=== PATIENT | male | born 1945 | race Caucasian/White ===

== ENCOUNTER → 2018-12-22 13:51 | Outpatient (CLI) | payer MEDICARE, SELFPAY ==
--- NOTE | 2018-12-22 13:54 | CT_ITS ---
CT sinus wo con CLINICAL INDICATION: ITS.REASON: chronic congestion/nasal drainage ORDERING PHYSICIAN: Rocio Montes MD PATIENT AGE: 73 years COMPARISON: None TECHNIQUE:Axial images obtained with sagittal and coronal reformats. All CT scans at the facility use one or more dose reduction, viz: automated exposure control, ma/kV adjustment per patient size (including targeted exams where dose is matched to indication, i.e. head), or iterative reconstruction technique. FINDINGS: There is mild mucosal thickening of the ethmoid sinuses. The frontal sinuses have an unremarkable appearance. There are very small air-fluid levels within the maxillary and sphenoid sinus with no significant mucosal thickening of the sinuses. The ostiomeatal units are patent. There is mild leftward nasal septal deviation with a moderate size septal spur which projects toward the left and may be causing some nasal canal narrowing. The mastoid sinuses are unremarkable. The right middle ear has an unremarkable appearance. There is thickening of the left tympanic membrane. No fluid evident within the left middle ear. The globes have an unremarkable appearance. IMPRESSION: 1. There is minimal ethmoid sinus mucosal thickening and there are tiny air-fluid levels within the maxillary sinuses and sphenoid sinus without significant mucosal thickening. 2. Thickened left tympanic membrane 3. Leftward nasal septal deviation with prominent nasal spur projecting toward the left
== END ==
PROVIDERS: PCP Family Medicine; Visit Provider Specialist
DX: G47.33 Obstructive sleep apnea (adult) (pediatric) (principal); J30.0 Vasomotor rhinitis; J34.89 Other specified disorders of nose and nasal sinuses
CPT/HCPCS: 70486

== ENCOUNTER → 2020-04-28 14:20 | Outpatient (CLI) | payer MEDICARE, SELFPAY ==
[2020-04-28 16:19] LABS: Coronavirus 19 IgG Antibody Negative (Negative); Coronavirus 19 IgM Antibody Negative (Negative)
== END ==
PROVIDERS: Visit Provider Nurse Practitioner Family
DX: Z03.818 Encounter for observation for suspected exposure to other biological agents ruled out (principal)
CPT/HCPCS: 36415; 86328

== ENCOUNTER → 2020-04-29 20:00 | Outpatient (CLI) | payer MEDICARE, SELFPAY | PROVIDERS: PCP Family Medicine; Visit Provider Nurse Practitioner Family | DX: G47.33 Obstructive sleep apnea (adult) (pediatric) (principal) | CPT/HCPCS: 95811 ==

== ENCOUNTER 2023-06-21 06:43 | Day surgery (SDC) | payer MEDICARE, SELFPAY ==
[2023-06-17 11:48] VITALS: BMI 27.2
[2023-06-21] VITALS (8 sets, daily range): BP systolic 141–197; BP diastolic 68–81; PULSE 71–77; RESP 17–19; TEMP 36.3–36.7; O2SAT 98–100
== END 2023-06-21 08:58 | disposition home or self-care (01) ==
PROVIDERS: PCP Family Medicine; Visit Provider Ophthalmology
PROC: (CPT 66984; principal; 2023-06-21 08:00)
DX: H25.812 Combined forms of age-related cataract, left eye (principal)
CPT/HCPCS: 66984; V2632

== ENCOUNTER 2023-07-19 06:39 | Day surgery (SDC) | payer MEDICARE, SELFPAY ==
[2023-07-19] VITALS (7 sets, daily range): BP systolic 124–145; BP diastolic 55–72; PULSE 71–76; RESP 16–18; TEMP 36.4; O2SAT 97–100; BMI 30.1
[2023-07-19] MEDS: CYCLOPENTOLATE 2% OPHTH SOLN 2ML BOTTLE OP ×3 (06:53→06:54)
[2023-07-19] MEDS: TETRACAINE 0.5% OPTH SOL 15ML OP ×3 (06:53→06:54)
[2023-07-19] MEDS: PHENYLEPHRINE 2.5% OPHTH SOLN 2ML 0.0500000000000000028 ML OP ×3 (06:53→06:54)
[2023-07-19] MEDS: MIDAZOLAM 2MG/2ML VIAL 1 MG IV (08:17)
[2023-07-19] MEDS: SODIUM CHLORIDE 0.9% 10ML FLUSH SYRINGE 10 ML IV (08:17)
[2023-07-19] MEDS: LIDOCAINE 1% PF 2ML AMPULE 2 ML IJ (08:25)
[2023-07-19] MEDS: TIMOLOL 0.5% OPTH SOLN 5ML OP (08:25)
[2023-07-19] MEDS: TOBRAMYCIN/DEX OPTH SUSP 2.5ML OP (08:25)
== END 2023-07-19 08:54 | disposition home or self-care (01) ==
PROVIDERS: PCP Family Medicine; Visit Provider Ophthalmology
PROC: (CPT 66984; principal; 2023-07-19 08:00)
DX: H25.811 Combined forms of age-related cataract, right eye (principal)
CPT/HCPCS: 66984; V2632

== ENCOUNTER 2024-01-07 16:14 | Observation (INO) | payer MEDICARE, SELFPAY ==
[2024-01-07] VITALS (7 sets, daily range): BP systolic 92–151; BP diastolic 37–85; PULSE 67–85; RESP 16–20; TEMP 36.4–36.7; O2SAT 94–99; BMI 28.7; BMI 27.8
--- NOTE | 2024-01-07 16:13 | PC.NURSE ---
staff at [facility]
--- NOTE | 2024-01-07 16:20 | ECG_ITS ---
APPROVED REPORT Exam: Resting ECG HR:70 bpm ECG Measurements Heart Rate 70 AXES IA 195 P 62 QRSd 91 QRS 1 QT 405 T 51 QTc 427 Conclusion SINUS RHYTHM Electronically signed by : DALE ALDRICH, 01/09/2024 15:01:39
--- NOTE | 2024-01-07 16:33 | HMH.EDGENADL ---
Discharge Plan Disposition Patient Disposition: Admitted Clinical Impressions Clinical Impression: New onset of congestive heart failure, Syncope Discharge ED Provider: Lionel Graf General Adult HPI General Chief complaint: Syncope Stated complaint: SYNCOPE Time Seen by Provider: 01/07/24 16:29 Mode of Arrival: EMS Source of Information: Patient, Relative and EMS Limitations: No Limitations Description of Symptoms (Recalled from ER Triage Doc. by RN): pt went outside to warm up after jaylene cold in the house and was sitting on deck and family witnessed him passing out /syncope episode, pt came to per Ems ananswered all questions however was hypotensive with 80/40, pt has hx of hypertension,. pt was NSR adn fbs was 128 per ems. pt complains of fatigue and no pain anywhere, denies any soa or chest pain History of Present Illness HPI narrative: Please note that above description of symptoms, in this electronic medical record under categorization of recalled from ER triage doctor by RN are reflective of an initial nursing assessment, however, is not reflective of my full history and physical exam that was personally taken and clarified. Consequentially, this preceding description of symptoms, which may include the patient's categorized chief complaint in the EMR, do not reflect my personal clinical impression, and the ultimate description of history of present illness and patient stated complaints should be deferred to this section of the note. Unless stated otherwise or congruent with this section of the note, additional signs, symptoms, or incongruence should be interpreted as inaccurate with my clinical impression. Related Data Home Medications Medication Instructions Recorded Confirmed atorvastatin 40 mg tablet 40 mg PO QHS 01/14/20 06/21/23 loratadine 10 mg tablet 10 mg PO DAILY 01/14/20 06/21/23 losartan 25 mg tablet 25 mg PO DAILY 01/14/20 06/21/23 metoprolol succinate 50 mg 50 mg PO DAILY 09/24/20 06/21/23 tablet,extended release 24 hr levothyroxine 25 mcg tablet 25 mcg PO DAILY 07/19/23 07/19/23 Previous Rx's Medication Instructions Recorded ipratropium bromide 21 mcg (0.03 2 spray intranasal TID PRN 05/21/ %) nasal spray rhinorrhea #30 mL cyproheptadine 4 mg tablet 4 mg PO BID #60 tabs 09/24/20 Allergies Allergy/AdvReac Type Severity Reaction Status Date / Time No Known Allergies Allergy Verified 07/19/23 06:57 [facility] Disclaimer: The information contained in this section may have been updated after the patient was seen, as this information can be updated by other users. Medical History (Updated 01/07/24 @ 18:15 by Lionel Graf MD) History of hyperlipidemia History of hypertension Surgical History No significant past surgical history Family History Other No significant family history Social History Smoking Status: Never smoker alcohol intake: current alcohol intake frequency: 3 or more drinks per day substance use type: denies use current occupational status: retired Travel in the last 8 weeks: None household members: spouse housing: house ROS Obtained: Yes All systems reviewed & no additional complaints except as documented Physical Exam General General appearance: alert and in no apparent distress Head Head exam: atraumatic and normocephalic Eye Eye exam: Present normal appearance, PERRL and EOMI ENT ENT exam: Present mucous membranes moist Neck Neck exam: Present normal inspection, full ROM and trachea midline Respiratory Respiratory exam: Absent respiratory distress, wheezes, stridor, accessory muscle use or prolonged expiratory phase Cardiovascular Cardiovascular exam: Present normal rhythm Abdominal Exam Abdominal exam: Present soft; Absent distention, tenderness, guarding, rebound or rigidity Extremities Exam Extremities exam: Absent edema Neurological Exam Neurological exam: Present alert, oriented X3, CN II-XII intact and normal gait; Absent motor sensory deficit Skin Skin exam: Present warm and dry; Absent diaphoresis or erythema Medical Decision Making Medical Records Medical records reviewed: Yes I reviewed the patient's medical records. Chun Inquiry Pt receiving controlled substance: No Chun was queried for this patient: No Vital Signs: 01/07/24 16:14 01/07/24 16:15 01/07/24 16:30 Temperature 98.1 F Temperature Source Oral Pulse Rate 67 71 Pulse Rate [Right Radial] 71 Respiratory Rate 20 Blood Pressure 92/37 L 102/48 L Blood Pressure [Right Arm] 92/37 L Blood Pressure Mean [Right Arm] 55 02 Sat by Pulse Oximetry 94 L 98 95 Oxygen Delivery Method Room Air Room Air Room Air 01/07/24 17:00 Temperature Temperature Source Pulse Rate 71 Pulse Rate [Right Radial] Respiratory Rate 16 Blood Pressure 115/58 L Blood Pressure [Right Arm] Blood Pressure Mean [Right Arm] 02 Sat by Pulse Oximetry 99 Oxygen Delivery Method Room Air Lab Data Lab Results 01/07/24 16:30: WBC 4.2 L, RBC 3.28 L, Hgb 10.7 L, Hct 32.2 L, MCV 98.0 H, MCH 32.7 H, MCHC 33.3, RDW 15.1, Plt Count 157, MPV 8.7, Neut % (Auto) 45.1, Lymph % (Auto) 36.4, [place] % (Auto) 7.3, Eos % (Auto) 10.0, Baso % (Auto) 1.2, Neut # (Auto) 1.9, Lymph # (Auto) 1.5, [place] # (Auto) 0.3, Eos # (Auto) 0.4, Baso # (Auto) 0.1, Sodium 131 L, Potassium 4.1, Chloride 99, Carbon Dioxide 25, Anion Gap 11.1, BUN 11, Creatinine 1.60 H, Estimated Creat Clear 49, Estimated GFR 42 L, Est GFR ( Amer) 51 L, Glucose 93, Calcium 8.9, Total Bilirubin 0.9, AST 54, ALT 26, Alkaline Phosphatase 109, Troponin I < 0.01, NT-Pro-B Natriuret Pep 961 H, Total Protein 5.8 L, Albumin 3.1 L, Globulin 2.7, Albumin/Globulin Ratio 1.1 01/07/24 16:30 01/07/24 16:30 Orders (Tests/Meds): ED MEDICATIONS Generic Name Dose Route Start Last Admin Trade Name Freq PRN Reason Stop Dose Admin Multivitamins 10 ml/ Thiamine 1,015 mls @ 500 mls/hr 01/07/24 16:47 01/07/24 16:53 HCl 100 mg/ Magnesium Sulfate IV 01/07/24 18:48 500 mls/hr 2 gm/ Lactated Ringer's .Q2H2M ONE Administration Discontinued Medications Generic Name Dose Route Start Last Admin Trade Name Freq PRN Reason Stop Dose Admin Lactated Ringer's 500 mls @ 999 mls/hr 01/07/24 16:44 01/07/24 16:50 Lactated Ringer's 500ml IV 01/07/24 17:14 Not Given .Q31M ONE ORDERS Category Date Time Status CXR --portable [XR chest portable] Stat Exams 01/07/24 16:43 Completed CBC w/Auto Diff [Complete Blood Count Auto Diff] Stat Lab 01/07/24 16:30 Completed CMP [Comprehensive Metabolic Panel] Stat Lab 01/07/24 16:30 Results NT Pro Brain Natriuretic Pep. Stat Lab 01/07/24 16:30 Completed T4 (Thyroxine) Stat Lab 01/07/24 16:30 Results TSH [Thyroid Stimulating Hormone] Stat Lab 01/07/24 16:30 Results Trop I [Troponin I] Stat Lab 01/07/24 16:30 Results Troponin I Q3H Lab 01/07/24 19:45 Ordered Troponin I Q3H Lab 01/07/24 22:45 Ordered Medical Decision Narrative: 78-year-old male history of hypertension, hyperlipidemia, hypothyroidism, presenting with syncopal episode versus heat exhaustion. Patient was sitting outside in the shade in the heat with heat index 105 ?F earlier today. Family went out to try to get him inside given the heat index shortly thereafter. They realize that he was unresponsive, but were able to wake him after jostling him for a couple of minutes. Unable to help him stand, he was disoriented, EMS was contacted. EMS states that glucose was normal, patient mildly hypotensive on their arrival. Stroke symptoms were absent at that time. Patient brought to the emergency department. On arrival, family states that patient looks and sounds a lot better. Patient denying any pain at this time. History was obtained via conversation with patient and family. On arrival, patient hemodynamically stable, alert, oriented x4, appropriate, GCS 15, moving all extremities spontaneously, pupils equal and reactive to light. Full physical exam performed and significant for NIHSS 0. Cardiopulmonary exam within normal limits without extracardiac sounds. Patient does have 2+ lower extremity pitting edema. Pulses equal and symmetric. Abdomen soft, nontender, nondistended. Patient is producing tears and does not have dry mucous membranes. Differential includes ACS, MN, arrhythmia, CHF, critical valvular stenosis, metabolic abnormality, orthostatic, vasovagal, among others. Independent interpretation of EKG shows sinus rhythm 70 beats a minute without ST or T wave changes concerning for acute ischemia. SD, QRS, QT intervals 195, 91, 427, respectively. Leftward axis. Patient was given rally pack for symptomatic management and correction of underlying abnormalities, after further conversation reveals that patient has not been taking his thyroid medications and has been drinking alcohol daily. Last drink yesterday, 01/05. Workup independently interpreted and significant for nonactionable CBC. JEROMY with creatinine 1.6 up from unknown baseline. Patient's BNP elevated almost at thousand. Initial troponin negative. Chest x-ray without acute cardiopulmonary airspace disease. See radiology read for full review of final results. Heart score 5. On reevaluation, patient resting comfortably, family states that he is basically back to baseline, but still appears incredibly weak. Patient does not want to be admitted, but conversation was had with family regarding admission versus home-going and risks of home-going were discussed with patient and family. Ultimately, patient and family decided for admission, diuresis, further cardiac monitoring and management. Because patient high risk for clinical decompensation, deemed appropriate for inpatient admission. Results were relayed to patient who voiced understanding and patient was agreeable to inpatient admission and management. Patient was admitted to the hospital for further definitive management. Test Engineer disclaimer Much of this encounter note is an electronic slip cover maker spoken language to printed text. Electronic slip cover maker of the spoken language may permit errors. Although I have reviewed the note, some errors may still exist. Critical Care Critical Care Time Critical Care Time: No
--- NOTE | 2024-01-07 16:43 | XR_ITS ---
PROCEDURE INFORMATION: Exam: XR Chest Exam date and time: 01/07/2024 4:53 PM Age: 78 years old Clinical indication: Other: Syncope; Additional info: Syncope, disorientation TECHNIQUE: Imaging protocol: Radiologic exam of the chest. Views: 1 view. COMPARISON: No relevant prior studies available. FINDINGS: Lungs: Imaging through the visualized lung mosqueda demonstrates mild bibasilar subsegmental atelectasis. Pleural spaces: Unremarkable. No pleural effusion. No pneumothorax. Heart/Mediastinum: Unremarkable. No cardiomegaly. Bones/joints: Unremarkable. IMPRESSION: Imaging through the visualized lung mosqueda demonstrates mild bibasilar subsegmental atelectasis. No acute infiltrates.
[2024-01-07 16:52] LABS: Basophils # 0.1 K/mm3 (0-0.2); Basophils % 1.2 % (0.1-2.0); Eosinophils # 0.4 K/mm3 (0.0-0.4); Hematocrit 32.2 % (42.0-52.0); Hemoglobin 10.7 g/dL (14.1-18.0); Lymphocytes # 1.5 K/mm3 (0.7-4.5); Lymphocytes % 36.4 % (10-50); Mean Corpuscular HGB Conc 33.3 g/dL (31.8-35.4); Mean Corpuscular Hemoglobin 32.7 pg (27.0-31.2); Mean Platelet Volume 8.7 fl (7.4-10.4); Monocytes # 0.3 K/mm3 (0.1-1.0); Monocytes % 7.3 % (1.7-9.3); Neutrophils # 1.9 K/mm3 (1.8-7.8); Neutrophils % 45.1 % (37.0-80.0); Platelet Count 157 K/mm3 (142-424); Red Blood Count 3.28 M/mm3 (4.60-6.20); Red Cell Distribution Width 15.1 % (11.5-17.5); White Blood Count 4.2 K/mm3 (4.8-10.8)
[2024-01-07 16:53] LABS: Chloride 99 mmol/L (98-107)
[2024-01-07] MEDS: MVI, ADULT NO.1 WITH VIT K 10 ML, THIAMINE HCL 100 MG, MAGNESIUM SULFATE 2 GM in LACTAT... 500 ML IV (16:53)
[2024-01-07 16:54] LABS: Potassium 4.1 mmoL/L (3.5-5.1); Sodium 131 mmol/L (136-145)
[2024-01-07 16:56] LABS: Alanine Aminotransferase 26 U/L (12-78); Aspartate Amino Transferase 54 U/L (17-59); Blood Urea Nitrogen 11 mg/dl (9-20); Creatinine Clearance Estimated 49 mL/min (50-200); Estimated Glomerular Filt Rate 42 ml/min (>60); GFR (African American) 51 ML/MIN (>60)
[2024-01-07 16:57] LABS: Albumin Level 3.1 g/dl (3.5-5.0); Albumin/Globulin Ratio 1.1 (1.1-1.8); Alkaline Phosphatase 109 U/L (38-126); Anion Gap 11.1 mEq/L (5-15); Bilirubin,Total 0.9 mg/dl (0.2-1.3); Calcium 8.9 mg/dl (8.4-10.2); Carbon Dioxide 25 mmol/L (22.0-30.0); Globulin 2.7 g/dL (1.3-3.2); Glucose 93 mg/dl (74-100); Total Protein,Serum 5.8 g/dl (6.3-8.2)
[2024-01-07 17:06] LABS: NT Pro Brain Natriuretic Pep. 961 pg/mL (0-450)
[2024-01-07 17:10] LABS: Troponin I < 0.01 ng/ml (0.00-0.034)
[2024-01-07 18:00] LABS: Thyroid Stimulating Hormone 4.31 uIU/mL (0.465-4.68)
--- NOTE | 2024-01-07 18:14 | PC.NURSE ---
DR ALDRICH SPEAKING WITH DR ALANIS
--- NOTE | 2024-01-07 18:15 | PC.NURSE ---
[facility] NOTIFIED OF ADMISSION
--- NOTE | 2024-01-07 18:27 | PC.NURSE ---
called report to ej millan on 2nd floor and answered all questions
[2024-01-07] MEDS: HEPARIN SODIUM 5,000 UNIT/ML VIAL 5000 UNIT SQ (18:48)
[2024-01-07] MEDS: ONDANSETRON 4MG/2ML VIAL 4 MG IV (19:13)
--- NOTE | 2024-01-07 19:57 | P.HP_ITS ---
History of Present Illness *Admission Date: 01/07/24 *Reason for visit:: syncope *History of present illness: This is a 78-year-old male with PMHx of hypertension, hyperlipidemia, hypothyroidism, JOELLE brought in for evaluation of an episode of syncope versus heat exhaustion. History obtained form patient. Patient reported was sitting outside in the shade earlier today. patient referred he laid down head on the table. Family went out to try to get him inside given the heat index shortly thereafter. They realize that he was unresponsive, but were able to wake him after jostling him for a couple of minutes. Unable to help him stand, he was disoriented, EMS was contacted. EMS states that glucose was normal, patient mildly hypotensive on their arrival. Stroke symptoms were absent at that time. Admitted for further monitoring and management. [facility] Disclaimer: The information contained in this section may have been updated after the patient was seen, as this information can be updated by other users. Medical History (Updated 01/07/24 @ 21:45 by Justyn Larios APRN) Alcohol abuse Thyroid disease History of hyperlipidemia History of hypertension Surgical History No significant past surgical history Family History (Updated 01/07/24 @ 19:02 by Rocio Muhammad RN) Other Heart attack Hyperlipidemia Hypertension Lung cancer No significant family history Prostate CA Stroke Social History (Updated 01/07/24 @ 19:02 by Roico Muhammad, BRYAN) Smoking Status: Former smoker alcohol intake: current alcohol intake frequency: 3 or more drinks per day substance use type: denies use current occupational status: retired Travel in the last 8 weeks: None household members: spouse housing: house Review of Systems Review of Systems Review of systems:: pertinent systems reviewed and negative unless documented below Meds Home Medications and Allergies Home Medications Medication Instructions Recorded Confirmed Type atorvastatin 40 mg tablet 40 mg PO QHS 01/14/20 01/07/24 History loratadine 10 mg tablet 10 mg PO DAILY 01/14/20 01/07/24 History losartan 25 mg tablet 25 mg PO DAILY 01/14/20 01/07/24 History metoprolol succinate 50 mg 50 mg PO DAILY 09/24/20 01/07/24 History tablet,extended release 24 hr levothyroxine 25 mcg tablet 25 mcg PO DAILY 07/19/23 01/07/24 History New Prescriptions to Start Prescriptions: Allergies Allergy/AdvReac Type Severity Reaction Status Date / Time No Known Allergies Allergy Verified 07/19/23 06:57 Exam Data for Last 24 hours Vital signs and Labs for Last 24 Hours: Temp Pulse Resp BP Pulse Ox O2 Del Method 97.5 F L 83 18 147/85 H 97 Room Air 01/07/24 18:58 01/07/24 18:58 01/07/24 18:58 01/07/24 18:58 01/07/24 18:58 01/07/24 18:58 Laboratory Results - last 24 hr 01/07/24 16:30: WBC 4.2 L, RBC 3.28 L, Hgb 10.7 L, Hct 32.2 L, MCV 98.0 H, MCH 32.7 H, MCHC 33.3, RDW 15.1, Plt Count 157, MPV 8.7, Neut % (Auto) 45.1, Lymph % (Auto) 36.4, [place] % (Auto) 7.3, Eos % (Auto) 10.0, Baso % (Auto) 1.2, Neut # (Auto) 1.9, Lymph # (Auto) 1.5, [place] # (Auto) 0.3, Eos # (Auto) 0.4, Baso # (Auto) 0.1, Sodium 131 L, Potassium 4.1, Chloride 99, Carbon Dioxide 25, Anion Gap 11.1, BUN 11, Creatinine 1.60 H, Estimated Creat Clear 49, Estimated GFR 42 L, Est GFR ( Amer) 51 L, Glucose 93, Calcium 8.9, Total Bilirubin 0.9, AST 54, ALT 26, Alkaline Phosphatase 109, Troponin I < 0.01, NT-Pro-B Natriuret Pep 961 H, Total Protein 5.8 L, Albumin 3.1 L, Globulin 2.7, Albumin/Globulin Ratio 1.1, TSH 4.31, Thyroxine (T4) 7.0 I & O for Last 24 hours: Intake & Output 01/04/24 01/05/24 01/06/24 01/07/24 23:59 23:59 23:59 23:59 Output Total 0 / 0 Balance 0 / 0 Weight 88.054 kg Constitutional Constitutional: no acute distress and cooperative *Routine HEENT Exam Head: Present normocephalic and atraumatic Eye: Present EOMI and PERRL ENT: Present mucous membranes moist *Routine Neck Exam Neck: Present supple; Absent lymphadenopathy *Routine Respiratory Exam Respiratory: Present CTA bilaterally, diminished air movement, normal respiratory effort and symmetric chest movement *Routine Cardiovascular Exam Cardiovascular: Present RRR, Normal S1 and Normal S2 *Routine Abdominal Exam Abdominal: Present soft and normoactive bowel sounds; Absent tenderness *Routine Rectal Exam Rectal:: deferred *Routine Genitalia Exam Genitalia:: deferred *Routine Extremities Exam Extremities: Present edema and full ROM; Absent cyanosis or clubbing *Routine Skin Exam Skin: Present warm; Absent rash *Routine Neurological Exam Neurological: Present alert, oriented X3, normal reflexes, moving all extremities and normal speech Routine Psychiatric Exam Psychiatric: Present normal thought process Assessment and Plan *Assessment and plan (1) Syncope: Status: Acute Qualifiers: Encounter type: initial encounter Syncope type: heat syncope Qualified Code(s): T67.1XXA - Heat syncope, initial encounter Category: Medical Code(s): R55 - Syncope and collapse (2) New onset of congestive heart failure: Status: Acute Category: Medical Code(s): I50.9 - Heart failure, unspecified (3) Anemia: Status: Acute Qualifiers: Anemia type: unspecified type Qualified Code(s): D64.9 - Anemia, unspecified Category: Medical Code(s): D64.9 - Anemia, unspecified (4) JEROMY (acute kidney injury): Status: Acute Category: Medical Code(s): N17.9 - Acute kidney failure, unspecified (5) Thyroid disease: Status: Acute Category: Medical Code(s): E07.9 - Disorder of thyroid, unspecified (6) History of hypertension: Status: Acute Category: Medical Code(s): Z86.79 - Personal history of other diseases of the circulatory system (7) History of hyperlipidemia: Status: Acute Category: Medical Code(s): Z86.39 - Personal history of other endocrine, nutritional and metabolic disease (8) JOELLE (obstructive sleep apnea): Status: Acute Category: Medical Code(s): G47.33 - Obstructive sleep apnea (adult) (pediatric) (9) Alcohol abuse: Status: Acute Category: Social Hx Code(s): F10.10 - Alcohol abuse, uncomplicated Plan 78-year-old male with PMHx of hypertension, hyperlipidemia, hypothyroidism, JOELLE brought in for evaluation of an episode of syncope versus heat exhaution. On arrival, patient hemodynamically stable, alert, oriented x4, appropriate, GCS 15, moving all extremities spontaneously, pupils equal and reactive to light. Full physical exam performed and significant for NIHSS 0. Initial work up included CBC, positive for mild anemia. JEROMY with creatinine 1.6 up from unknown baseline. Patient's BNP elevated almost at thousand. Initial troponin negative. Chest x-ray without acute cardiopulmonary airspace disease. has been drinking alcohol daily. Last drink yesterday, 01/05. On further assessment patient resting comfortable, has no complains, does not want to stay in hospital. On physical exam he does have 2+ lower extremity pitting edema. Discussed with ED for admission versus outpatient management. Due to high risk of decompensation and newly elevated BNP. agreed for inpatient management. Plan as follow: -Syncope: To rule heat syncope versus vasovagal. Elevated BNP with peripheral edema, suspected new onset of CHF: Anemia. Acute kidney injury, likely secondary to dehydration: Admit patient for continuous monitoring. [facility] Started on continuous cardiac telemetry Echo and carotid ultrasound ordered Iron and total binding capacity ordered to workup anemia. To rule out iron deficiency versus anemia of chronic kidney disease history. Continue hydration. Rally pack once EKG with low QRS voltage sinus rhythm no ST changes. Chest x-ray showing bibasilar atelectasis no acute consolidation. Continue monitoring off antibiotic Repeat labs in the morning. Including CBC CMP. Monitor for creatinine and EGFR. Avoid nephrotoxic medication -Chronic conditions: Hypothyroidism, hypertension , hyperlipidemia , JOELLE: Condition reviewed. TSH T4 normal Resume home atorvastatin Synthroid losartan and metoprolol BiPAP as needed -Alcohol abuse: Last drink yesterday Monitor for CIWA. High risk for noncompliant Hypertension subcu for DVT prophylaxis On protonix Full code Regular diet. Accu-Cheks as needed watch for hypoglycemia
[2024-01-07 20:27] LABS: Troponin I < 0.01 ng/ml (0.00-0.034)
[2024-01-07] MEDS: PANTOPRAZOLE 40MG TABLET 40 MG PO (22:24)
[2024-01-07 23:30] LABS: Troponin I < 0.01 ng/ml (0.00-0.034)
[2024-01-08] VITALS: BP 138/70; PULSE 70; PULSE 77; RESP 18; TEMP 36.9; O2SAT 95
[2024-01-08] MEDS: HEPARIN SODIUM 5,000 UNIT/ML VIAL 5000 UNIT SQ ×3 (03:10→18:33)
--- NOTE | 2024-01-08 03:35 | PC.NURSE ---
Patient A&O x 4; VSS. Ambulates to bathroom with standby assist. Patient had 1st CIWA score 0 - 2nd CIWA 7 -dry heaves - pt felt the dry heaving was caused by some drainage and not having any food on his stomach. Bed at lowest level for safety; call light within reach.
[2024-01-08 04:00] VITALS: BP 124/63; PULSE 75; PULSE 80; RESP 18; TEMP 36.9; O2SAT 95; BMI 26.9
[2024-01-08] MEDS: LEVOTHYROXINE 25MCG (0.025MG) TAB 25 MCG PO (06:02)
[2024-01-08 07:28] LABS: Chloride 99 mmol/L (98-107); Potassium 4.2 mmoL/L (3.5-5.1); Sodium 129 mmol/L (136-145)
[2024-01-08 07:31] LABS: Anion Gap 8.2 mEq/L (5-15); Blood Urea Nitrogen 12 mg/dl (9-20); Calcium 9.2 mg/dl (8.4-10.2); Carbon Dioxide 26 mmol/L (22.0-30.0); Creatinine Clearance Estimated 57 mL/min (50-200); Estimated Glomerular Filt Rate 53 ml/min (>60); GFR (African American) 65 ML/MIN (>60); Glucose 113 mg/dl (74-100)
[2024-01-08 07:37] LABS: Basophils % 0.6 % (0.1-2.0); Eosinophils # 0.3 K/mm3 (0.0-0.4); Eosinophils % 5.7 % (0.1-12.0); Hematocrit 29.5 % (42.0-52.0); Hemoglobin 10.1 g/dL (14.1-18.0); Lymphocytes # 1.1 K/mm3 (0.7-4.5); Lymphocytes % 22.7 % (10-50); Mean Corpuscular HGB Conc 34.1 g/dL (31.8-35.4); Mean Corpuscular Hemoglobin 32.6 pg (27.0-31.2); Mean Corpuscular Volume 95.3 fl (80-94); Mean Platelet Volume 8.9 fl (7.4-10.4); Monocytes # 0.3 K/mm3 (0.1-1.0); Monocytes % 6.6 % (1.7-9.3); Neutrophils # 3.1 K/mm3 (1.8-7.8); Neutrophils % 64.3 % (37.0-80.0); Platelet Count 130 K/mm3 (142-424); White Blood Count 4.8 K/mm3 (4.8-10.8)
[2024-01-08 08:00] VITALS: BP 105/63; PULSE 70; PULSE 77; RESP 18; TEMP 37; O2SAT 97
[2024-01-08 08:14] LABS: Iron 102 ug/dL (49-181)
[2024-01-08 08:23] LABS: Total Iron Binding Capacity 172 ug/dL (261-462)
[2024-01-08] MEDS: METOPROLOL SUCCINATE XL 50MG TABLET 50 MG PO (08:28)
[2024-01-08] MEDS: IRBESARTAN 75MG TABLET 37.5 MG PO (08:28)
[2024-01-08] MEDS: LORATADINE 10MG TABLET 10 MG PO (08:28)
[2024-01-08] MEDS: ONDANSETRON 4MG/2ML VIAL 4 MG IV (08:35)
--- NOTE | 2024-01-08 09:14 | HMH.PHAINT1 ---
Pharmacy Intervention Comments: MEDICATION RECONCILIATION COMPLETE USING EXTERNAL PHARMACY FILL HISTORY.
[2024-01-08 12:00] VITALS: PULSE 70
[2024-01-08 16:00] VITALS: BP 129/64; PULSE 67; PULSE 70; RESP 18; TEMP 36.4; O2SAT 97
--- NOTE | 2024-01-08 17:03 | PC.NURSE ---
A&OX4. TOLERATING RA WELL. PT HAS BEEN IN BED RESTING MAJORITY OF SHIFT. HAS HAD NO NEEDS OR C/O THUS FAR. CIWA SCORES HAVE BEEN 0,1,0 THIS SHIFT. PT GOT UP TO THE SHOWER, TOLERATED WELL. IS A X1 ASSIST. HAS BEEN AT BEDSIDE ASSISTING PT MAJORITY OF THIS SHIFT. VSS.
[2024-01-08 20:00] VITALS: BP 138/68; PULSE 75; PULSE 80; RESP 18; TEMP 36.5; O2SAT 98
[2024-01-08] MEDS: ATORVASTATIN 40MG TABLET 40 MG PO (20:12)
[2024-01-08] MEDS: PANTOPRAZOLE 40MG TABLET 40 MG PO (20:12)
[2024-01-09] VITALS: BP 152/61; PULSE 70; PULSE 73; RESP 18; TEMP 36.7; O2SAT 96
--- NOTE | 2024-01-09 | CA_ITS ---
FINAL REPORT TECHNIQUE: Color Doppler, duplex Doppler and compression sonography of the right lower extremity venous system was performed. CLINICAL HISTORY: Right lower extremity edema, syncope, CHF COMPARISON: None FINDINGS: There is no evidence of deep venous thrombosis from the level of the groin to the calf. The veins are patent and compressible. IMPRESSION: No evidence of deep venous thrombosis right lower extremity. Reviewed, Interpreted and Dictated by Reno Masters III, MD Transcribed by Radha Morales Authenticated and . [facility]
[2024-01-09] MEDS: HEPARIN SODIUM 5,000 UNIT/ML VIAL 5000 UNIT SQ ×2 (01:32→12:47)
[2024-01-09 04:00] VITALS: BP 153/76; PULSE 70; PULSE 75; RESP 16; TEMP 36.6; O2SAT 93; BMI 28.0
--- NOTE | 2024-01-09 05:53 | PC.NURSE ---
patient is alert and oriented and on room air. He has slept the majority of the shift. He ambulated to the bathroom once with assist. He has not called out for anything and has no complaints at this time call light within reach.
[2024-01-09] MEDS: LEVOTHYROXINE 25MCG (0.025MG) TAB 25 MCG PO (06:56)
--- NOTE | 2024-01-09 07:45 | P.CONCA_ITS ---
History of Present Illness History of Present Illness Consult date: 01/09/24 Requesting physician: Ana Johnson Chief complaint: syncope History of present illness: This is a 78-year-old white male with past medical history of hypertension, hyperlipidemia, hypothyroidism, obstructive sleep apnea who was brought into ER for evaluation of syncope versus heat exhaustion. Patient reports he got cold in his house so he went outside to warm up and decided to lay his head down on a table to rest for a while. Family later went outside to get him out of concern for the heat and found patient unresponsive. Family reported that patient was d ifficult to arouse for a couple of minutes. Upon arrival of EMS patient was hypotensive. Of note, patient admitted had not been taking thyroid medication and had been drinking alcohol daily with last drink being 01/05. Upon arrival to ER patient report he felt a lot better and was alert and oriented x 4. EKG showed normal sinus rhythm at a rate of 70 without acute ischemic changes noted. Labs were as follow: WBC 4.2, hemoglobin 10.7, sodium 131, potassium 4.1, creatinine 1.6, troponin negative and a BNP of 961 chest x-ray was obtained which showed mild bibasilar subsegmental atelectasis with no infiltrates noted. Patient was admitted for further evaluation and management for JEROMY, generalized weakness, syncope. [facility] Disclaimer: The information contained in this section may have been updated after the patient was seen, as this information can be updated by other users. Medical History (Updated 01/07/24 @ 21:45 by Justyn Larios APRN) Alcohol abuse Thyroid disease History of hyperlipidemia History of hypertension Surgical History No significant past surgical history Family History (Updated 01/07/24 @ 19:02 by Rocio Muhammad RN) Other Heart attack Hyperlipidemia Hypertension Lung cancer No significant family history Prostate CA Stroke Social History (Updated 01/07/24 @ 19:02 by Rocio Muhammad, BRYAN) Smoking Status: Former smoker alcohol intake: current alcohol intake frequency: 3 or more drinks per day substance use type: denies use current occupational status: retired Travel in the last 8 weeks: None household members: spouse housing: house Review of Systems Review of Systems Review of systems:: pertinent systems reviewed and negative unless documented below Constitutional Constitutional: Reports weakness *Neurologic Neurologic: Reports weakness Exam Data for Last 24 hours Vital signs and Labs for Last 24 Hours: Temp Pulse Resp BP Pulse Ox O2 Del Method 97.8 F 75 16 153/76 H 93 L Room Air 01/09/24 04:00 01/09/24 04:00 01/09/24 04:00 01/09/24 04:00 01/09/24 04:00 01/09/24 07:33 Laboratory Results - last 24 hr 01/08/24 06:45: Iron 102, TIBC 172 L, Iron Saturation 59.97706 H I & O for Last 24 hours: Intake & Output 01/06/24 01/07/24 01/08/24 01/09/24 23:59 23:59 23:59 23:59 Intake Total 1550 / 1550 Output Total 375 / 575 900 / 900 400 / 400 Balance -375 / 425 650 / 650 -400 / -400 Weight 194 lb 2 oz 188 lb 4 oz 196 lb Constitutional Constitutional: no acute distress *Routine Respiratory Exam Respiratory: Present CTA bilaterally and symmetric chest movement *Routine Cardiovascular Exam Cardiovascular: Present RRR, Normal S1 and Normal S2 *Routine Abdominal Exam Abdominal: Present soft and normoactive bowel sounds; Absent tenderness *Routine Extremities Exam Extremities: Present edema, full ROM and normal capillary refill Comments: Mild lower extremity edema present *Routine Skin Exam Skin: Present intact, dry and warm Detailed Neck Exam: Thyroids Thyroid: Absent bruit Meds Home Medications and Allergies Home Medications Medication Instructions Recorded Confirmed Type atorvastatin 40 mg tablet 40 mg PO HS 01/14/20 01/08/24 History losartan 25 mg tablet 25 mg PO DAILY 01/14/20 01/08/24 History metoprolol succinate 50 mg 50 mg PO DAILY 09/24/20 01/08/24 History tablet,extended release 24 hr levothyroxine 25 mcg tablet 25 mcg PO DAILYDM 07/19/23 01/08/24 History New Prescriptions to Start Prescriptions: Allergies Allergy/AdvReac Type Severity Reaction Status Date / Time No Known Allergies Allergy Verified 07/19/23 06:57 Assessment and Plan *Assessment and plan (1) JEROMY (acute kidney injury): Status: Acute Category: Medical Code(s): N17.9 - Acute kidney failure, unspecified (2) History of hypertension: Status: Acute Category: Medical Code(s): Z86.79 - Personal history of other diseases of the circulatory system (3) History of hyperlipidemia: Status: Acute Category: Medical Code(s): Z86.39 - Personal history of other endocrine, nutritional and metabolic disease (4) Alcohol abuse: Status: Acute Category: Social Hx Code(s): F10.10 - Alcohol abuse, uncomplicated (5) Syncope: Status: Acute Qualifiers: Encounter type: initial encounter Syncope type: heat syncope Qualified Code(s): T67.1XXA - Heat syncope, initial encounter Category: Medical Code(s): R55 - Syncope and collapse Plan Questionable syncope Heat exhaustion Medication noncompliance Alcohol abuse Echocardiogram 01/08/2023: Normal biventricular systolic function, biatrial dilation, AV appears possible either anatomically or functionally bicuspid no evidence of aortic stenosis, mild TR, mild MS Carotid duplex: Less than 50% bilateral carotid stenosis Patient will need 2-week event monitor prior to discharge home Last drink 01/05 JEROMY Dehydration Creatinine 1.6 on admission improving 1.3 Hypertension Increase irbesartan to 75mg daily metoprolol Succinate 50 mg daily Hyperlipidemia Continue atorvastatin 40 mg daily CV summary 01/09/2024: Patient does not appear volume overloaded at this time. Denies chest pain or soa. Patient is CV stable for discharge home. Please DC home patient in a 2-week event monitor for further evaluation and have patient follow-up in cardiology clinic in 1 week for reevaluation. CV meds for discharge: Irbesartan 75 mg p.o. daily Toprol succinate 50 mg daily Atorvastatin 40 mg daily
[2024-01-09 07:57] LABS: Basophils % 0.5 % (0.1-2.0); Eosinophils # 0.3 K/mm3 (0.0-0.4); Eosinophils % 7.5 % (0.1-12.0); Hemoglobin 10.6 g/dL (14.1-18.0); Lymphocytes # 1.5 K/mm3 (0.7-4.5); Lymphocytes % 33.5 % (10-50); Mean Corpuscular HGB Conc 33.1 g/dL (31.8-35.4); Mean Corpuscular Hemoglobin 32.9 pg (27.0-31.2); Mean Corpuscular Volume 99.3 fl (80-94); Mean Platelet Volume 9.1 fl (7.4-10.4); Monocytes # 0.3 K/mm3 (0.1-1.0); Monocytes % 7.2 % (1.7-9.3); Neutrophils # 2.3 K/mm3 (1.8-7.8); Neutrophils % 51.3 % (37.0-80.0); Platelet Count 122 K/mm3 (142-424); Red Blood Count 3.22 M/mm3 (4.60-6.20); Red Cell Distribution Width 15.1 % (11.5-17.5); White Blood Count 4.4 K/mm3 (4.8-10.8)
[2024-01-09 08:00] VITALS: BP 152/72; PULSE 75; RESP 18; TEMP 36.6; O2SAT 97
[2024-01-09 08:07] LABS: Chloride 99 mmol/L (98-107); Potassium 3.9 mmoL/L (3.5-5.1); Sodium 129 mmol/L (136-145)
[2024-01-09 08:10] LABS: Alanine Aminotransferase 24 U/L (12-78); Albumin Level 2.9 g/dl (3.5-5.0); Alkaline Phosphatase 111 U/L (38-126); Anion Gap 9.9 mEq/L (5-15); Aspartate Amino Transferase 51 U/L (17-59); Bilirubin,Total 1.8 mg/dl (0.2-1.3); Blood Urea Nitrogen 10 mg/dl (9-20); Carbon Dioxide 24 mmol/L (22.0-30.0); Cholesterol 144 mg/dl (140-200); Creatinine Clearance Estimated 59 mL/min (50-200); Estimated Glomerular Filt Rate 53 ml/min (>60); GFR (African American) 65 ML/MIN (>60); Globulin 2.9 g/dL (1.3-3.2); Glucose 99 mg/dl (74-100); Total Protein,Serum 5.8 g/dl (6.3-8.2); Triglycerides 62 mg/dl (30-150); VLDL Cholesterol 12 mg/dL (0-40)
[2024-01-09 08:11] LABS: Chol/HDL Ratio 1.6 (1-3.5); HDL Cholesterol 89 mg/dl (40-60); Magnesium 1.5 mg/dl (1.6-2.3)
[2024-01-09 08:19] LABS: NT Pro Brain Natriuretic Pep. 3810 pg/mL (0-450)
[2024-01-09 08:22] LABS: Direct LDL Cholesterol 46.11 mg/dL (100-129)
[2024-01-09] MEDS: LORATADINE 10MG TABLET 10 MG PO (08:43)
[2024-01-09] MEDS: METOPROLOL SUCCINATE XL 50MG TABLET 50 MG PO (08:43)
[2024-01-09] MEDS: IRBESARTAN 75MG TABLET 37.5 MG PO (08:43)
[2024-01-09] MEDS: ACETAMINOPHEN 325MG TAB 650 MG PO (08:54)
--- NOTE | 2024-01-09 11:44 | P.DS_ITS ---
General Admission date:: 01/07/24 Discharge date: 01/09/24 HPI HPI HPI: This is a 78-year-old male with PMHx of hypertension, hyperlipidemia, hypothyroidism, JOELLE brought in for evaluation of an episode of syncope versus heat exhaustion. History obtained form patient. Patient reported was sitting outside in the shade earlier today. patient referred he laid down head on the table. Family went out to try to get him inside given the heat index shortly thereafter. They realize that he was unresponsive, but were able to wake him after jostling him for a couple of minutes. Unable to help him stand, he was disoriented, EMS was contacted. EMS states that glucose was normal, patient mildly hypotensive on their arrival. Stroke symptoms were absent at that time. Admitted for further monitoring and management. Hospital Course Hospital Course Hospital Course: 78-year-old male with PMHx of hypertension, hyperlipidemia, hypothyroidism, JOELLE brought in for evaluation of an episode of syncope versus heat exhaution. On arrival, patient hemodynamically stable, alert, oriented x4, appropriate, GCS 15, moving all extremities spontaneously, pupils equal and reactive to light. Full physical exam performed and significant for NIHSS 0. Initial work up included CBC, positive for mild anemia. JEROMY with creatinine 1.6 up from unknown baseline. Patient's BNP elevated almost at thousand. Initial troponin negative. Chest x-ray without acute cardiopulmonary airspace disease. has been drinking alcohol daily. Last drink yesterday, 01/05. On further assessment patient resting comfortable, has no complains, does not want to stay in hospital. On physical exam he does have 2+ lower extremity pitting edema. Discussed with ED for admission versus outpatient management. Due to high risk of decompensation and newly elevated BNP. agreed for inpatient management. Cardiology consulted and evaluated patient. Workup relatively unremarkable. Concern for component of dehydration and alcohol dependence underlying his syncopal event. Counseled on need to stop drinking. Patient goes through 1-2 1.75 L bottles a month. Given clinical stability, stable to discharge home with outpatient cardiology follow-up. Problems addressed as follows: Syncope Heat exhaustion Medication noncompliance Hypertension Presented with syncopal type event. Differential includes among others: Dehydration, arrhythmia, CHF. Cardiology consulted to assist with care. Echocardiogram 01/08/2023: Normal biventricular systolic function, biatrial dilation, AV appears possible either anatomically or functionally bicuspid no evidence of aortic stenosis, mild TR, mild MS. Carotid duplex: Less than 50% bi lateral carotid stenosis. Patient would benefit from event monitor prior to discharge home. Had an element of dehydration on presentation, see below. Found to have elevated BNP of 3000 on day of discharge. No shortness of breath or chest pain. Does not have clinical signs of volume overload or CHF exacerbation. Will continue metoprolol succinate 50 mg daily, Lipitor 40 mg daily, and resume losartan 25 mg daily. JEROMY Dehydration Creatinine 1.6 on admission improved to 1.3. Appears hydrated on day of discharge. Hyperlipidemia: Continue atorvastatin 40 mg daily Hypothyroid: TSH and T4 normal. Continue levothyroxine 25 mcg daily. Alcohol abuse: On further history, patient drinks 1 to 2 1.75 L bottles a month . No signs of withdrawal during admission. Counseled on need to cut down if not stop drinking. Strong concern this underlies his syncopal event. Patient does not appear to recognize his alcohol dependence. States he does not buy alcohol that often, but reports he buys a case every 2 to 3 months, that entails 6 bottles per case Total time spent on discharge 32 minutes in counseling, documentation, chart review, and direct care with patient. Exam Data for Last 24 hours Vital signs and Labs for Last 24 Hours: Temp Pulse Resp BP Pulse Ox O2 Del Method 97.9 F 75 18 152/72 H 97 Room Air 01/09/24 08:00 01/09/24 08:00 01/09/24 08:00 01/09/24 08:00 01/09/24 08:00 01/09/24 09:00 Laboratory Results - last 24 hr 01/09/24 07:38: WBC 4.4 L, RBC 3.22 L, Hgb 10.6 L, Hct 32.0 L, MCV 99.3 H, MCH 32.9 H, MCHC 33.1, RDW 15.1, Plt Count 122 L, MPV 9.1, Neut % (Auto) 51.3, Lymph % (Auto) 33.5, [place] % (Auto) 7.2, Eos % (Auto) 7.5, Baso % (Auto) 0.5, Neut # (Auto) 2.3, Lymph # (Auto) 1.5, [place] # (Auto) 0.3, Eos # (Auto) 0.3, Baso # (Auto) 0.0, Sodium 129 L, Potassium 3.9, Chloride 99, Carbon Dioxide 24, Anion Gap 9.9, BUN 10, Creatinine 1.30 H, Estimated Creat Clear 59, Estimated GFR 53 L , Est GFR ( Amer) 65, Glucose 99, Calcium 9.0, Magnesium 1.5 L, Total Bilirubin 1.8 H, AST 51, ALT 24, Alkaline Phosphatase 111, NT-Pro-B Natriuret Pep 3810 H, Total Protein 5.8 L, Albumin 2.9 L, Globulin 2.9, Albumin/Globulin Ratio 1.0 L, Triglycerides 62, Cholesterol 144, LDL Cholesterol Direct 46.11 L, VLDL Cholesterol 12, HDL Cholesterol 89 H, Cholesterol/HDL Ratio 1.6 I & O for Last 24 hours: Intake & Output 01/06/24 01/07/24 01/08/24 01/09/24 23:59 23:59 23:59 23:59 Intake Total 1550 / 1550 Output Total 375 / 575 900 / 900 400 / 400 Balance -375 / 425 650 / 650 -400 / -400 Weight 88.054 kg 85.389 kg 88.904 kg Constitutional Constitutional: no acute distress, average body habitus, chronically ill appearing and cooperative *Routine HEENT Exam Head: Present normocephalic Eye: Present EOMI and PERRL ENT: Present mucous membranes moist *Routine Neck Exam Neck: Present supple; Absent lymphadenopathy *Routine Respiratory Exam Respiratory: Present CTA bilaterally; Absent rhonchi, wheezes or crackles *Routine Cardiovascular Exam Cardiovascular: Present RRR *Routine Abdominal Exam Abdominal: Present soft and normoactive bowel sounds; Absent tenderness *Routine Rectal Exam Patient deferred: visual exam *Routine Exam Patient deferred: penile exam *Routine Extremities Exam Extremities: Present edema (1+ BLE); Absent cyanosis or clubbing *Routine Skin Exam Skin: Present intact and warm; Absent rash *Routine Neurological Exam Neurological: Present alert, oriented X3 and moving all extremities; Absent al tered mental status Results Data Completed and Pending Labs on day of discharge: Labs from last 24 hours 01/09/24 07:38 WBC 4.4 L RBC 3.22 L Hgb 10.6 L Hct 32.0 L MCV 99.3 H MCH 32.9 H MCHC 33.1 RDW 15.1 Plt Count 122 L MPV 9.1 Neut % (Auto) 51.3 Lymph % (Auto) 33.5 [place] % (Auto) 7.2 Eos % (Auto) 7.5 Baso % (Auto) 0.5 Neut # (Auto) 2.3 Lymph # (Auto) 1.5 [place] # (Auto) 0.3 Eos # (Auto) 0.3 Baso # (Auto) 0.0 Sodium 129 L Potassium 3.9 Chloride 99 Carbon Dioxide 24 Anion Gap 9.9 BUN 10 Creatinine 1.30 H Estimated Creat Clear 59 Estimated GFR 53 L Est GFR ( Amer) 65 Glucose 99 Calcium 9.0 Magnesium 1.5 L Total Bilirubin 1.8 H AST 51 ALT 24 Alkaline Phosphatase 111 NT-Pro-B Natriuret Pep 3810 H Total Protein 5.8 L Albumin 2.9 L Globulin 2.9 Albumin/Globulin Ratio 1.0 L Triglycerides 62 Cholesterol 144 LDL Cholesterol Direct 46.11 L VLDL Cholesterol 12 HDL Cholesterol 89 H Cholesterol/HDL Ratio 1.6 DS: Diagnosis Discharge Diagnosis (1) JEROMY (acute kidney injury): Status: Acute Code(s): N17.9 - Acute kidney failure, unspecified (2) History of hypertension: Status: Acute Code(s): Z86.79 - Personal history of other diseases of the circulatory system (3) History of hyperlipidemia: Status: Acute Code(s): Z86.39 - Personal history of other endocrine, nutritional and metabolic disease (4) Alcohol abuse: Status: Acute Code(s): F10.10 - Alcohol abuse, uncomplicated (5) Syncope: Status: Acute Code(s): R55 - Syncope and collapse Qualifiers: Encounter type: initial encounter Syncope type: heat syncope Qualified Code(s): T67.1XXA - Heat syncope, initial encounter (6) Hypothyroid: Status: Acute Code(s): E03.9 - Hypothyroidism, unspecified Meds Home Medications and Allergies Home Medications Medication Instructions Recorded Confirmed Type atorvastatin 40 mg tablet 40 mg PO HS 01/14/20 01/08/24 History losartan 25 mg tablet 25 mg PO DAILY 01/14/20 01/08/24 History metoprolol succinate 50 mg 50 mg PO DAILY 09/24/20 01/08/24 History tablet,extended release 24 hr levothyroxine 25 mcg tablet 25 mcg PO DAILYDM 30 days #30 tabs 01/09/24 Rx New Prescriptions to Start Prescriptions: levothyroxine Santiago Siddiqui Allergies Allergy/AdvReac Type Severity Reaction Status Date / Time No Known Allergies Allergy Verified 07/19/23 06:57 Discharge Plan Disposition Patient Disposition: Home, Self-Care Condition: Fair Follow up Plan Follow up with: Louis Shrestha [Primary Care Provider] - 01/16/24 10:45 am Nash Niño MD [Staff Physician] - 01/31/24 1:45 pm Prescriptions/Medication Reconciliation: Continued atorvastatin 40 mg tablet 40 mg PO HS losartan 25 mg tablet 25 mg PO DAILY metoprolol succinate 50 mg tablet extended release 24 hr 50 mg PO DAILY levothyroxine 25 mcg Tablet 25 mcg PO DAILYDM 30 Days Qty: 30 0RF Problem Reconciliation Problems Reviewed?: Yes Patient Discharge Instructions ACTIVITY: Continue current activity Patient Instructions: DI for Syncope in Adults (Fainting), DI for Heart Failure Providers Primary Care Provider: Louis Shrestha Admit Provider: Ana Johnson Attending Provider: Ana Johnson
[2024-01-09 12:00] VITALS: BP 150/73; PULSE 75; RESP 18; TEMP 36.8; O2SAT 97
[2024-01-09 15:11] LABS: Transferrin 125 mg/dL (177-329)
--- NOTE | 2024-01-09 17:49 | P.PN_ITS ---
Subjective *Date: 01/09/24 *Time: 17:52 Interval history: seen at bedside, denied CP, SOB, N/V Exam Data for Last 24 hours Vital signs and Labs for Last 24 Hours: Temp Pulse Resp BP Pulse Ox O2 Del Method 98.2 F 75 18 150/73 H 97 Room Air 01/09/24 12:00 01/09/24 12:00 01/09/24 12:00 01/09/24 12:00 01/09/24 12:00 01/09/24 15:00 Laboratory Results - last 24 hr 01/08/24 06:45: Transferrin 125 L 01/09/24 07:38: WBC 4.4 L, RBC 3.22 L, Hgb 10.6 L, Hct 32.0 L, MCV 99.3 H, MCH 32.9 H, MCHC 33.1, RDW 15.1, Plt Count 122 L, MPV 9.1, Neut % (Auto) 51.3, Lymph % (Auto) 33.5, [place] % (Auto) 7.2, Eos % (Auto) 7.5, Baso % (Auto) 0.5, Neut # (Auto) 2.3, Lymph # (Auto) 1.5, [place] # (Auto) 0.3, Eos # (Auto) 0.3, Baso # (Auto) 0.0, Sodium 129 L, Potassium 3.9, Chloride 99, Carbon Dioxide 24, Anion Gap 9.9, BUN 10, Creatinine 1.30 H, Estimated Creat Clear 59, Estimated GFR 53 L , Est GFR ( Amer) 65, Glucose 99, Calcium 9.0, Magnesium 1.5 L, Total Bilirubin 1.8 H, AST 51, ALT 24, Alkaline Phosphatase 111, NT-Pro-B Natriuret Pep 3810 H, Total Protein 5.8 L, Albumin 2.9 L, Globulin 2.9, Albumin/Globulin Ratio 1.0 L, Triglycerides 62, Cholesterol 144, LDL Cholesterol Direct 46.11 L, VLDL Cholesterol 12, HDL Cholesterol 89 H, Cholesterol/HDL Ratio 1.6 I & O for Last 24 hours: Intake & Output 01/06/24 01/07/24 01/08/24 01/09/24 23:59 23:59 23:59 23:59 Intake Total 1550 / 1550 485 / 485 Output Total 375 / 575 900 / 900 400 / 400 Balance -375 / 425 650 / 650 85 / 85 Weight 88.054 kg 85.389 kg 88.904 kg Constitutional Constitutional: no acute distress *Routine HEENT Exam Head: Present normocephalic Eye: Present EOMI and PERRL ENT: Present mucous membranes moist *Routine Neck Exam Neck: Present supple; Absent lymphadenopathy *Routine Respiratory Exam Respiratory: Present CTA bilaterally *Routine Cardiovascular Exam Cardiovascular: Present RRR *Routine Abdominal Exam Abdominal: Present soft and normoactive bowel sounds; Absent tenderness *Routine Extremities Exam Extremities: Absent cyanosis, clubbing or edema *Routine Skin Exam Skin: Present warm; Absent rash *Routine Neurological Exam Neurological: Present alert and oriented X3 Assessment and Plan *Assessment and plan (1) Syncope: Status: Acute Qualifiers: Encounter type: initial encounter Syncope type: heat syncope Qualified Code(s): T67.1XXA - Heat syncope, initial encounter Category: Medical Code(s): R55 - Syncope and collapse Plan 78-year-old male with PMHx of hypertension, hyperlipidemia, hypothyroidism, JOELLE brought in for evaluation of an episode of syncope versus heat exhaution. On arrival, patient hemodynamically stable, alert, oriented x4, appropriate, GCS 15, moving all extremities spontaneously, pupils equal and reactive to light. Full physical exam performed and significant for NIHSS 0. Initial work up included CBC, positive for mild anemia. JEROMY with creatinine 1.6 up from unknown baseline. Patient's BNP elevated almost at thousand. Initial troponin negative. Chest x-ray without acute cardiopulmonary airspace disease. has been drinking alcohol daily. Last drink yesterday, 01/05. On further assessment patient resting comfortable, has no complains, does not want to stay in hospital. On physical exam he does have 2+ lower extremity pitting edema. Discussed with ED for admission versus outpatient management. Due to high risk of decompensation and newly elevated BNP. agreed for inpatient management. Plan as follow: -Syncope: To rule heat syncope versus vasovagal. Elevated BNP with peripheral edema, suspected new onset of CHF: Anemia. stable Acute kidney injury, likely secondary to dehydration: - improved continue IV fluids, monitor BMP -Chronic conditions: Hypothyroidism, hypertension , hyperlipidemia , JOELLE: Condition reviewed. TSH T4 normal Resume home atorvastatin Synthroid losartan and metoprolol BiPAP as needed -Alcohol abuse: Last drink yesterday Monitor for CIWA. High risk for noncompliant Hypertension subcu for DVT prophylaxis On protonix Full code benjamin amanda 1-2 days date of service 01/08/2024
--- NOTE | 2024-01-09 21:07 | CA_ITS ---
APPROVED REPORT EXAM: Comprehensive 2D, Doppler, and color-flow Echocardiogram Clocksmith: Zuleyma Keita RDCS Ht: 5 ft 10 in Wt: 194lbs BSA: 2.06 BP: 115/58 mmHg Indications: CHF,HTN,HLP M-Mode Dimensions RVDd 1.78 cm (0.9-2.6) LA Diam 3.83 cm (1.9-4.0) LVDd 5.72 cm (3.5-5.7) LVDs 4.07 cm (3.5-5.7) IVSd 0.59 cm (0.6-1.1) PWd 0.76 cm (0.6-1.1) EF (Teich) 54.80% FS 28.80% EDV (Teich) 161.30 mL ESV (Teich) 72.90 mL LV Diastology E Decel Time 157 (160-240 msec) E/A Ratio 1.4 Aortic Valve DILLON Index 1.04 cm2/m2 AoV Peak Quang. 150.0 (50-130 cm/s) AO Peak GR. 9.00 mmHg AO Mean GR. 4.50 (<5 mmHg) AO VTI 31.3 (18-25 cm) DILLON (VTI) 2.20 (2.5-4.5 cm2) Mitral Valve MV E Max Quang. 139.0 (40-130 cm/s) MV A Velocity 99.0 (40-130 cm/s) E/A Ratio 1.40 MV PHT 46.0 ms Tricuspid Valve TR P. Velocity 262.00 cm/s RAP Estimate 10.00 mmHg RVSP 37.40 mmHg Left Ventricle The left ventricle is normal size. The left ventricular systolic function is normal. The left ventricular ejection fraction is within the normal range. There is increased LV wall thickness. There is normal LV segmental wall motion. Diastolic function is indeterminate. LVEF is 60%. Right Ventricle The right ventricle is normal size. The right ventricular systolic function is normal. Atria Left atrium is mildly dilated. Right atrium is mildly dilated. There is no Doppler evidence of interatrial shunt. Aortic Valve The aortic valve is mildly thickened. The aortic valve appears possibly either anatomically or functionally bicuspid. Aortic sclerosis, with no evidence of aortic stenosis. Trace aortic regurgitation. Mitral Valve The mitral valve leaflets are mildly thickened. Mild mitral stenosis (mean MV gradient 5 mmHg at HR 76 bpm). Trace mitral regurgitation. Tricuspid Valve Valve leaflets are thin and pliable. Mild tricuspid regurgitation. RVSP is 25-30 mmHg. Pulmonic Valve The pulmonary valve is normal in structure. Trace pulmonic regurgitation. Great Vessels The aortic root is normal in size. The ascending aorta is not well-visualized. IVC is normal in size and collapses >50% with inspiration. Pericardium There is no pericardial effusion. Other Information Study Quality: Fair Conclusion Normal biventricular systolic function. Biatrial dilation. AV appears possibly either anatomically or functionally bicuspid. No evidence of . Mild TR. Mild MS (mean MV gradient 5 mmHg at HR 76 bpm). Electronically signed by : Hilda Niño MD 01/09/2024 11:27:35
--- NOTE | 2024-01-09 21:07 | CA_ITS ---
FINAL REPORT TECHNIQUE: Color Doppler, duplex Doppler and ma scale sonography of the bilateral neck arterial vasculature was performed. Velocities were measured in the carotid arteries. Stenosis evaluation based on the validated velocity criteria. CLINICAL HISTORY: syncope, HTN, HLD FINDINGS: The peak systolic velocity of the right common carotid artery is 203 cm/s. The peak systolic velocity of the right internal carotid artery is 80 cm/s and end diastolic velocity 39 cm/s. A mild amount of plaque is present. The right external carotid artery is patent. The peak systolic velocity of the left common carotid artery is 131 cm/s. The peak systolic velocity of the left internal carotid artery is 137 cm/s and end diastolic velocity 92 cm/s. A mild amount of plaque is present. The left external carotid artery is patent. IMPRESSION: Less than 50% bilateral carotid stenoses. Vertebral arteries not visualized. Recommend CTA for further evaluation. Reviewed, Interpreted and Dictated by Reno Masters III, MD Transcribed by Janay Boudreaux Authenticated and [facility]
--- NOTE | 2024-01-10 13:14 | CARE MANAGER ---
Contacted patient's related to hospital discharge. She states he is doing very well today. They didn't have new medications, but they do have the holter monitor and are aware of follow up appointments. Denies any other questions or concerns. BRYAN Deng
== END 2024-01-09 15:53 | disposition home or self-care (01) ==
LOC: ER 18:15 → 2ND 18:24
PROVIDERS: Internal Medicine Adolescent Medicine; Nurse Practitioner Family; Admitting Provider Internal Medicine; Emergency Provider Emergency Medicine; PCP Family Medicine; Visit Provider Internal Medicine
DX: N17.9 Acute kidney failure, unspecified (principal); T67.1XXA Heat syncope, initial encounter; I50.9 Heart failure, unspecified; D64.9 Anemia, unspecified; E07.9 Disorder of thyroid, unspecified; Z86.79 Personal history of other diseases of the circulatory system; Z86.39 Personal history of other endocrine, nutritional and metabolic disease; G47.33 Obstructive sleep apnea (adult) (pediatric); F10.10 Alcohol abuse, uncomplicated; E03.9 Hypothyroidism, unspecified; E78.5 Hyperlipidemia, unspecified; Z91.199 Patient's noncompliance with other medical treatment and regimen due to unspecified reason; E86.0 Dehydration
CPT/HCPCS: 36415; 71045; 80048; 80053; 80061; 83540; 83550; 83735; 83880; 84436; 84443; 84466; 84484; 85025; 93005; 93270; 93306; 93880; 93971; 99285; G0378; J1644; J2405; J3411; J7120

== ENCOUNTER 2024-01-31 14:16 | Outpatient (CLI) | payer MEDICARE, SELFPAY ==
[2024-01-31 14:38] LABS: Basophils # 0.1 K/mm3 (0-0.2); Basophils % 1.2 % (0.1-2.0); Eosinophils # 0.5 K/mm3 (0.0-0.4); Eosinophils % 8.3 % (0.1-12.0); Hematocrit 32.3 % (42.0-52.0); Hemoglobin 11.2 g/dL (14.1-18.0); Lymphocytes # 2.2 K/mm3 (0.7-4.5); Lymphocytes % 35.4 % (10-50); Mean Corpuscular HGB Conc 34.6 g/dL (31.8-35.4); Mean Corpuscular Hemoglobin 33.2 pg (27.0-31.2); Mean Corpuscular Volume 96.1 fl (80-94); Mean Platelet Volume 8.8 fl (7.4-10.4); Monocytes # 0.6 K/mm3 (0.1-1.0); Monocytes % 9.1 % (1.7-9.3); Neutrophils # 2.9 K/mm3 (1.8-7.8); Platelet Count 208 K/mm3 (142-424); Red Blood Count 3.36 M/mm3 (4.60-6.20); Red Cell Distribution Width 14.8 % (11.5-17.5); White Blood Count 6.3 K/mm3 (4.8-10.8)
[2024-01-31 15:11] LABS: Alanine Aminotransferase 29 U/L (12-78); Albumin Level 3.1 g/dl (3.5-5.0); Alkaline Phosphatase 134 U/L (38-126); Anion Gap 9.4 mEq/L (5-15); Aspartate Amino Transferase 50 U/L (17-59); Bilirubin,Direct 0.1 mg/dl (0.0-0.4); Bilirubin,Indirect 1.2 mg/dL (0.0-0.9); Bilirubin,Total 1.3 mg/dl (0.2-1.3); Bilirubin,Unconjugated 1.2 mg/dL (0.0-1.1); Blood Urea Nitrogen 9 mg/dl (9-20); Calcium 9.3 mg/dl (8.4-10.2); Carbon Dioxide 27 mmol/L (22.0-30.0); Chloride 96 mmol/L (98-107); Estimated Glomerular Filt Rate 59 ml/min (>60); GFR (African American) 71 ML/MIN (>60); Glucose 119 mg/dl (74-100); Potassium 4.4 mmoL/L (3.5-5.1); Sodium 128 mmol/L (136-145)
[2024-01-31 15:28] LABS: Free T4 (Free Thyroxine) 1.58 ng/dl (0.78-2.19)
[2024-01-31 15:42] LABS: Thyroid Stimulating Hormone 3.04 uIU/mL (0.465-4.68)
== END 2024-01-31 23:59 | disposition home or self-care (01) ==
LOC: LAB 14:17
PROVIDERS: PCP Family Medicine; Visit Provider Internal Medicine
DX: R06.00 Dyspnea, unspecified (principal); G47.33 Obstructive sleep apnea (adult) (pediatric); Z86.79 Personal history of other diseases of the circulatory system; Z86.39 Personal history of other endocrine, nutritional and metabolic disease; K21.9 Gastro-esophageal reflux disease without esophagitis; I11.0 Hypertensive heart disease with heart failure; Z87.891 Personal history of nicotine dependence
CPT/HCPCS: 36415; 80048; 80076; 84439; 84443; 85025

== ENCOUNTER 2024-03-05 11:58 | Outpatient (CLI) | payer MEDICARE, SELFPAY ==
[2024-03-05 13:17] LABS: Alanine Aminotransferase 32 U/L (12-78); Albumin Level 2.7 g/dl (3.5-5.0); Alkaline Phosphatase 88 U/L (38-126); Anion Gap 4.7 mEq/L (5-15); Aspartate Amino Transferase 49 U/L (17-59); Bilirubin,Direct 0.2 mg/dl (0.0-0.4); Bilirubin,Indirect 1.7 mg/dL (0.0-0.9); Bilirubin,Total 1.9 mg/dl (0.2-1.3); Bilirubin,Unconjugated 1.8 mg/dL (0.0-1.1); Blood Urea Nitrogen 10 mg/dl (9-20); Calcium 8.9 mg/dl (8.4-10.2); Carbon Dioxide 28 mmol/L (22.0-30.0); Chloride 102 mmol/L (98-107); Estimated Glomerular Filt Rate 72 ml/min (>60); GFR (African American) 87 ML/MIN (>60); Glucose 119 mg/dl (74-100); Potassium 3.7 mmoL/L (3.5-5.1); Sodium 131 mmol/L (136-145); Total Protein,Serum 5.7 g/dl (6.3-8.2)
== END 2024-03-05 23:59 | disposition home or self-care (01) ==
LOC: LAB 12:00
PROVIDERS: PCP Family Medicine; Visit Provider Nurse Practitioner Family
DX: F10.10 Alcohol abuse, uncomplicated (principal); Z86.39 Personal history of other endocrine, nutritional and metabolic disease; Z86.79 Personal history of other diseases of the circulatory system
CPT/HCPCS: 36415; 80048; 80076

== ENCOUNTER 2024-05-03 14:18 | Outpatient (CLI) | payer MEDICARE, SELFPAY ==
[2024-05-03 14:41] LABS: Basophils # 0.1 K/mm3 (0-0.2); Basophils % 1.3 % (0.1-2.0); Eosinophils # 0.5 K/mm3 (0.0-0.4); Eosinophils % 6.7 % (0.1-12.0); Hematocrit 34.1 % (42.0-52.0); Hemoglobin 11.6 g/dL (14.1-18.0); Lymphocytes # 1.8 K/mm3 (0.7-4.5); Lymphocytes % 24.9 % (10-50); Mean Corpuscular HGB Conc 33.9 g/dL (31.8-35.4); Mean Corpuscular Hemoglobin 31.8 pg (27.0-31.2); Mean Corpuscular Volume 93.6 fl (80-94); Mean Platelet Volume 8.8 fl (7.4-10.4); Monocytes # 0.6 K/mm3 (0.1-1.0); Monocytes % 8.1 % (1.7-9.3); Neutrophils # 4.2 K/mm3 (1.8-7.8); Platelet Count 211 K/mm3 (142-424); Red Blood Count 3.64 M/mm3 (4.60-6.20); White Blood Count 7.1 K/mm3 (4.8-10.8)
[2024-05-03 14:56] LABS: Alanine Aminotransferase 25 U/L (12-78); Albumin Level 2.8 g/dl (3.5-5.0); Alkaline Phosphatase 90 U/L (38-126); Anion Gap 8.9 mEq/L (5-15); Aspartate Amino Transferase 40 U/L (17-59); Bilirubin,Direct 0.4 mg/dl (0.0-0.4); Bilirubin,Indirect 1.2 mg/dL (0.0-0.9); Bilirubin,Total 1.6 mg/dl (0.2-1.3); Bilirubin,Unconjugated 1.2 mg/dL (0.0-1.1); Blood Urea Nitrogen 12 mg/dl (9-20); Calcium 8.7 mg/dl (8.4-10.2); Carbon Dioxide 25 mmol/L (22.0-30.0); Chloride 102 mmol/L (98-107); Chol/HDL Ratio 2.8 (1-3.5); Cholesterol 121 mg/dl (140-200); Estimated Glomerular Filt Rate 72 ml/min (>60); GFR (African American) 87 ML/MIN (>60); Glucose 122 mg/dl (74-100); HDL Cholesterol 43 mg/dl (40-60); Potassium 3.9 mmoL/L (3.5-5.1); Sodium 132 mmol/L (136-145); Total Protein,Serum 5.9 g/dl (6.3-8.2); Triglycerides 116 mg/dl (30-150); VLDL Cholesterol 23 mg/dL (0-40)
[2024-05-03 15:07] LABS: Direct LDL Cholesterol 58.58 mg/dL (100-129)
[2024-05-03 15:12] LABS: Free T4 (Free Thyroxine) 2.11 ng/dl (0.78-2.19)
[2024-05-03 15:26] LABS: Thyroid Stimulating Hormone 3.62 uIU/mL (0.465-4.68)
== END 2024-05-03 23:59 | disposition home or self-care (01) ==
LOC: LAB 14:19
PROVIDERS: PCP Family Medicine; Visit Provider Internal Medicine
DX: E03.9 Hypothyroidism, unspecified (principal); R06.2 Wheezing; Z87.891 Personal history of nicotine dependence; T67.1XXA Heat syncope, initial encounter; E07.9 Disorder of thyroid, unspecified; Z86.79 Personal history of other diseases of the circulatory system; Z86.39 Personal history of other endocrine, nutritional and metabolic disease
CPT/HCPCS: 36415; 80048; 80061; 80076; 84439; 84443; 85025

== ENCOUNTER 2024-07-28 22:33 | Inpatient (IN) | payer MEDICARE, SELFPAY ==
[2024-07-28 22:33] VITALS: BP 101/43; PULSE 95; RESP 21; TEMP 36.8; O2SAT 96; BMI 28.9
--- NOTE | 2024-07-28 22:56 | XR_ITS ---
PROCEDURE INFORMATION: Exam: XR Chest Exam date and time: 07/29/2024 12:35 AM Age: 79 years old Clinical indication: Other: AMS; Additional info: AMS, uri TECHNIQUE: Imaging protocol: Radiologic exam of the chest. Views: 1 view. COMPARISON: CT CHEST W CON 07/29/2024 12:30 AM FINDINGS: Lungs: Unremarkable. No consolidation. Pleural spaces: Bilateral pleural effusions. Heart/Mediastinum: Unremarkable. No cardiomegaly. Bones/joints: Unremarkable. IMPRESSION: Bilateral pleural effusions. Compressive atelectasis in the bilateral lower lobes.
--- NOTE | 2024-07-28 22:56 | CT_ITS ---
PROCEDURE INFORMATION: Exam: CT Head Without Contrast Exam date and time: 07/29/2024 12:21 AM Age: 79 years old Clinical indication: Altered mental status/memory loss; Additional info: AMS TECHNIQUE: Imaging protocol: Computed tomography of the head without contrast. Radiation optimization: All CT scans at this facility use at least one of these dose optimization techniques: automated exposure control; mA and/or kV adjustment per patient size (includes targeted exams where dose is matched to clinical indication); or iterative reconstruction. COMPARISON: SINUSWO CT sinus wo con 12/22/2018 2:06 PM FINDINGS: Brain: No acute intracranial hemorrhage, midline shift or mass effect. Diffuse brain parenchymal volume loss. Confluent hypodensities within the cerebral white matter most consistent with chronic small-vessel ischemic changes. Bilateral basal ganglia calcifications. Cerebral ventricles: No ventriculomegaly. Paranasal sinuses: Visualized sinuses are unremarkable. No fluid levels. Mastoid air cells: Atho-ar-psirnqhs left mastoid effusion. Bones: Unremarkable. No acute fracture. Soft tissues: Unremarkable. IMPRESSION: No acute intracranial findings.
[2024-07-28 23:00] LABS: Microscopic, Urine URINE MICROSCOPIC (MICROSCOPIC)
--- NOTE | 2024-07-28 23:00 | ECG_ITS ---
APPROVED REPORT Exam: Resting ECG HR:99 bpm ECG Measurements Heart Rate 99 AXES WI 158 P 49 QRSd 82 QRS -1 QT 356 T 56 QTc 412 Conclusion SINUS RHYTHM WITH SINUS ARRHYTHMIA LOW QRS VOLTAGE [QRS DEFLECTION < 0.5/1.0 mV IN LIMB/CHEST LEADS] No STEMI Electronically signed by : RENAY MORAN, 07/31/2024 07:38:04
[2024-07-28 23:02] LABS: VBG Base Excess 2.8 mmol/L (-2.4-2.3); VBG HCO3 27.6 mmol/L (23-30); VBG Oxygen Saturation 64.4 % (50-70); VBG PH 7.41 mmol/L (7.31-7.41); VBG PO2 37.1 mmol/L (28-40); VBG Total CO2 28.9 mmol/L (23-27)
[2024-07-28 23:03] LABS: Lactate Venous 2.6 mmol/L (0.4-2.0)
[2024-07-28 23:04] LABS: Appearance,Urine SL CLOUDY (Clear); Bilirubin,Urine Negative (Negative); Blood, Urine Negative (Negative); Color,Urine DARK YELLOW (Yellow); Glucose,Urine (UA) Negative (Negative); Ketones,Urine TRACE (Negative); Leukocyte Esterase,Urine TRACE (Negative); Nitrate,Urine POSITIVE (Negative); Protein,Urine TRACE (Negative); Specific Gravity, Urine 1.015 (1.005-1.030)
[2024-07-28 23:05] LABS: Basophils # 0.1 K/mm3 (0-0.2); Basophils % 0.4 % (0.1-2.0); Eosinophils # 0.2 K/mm3 (0.0-0.4); Eosinophils % 1.1 % (0.1-12.0); Hematocrit 28.6 % (42.0-52.0); Hemoglobin 9.9 g/dL (14.1-18.0); Lymphocytes % 5.5 % (10-50); Mean Corpuscular HGB Conc 34.6 g/dL (31.8-35.4); Mean Corpuscular Volume 86.7 fl (80-94); Mean Platelet Volume 10.5 fl (7.4-10.4); Monocytes # 1.5 K/mm3 (0.1-1.0); Monocytes % 7.9 % (1.7-9.3); Neutrophils # 15.7 K/mm3 (1.8-7.8); Neutrophils % 84.5 % (37.0-80.0); Platelet Count 229 K/mm3 (142-424); Red Cell Distribution Width 17.2 % (11.5-17.5); White Blood Count 18.6 K/mm3 (4.8-10.8)
[2024-07-28 23:08] LABS: MANUAL DIFFERENTIAL MANUAL DIFFERENTIAL (MANUAL DIFF)
--- NOTE | 2024-07-28 23:12 | CT_ITS ---
PROCEDURE INFORMATION: Exam: CTA Neck With Contrast Exam date and time: 07/29/2024 12:25 AM Age: 79 years old Clinical indication: Other: AMS; Additional info: AMS, slurred speech TECHNIQUE: Imaging protocol: Computed tomographic angiography of the neck with contrast. Exam focused on the cervical segments of the vasculature. 3D rendering (Not supervised by radiologist): MIP and/or 3D reconstructed images were created by the technologist. Radiation optimization: All CT scans at this facility use at least one of these dose optimization techniques: automated exposure control; mA and/or kV adjustment per patient size (includes targeted exams where dose is matched to clinical indication); or iterative reconstruction. Contrast material: ISOVUE; Contrast volume: 80 ml; Contrast route: INTRAVENOUS (IV); COMPARISON: CT ANGIO HEAD 07/29/2024 12:25 AM FINDINGS: Right common carotid artery: Motion artifact limiting evaluation of the carotid bulb/bifurcation. Intermittent atherosclerosis contributing to at least mild stenosis of the mid segment and carotid bulb. No dissection or occlusion. Right internal carotid artery: Motion artifact limiting evaluation of the carotid bulb/bifurcation. Suspected obvitcwj-vb-cyngpc stenosis of the proximal cervical segment. No dissection or identifiable occlusion. Right external carotid artery: No occlusion or stenosis of the origin. Left common carotid artery: Intermittent atherosclerosis contributing to at least mild stenosis of the distal segment and carotid bulb. No dissection or occlusion. Left internal carotid artery: Motion artifact limiting evaluation of the carotid bulb/bifurcation. Suspected at least mild stenosis of the proximal cervical segment. No dissection or occlusion. Left external carotid artery: Mild atherosclerosis at the origin without significant stenosis. Right vertebral artery: Suboptimal visualization of the origin, although there is likely a degree of stenosis. No dissection or occlusion. Left vertebral artery: Dominant vessel. Suboptimal visualization of the origin, although there is likely a degree of stenosis. No dissection or occlusion. Soft tissues: Normal. No significant soft tissue swelling. Bones/joints: No acute fracture. Degenerative changes. Lungs: See report on concurrently performed CT chest. IMPRESSION: 1. Motion artifact limiting evaluation of the carotid bulbs/bifurcations. Suspected vfszqsna-bf-fevnzn right and mild left internal carotid proximal cervical segment stenosis. At least mild stenosis of the right common carotid artery mid segment and carotid bulb, and of the left common carotid artery distal segment and carotid bulb. 2. Suboptimal visualization of the vertebral artery origins, although there is likely a degree of stenosis. REFERENCES: NASCET CRITERIA. The degree of stenosis in the cervical segment of the internal carotid artery is based on NASCET criteria. Normal is no stenosis. Mild is less than 50% stenosis. Moderate is 50-69% stenosis. Severe is 70% to 99% stenosis. Total occlusion is no detectable patent lumen.
--- NOTE | 2024-07-28 23:12 | CT_ITS ---
PROCEDURE INFORMATION: Exam: CTA Head With Contrast, Arteriography Exam date and time: 07/29/2024 12:25 AM Age: 79 years old Clinical indication: Other: AMS; Additional info: AMS, slurred speech TECHNIQUE: Imaging protocol: Computed tomographic angiography of the head with contrast. Exam focused on the arteries. 3D rendering (Not supervised by radiologist): MIP and/or 3D reconstructed images were created by the technologist. Radiation optimization: All CT scans at this facility use at least one of these dose optimization techniques: automated exposure control; mA and/or kV adjustment per patient size (includes targeted exams where dose is matched to clinical indication); or iterative reconstruction. Contrast material: ISOVUE; Contrast volume: 80 ml; Contrast route: INTRAVENOUS (IV); COMPARISON: CT HEAD/BRAIN WO CON 07/29/2024 12:21 AM FINDINGS: ANTERIOR CIRCULATION: Right internal carotid artery: Mild atherosclerotic narrowing of the intracranial segment without flow-limiting stenosis. No aneurysm. Right middle cerebral artery: No occlusion or significant stenosis. No aneurysm. Right anterior cerebral artery: No occlusion or significant stenosis. No aneurysm. Left internal carotid artery: Mild atherosclerotic narrowing of the intracranial segment without flow-limiting stenosis. No aneurysm. Left middle cerebral artery: No occlusion or significant stenosis. No aneurysm. Left anterior cerebral artery: No occlusion or significant stenosis. No aneurysm. POSTERIOR CIRCULATION: Right vertebral artery: Mild atherosclerotic narrowing of the proximal V4 segment without flow-limiting stenosis. No aneurysm. Left vertebral artery: Zhxr-bm-pjbtagxa atherosclerotic narrowing of the proximal to mid V4 segment without flow-limiting stenosis. No aneurysm. Basilar artery: No occlusion or significant stenosis. No aneurysm. Right posterior cerebral artery: No occlusion or significant stenosis. No aneurysm. Left posterior cerebral artery: Focal llzevyia-zl-jxxrxb stenosis at the P2A segment. No aneurysm. Brain: No definite mass, mass effect, or midline shift. Cerebral ventricles: No ventriculomegaly. Bones/joints: Unremarkable. No acute fracture. Soft tissues: Unremarkable. IMPRESSION: 1. No large vessel occlusion. 2. 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
[2024-07-28 23:20] LABS: Amorphous Sediment,Urine 1+ /lpf; Bacteria,Urine 2+ /lpf; RBC,Urine Occasional #/hpf (0-3)
[2024-07-28 23:27] LABS: Albumin Level 2.6 g/dl (3.5-5.0); Chloride 98 mmol/L (98-107); Potassium 3.3 mmoL/L (3.5-5.1); Sodium 132 mmol/L (136-145)
[2024-07-28 23:30] LABS: Alanine Aminotransferase 43 U/L (12-78); Albumin/Globulin Ratio 0.8 (1.1-1.8); Alkaline Phosphatase 126 U/L (38-126); Anion Gap 8.3 mEq/L (5-15); Aspartate Amino Transferase 94 U/L (17-59); Bilirubin,Total 2.5 mg/dl (0.2-1.3); Blood Urea Nitrogen 18 mg/dl (9-20); Carbon Dioxide 29 mmol/L (22.0-30.0); Creatinine Clearance Estimated 65 mL/min (50-200); Estimated Glomerular Filt Rate 58 ml/min (>60); GFR (African American) 71 ML/MIN (>60); Globulin 3.4 g/dL (1.3-3.2)
[2024-07-28 23:31] VITALS: BP 85/46; PULSE 77; RESP 18; O2SAT 96
[2024-07-28 23:31] LABS: Calcium 9.1 mg/dl (8.4-10.2); Glucose 104 mg/dl (74-100)
[2024-07-28 23:48] LABS: Free T4 (Free Thyroxine) 2.04 ng/dl (0.78-2.19)
--- NOTE | 2024-07-28 23:58 | CT_ITS ---
PROCEDURE INFORMATION: Exam: CT Chest With Contrast; Diagnostic Exam date and time: 07/29/2024 12:30 AM Age: 79 years old Clinical indication: Other: AMS TECHNIQUE: Imaging protocol: Diagnostic computed tomography of the chest with contrast. Radiation optimization: All CT scans at this facility use at least one of these dose optimization techniques: automated exposure control; mA and/or kV adjustment per patient size (includes targeted exams where dose is matched to clinical indication); or iterative reconstruction. Contrast material: ISOVUE; Contrast volume: 75 ml; Contrast route: IV; COMPARISON: CR XR CHEST PORTABLE 01/07/2024 4:53 PM FINDINGS: Lungs: Moderate bilateral pleural effusions with compressive atelectasis of the adjacent lung. Pleural spaces: See Lungs finding. Heart: Unremarkable. No cardiomegaly. No pericardial effusion. Lymph nodes: Unremarkable. No enlarged lymph nodes. Vasculature: Extensive calcification of the coronary arteries and aorta. No pulmonary embolus. Bones/joints: Unremarkable. No acute fracture. Soft tissues: Unremarkable. IMPRESSION: Moderate bilateral pleural effusions with compressive atelectasis of the adjacent lung. Extensive atherosclerotic calcification of the coronary arteries and aorta.
--- NOTE | 2024-07-28 23:58 | CT_ITS ---
PROCEDURE INFORMATION: Exam: CT Abdomen And Pelvis With Contrast Exam date and time: 07/29/2024 12:30 AM Age: 79 years old Clinical indication: Other: Abd distention; Additional info: AMS abd distension TECHNIQUE: Imaging protocol: Computed tomography of the abdomen and pelvis with contrast. Radiation optimization: All CT scans at this facility use at least one of these dose optimization techniques: automated exposure control; mA and/or kV adjustment per patient size (includes targeted exams where dose is matched to clinical indication); or iterative reconstruction. Contrast material: ISOVUE; Contrast volume: 75 ml; Contrast route: IV; COMPARISON: CT CHEST W CON 07/29/2024 12:30 AM FINDINGS: Liver: Nodular hepatic contour. No masses. Gallbladder and biliary ducts: Common bile duct measures 1.3 cm in diameter. Pancreas: Normal. No ductal dilation. Spleen: Scattered granulomatous calcifications within the spleen. Adrenal glands: Normal. No mass. Kidneys and ureters: Normal. No hydronephrosis. Stomach and bowel: Unremarkable. No obstruction. No mucosal thickening. Appendix: No evidence of appendicitis. Intraperitoneal space: Moderate volume of ascites. Vasculature: Recanalization of the umbilical vein. Numerous gastroesophageal varices. Extensive calcification of the aorta and branch vessels. No aneurysm. Lymph nodes: Unremarkable. No enlarged lymph nodes. Urinary bladder: Unremarkable as visualized. Reproductive: Unremarkable as visualized. Bones/joints: Mild degenerative changes in the lumbar spine. Soft tissues: Unremarkable. IMPRESSION: No acute intra-abdominal abnormality. Dilated common bile duct, suspicious for distal obstruction. MRCP recommended further evaluation. Nodular hepatic contour, consistent with hepatic cirrhosis. Evidence of portal hypertension including recanalization of the umbilical vein and gastroesophageal varices. Moderate abdominal ascites.
--- NOTE | 2024-07-28 23:59 | ED_ITS ---
Discharge Plan Disposition Patient Disposition: Admitted Condition: Fair Chief Complaint: Altered Mental Status Clinical Impressions Clinical Impression: Hyperbilirubinemia, Altered mental status, Transaminitis, UTI (urinary tract infection), Pleural effusion, Elevated brain natriuretic peptide (BNP) level Discharge ED Provider: Shun Webster Adult HPI General Chief complaint: Altered Mental Status Stated complaint: ams since 1400 07/27/2024 Time Seen by Provider: 07/28/24 22:55 Mode of Arrival: EMS Source of Information: Patient Limitations: No Limitations Description of Symptoms (Recalled from ER Triage Doc. by RN): Patient to ED via [facility] for AMS. Patient family states concerns of patient not being able to get out of bed today. Mother who is patient PCG states that she asked if patient wanted to get up and watch the [employer] game in another room, to which patient did not get out of bed for. Patient without oral intake today. Family reports that patient usually is able to answere most questions appropriately but today unable to answer orientation questions. Patient A&O x1 during nursing assessment. History of Present Illness HPI narrative: 79-year-old male with history of hypothyroid, JOELLE, hypertension, alcohol abuse, hyperlipidemia, CHF presents to the ER via EMS for concerns of altered mental status. at bedside provides history. Reportedly back in December patient had an admission to the hospital and since that time has had rapid decline in functional status. She states in the last few months, a good day for him is being able to be out of bed for about 8 hours, he uses a walker to ambulate, able to feed him and shower himself with some assistance. She states an average day is the patient being able to be up out of bed for 2 to 3 hours, ambulate with a walker, feed himself. She states on rare days he is not able to get out of bed, but today was the worst. She states 2 days ago he had a very good day, yesterday was an average day with him up for a couple hours, but today she was not able to encourage him to get out of bed, she had difficulty understanding his speech, he would not take anything by mouth. She tried to get him up to watch the [employer] game multiple times but patient would not get up. Reportedly patient has issues with orientation at baseline but is typically able to maintain somewhat of a conversation intermittently. Patient has not had any recent falls or injuries, no recent fevers, vomiting, or diarrhea. does report that patient has a history of heavy alcohol use prior to his admission in December, since that time he has had minimal alcohol use and reportedly has no history of liver problems. She reports the patient also had a mild cough recently but that seems to have improved. He reportedly is not choking when he eats or drinks. She reports his belly has become distended over the last week despite him losing weight. He takes water pills and his legs are slightly more swollen now than they typically are according to the . Reportedly patient's last known normal was last night before bed, more than 24 hours ago. Reportedly no history of stroke. Related Data Home Medications ?Medication ?Instructions ?Recorded ?Confirmed atorvastatin 40 mg tablet 40 mg PO HS 01/14/20 05/03/24 Previous Rx's ?Medication ?Instructions ?Recorded levothyroxine 25 mcg tablet 25 mcg PO DAILYDM 30 days #30 tabs 01/09/24 metoprolol succinate 25 mg 25 mg PO DAILY #90 tabs 04/10/24 tablet,extended release 24 hr (Toprol XL) Allergies Allergy/AdvReac Type Severity Reaction Status Date / Time No Known Allergies Allergy Verified 05/03/24 13:29 [facility] Disclaimer: The information contained in this section may have been updated after the patient was seen, as this information can be updated by other users. Medical History (Updated 07/29/24 @ 03:07 by Shun Webster MD) Weight loss, unintentional Former smoker Wheezing Alcohol abuse Thyroid disease History of hyperlipidemia History of hypertension Surgical History No significant past surgical history Family History Other Heart attack Hyperlipidemia Hypertension Lung cancer No significant family history Prostate CA Stroke Social History Smoking Status: Former smoker alcohol intake: current alcohol intake frequency: 3 or more drinks per day substance use type: denies use current occupational status: retired Travel in the last 8 weeks: None household members: spouse housing: house Have you lived/traveled outside [place] in past 30 days?: No Contact w/someone who lives/traveled outside US past 30 days?: No Exposure to someone with infectious disease in past 14 days?: No Do you have a fever (greater than 100.4 F or 38 C)?: No Have you tested positive for COVID-19: No Exposed to someone with COVID-19 in past 14 days?: No Do you have a sore throat?: No Do you have a cough?: No Do you have any weakness?: Yes Do you have any diarrhea?: No Are you experiencing any unusual bleeding?: No Do you have any muscle aches/pain?: No Do you have any abdominal pain?: No Are you experiencing loss of taste or smell?: No Other Medical History Have you received the Flu Vaccine for this season: No Have you received the Pneumonia Vaccine: Yes ROS Obtained: Yes unobtainable due to mental status (Limited ROS provided by as evident in HPI) Physical Exam General General appearance: alert and in no apparent distress Head Head exam: atraumatic and normocephalic Eye Eye exam: Present PERRL, EOMI and scleral icterus ENT ENT exam: Present mucous membranes moist Neck Neck exam: Present normal inspection and full ROM Chest Chest inspection: Present symmetric chest wall rise Respiratory Respiratory exam: Present normal lung sounds bilaterally; Absent respiratory distress, wheezes or stridor Cardiovascular Cardiovascular exam: Present regular rate and normal rhythm Abdominal Exam Abdominal exam: Present soft and distention; Absent tenderness, guarding, rebound or rigidity Comment: fluid wave Extremities Exam Extremities exam: Present full ROM, normal capillary refill and edema (+2 right lower extremity pitting edema, +1 left lower extremity pitting edema); Absent tenderness or joint swelling Back Exam Comment: No sacral skin breakdown Neurological Exam Neurological exam: Present alert, oriented X3 (Oriented to self, also recognizes his , otherwise disoriented) and other (Speech mildly slurred, mild dysarthria); Absent motor sensory deficit (Strength and sensation full and equal in all extremities) Psychiatric Psychiatric exam: Present normal affect and normal mood Skin Skin exam: Present warm and dry Medical Decision Making Medical Records Medical records reviewed: Yes I reviewed the patient's medical records. Screening: Per USPSTF and CDC recommendations, given the prevalence of disease in our region, it is our hospital?s policy to screen for HIV and viral Hepatitis for all patients aged 18 and over and those with ongoing risk factors. MR Comment: Discharge summary from patient's last admission was reviewed. Patient was initially admitted after having an unresponsive episode and found to be hypotensive with EMS. He had elevated BNP, known alcohol abuse. Admitted and treated for fluid overload, hypertension, syncope type event. Chun Inquiry Pt receiving controlled substance: No Vital Signs: 07/28/24 22:33 07/28/24 23:31 07/29/24 00:01 Temperature 98.2 F Temperature Source Oral Pulse Rate 77 78 Pulse Rate [Left] 95 H Respiratory Rate 21 18 21 Blood Pressure 85/46 L 101/44 L Blood Pressure [Right Arm] 101/43 L Blood Pressure Mean 59 50 Blood Pressure Mean [Right Arm] 62 Blood Pressure Source Blood Pressure Source [Right Arm] Automatic Cuff Blood Pressure Position Blood Pressure Position [Right Arm] Supine 02 Sat by Pulse Oximetry 96 96 94 L Oxygen Delivery Method Room Air Nasal Cannula Oxygen Flow Rate (LPM) 2 2 07/29/24 02:08 Temperature 98.4 F Temperature Source Oral Pulse Rate 92 H Pulse Rate [Left] Respiratory Rate 21 Blood Pressure 108/48 L Blood Pressure [Right Arm] Blood Pressure Mean Blood Pressure Mean [Right Arm] Blood Pressure Source Automatic Cuff Blood Pressure Source [Right Arm] Blood Pressure Position Supine Blood Pressure Position [Right Arm] 02 Sat by Pulse Oximetry Oxygen Delivery Method Room Air Oxygen Flow Rate (LPM) Lab Data Lab Results 07/28/24 22:35: WBC 18.6 H, RBC 3.30 L, Hgb 9.9 L, Hct 28.6 L, MCV 86.7, MCH 30.0, MCHC 34.6, RDW 17.2, Plt Count 229, MPV 10.5 H, Neut % (Auto) 84.5 H, L ymph % (Auto) 5.5 L, [place] % (Auto) 7.9, Eos % (Auto) 1.1, Baso % (Auto) 0.4, N eut # (Auto) 15.7 H, Lymph # (Auto) 1.0, [place] # (Auto) 1.5 H, Eos # (Auto) 0.2, Baso # (Auto) 0.1, Sodium 132 L, Potassium 3.3 L, Chloride 98, Carbon Dioxide 29, Anion Gap 8.3, BUN 18, Creatinine 1.20, Estimated Creat Clear 65, Estimated GFR 58 L, Est GFR ( Amer) 71, Glucose 104 H, Lactate 2.0, Calcium 9.1, T otal Bilirubin 2.5 H, AST 94 H, ALT 43, Alkaline Phosphatase 126, Troponin I 0.02, NT-Pro-B Natriuret Pep 8380 H, Total Protein 6.0 L, Albumin 2.6 L, G lobulin 3.4 H, Albumin/Globulin Ratio 0.8 L, TSH 2.37, Free T4 2.04, HCV Ab KAIT w/Rflx PCR Qn Negative, HIV Ag/Ab Combo Qual Negative 07/28/24 22:56: VBG pH 7.41, VBG pCO2 45.0, VBG pO2 37.1, VBG HCO3 27.6, VBG Total CO2 28.9 H, VBG O2 Saturation 64.4, VBG Base Excess 2.8 H, VBG Lactic Acid 2.6 H 07/28/24 22:57: Urine Color Dark yellow, Urine Appearance Sl cloudy, Urine pH 6.0, Ur Specific [place] 1.015, Urine Protein Trace, Urine Glucose (UA) Negative, Urine Ketones Trace, Urine Blood Negative, Urine Nitrate Positive A, Urine Bilirubin Negative, Urine Urobilinogen 1.0, Ur Leukocyte Esterase Trace, Urine RBC Occasional, Urine WBC 3-5, Ur Squamous Epith Cells 10-20, Amorphous Sediment 1+, Urine Bacteria 2+ 07/28/24 22:35 07/28/24 22:35 Orders (Tests/Meds): ED MEDICATIONS Generic Name Dose Route Start Last Admin Trade Name Charley PRN Reason Stop Dose Admin Azithromycin 500 mg 07/29/24 09:00 Azithromycin 250mg Tablet PO 08/08/24 08:59 DAILY EMMA Ceftriaxone Sodium 1 gm/ 50 mls @ 100 mls/hr 07/29/24 01:00 07/29/24 01:23 Sodium Chloride IV 08/08/24 00:59 100 mls/hr Q24H EMMA Administration Albumin Human 25 gm in 100 mls @ 100 mls/hr 07/29/24 05:00 Albumin 25% (12.5gm) Soln 50ml Bag IV 07/30/24 04:59 Q6 EMMA Ceftriaxone Sodium 2 gm/ 100 mls @ 200 mls/hr 07/29/24 09:30 Sodium Chloride IV 08/08/24 09:29 Q24H EMMA Morphine Sulfate 2 mg 07/29/24 02:36 Morphine 2mg/Ml Syringe IV 08/28/24 02:35 Q2HP PRN Severe Pain (7-10) Ondansetron HCl 4 mg 07/29/24 02:36 Ondansetron 4mg/2ml Vial IV 08/28/24 02:35 Q8HP PRN Nausea Sodium Chloride 10 ml 07/29/24 00:42 07/29/24 00:43 Sodium Chloride 0.9% 10ml Syr (Rad Only) IV 08/28/24 00:41 10 ml NEEDED PRN Administration Maintain IV Site Sodium Chloride 10 ml 07/29/24 02:36 Sodium Chloride 0.9% 10ml Flush Syringe IV 08/28/24 02:35 NEEDED PRN Maintain IV Site Discontinued Medications Generic Name Dose Route Start Last Admin Trade Name Freq PRN Reason Stop Dose Admin Furosemide 40 mg 07/29/24 00:59 07/29/24 01:23 Furosemide 40mg/4ml Vial IV 07/29/24 01:00 40 mg ONCE ONE Administration Iopamidol 155 ml 07/29/24 00:42 07/29/24 00:42 Iopamidol-370 (76%);100ml Bottle IV 07/29/24 00:43 155 ml ONCE ONE Administration Sodium Chloride 50 ml 07/29/24 00:42 07/29/24 00:42 0.9 % Sodium Chloride 50 Ml Vial IV 07/29/24 00:43 50 ml ONCE ONE Administration ORDERS Category Date Time Status CT abdomen pelvis w con Stat Cat Scan 07/28/24 23:[address] angio head Stat Cat Scan 07/28/24 23:[address] angio neck Stat Cat Scan 07/28/24 23:[address] chest w con Stat Cat Scan 07/28/24 23:[address] head/brain wo con Stat Cat Scan 07/28/24 22:56 Completed CXR --portable [XR chest portable] Stat Exams 07/28/24 22:56 Completed Ammonia Stat Lab 07/28/24 22:55 Ordered BNP [NT Pro Brain Natriuretic Pep.] Stat Lab 07/29/24 00:00 Completed CBC w/Auto Diff [Complete Blood Count Auto Diff] Stat Lab 07/28/24 22:35 Results CMP [Comprehensive Metabolic Panel] Stat Lab 07/28/24 22:35 Completed Free T4 (Free Thyroxine) Stat Lab 07/28/24 22:35 Completed HIV Combo Stat Lab 07/28/24 22:35 Completed Hepatitis C Ab Qual. W/ RFX Stat Lab 07/28/24 22:35 Completed Lactic Acid Stat Lab 07/28/24 22:35 Completed TSH [Thyroid Stimulating Hormone] Stat Lab 07/28/24 22:35 Completed Trop I [Troponin I] Stat Lab 07/29/24 00:00 Completed Troponin I Q3H Lab 07/29/24 03:15 Ordered Troponin I Q3H Lab 07/29/24 06:15 Ordered Urinalysis and Microscopic Stat Lab 07/28/24 22:57 Completed Urine Culture Stat Micro 07/28/24 22:57 Received VBG [Venous Blood Gas] Stat RT 07/28/24 22:56 Completed Medical Decision Narrative: In summary, this 79-year-old male with comorbidities described in the HPI presents to the emergency department today with concerns of generalized weakness, slurred speech, last known normal more than 24 hours ago. On initial evaluation patient is hemodynamically stable, afebrile, saturating well on room air, lungs with rhonchi/rales at the base, abdomen soft without localizing tenderness but it is distended with fluid wave, nonrigid, peripheral edema present, patient has mild slurred speech but no other localizing neurologic deficits, patient has scleral icterus but not jaundiced otherwise. Differential diagnosis includes but is not limited to intracranial bleed, ischemic stroke, metabolic abnormality, cirrhosis, liver failure, ACS, CHF, pleural effusion, pneumonia, urinary tract infection, among others. Highest suspicion for liver, metabolic, or infectious etiology. Based on these concerns, I ordered serum labs, cardiac workup, CT imaging. ECG personally interpreted demonstrates sinus rhythm with rate 99, normal axis, normal ID and QTc, no STEMI. Labs personally reviewed demonstrate leukocytosis, anemia with hemoglobin 9.9, platelets normal at 229, VBG with normal pH but VBG lactic is 2.6, chemistry lactic 2.0, CMP with hyponatremia, hypokalemia both of which are mild. Creatinine 1.2, patient does have increased hyperbilirubinemia compared to prior now 2.5 previously 1.6 in April. Patient also has elevation of his AST at 94 but no other transaminitis. BNP significantly elevated 8380, worse than previous, lasix administered. Hypoalbuminemia. UA was a cath sample and is nitrate positive with few WBCs and 2+ bacteria, given patient's overall clinical picture, will treat with Rocephin. XR personally interpreted demonstrates pleural effusion, atelectasis versus pneumonia. See radiology read for full interpretation.. CT imaging personally interpreted demonstrate no acute intracranial bleed, mass, or midline shift, I do not appreciate findings of bowel obstruction, patient does have ascites, CT chest has pleural effusion and area of atelectasis versus pneumonia. Radiology reads of angiographies demonstrate areas of stenosis without acute infarct. See radiology reads for full interpretations. Radiology read also comments on common bile duct dilation, concern for possible obstruction though one was not identified. Patient has multiple ongoing problems that are concerning. With his liver changes that appear to represent a combination of cirrhosis, possible obstruction, white count which could be related to UTI, pneumonia, or early cholangitis, I had a discussion with family about goals of care. If they wanted to pursue aggressive care, I recommended transfer to tertiary care center for dedicated hepatology. They refused this stating patient has made multiple comments about being ready to . stated she needs to review their estate planning but believes he wanted to be DNR/DNI, at this time we are going to keep him full code until she reviews these and is sure. However, she states she knows he does not want aggressive interventions such as surgeries, they do not want him transferred to another facility. They want him kept here and asked to do what we can to make him comfortable, they are agreeable to antibiotics, fluids, potentially additional imaging or minor procedures, but they do not want him transferred to a different facility for more aggressive care. Bedside RN Luis witnessed this conversation. I believe this is reasonable and that patient will likely have improvement of his symptoms with management of his fluid overload, infection. Since patient does have ascites I considered SBP. Rocephin should cover most pathogens adequately, however I discussed paracentesis with the family. They are agreeable with paracentesis being performed. See procedure note for details. After further discussion they would still like the patient to be admitted here and treated conservatively. I discussed this with the hospitalist. He had an extensive conversation with them at bedside and they came to the same conclusion. Patient was accepted to the hospitalist service for continued management. Procedures Risk/Benefits of Procedure(s) Were Explained: Yes (Discussed with family prior to procedure, consent obtained. ) Paracentesis Time Out Performed: Yes Indication: possible spontaneous bacterial peritonitis Procedure: diagnostic paracentesis Location: RLQ Local Anesthetic: lidocaine 1% Amount of anesthesia used (mL): 5 Bedside Ultrasound Used: yes, Ascites confirmed and location marked Preparation: 11 blade used to make demetris in skin Amount of fluid obtained (mL): 1,400 Fluid: clear and sent to lab for analysis Size of Needle Used: 6 (omani) Post Procedure Exam: normal BP and normal HR Patient Tolerated Procedure: well and no complications Complications: none Additional Comments: Procedure site closed with Dermabond and covered with gauze, Tegaderm Miscellaneous Procedure Procedure Performed: Limited abdominal ultrasound Indication: Abdominal distention with fluid wave Views: Bilateral lower quadrants Interpretation: Large pockets of intraperitoneal free fluid identified in bilateral lower quadrants, right greater than left. Right side was selected for paracentesis procedure. Impression: Bilateral lower quadrant peritoneal fluid believed to be ascites, right lower quadrant pocket selected for paracentesis Images were saved in the permanent archive. The study was technically adequate. [id number] (limited abdominal) This study was performed by me, and I personally interpreted all images/videos. Based on my clinical judgment, these images were adequate and did not necessitate further imaging. Critical Care Critical Care Time Critical Care Time: No
[2024-07-29] VITALS (10 sets, daily range): BP systolic 101–134; BP diastolic 44–61; PULSE 67–92; RESP 17–22; TEMP 36.3–36.9; O2SAT 93–97; BMI 26.0
[2024-07-29 00:01] LABS: Thyroid Stimulating Hormone 2.37 uIU/mL (0.465-4.68)
--- NOTE | 2024-07-29 00:38 | PC.NURSE ---
PT returned from rad by stretcher at this time
[2024-07-29] MEDS: 0.9 % SODIUM CHLORIDE 50 ML VIAL IV (00:42)
[2024-07-29] MEDS: IOPAMIDOL-370 (76%);100ML BOTTLE 155 ML IV (00:42)
[2024-07-29] MEDS: SODIUM CHLORIDE 0.9% 10ML SYR (RAD ONLY) 10 ML IV (00:43)
[2024-07-29 00:52] LABS: NT Pro Brain Natriuretic Pep. 8380 pg/mL (0-450); Troponin I 0.02 ng/ml (0.00-0.034)
[2024-07-29] MEDS: FUROSEMIDE 40MG/4ML VIAL 40 MG IV (01:23)
[2024-07-29] MEDS: CEFTRIAXONE 1 GM 1 GM in 0.9 % SODIUM CHLORIDE 50 ML IV (01:23)
[2024-07-29 01:28] LABS: HIV Combo NEGATIVE (Negative)
--- NOTE | 2024-07-29 02:14 | PC.NURSE ---
Report called to BRYAN Castellon. Patient was going to be transferred to the floor at this time but Dr. Webster and MELISSA Dee spoke about performing paracentesis on patient. Dr. Webster at bedside to perform procedure. Floor informed of holding transfer until procedure completed.
[2024-07-29 02:25] LABS: Hepatitis C Ab Qual. W/ RFX NEGATIVE (Negative)
--- NOTE | 2024-07-29 02:55 | PC.NURSE ---
Peritoneal fluid obtained by Dr. Webster @ [id number] Removed [id number]
[2024-07-29 03:03] LABS: Reflex Lactic Add Lactic Reflex
--- NOTE | 2024-07-29 03:03 | PC.NURSE ---
Peritoneal specimen delivered to the lab.
--- NOTE | 2024-07-29 03:19 | PC.NURSE ---
Patient arrived to floor via stretcher from ED at 03:06.
--- NOTE | 2024-07-29 03:21 | P.HP_ITS ---
<Statement entered by Miguelito Nunn MD - 08/01/24 10:30> Personally examined patient and agree with the plan of care as outlined by the [employer]. History of Present Illness *Admission Date: 07/29/24 *Reason for visit:: confusion *History of present illness: This is a 79-year-old male who has a past medical history significant for obstructive sleep apnea, anemia, thyroid disease, hypertension, EtOH abuse, hyperlipidemia, syncope, and unspecified congestive heart failure who presents with a chief complaint of confusion. Due to patient's confusion, the majority of information obtained from ER provider, chart review, and at the bedside. According ER provider, patient was transition to the emergency room due to acute confusion. While in the emergency room, CTA of the chest revealed moderate bilateral pleural effusions with compressive atelectasis of the lung/extensive atherosclerosis of the coronary arteries, CTA of the abdomen pelvis revealed dilated common bile duct suspicious for distal obstruction, nodular hepatic contour consistent with hepatic cirrhosis, evidence of portal hypertension including recanalization of the umbilical vein and gastric varices, moderate abdominal ascites, CTA of the head and neck revealed suspicious mod erate to severe right and mid left internal carotid proximal cervical segment stenosis/at least mild stenosis of the right common carotid artery mid segment and carotid above and of the left common carotid artery distal segment and carotid bulb/suboptimal visualization of the vertebral artery origins, and CT scan of the head was negative for any acute intracranial process. As a result of these findings, patient was admitted for further management. During my evaluation of the patient, patient was alert to self. at the bedside states that patient has had a functional decline since January of this year. She states he was unable to get up out of bed yesterday. He has had decreased p.o. intake. Spouse states that patient does not have any known history of cirrhosis but did drink alcohol heavily. I highlighted the case to spouse with pertinent imaging, lab values, and patient condition. I informed patient's spouse that the common bile duct is dilated concerning for ascending cholangitis. Moreover, I informed her that we currently do not have a GI specialist available until Tuesday. Spouse did not want to have patient transferred, so I offered MRCP and informed her we may have GI available on Tuesday. Spouse was okay with this approach. ER provider did perform paracentesis and took greater than 1 L off. Additional pertinent vitals obtained include a white blood cell count of 18.6, red blood cell count of 3.30, hemoglobin 9.9, hematocrit 28.6, neutrophils 84.5%, sodium 132, potassium 3.3, GFR 58, blood glucose 104, total bilirubin of 2.5, AST of 94, BNP of 8380, total protein is 6, albumin 2.6, and urinalysis had positive nitrites/squamous cells of 10-20. [facility] Disclaimer: The information contained in this section may have been updated after the patient was seen, as this information can be updated by other users. Medical History (Updated 07/29/24 @ 03:48 by Luiz Min APRN) Weight loss, unintentional Former smoker Wheezing Alcohol abuse Thyroid disease History of hyperlipidemia History of hypertension Surgical History No significant past surgical history Family History Other Heart attack Hyperlipidemia Hypertension Lung cancer No significant family history Prostate CA Stroke Social History Smoking Status: Former smoker alcohol intake: current alcohol intake frequency: 3 or more drinks per day substance use type: denies use current occupational status: retired Travel in the last 8 weeks: None household members: spouse housing: house Have you lived/traveled outside US in past 30 days?: No Contact w/someone who lives/traveled outside US past 30 days?: No Exposure to someone with infectious disease in past 14 days?: No Do you have a fever (greater than 100.4 F or 38 C)?: No Have you tested positive for COVID-19: No Exposed to someone with COVID-19 in past 14 days?: No Do you have a sore throat?: No Do you have a cough?: No Do you have any weakness?: Yes Do you have any diarrhea?: No Are you experiencing any unusual bleeding?: No Do you have any muscle aches/pain?: No Do you have any abdominal pain?: No Are you experiencing loss of taste or smell?: No Other Medical History Have you received the Flu Vaccine for this season: No Have you received the Pneumonia Vaccine: Yes Review of Systems Review of Systems Review of systems:: unable to obtain Meds Home Medications and Allergies Home Medications ?Medication ?Instructions ?Recorded ?Confirmed ?Type atorvastatin 40 mg tablet 40 mg PO HS 01/14/20 05/03/24 History levothyroxine 25 mcg tablet 25 mcg PO DAILYDM 30 days #30 tabs 01/09/24 05/03/24 Rx metoprolol succinate 25 mg 25 mg PO DAILY #90 tabs 04/10/24 05/03/24 Rx tablet,extended release 24 hr (Toprol XL) New Prescriptions to Start Prescriptions: Allergies Allergy/AdvReac Type Severity Reaction Status Date / Time No Known Allergies Allergy Verified 05/03/24 13:29 Exam Data for Last 24 hours Vital signs and Labs for Last 24 Hours: Temp Pulse Resp BP Pulse Ox O2 Del Method O2 Flow Rate 98.4 F 92 H 21 108/48 L 94 L Room Air 2 07/29/24 02:08 07/29/24 02:08 07/29/24 02:08 07/29/24 02:08 07/29/24 00:01 07/29/24 02:08 07/29/24 00:01 Laboratory Results - last 24 hr 07/28/24 22:35: WBC 18.6 H, RBC 3.30 L, Hgb 9.9 L, Hct 28.6 L, MCV 86.7, MCH 30.0, MCHC 34.6, RDW 17.2, Plt Count 229, MPV 10.5 H, Neut % (Auto) 84.5 H, Lymph % (Auto) 5.5 L, Evans % (Auto) 7.9, Eos % (Auto) 1.1, Baso % (Auto) 0.4, Neut # (Auto) 15.7 H, Lymph # (Auto) 1.0, Evans # (Auto) 1.5 H, Eos # (Auto) 0.2, Baso # (Auto) 0.1, Sodium 132 L, Potassium 3.3 L, Chloride 98, Carbon Dioxide 29, Anion Gap 8.3, BUN 18, Creatinine 1.20, Estimated Creat Clear 65, Estimated GFR 58 L, Est GFR ( Amer) 71, Glucose 104 H, Lactate 2.0, Calcium 9.1, Total Bilirubin 2.5 H, AST 94 H, ALT 43, Alkaline Phosphatase 126, Troponin I 0.02, NT-Pro-B Natriuret Pep 8380 H, Total Protein 6.0 L, Albumin 2.6 L, Globulin 3.4 H, Albumin/Globulin Ratio 0.8 L, TSH 2.37, Free T4 2.04, HCV Ab KAIT w/Rflx PCR Qn Negative, HIV Ag/Ab Combo Qual Negative 07/28/24 22:56: VBG pH 7.41, VBG pCO2 45.0, VBG pO2 37.1, VBG HCO3 27.6, VBG Total CO2 28.9 H, VBG O2 Saturation 64.4, VBG Base Excess 2.8 H, VBG Lactic Acid 2.6 H 07/28/24 22:57: Urine Color Dark yellow, Urine Appearance Sl cloudy, Urine pH 6.0, Ur Specific Henderson 1.015, Urine Protein Trace, Urine Glucose (UA) Negative, Urine Ketones Trace, Urine Blood Negative, Urine Nitrate Positive A, Urine Bilirubin Negative, Urine Urobilinogen 1.0, Ur Leukocyte Esterase Trace, Urine RBC Occasional, Urine WBC 3-5, Ur Squamous Epith Cells 10-20, Amorphous Sediment 1+, Urine Bacteria 2+ I & O for Last 24 hours: Intake & Output 07/26/24 07/27/24 07/28/24 07/29/24 23:59 23:59 23:59 23:59 Weight 91.5 kg Constitutional Constitutional: no acute distress, obese and cooperative *Routine HEENT Exam Head: Present normocephalic and atraumatic Eye: Present EOMI ENT: Present mucous membranes moist *Routine Neck Exam Neck: Present supple and full ROM *Routine Respiratory Exam Respiratory: Present wheezes, crackles and distant breath sounds *Routine Cardiovascular Exam Cardiovascular: Present RRR and JVD *Routine Abdominal Exam Abdominal: Present distended and obese Comments: + fluid wave *Routine Rectal Exam Rectal:: deferred *Routine Genitalia Exam Genitalia:: deferred *Routine Extremities Exam Extremities: Present edema Comments: -3+ to the RLE -2+ to the LLE Routine Back/Spine/Pelvis Exam Back/Spine: Present full ROM *Routine Skin Exam Skin: Present dry and warm *Routine Neurological Exam Neurological: Present CN II-XII intact, altered mental status and moving all extremities Routine Psychiatric Exam Psychiatric: Present cooperative H&P: Result Impressions 79-year-old male who presents with what appears to be hepatic encephalopathy versus toxic metabolic encephalopathy with no known prior history of cirrhosis but new findings consistent with cirrhosis. Imaging is concerning for possible common bile duct obstruction. Family was offered transfer but opted to stay here. He has had no formal liver workup and is volume overloaded. Assessment and Plan *Assessment and plan (1) Cirrhosis: Status: Acute Qualifiers: Ascites presence: with ascites Hepatic cirrhosis type: alcoholic cirrhosis Qualified Code(s): K70.31 - Alcoholic cirrhosis of liver with ascites Category: Medical Code(s): K74.60 - Unspecified cirrhosis of liver (2) Pneumonia: Status: Acute Qualifiers: Laterality: bilateral Lung location: unspecified part of lung Pneumonia type: due to unspecified organism Qualified Code(s): J18.9 - Pneumonia, unspecified organism Category: Medical Code(s): J18.9 - Pneumonia, unspecified organism (3) Ascites: Status: Acute Qualifiers: Ascites type: due to alcoholic cirrhosis Qualified Code(s): K70.31 - Alcoholic cirrhosis of liver with ascites Category: Medical Code(s): R18.8 - Other ascites (4) Hyponatremia: Status: Acute Category: Medical Code(s): E87.1 - Hypo-osmolality and hyponatremia (5) Elevated bilirubin: Status: Acute Category: Medical Code(s): R17 - Unspecified jaundice (6) Gastric varices without bleeding: Status: Acute Category: Medical Code(s): I86.4 - Gastric varices (7) Hypervolemia: Status: Acute Qualifiers: Hypervolemia type: unspecified Qualified Code(s): E87.70 - Fluid overload, unspecified Category: Medical Code(s): E87.70 - Fluid overload, unspecified Plan Assessment: Altered mental status: Hepatic encephalopathy versus toxic metabolic encephalopathy -Will treat underlying infection. CT scan of the chest shows bilateral pleural effusions with possible superimposed pneumonia -Will obtain hepatic workup -Patient had paracentesis performed in emergency room we will rule out spontaneous bacterial peritonitis-will cover with 2 g of Rocephine Bilateral pleural effusion -Patient received 40 mg of Lasix while in the emergency room -Will obtain decubitus of the chest -Will consider consultation of pulmonology for possible thoracentesis -Patient's blood pressure is slightly on the softer side; making it difficult to diurese patient -Will give albumin 25 g IV every 6 hours with hopes to draw fluid back into the vascular bed -40 mg of Lasix IV daily hold for systolic blood pressure less than 120 Superimposed bilateral pneumonia -2 g Rocephin IV daily -500 mg of azithromycin p.o. daily -Will de-escalate antibiotics according to treatment plan response Leukocytosis with left shift -Antibiotics as above -Blood cultures x 2 -Will monitor cultures from peritoneal fluid -Will monitor urine culture Normocytic normochromic anemia: May be in the setting of chronic anemia versus hepatic impairment -Obtain anemia profile Ascites -Underwent paracentesis with greater than 1 L of clear peritoneal fluid removed -Will give 25 g of albumin postprocedure Hypokalemia -40 mill equivalents of potassium p.o. x 1 Decompensated cirrhosis/elevated bilirubin/transaminitis (AST >ALT ratio of 2.1) -Fractionate bilirubin -Obtain KATIE, hepatitis panel, AFP, alpha 1 antitrypsin phenotype, ceruloplasmin, GGT, ferritin, INR, and hepatic ultrasound -Unable to calculate sodium MELD score or child pub score INR is pending -Will obtain MRCP when available (concerns for ascending cholangitis due to dilation of the common bile duct with possible obstruction seen on imaging) -Monitor CMP daily -Will consult GI when available Gastric varices: Seen on imaging -No active bleeding is noted -Will start 20 mg of nadolol p.o. daily to reduce portal pressure we will hold for systolic blood pressure less than 120 Hypervolemia -Will give Lasix as indicated above -Right lower extremity is 3+ pitting edema while left lower extremity is 2+ -Will obtain right lower extremity venous ultrasound to rule out DVT Possible urinary tract infection -2 g Rocephin IV daily Plan: [facility] Up to chair twice daily DNR SCDs to bilateral lower EXTR Daily weight Occupational Therapy Physical therapy Saline lock Vital signs every 4 hours Cardiac diet Decubitus of the chest Obtain ammonia stat CBC/CMP daily 25 g of albumin every 6 hours x 1 day 2 mg of morphine IV push every 2 hours as needed severe pain 4 mg Zofran IV push to 8 hours. Nausea vomit Will monitor urine culture blood cultures x2 Following labs for ascites fluid: Albumin level, body cell count, cytology, blood glucose, LDL, protein, culture and Gram stain I will discuss this case with attending physician Dr. Nunn and a look forward to more input
[2024-07-29 04:08] LABS: Appearance,Body Fld. Slightly cloudy
[2024-07-29 04:13] LABS: Ammonia 34 umol/L (9-30)
[2024-07-29 04:17] LABS: Lactic Acid Follow Up (RFLX 1) 2.4 mmol/L (0.7-2.1)
[2024-07-29 04:18] LABS: Anisocytosis 2+; Burr Cells 2+; Eosinophils % 1 % (0-3); Lymphocytes % 7 % (10-50); Macrocytosis 1+; Microcytosis 1+; Monocytes % 5 % (2-9); Neutrophils % 87 % (42-76); Platelet Estimate Normal; Total Cells Counted 100
[2024-07-29 04:19] LABS: RBC,Body Fluid < 10 cells/uL (< 10 X 10^3); TNC,Body Fluid 97 cells/uL (< 1000)
[2024-07-29 04:26] LABS: Troponin I 0.02 ng/ml (0.00-0.034)
--- NOTE | 2024-07-29 05:40 | PC.NURSE ---
Patient is confused, alert to self only. Attempted to call for information on medications and code status, no answer.
[2024-07-29] MEDS: POTASSIUM CHLORIDE 20MEQ TAB 40 MEQ PO (05:53)
[2024-07-29] MEDS: ALBUMIN HUMAN 25 GM/100 ML BAG IV ×3 (05:56→11:18)
[2024-07-29 06:02] LABS: Reflex Lactic (2 hrs) Add Lactic Reflex
[2024-07-29] MEDS: IPRATROPIUM/ALBUTEROL 3 ML NEB IH (06:42)
[2024-07-29 06:59] LABS: Mononuclear WBCs,Body Fluid 13 %; Polynuclear WBC,Body Fluid 5 %
[2024-07-29 07:24] LABS: Source, Body Fld. Peritoneal Fluid; Volume,Body Fld. 1400 mL
--- NOTE | 2024-07-29 07:44 | PC.NURSE ---
Pt. was admitted overnight from the ED. Pt.was brought into the ED for weakness, AMS, frequent falls. Pt. has a HX of liver disease. Pt. has fluid overload. Pt. has ascites to abd. Pt. was given Lasix in the ED and Albumin on the floor. Pt. incontinent of bowel and bladder. Pt. alert and orientated to self. Pt. able to follow some commands. Speech slurred and garbled at times. When turning side to side to change brief Pt. became dyspnic and very wheezy. Pt. had audible wheezes. Deuneb given by RT. VSS. Personal items and call davies in reach.
--- NOTE | 2024-07-29 08:00 | XR_ITS ---
PROCEDURE INFORMATION: Exam: XR Chest Exam date and time: 07/29/2024 11:40 AM Age: 79 years old Clinical indication: Other: Bilateral pleural effusions TECHNIQUE: Imaging protocol: Radiologic exam of the chest. Views: 2 views. COMPARISON: CR XR CHEST PORTABLE 07/29/2024 12:35 AM FINDINGS: Lungs: Bibasilar atelectasis right worse than left. Pleural spaces: Small to moderate pleural effusions bilaterally. Left effusion noted along the lateral left hemithorax on decubitus view. Lateral margin of the right hemithorax obscured on current study to evaluate for right effusion. Heart/Mediastinum: Unremarkable. No cardiomegaly. Bones/joints: Unremarkable. IMPRESSION: Small to moderate pleural effusions bilaterally, appearing non loculated on the left. Right is indeterminate as detailed above.
--- NOTE | 2024-07-29 09:31 | HMH.PHAINT1 ---
Pharmacy Intervention Comments: MEDICATION RECONCILIATION COMPLETE USING LIST FROM CARDIOLOGY OFFICE, EXTERNAL PHARMACY FILL HISTORY AND KENYA REPORT.
[2024-07-29] MEDS: BUMETANIDE 1MG/4ML VIAL 2 MG IV ×2 (09:37→17:21)
[2024-07-29] MEDS: NADOLOL 20MG TABLET 20 MG PO (09:37)
[2024-07-29] MEDS: AZITHROMYCIN 250MG TABLET 500 MG PO (09:37)
[2024-07-29] MEDS: SPIRONOLACTONE 25MG TABLET 50 MG PO (09:38)
[2024-07-29 11:37] LABS: Lactic Acid Follow up (RFLX 2) 1.6 mmol/L (0.7-2.1)
[2024-07-29 11:53] LABS: Chloride 99 mmol/L (98-107); Sodium 132 mmol/L (136-145)
[2024-07-29 11:54] LABS: Potassium 3.1 mmoL/L (3.5-5.1)
[2024-07-29 11:56] LABS: Alanine Aminotransferase 38 U/L (12-78); Albumin/Globulin Ratio 1.1 (1.1-1.8); Alkaline Phosphatase 95 U/L (38-126); Anion Gap 8.1 mEq/L (5-15); Aspartate Amino Transferase 85 U/L (17-59); Bilirubin,Total 2.4 mg/dl (0.2-1.3); Blood Urea Nitrogen 19 mg/dl (9-20); Carbon Dioxide 28 mmol/L (22.0-30.0); Creatinine Clearance Estimated 64 mL/min (50-200); Estimated Glomerular Filt Rate 65 ml/min (>60); GFR (African American) 78 ML/MIN (>60); Globulin 2.8 g/dL (1.3-3.2); Glucose 108 mg/dl (74-100); Magnesium 1.8 mg/dl (1.6-2.3); Total Protein,Serum 5.8 g/dl (6.3-8.2)
[2024-07-29 11:57] LABS: INR 1.36 (0.9-1.1); Prothrombin Time 14.5 seconds (9.2-12.1)
[2024-07-29 12:01] LABS: Bilirubin,Unconjugated 1.5 mg/dL (0.0-1.1); Iron 29 ug/dL (49-181)
[2024-07-29 12:07] LABS: Reticulocyte % (Auto) 2.1 % (0.9-3.2)
[2024-07-29 12:10] LABS: Total Iron Binding Capacity 135 ug/dL (261-462)
[2024-07-29 12:14] LABS: Troponin I < 0.01 ng/ml (0.00-0.034)
[2024-07-29 12:22] LABS: Bilirubin,Indirect 1.3 mg/dL (0.0-0.9); Bilirubin,Total 2.3 mg/dl (0.2-1.3)
[2024-07-29 12:27] LABS: Basophils # 0.1 K/mm3 (0-0.2); Basophils % 0.5 % (0.1-2.0); Eosinophils # 0.3 K/mm3 (0.0-0.4); Eosinophils % 2.5 % (0.1-12.0); Hematocrit 24.2 % (42.0-52.0); Lymphocytes % 8.4 % (10-50); Mean Corpuscular HGB Conc 34.7 g/dL (31.8-35.4); Mean Corpuscular Hemoglobin 30.2 pg (27.0-31.2); Mean Corpuscular Volume 87.1 fl (80-94); Mean Platelet Volume 10.6 fl (7.4-10.4); Monocytes # 1.1 K/mm3 (0.1-1.0); Monocytes % 9.9 % (1.7-9.3); Neutrophils # 8.8 K/mm3 (1.8-7.8); Neutrophils % 78.3 % (37.0-80.0); Platelet Count 196 K/mm3 (142-424); Red Blood Count 2.78 M/mm3 (4.60-6.20); Red Cell Distribution Width 17.3 % (11.5-17.5); White Blood Count 11.3 K/mm3 (4.8-10.8)
[2024-07-29 12:37] LABS: Ferritin 449 ng/ml (17.9-464)
[2024-07-29 12:38] LABS: Hemoglobin 8.4 g/dL (14.1-18.0)
[2024-07-29 12:57] LABS: Gamma Glutamyl Transpeptidase 42 U/L (15-73)
[2024-07-29] MEDS: ACETAMINOPHEN 325MG TAB 325 MG PO (13:33)
[2024-07-29] MEDS: LACTULOSE 20GM/30ML UDC 10 GM PO ×2 (14:21→22:28)
--- NOTE | 2024-07-29 16:42 | PC.NURSE ---
PT IS SITTING UP IN THE CHAIR. ALERT TO SELF ONLY. TURNED AND REPOSITIONED IN BED. PT HAS NEEDED ASSISTANCE WITH EATING. LUNG SOUNDS DIMINISHED WITH SCATTERED RHONCHI. WHEN PT IS BEING TURNED AND REPOSITIONED WILL OCCASIONALLY HAVE AUDIBLE WHEEZES. 2+ PITTING EDEMA NOTED TO BLE. ABDOMEN FIRM WITH ASCITES NOTED. JAUNDICED. THIS AFTERNOON WHILE CLEANING PT UP FROM HAVING A BOWEL MOVEMENT AND MOVING PT FROM BED TO CHAIR BE BECAME COMBATIVE TOWARDS STAFF. STATED OVER THE PHONE PT HAS NEVER BEEN COMBATIVE BEFORE AT HOME AND STATED THAT WAS NOT PT'S NORMAL AT ALL. 2 ASSIST TO GET OOB. VSS. WILL CONTINUE TO MONITOR.
[2024-07-29 20:22] LABS: Vitamin B12 989 pg/mL (239-931)
[2024-07-29] MEDS: CEFTRIAXONE SODIUM 2 GM in 0.9 % SODIUM CHLORIDE 100 ML IV (22:27)
[2024-07-29] MEDS: ATORVASTATIN 40MG TABLET 40 MG PO (22:29)
[2024-07-30] VITALS: BP 126/61; PULSE 72; RESP 21; TEMP 36.9; O2SAT 93
--- NOTE | 2024-07-30 02:23 | CA_ITS ---
FINAL REPORT TECHNIQUE: Multiple transverse and longitudinal images were performed of the right femoral-popliteal deep venous system with augmentation and compression maneuvers. CLINICAL HISTORY: HTN, ETOH abuse, HLD, bilateral pleural effusions, cirrhosis, ascites, CHF, UTI, AMS. RLE edema, no known trauma. COMPARISON: None FINDINGS: Right lower extremity duplex ultrasound demonstrates normal flow in the deep venous system. There is no abnormal echogenicity to suggest thrombus. There is normal compression and augmentation. IMPRESSION: No evidence of right DVT. Reviewed, Interpreted and Dictated by Loyd Lacey MD Transcribed by Radha Morales Authenticated and [facility]
[2024-07-30 04:00] VITALS: BP 116/65; PULSE 69; RESP 18; TEMP 36.6; O2SAT 93; BMI 25.7
--- NOTE | 2024-07-30 04:05 | PC.NURSE ---
Patient is alert to himself, and he is aware of where he is at ( [facility], [facility] ); however, the patient has had occasional incoherent speech. His speech pattern is slurred and mumbled; he is also hard to understand at times (baseline). Patient was observed to have eyes closed, respirations even and unlabored on room air, and no apparent distress throughout the night. Upon assessment, patient stated that he has off-and-on trouble when it comes to his breathing ability. He reports sputum production, but no sputum samples were able to be collected thus far for this shift. Scattered audible wheezing could be heard during turning/repositioning of the patient. Wheezing would ease during rest. He has not had any complaints of pain this shift. Diminished air movement could be heard within his lungs, as well as inspiratory rhonchi. Auscultation of his heart and bowels were within normal findings. Abdomen appearance soft, non-tender, but ascitic. A male purewick has been utilized this shift; urine output emptied and documented accordingly. Patient has moderate edema in his bilateral lower extremities. Skin appearance slightly jaundiced. He has remained NPO since midnight this shift. Scheduled medications were administered per SEP. Vital signs stable. At this time, the patient is resting in bed without any further complaints. Bed alarm on. Call light within reach.
[2024-07-30] MEDS: LEVOTHYROXINE 50MCG (0.05MG) TAB 50 MCG PO (06:24)
[2024-07-30 06:56] LABS: Basophils # 0.1 K/mm3 (0-0.2); Basophils % 0.8 % (0.1-2.0); Eosinophils # 0.7 K/mm3 (0.0-0.4); Eosinophils % 6.4 % (0.1-12.0); Hematocrit 25.9 % (42.0-52.0); Hemoglobin 9.1 g/dL (14.1-18.0); Lymphocytes # 1.3 K/mm3 (0.7-4.5); Lymphocytes % 12.8 % (10-50); Mean Corpuscular HGB Conc 35.1 g/dL (31.8-35.4); Mean Corpuscular Hemoglobin 30.1 pg (27.0-31.2); Mean Corpuscular Volume 85.8 fl (80-94); Mean Platelet Volume 10.5 fl (7.4-10.4); Monocytes % 9.7 % (1.7-9.3); Neutrophils # 7.3 K/mm3 (1.8-7.8); Neutrophils % 69.9 % (37.0-80.0); Platelet Count 180 K/mm3 (142-424); Red Blood Count 3.02 M/mm3 (4.60-6.20); Red Cell Distribution Width 17.2 % (11.5-17.5); White Blood Count 10.4 K/mm3 (4.8-10.8)
--- NOTE | 2024-07-30 07:00 | US_ITS ---
FINAL REPORT CLINICAL HISTORY: Ascites COMPARISON: None FINDINGS: Sonographic images of the right upper quadrant were obtained. Exam is suboptimal. The pancreas is obscured. The liver has a nodular peripheral contour consistent with cirrhosis. There is a moderate amount of ascites. Gallbladder wall is slightly thickened with an echogenic nonshadowing focus along the wall of the gallbladder, probable polyp. The common duct measures 13 mm, which is significantly dilated. There is no evidence of choledocholithiasis. Limited images of the right kidney are unremarkable. IMPRESSION: Cirrhosis. Moderate ascites. Gallbladder wall polyp. Dilated common duct without evidence of choledocholithiasis. Reviewed, Interpreted and Dictated by Loyd Lacey MD Transcribed by Radha Morales Authenticated and [facility]
[2024-07-30 07:16] LABS: Ammonia 45 umol/L (9-30)
[2024-07-30 07:21] LABS: Alanine Aminotransferase 28 U/L (12-78); Albumin Level 2.7 g/dl (3.5-5.0); Alkaline Phosphatase 113 U/L (38-126); Aspartate Amino Transferase 58 U/L (17-59); Bilirubin,Total 1.4 mg/dl (0.2-1.3); Blood Urea Nitrogen 19 mg/dl (9-20); Calcium 8.7 mg/dl (8.4-10.2); Carbon Dioxide 32 mmol/L (22.0-30.0); Chloride 99 mmol/L (98-107); Creatinine Clearance Estimated 63 mL/min (50-200); Estimated Glomerular Filt Rate 65 ml/min (>60); GFR (African American) 78 ML/MIN (>60); Globulin 2.7 g/dL (1.3-3.2); Glucose 93 mg/dl (74-100); Total Protein,Serum 5.4 g/dl (6.3-8.2)
[2024-07-30 07:25] LABS: Sodium 137 mmol/L (136-145)
[2024-07-30 07:58] LABS: Anion Gap 8.8 mEq/L (5-15)
[2024-07-30 08:00] VITALS: BP 109/60; PULSE 66; RESP 20; TEMP 36.7; O2SAT 96
[2024-07-30 08:16] LABS: Potassium 2.8 mmoL/L (3.5-5.1)
[2024-07-30] MEDS: LACTULOSE 20GM/30ML UDC 10 GM PO ×3 (09:14→20:59)
--- NOTE | 2024-07-30 09:14 | HMH.PTEV ---
Physical Therapy Evaluation Rehab PT IP Evaluation Start: 07/29/24 03:15 Freq: ONCE Status: Active Protocol: Document 07/30/24 09:10 DARIUS (Rec: 07/30/24 09:14 DARIUS [id number]) Subjective/History History History Per H&P: This is a 79-year- old male who has a past medical history significant for obstructive sleep apnea, anemia, thyroid disease, hypertension, EtOH abuse, hyperlipidemia, syncope , and unspecified congestive heart failure who presents with a chief complaint of confusion. Due to patient's confusion, the majority of information obtained from ER provider, chart review, and at the bedside... Subjective Subjective Pt oriented to name and location. PT with difficulty understanding pt's answers d/t mumbled/garbled speech and pt confusion. Pt reports he lives with his who helps him as needed. Pt may use RW for ambulation. New diagnosis of cancer in past 12 No months? Rehab PT IP Eval Objective Appearance Patient Behavior Appropriate,Cooperative Patient Orientation Person,Place Difficulty following instructions none Speech Pattern Garbled,Mumbled Ambulation Patient Able to Ambulate No Balance Ability to Arise Able, uses arms to help Sitting Balance Steady, safe Standing Balance Unsteady Dynamic Sitting Balance Ability Good Transfers Bed Transfer Ability Minimal x 1 (25% assist) Chair Transfer Ability Minimal x 2 (25% assist) Sit to Stand Bed Transfer Ability Minimal x 1 (25% assist) Sit to Stand Chair Transfer Ability Minimal x 1 (25% assist) Rehab PT IP prob,goals,plan Problems Date of Evaluation: 07/30/24 PT IP Problems Bed Mobility,Transfers,Gait, Balance,Self care,Safety Rehab Potential Rehab Potential Good Equipment Needs Assistive Devices Rolling / Wheeled Walker Plan PT Intervention Plan Bed Mobility,Transfers,Gait, Balance,Self care,Safety, Therapeutic Exercise Other Intervention Plan 1-2 times PT Plan Frequency Daily Duration LOS Discharge Goals Bed Transfer Ability Contact Guard/Hand Hold Sit to Stand Chair Transfer Ability Contact Guard/Hand Hold Discharge Plan PT Discharge Plan Initial physical therapy evaluation performed. Patient presents below baseline at this time in functional mobility, transfers, and strength. PT recommending short-term rehabilitation stay upon d/c from [facility]. Pt would benefit from skilled PT while at [facility] to prevent further functional decline and maximize safety with mobility. Eval Complexity Eval Charge Codes 08737 - Moderate Complexity PHYSICIAN CERTIFICATION: I certify the specified therapy services for Joshua Rios Rogers are required, authorized, and reviewed every 30 days.
[2024-07-30] MEDS: BUMETANIDE 1MG/4ML VIAL 2 MG IV ×2 (09:15→17:23)
[2024-07-30] MEDS: SPIRONOLACTONE 25MG TABLET 50 MG PO (09:15)
[2024-07-30] MEDS: AZITHROMYCIN 250MG TABLET 500 MG PO (09:15)
--- NOTE | 2024-07-30 09:55 | HMH.OTEV ---
OT Inpatient Evaluation Rehab OT IP Evaluation Start: 07/29/24 03:15 Freq: ONCE Status: Active Protocol: Document 07/30/24 09:49 PEDRONATACHA (Rec: 07/30/24 09:55 ARTUR [id number]) Rehab OT IP Assessment Subjective History This is a 79-year-old male who has a past medical history significant for obstructive sleep apnea, anemia, thyroid disease, hypertension, EtOH abuse, hyperlipidemia, syncope, and unspecified congestive heart failure who presents with a chief complaint of confusion. Due to patient's confusion, the majority of information obtained from ER provider, chart review, and at the bedside. According ER provider, patient was transition to the emergency room due to acute confusion. While in the emergency room, CTA of the chest revealed moderate bilateral pleural effusions with compressive atelectasis of the lung/ extensive atherosclerosis of the coronary arteries, CTA of the abdomen pelvis revealed dilated common bile duct suspicious for distal obstruction, nodular hepatic contour consistent with hepatic cirrhosis, evidence of portal hypertension including recanalization of the umbilical vein and gastric varices, moderate abdominal ascites, CTA of the head and neck revealed suspicious moderate to severe right and mid left internal carotid proximal cervical segment stenosis/at least mild stenosis of the right common carotid artery mid segment and carotid above and of the left common carotid artery distal segment and carotid bulb/ suboptimal visualization of the vertebral artery origins, and CT scan of the head was negative for any acute intracranial process. As a result of these findings, patient was admitted for further management. Patient verbalize that he lived with his . Patient unable to provide further information re: PLOF. Instructed Patient on proper hand and foot placement to complete bed mobility from supine->sit @ EOB->SPT to recliner. Patient incontinent of bowel mgt tr. Instructed Patient on static standing duration to assist with toilet hygiene. Min A x2 for standing. Patient able to stand ~1-2 mins during brief and bowel incontinent change. TD for brief changing. Subjective I can sit in the chair. Objective Patient Orientation Person,Name Right Upper Extremity Gross ROM WFL Left Upper Extremity Gross ROM WFL Bed Mobility bed mobility - supine/sit Assist Level Moderate x 2 (50% assist) Transfer Training Sit/Stand Transfer Assist Level Minimal x 2 (25% assist) Chair Transfer Ability Minimal x 2 (25% assist) Chair Transfer Technique Sit to/from Ambulatory Performing Toilet Hygiene Ability Unable/dependent Rehab OT IP prob,goals,plan Problems Date of Evaluation: 07/30/24 OT IP Problems Bed Mobility,Transfers,Balance ,Self care,Safety Rehab Potential Rehab Potential Good Equipment Needs Assistive Devices Rolling / Wheeled Walker Plan OT intervention Plan Bed Mobility,Transfers,Balance ,Self care,Safety,Therapeutic Exercise OT Plan Frequency Daily Duration LOS Discharge Goals Bed Mobility Ability Assistance x1 Sit to Stand Chair Transfer Ability Moderate x 1 (50% assist) Chair Transfer Ability Minimal x 2 (25% assist) Chair Transfer Technique Sit to/from Ambulatory Performing Toilet Hygiene Ability Maximum Assistance Discharge Plan OT Discharge Plan Patient will require 24/7 care with ADLs and fx'l mobility. Recommend placement at this time for [facility] and rehab. Patient to continue skilled OT IP services [facility] Eval Complexity Eval Charge Codes 98854 - Low Complexity PHYSICIAN CERTIFICATION: I certify the specified therapy services for Joshua Rogers are required, authorized, and reviewed every 30 days.
--- NOTE | 2024-07-30 10:02 | CA_ITS ---
FINAL REPORT TECHNIQUE: Ultrasound images of the deep venous system were obtained from the left groin to the calf veins. CLINICAL HISTORY: PITTING EDEMA LLE COMPARISON: None FINDINGS: The deep venous system is normally compressible. Normal flow is identified. IMPRESSION: No evidence of left lower extremity DVT. Reviewed, Interpreted and Dictated by Loyd Lacey MD Transcribed by Radha Morales Authenticated and . [facility]
[2024-07-30 10:24] LABS: Magnesium 1.6 mg/dl (1.6-2.3)
--- NOTE | 2024-07-30 10:27 | SW/DCPLANNER ---
Addendum entered by Rebeca Dimas 08/01/24 10:47: Patient will discharge to [facility] today SNF level of care. Addendum entered by Rebeca Dimas 07/31/24 10:36: I have updated Alona w/ [facility] that patient could be ready for discharge tomorrow. Patient will have EGD today. Addendum entered by Rebeca Dimas 07/30/24 15:15: Per Humble w/ [facility] precert will be started today for SNF level of care. Original Note: I spoke w/ this patient and his regarding plans once medically stable for discharge. PT/OT evaluated patient and recommended SNF level of care. Patient and are agreeable to placement at this time. Patient/ prefer [facility] (not currently accepting new admissions), [facility] or [facility]. I will fax patient information to [facility] This AM. Discharge date is unknown at this time. I will continue to follow up.
[2024-07-30 11:11] LABS: HBsAg Screen Negative (Negative); HCV Ab Non Reactive (Non Reactive); Hep A Ab, IGM Negative (Negative); Hep B Core Ab, IgM Negative (Negative)
[2024-07-30 12:00] VITALS: BP 120/60; PULSE 65; RESP 16; TEMP 36.6; O2SAT 96
[2024-07-30] MEDS: POTASSIUM CHLORIDE 20MEQ TAB 40 MEQ PO ×3 (12:26→17:22)
[2024-07-30] MEDS: MAGNESIUM SULFATE IN WATER 2 GM/50 ML PIGGYBACK IV ×2 (12:27→13:44)
--- NOTE | 2024-07-30 13:36 | P.CONS_ITS ---
History of Present Illness *Admission Date: 07/29/24 *History of present illness: Mr. Rogers is a 79-year-old gentleman who presented to the emergency department with altered mental status and confusion. Workup in the emergency department included labs, ultrasound and eventual paracentesis. His abdominal CAT scan showed evidence of portal hypertension including recanalization of the umbilical vein and gastroesophageal varices. There was also moderate abdominal ascites. There was a dilated common bile duct. Subsequent ultrasound did show moderate ascites and a gallbladder wall polyp with dilated common bile duct without evidence of choledocholithiasis. The patient presented without any abdominal pain. Lab studies showed hemoglobin hematocrit of 9.1 and 25.9 which was diminished from prior labs in April 2024. His ferritin level was 449. Total bilirubin was 1.4 with AST 58 and ALT 28. His alkaline phosphatase was 113. His ammonia level today was 45. Peritoneal study showed 97 PMNs. Hepatitis B and C serologies are negative. The patient does drink alcohol moderately. Calculated MELD score today is 12. [facility] Disclaimer: The information contained in this section may have been updated after the patient was seen, as this information can be updated by other users. Medical History (Updated 07/30/24 @ 13:44 by Ky Parker II, MD) Weight loss, unintentional Former smoker Wheezing Alcohol abuse Thyroid disease History of hyperlipidemia History of hypertension Surgical History No significant past surgical history Family History Other Heart attack Hyperlipidemia Hypertension Lung cancer No significant family history Prostate CA Stroke Social History Smoking Status: Former smoker alcohol intake: current alcohol intake frequency: 3 or more drinks per day substance use type: denies use current occupational status: retired Travel in the last 8 weeks: None household members: spouse housing: house Have you lived/traveled outside [place] in past 30 days?: No Contact w/someone who lives/traveled outside US past 30 days?: No Exposure to someone with infectious disease in past 14 days?: No Do you have a fever (greater than 100.4 F or 38 C)?: No Have you tested positive for COVID-19: No Exposed to someone with COVID-19 in past 14 days?: No Do you have a sore throat?: No Do you have a cough?: No Do you have any weakness?: Yes Do you have any diarrhea?: No Are you experiencing any unusual bleeding?: No Do you have any muscle aches/pain?: No Do you have any abdominal pain?: No Are you experiencing loss of taste or smell?: No Meds Home Medications and Allergies Home Medications ?Medication ?Instructions ?Recorded ?Confirmed ?Type atorvastatin 40 mg tablet 40 mg PO HS 01/14/20 07/29/24 History metoprolol succinate 25 mg 25 mg PO DAILY #90 tabs 04/10/24 07/29/24 Rx tablet,extended release 24 hr (Toprol XL) ferrous sulfate 325 mg (65 mg 325 mg PO DAILY 07/29/24 07/29/24 History iron) tablet (iron) levothyroxine 50 mcg tablet 50 mcg PO DAILYDM 07/29/24 07/29/24 History New Prescriptions to Start Prescriptions: Allergies Allergy/AdvReac Type Severity Reaction Status Date / Time No Known Allergies Allergy Verified 05/03/24 13:29 Exam (Inpt) Vital signs and Labs for Last 24 Hours: Temp Pulse Resp BP Pulse Ox O2 Del Method O2 Flow Rate 97.8 F 65 16 120/60 96 Room Air 2 07/30/24 12:00 07/30/24 12:00 07/30/24 12:00 07/30/24 12:00 07/30/24 12:00 07/30/24 13:00 07/29/24 00:01 Laboratory Results - last 24 hr 07/29/24 11:15: Vitamin B12 989 H, Hepatitis A IgM Ab Negative, Hep Bs Antigen Negative, Hep B Core IgM Ab Negative, Hepatitis C Antibody Non reactive, HCV RNA PCR Test Info Comment 07/30/24 06:37: WBC 10.4, RBC 3.02 L, Hgb 9.1 L, Hct 25.9 L, MCV 85.8, MCH 30.1, MCHC 35.1, RDW 17.2, Plt Count 180, MPV 10.5 H, Neut % (Auto) 69.9, Lymph % (Auto) 12.8, [place] % (Auto) 9.7 H, Eos % (Auto) 6.4, Baso % (Auto) 0.8, Neut # (Auto) 7.3, Lymph # (Auto) 1.3, [place] # (Auto) 1.0, Eos # (Auto) 0.7 H, Baso # (Auto) 0.1, Sodium 137, Potassium 2.8 L*, Chloride 99, Carbon Dioxide 32 H, Anion Gap 8.8, BUN 19, Creatinine 1.10, Estimated Creat Clear 63, Estimated GFR 65, Est GFR ( Amer) 78, Glucose 93, Calcium 8.7, Total Bilirubin 1.4 H, A ST 58 D, ALT 28 D, Alkaline Phosphatase 113, Ammonia 45 H, Total Protein 5.4 L , Albumin 2.7 L, Globulin 2.7, Albumin/Globulin Ratio 1.0 L 07/30/24 06:57: Magnesium 1.6 D I & O for Labs for Last 24 Hours: Intake & Output 07/27/24 07/28/24 07/29/24 07/30/24 23:59 23:59 23:59 23:59 Intake Total 840 / 1090 250 / 250 Output Total 1800 / 2100 1225 / 1225 Balance -960 / -1010 -975 / -975 Weight 201 lb 11.567 oz 182 lb 1.6 oz 180 lb 1.6 oz Microbiology Reports for the Last 24 Hours: Microbiology 07/28/24 22:57 Blood Blood Culture - Preliminary NO GROWTH AFTER 24 HOURS 07/28/24 22:35 Blood Blood Culture - Preliminary NO GROWTH AFTER 24 HOURS 07/28/24 22:57 Urine,Clean Catch Urine Culture - Preliminary 07/29/24 02:52 Peritoneal Fluid Gram Stain - Final 07/29/24 02:52 Peritoneal Fluid Body Fluid Culture - Preliminary NO GROWTH AFTER 24 HOURS GI: Present soft Comments:: Normoactive bowel sounds, nontender, mild distention with ballotable liver and splenomegaly Results Labs 07/30/24 06:37 07/30/24 06:37 Labs: Laboratory Results - last 24 hr 07/29/24 11:15: Vitamin B12 989 H, Hepatitis A IgM Ab Negative, Hep Bs Antigen Negative, Hep B Core IgM Ab Negative, Hepatitis C Antibody Non reactive, HCV RNA PCR Test Info Comment 07/30/24 06:37: WBC 10.4, RBC 3.02 L, Hgb 9.1 L, Hct 25.9 L, MCV 85.8, MCH 30.1, MCHC 35.1, RDW 17.2, Plt Count 180, MPV 10.5 H, Neut % (Auto) 69.9, Lymph % (Auto) 12.8, [place] % (Auto) 9.7 H, Eos % (Auto) 6.4, Baso % (Auto) 0.8, Neut # (Auto) 7.3, Lymph # (Auto) 1.3, [place] # (Auto) 1.0, Eos # (Auto) 0.7 H, Baso # (Auto) 0.1, Sodium 137, Potassium 2.8 L*, Chloride 99, Carbon Dioxide 32 H, Anion Gap 8.8, BUN 19, Creatinine 1.10, Estimated Creat Clear 63, Estimated GFR 65, Est GFR ( Amer) 78, Glucose 93, Calcium 8.7, Total Bilirubin 1.4 H, A ST 58 D, ALT 28 D, Alkaline Phosphatase 113, Ammonia 45 H, Total Protein 5.4 L , Albumin 2.7 L, Globulin 2.7, Albumin/Globulin Ratio 1.0 L 07/30/24 06:57: Magnesium 1.6 D Assessment and Plan *Assessment and plan (1) Ascites: Status: Acute Qualifiers: Ascites type: due to alcoholic cirrhosis Qualified Code(s): K70.31 - Alcoholic cirrhosis of liver with ascites Category: Medical Code(s): R18.8 - Other ascites (2) Portal hypertension: Status: Acute Category: Medical Code(s): K76.6 - Portal hypertension (3) Alcoholic cirrhosis: Status: Acute Category: Medical Code(s): K70.30 - Alcoholic cirrhosis of liver without ascites (4) Elevated bilirubin: Status: Acute Category: Medical Code(s): R17 - Unspecified jaundice (5) Dilated bile duct: Status: Acute Category: Medical Code(s): K83.8 - Other specified diseases of biliary tract (6) Hepatic encephalopathy: Status: Acute Category: Medical Code(s): K76.82 - Hepatic encephalopathy Plan 1. Cirrhosis with some decompensation and signs of early liver failure. The patient does have ascites, encephalopathy and evidence of portal hypertension. His MELD score calculated today is 12. I would recommend continuing lactulose and he has had clinical improvement of his encephalopathy despite ammonia levels more elevated today. 2. Ascites. The patient does not have any evidence of SBP. I cannot see that they sent ascitic fluid for albumin which is important to check his serum to ascites albumin gradient. I would add diuretic and continue Lasix 20 mg p.o. daily plus spironolactone 100 mg p.o. daily. Creatinine is stable. 3. Portal hypertension. I will plan EGD in the morning and grade size of varices as well as consider adding nonselective beta-nolan (over metoprolol). 4. Hepatic encephalopathy. Hepatic encephalopathy implies altered brain function that is due to metabolic abnormalities which occur as a consequence of liver failure. Decades of experience have shown us that increased ammonia concentrations are implicated in hepatic encephalopathy. We do know that the encephalopathy causes a reversible impairment of neurologic and psychiatric function which may cause cognitive and memory impairment. Certainly there is a wide spectrum and the manifestations can be subtle or more pronounced. Hepatic encephalopathy is a poor prognostic factor and pro SPECT of studies have shown a medium survival of around 2 years. I do feel that the etiology of his cirrhosis is most likely alcohol. His ferritin level was slightly increased at upper limit of normal. This can occur with alcohol related liver injury but I will also obtain hemochromatosis genetic assay. I will send autoimmune serologies as well as alpha-1 antitrypsin level and ceruloplasmin.
[2024-07-30 13:43] LABS: AFP, Tumor Marker 2.2 ng/mL (0.0-8.4); Antinuclear Antibodies (ANA) Negative (Negative)
[2024-07-30 15:09] LABS: Ceruloplasmin 14.9 mg/dL (16.0-31.0)
--- NOTE | 2024-07-30 15:46 | PC.NURSE ---
Pt is A&O x3. Has ambulated to chair with 2 assist. Tolerated fair. He is currently sitting up in his chair. He has denied any discomfort. VSS. Family has been at bedside. Call light within reach. Safety measures in place. Consent for EGD is signed and on chart.
[2024-07-30 16:00] VITALS: BP 121/62; PULSE 72; RESP 17; TEMP 36.6; O2SAT 97
[2024-07-30 20:00] VITALS: BP 123/70; PULSE 74; RESP 16; TEMP 36.4; O2SAT 95
[2024-07-30] MEDS: CEFTRIAXONE SODIUM 2 GM in 0.9 % SODIUM CHLORIDE 100 ML IV (20:57)
[2024-07-30] MEDS: ATORVASTATIN 40MG TABLET 40 MG PO (20:57)
--- NOTE | 2024-07-30 22:25 | EXP.PN ---
Subjective *Date: 07/31/24 *Time: 00:28 Interval history: Patient is a lot more alert, able to have a conversation. is at bedside. No complaints today. Exam Data for Last 24 hours Vital signs and Labs for Last 24 Hours: Temp Pulse Resp BP Pulse Ox O2 Del Method O2 Flow Rate 97.5 F L 74 16 123/70 95 Room Air 2 07/30/24 20:00 07/30/24 20:00 07/30/24 20:00 07/30/24 20:00 07/30/24 20:00 07/30/24 20:00 07/29/24 00:01 Laboratory Results - last 24 hr 07/29/24 11:15: Ceruloplasmin 14.9 L, Tumor Marker AFP 2.2, Zinc TNP, KATIE Screen Negative, Hepatitis A IgM Ab Negative, Hep Bs Antigen Negative, Hep B Core IgM Ab Negative, Hepatitis C Antibody Non reactive, HCV RNA PCR Test Info Comment 07/30/24 06:37: WBC 10.4, RBC 3.02 L, Hgb 9.1 L, Hct 25.9 L, MCV 85.8, MCH 30.1, MCHC 35.1, RDW 17.2, Plt Count 180, MPV 10.5 H, Neut % (Auto) 69.9, Lymph % (Auto) 12.8, [place] % (Auto) 9.7 H, Eos % (Auto) 6.4, Baso % (Auto) 0.8, Neut # (Auto) 7.3, Lymph # (Auto) 1.3, [place] # (Auto) 1.0, Eos # (Auto) 0.7 H, Baso # (Auto) 0.1, Sodium 137, Potassium 2.8 L*, Chloride 99, Carbon Dioxide 32 H, Anion Gap 8.8, BUN 19, Creatinine 1.10, Estimated Creat Clear 63, Estimated GFR 65, Est GFR ( Amer) 78, Glucose 93, Calcium 8.7, Total Bilirubin 1.4 H, AST 58 D, ALT 28 D, Alkaline Phosphatase 113, Ammonia 45 H, Total Protein 5.4 L, Albumin 2.7 L, Globulin 2.7, Albumin/Globulin Ratio 1.0 L 07/30/24 06:57: Magnesium 1.6 D I & O for Last 24 hours: Intake & Output 07/27/24 07/28/24 07/29/24 07/30/24 23:59 23:59 23:59 23:59 Intake Total 840 / 1090 620 / 620 Output Total 1800 / 2100 1625 / 1625 Balance -960 / -1010 -1005 / -1005 Weight 91.5 kg 82.599 kg 81.692 kg Microbiology Reports for the Last 24 Hours: Microbiology 07/28/24 22:57 Blood Blood Culture - Preliminary NO GROWTH AFTER 24 HOURS 07/28/24 22:35 Blood Blood Culture - Preliminary NO GROWTH AFTER 24 HOURS 07/28/24 22:57 Urine,Clean Catch Urine Culture - Preliminary 07/29/24 02:52 Peritoneal Fluid Gram Stain - Final 07/29/24 02:52 Peritoneal Fluid Body Fluid Culture - Preliminary NO GROWTH AFTER 24 HOURS Constitutional Constitutional: no acute distress *Routine HEENT Exam Head: Present normocephalic Eye: Present EOMI and PERRL ENT: Present mucous membranes moist *Routine Neck Exam Neck: Present supple; Absent lymphadenopathy *Routine Respiratory Exam Respiratory: Present CTA bilaterally *Routine Cardiovascular Exam Cardiovascular: Present RRR *Routine Abdominal Exam Abdominal: Present soft and normoactive bowel sounds; Absent tenderness Comments: Distended, firm abdomen. No peritoneal signs. *Routine Extremities Exam Extremities: Absent cyanosis, clubbing or edema Comments: Bilateral lower extremity pitting edema 2+. *Routine Skin Exam Skin: Present warm; Absent rash *Routine Neurological Exam Neurological: Present alert and oriented X3 Assessment and Plan *Assessment and plan (1) Cirrhosis: Status: Acute Qualifiers: Hepatic cirrhosis type: alcoholic cirrhosis Ascites presence: with ascites Qualified Code(s): K70.31 - Alcoholic cirrhosis of liver with ascites Category: Medical Code(s): K74.60 - Unspecified cirrhosis of liver (2) Pneumonia: Status: Acute Qualifiers: Pneumonia type: due to unspecified organism Laterality: bilateral Lung location: unspecified part of lung Qualified Code(s): J18.9 - Pneumonia, unspecified organism Category: Medical Code(s): J18.9 - Pneumonia, unspecified organism (3) Ascites: Status: Acute Qualifiers: Ascites type: due to alcoholic cirrhosis Qualified Code(s): K70.31 - Alcoholic cirrhosis of liver with ascites Category: Medical Code(s): R18.8 - Other ascites (4) Hyponatremia: Status: Acute Category: Medical Code(s): E87.1 - Hypo-osmolality and hyponatremia (5) Elevated bilirubin: Status: Acute Category: Medical Code(s): R17 - Unspecified jaundice (6) Gastric varices without bleeding: Status: Acute Category: Medical Code(s): I86.4 - Gastric varices (7) Hypervolemia: Status: Acute Qualifiers: Hypervolemia type: unspecified Qualified Code(s): E87.70 - Fluid overload, unspecified Category: Medical Code(s): E87.70 - Fluid overload, unspecified Plan Carlos Rogers is a 79-year-old male with history significant for former alcohol use disorder who was admitted for decompensated cirrhosis. #Decompensated alcoholic cirrhosis #Hepatic encephalopathy #Gastroesophageal varices #Bilateral pleural effusions #History of alcohol use disorder ? Presents with gross volume overload, ascites, hepatic encephalopathy with CT evidence of cirrhosis, portal hypertension, gastroesophageal varices. ? S/p paracentesis in the ED with 1.4 L drained. No evidence of SBP. ? PT/INR 14.5/1.36, platelets 180, albumin 2.7, ammonia 34. ? MELD-Na score today 12, 6% chance of 3-month mortality. ? Hepatitis panel negative, normal AFP, low ceruloplasmin 14.9. Will need further evaluation for Herbie's disease outpatient. ? Encephalopathy has improved since starting lactulose yesterday. Currently alert and oriented, but hard of hearing. ? Diuresing well, so far net -1.9 L. ? Continue IV Bumex 2 mg twice daily, spironolactone 50 mg, lactulose 10 g 3 times daily, nadolol 20 mg. ? GI consulted, planning for EGD tomorrow to further evaluate esophageal varices. N.p.o. at midnight. ? Currently drinks alcohol once or twice a week per . CIWA protocol not initiated, no signs of withdrawal. #Sepsis #UTI ? UA grossly abnormal. Continue ceftriaxone day 2. WBC improved to 10.4, peaked at 18.4. ? Follow-up urine cultures. Blood cultures NGTD. #Elevated BNP ? Initial BNP 8350. In the setting of decompensated cirrhosis, however cannot rule out heart failure. ? Follow-up ECHO. #Hypothyroidism ? Resumed home levothyroxine 50 mcg. TFTs normal during admission. DNR/DNI Lovenox 40 mg
[2024-07-31] VITALS (18 sets, daily range): BP systolic 81–120; BP diastolic 44–65; PULSE 62–82; RESP 16–18; TEMP 36.2–36.6; O2SAT 93–98; BMI 25.7
--- NOTE | 2024-07-31 00:52 | CA_ITS ---
APPROVED REPORT EXAM: Comprehensive 2D, Doppler, and color-flow Echocardiogram Car Spotter: Vanessa Murry CRT Ht: 5 ft 10 in Wt: 180lbs BSA: 2.00 BP: 101/44 mmHg Indications: DNR/DNI, HTN, HLD, CHF, UTI, AMS, EX SMOKER, pleural effusion, alcohol use disorder TDE PT flat on back unable to roll, limited images M-Mode Dimensions RVDd 3.37 cm (0.9-2.6) LA Diam 3.39 cm (1.9-4.0) LVDd 2.84 cm (3.5-5.7) LVDs 1.97 cm (3.5-5.7) IVSd 1.93 cm (0.6-1.1) PWd 0.83 cm (0.6-1.1) EF (Teich) 60.10% FS 30.60% EDV (Teich) 30.60 mL TAPSE 1.65 (<1.7) ESV (Teich) 12.20 mL LV Diastology E Decel Time 107 (160-240 msec) E/A Ratio 0.89 MED A' 10.80 cm/s LAT A' 15.20 cm/s Aortic Valve AO Peak GR. 6.20 mmHg Mitral Valve MV A Velocity 105.0 (40-130 cm/s) E/A Ratio 0.89 Pulmonary Valve PV Peak Velocity 90.0 (50-150 cm/s) Tricuspid Valve TR P. Velocity 184.00 cm/s RAP Estimate 10.00 mmHg RVSP 23.60 mmHg Left Ventricle The left ventricle is normal size. The left ventricular systolic function is normal. The left ventricular ejection fraction is within the normal range. There is increased LV wall thickness. There is normal LV segmental wall motion. Diastolic function is indeterminate. LVEF is 55%. Right Ventricle Right ventricle is mildly dilated. The right ventricular systolic function is normal. Atria The left atrium is mildly dilated. Right atrium is mildly dilated. The interatrial septum is not well-visualized. Aortic Valve The aortic valve is mildly thickened. There is no aortic valvular stenosis. No aortic regurgitation is present. Mitral Valve Mild mitral annular calcification. The mitral valve is mildly thickened. Borderline mitral valve stenosis. Mean MV gradient 5 mmHg (HR 81 bpm). Trace mitral regurgitation. Tricuspid Valve The tricuspid valve leaflets are thin and pliable. Trace tricuspid regurgitation. There is insufficient TR jet to estimate RVSP. Pulmonic Valve The pulmonic valve is not well-visualized. Great Vessels The aortic root is not well-visualized. IVC is normal in size and collapses >50% with inspiration. Pericardium There is no pericardial effusion. Pleural effusion is present. Ascites is present. Conclusion Normal biventricular systolic function. Mild RV dilation. Mild biatrial dilation. Borderline mitral stenosis (mean MV gradient 5 mmHg at HR 81 bpm). Pleural effusion. Ascites. Electronically signed by : Hilda Niño MD 08/01/2024 09:57:21
--- NOTE | 2024-07-31 03:19 | PC.NURSE ---
Pt. is alert and orientated to name, place and time, speech slurred and or garbled at times. Pt. able to follow some commands. is willing to help with turning to chnge briefs. Pt. has purewick in place. He is also having liquids dark colored stools. Pt. scheduled for EDG this am. Pt. has had no c/o's this shift. He is sleeping well. VSS. Personal items and call davies in reach.
[2024-07-31 05:19] LABS: Basophils # 0.1 K/mm3 (0-0.2); Basophils % 0.9 % (0.1-2.0); Eosinophils # 0.7 K/mm3 (0.0-0.4); Eosinophils % 6.7 % (0.1-12.0); Hematocrit 27.4 % (42.0-52.0); Hemoglobin 9.6 g/dL (14.1-18.0); Lymphocytes # 1.6 K/mm3 (0.7-4.5); Lymphocytes % 15.3 % (10-50); Mean Corpuscular Hemoglobin 30.1 pg (27.0-31.2); Mean Corpuscular Volume 85.9 fl (80-94); Mean Platelet Volume 10.6 fl (7.4-10.4); Monocytes % 9.7 % (1.7-9.3); Neutrophils # 6.8 K/mm3 (1.8-7.8); Platelet Count 226 K/mm3 (142-424); Red Blood Count 3.19 M/mm3 (4.60-6.20); Red Cell Distribution Width 17.1 % (11.5-17.5); White Blood Count 10.2 K/mm3 (4.8-10.8)
[2024-07-31 05:29] LABS: Alanine Aminotransferase 26 U/L (12-78); Albumin Level 2.7 g/dl (3.5-5.0); Alkaline Phosphatase 111 U/L (38-126); Anion Gap 8.8 mEq/L (5-15); Aspartate Amino Transferase 46 U/L (17-59); Bilirubin,Total 1.2 mg/dl (0.2-1.3); Blood Urea Nitrogen 17 mg/dl (9-20); Calcium 8.3 mg/dl (8.4-10.2); Carbon Dioxide 33 mmol/L (22.0-30.0); Chloride 96 mmol/L (98-107); Creatinine Clearance Estimated 63 mL/min (50-200); Estimated Glomerular Filt Rate 65 ml/min (>60); GFR (African American) 78 ML/MIN (>60); Globulin 2.7 g/dL (1.3-3.2); Glucose 98 mg/dl (74-100); Potassium 3.8 mmoL/L (3.5-5.1); Sodium 134 mmol/L (136-145); Total Protein,Serum 5.4 g/dl (6.3-8.2)
[2024-07-31 05:51] LABS: Ammonia 18 umol/L (9-30)
[2024-07-31 08:25] LABS: Alpha-1-Antitrypsin 225 mg/dL (101-187); Immunoglobulin A, Qn 630 mg/dL (61-437); Immunoglobulin G, Qn 1275 mg/dL (603-1613); Immunoglobulin M, Qn 140 mg/dL (15-143)
[2024-07-31] MEDS: NADOLOL 20MG TABLET 20 MG PO (09:14)
[2024-07-31] MEDS: LEVOTHYROXINE 50MCG (0.05MG) TAB 50 MCG PO (09:14)
--- NOTE | 2024-07-31 10:20 | EXP.ANES.CKL ---
[facility] Disclaimer: The information contained in this section may have been updated after the patient was seen, as this information can be updated by other users. Medical History (Updated 07/30/24 @ 13:44 by Ky Parker II, MD) Weight loss, unintentional Former smoker Wheezing Alcohol abuse Thyroid disease History of hyperlipidemia History of hypertension Surgical History No significant past surgical history Family History Other Heart attack Hyperlipidemia Hypertension Lung cancer No significant family history Prostate CA Stroke Social History Smoking Status: Former smoker alcohol intake: current alcohol intake frequency: 3 or more drinks per day substance use type: denies use current occupational status: retired Travel in the last 8 weeks: None household members: spouse housing: house Have you lived/traveled outside [place] in past 30 days?: No Contact w/someone who lives/traveled outside US past 30 days?: No Exposure to someone with infectious disease in past 14 days?: No Do you have a fever (greater than 100.4 F or 38 C)?: No Have you tested positive for COVID-19: No Exposed to someone with COVID-19 in past 14 days?: No Do you have a sore throat?: No Do you have a cough?: No Do you have any weakness?: Yes Do you have any diarrhea?: No Are you experiencing any unusual bleeding?: No Do you have any muscle aches/pain?: No Do you have any abdominal pain?: No Are you experiencing loss of taste or smell?: No [facility] [place] Anesthesia Checklist Patient Identification Patient Identification: Arm Band and Family Structural Data Admitted From: Inpatient Planned Operative Procedure/s: EGD Consent for Planned Operative Procedure(s) Verified: Yes Verified Documents: Surgical Consent and History and Physical NPO Status Verified Time NPO: 00:00 Additional verifications Anesthesia Reactions: No Airway Assessment Mallampati Score:: Class III C-Spine Mobility Assessed: Yes TMJ Mobility Assessed: Yes Dentition: Edentulous Neurological Assessment Level of Consciousness: Awake, Alert and Appropriate Anesthesia Plan Anesthesia Risk discussed: Yes Anesthesia Plan: Verified ASA Class: III Anesthesia Type: MAC Preoperative Comments Pre-Operative Comments: History Obtained from patient's and chart
--- NOTE | 2024-07-31 10:37 | HMH.PROCNOTE ---
[facility] Procedure Note Date: 07/31/24 Time: 10:47 Procedure Note:: Upper Endoscopy Procedure Report: Esophagogastroduodenoscopy with cold biopsies Endoscopost: Ky Parker II, MD Referring Physician: Louis Shrestha MD Date of Procedure: July 31, 2024 Equipment: Olympus GIF 190 standard upper endoscope Sedation: MAC sedation Indications: Mr. Rogers is a 79-year-old gentleman who presented to the emergency department with altered mental status and confusion. Today he is here for diagnostic upper endoscopy secondary to cirrhosis, portal hypertension, esophagogastric varices and drop in hemoglobin. The patient has had no melena or hematochezia or hematemesis. Workup in the emergency department included labs, ultrasound and eventual paracentesis. His abdominal CAT scan showed evidence of portal hypertension including recanalization of the umbilical vein and gastroesophageal varices. There was also moderate abdominal ascites. There was a dilated common bile duct. Subsequent ultrasound did show moderate ascites and a gallbladder wall polyp with dilated common bile duct without evidence of choledocholithiasis. The patient presented without any abdominal pain. Lab studies showed hemoglobin hematocrit of 9.1 and 25.9 which was diminished from prior labs in April 2024. His serum iron level was 29 and his initial ferritin level was 449. Total bilirubin was 1.4 with AST 58 and ALT 28. His alkaline phosphatase was 113. His ammonia level today was 45. Peritoneal study showed 97 PMNs. Hepatitis B and C serologies are negative. The patient does drink alcohol moderately. Calculated MELD score yesterday was 12. KATIE is negative and he had slightly elevated IgA level. Procedure: Prior to the procedure, a history and physical exam was performed, and patient's medications and allergies were reviewed. The risks, benefits and alternatives of the sedation and procedure were discussed with the patient. All questions were answered and informed consent was obtained. The patient was brought to the procedure room. Patient identification and proposed procedure were verified by the physician and the nurse. The patient was placed in a left lateral decubitus position and the scope was passed under direct vision. Throughout the procedure, the patient's blood pressure, pulse, and oxygen saturations were monitored continuously. The upper GI endoscopy was accomplished without difficulty. The patient tolerated the procedure well. Findings: The scope was passed directly into the upper esophagus and advanced to the third portion of the duodenum. The post bulbar duodenum and duodenal bulb were normal with normal mucosa and conniventes. The scope was withdrawn through a normal duodenal bulb and pylorus into the stomach. There was linear gastropathy of the antrum. There was some mild chronic gastritis of the body and fundus with no significant portal gastropathy or GAVE. Upon retroflexion there was evidence of small fundic and cardia varices of the stomach (gastric varices small). Cold biopsies were taken from the antrum and proximal lesser curvature to rule out H. pylori. The scope was then withdrawn into the esophagus. There were 2 linear superficial erosion/ulceration in the distal esophagus (probable reflux esophagitis). There were no discernible esophageal varices. There is no evidence of Klein's or stricturing. The remainder of the mid and proximal esophagus were normal. Impression: 1. Superficial erosive/ulcerative esophagitis (probable reflux esophagitis)?no esophageal varices 2. Smaller fundic/cardia gastric varices 3. Chronic gastritis with mild linear gastropathy Plan: I will follow-up the biopsies. The risk of variceal bleeding correlates independently with the size or diameter of the varix and these are small gastric varices in the fundus and are not isolated. I would still recommend Carvedilol 3.125 mg twice daily. I will discuss the findings with the patient and family.
[2024-07-31 11:21] LABS: Magnesium 2.1 mg/dl (1.6-2.3)
[2024-07-31 12:10] LABS: Actin (Smooth Muscle) Antibody 5 Units (0-19); Mitochondrial (M2) Antibody <20.0 Units (0.0-20.0)
[2024-07-31] MEDS: LACTULOSE 20GM/30ML UDC 10 GM PO ×2 (13:02→20:57)
[2024-07-31 13:08] LABS: Antinuclear Antibodies (ANA) Negative (Negative)
[2024-07-31 13:08] LABS: Albumin, Body Fluid 0.8 g/dL (Not Estab.); Glucose, Body Fluid 105 mg/dL (.); LD, Body Fluid 98 IU/L (.); Protein, Body Fluid 1.5 g/dL (.)
[2024-07-31 14:09] LABS: Liver-Kidney Microsomal Ab <1.0 Units (0.0-20.0)
--- NOTE | 2024-07-31 14:33 | P.PN_ITS ---
Subjective *Date: 07/31/24 *Time: 14:33 Interval history: Still fatigued/somnolent after sedation from his EGD. Stable on room air. Discussed case with at bedside. She feels he is doing much better. Prior to sedation today for his EGD was significantly improved and his mentation. Tolerating p.o. intake. No chest pain or shortness of breath. Medical Exam Vital signs and Labs for Last 24 Hours: Vital Signs Temp Pulse Resp BP Pulse Ox O2 Del Method O2 Flow Rate 07/31/24 14:25 Room Air 07/31/24 14:00 97.7 F 71 17 105/65 L 96 Room Air 07/31/24 13:00 97.6 F 72 17 102/63 L 95 Room Air 07/31/24 12:30 97.6 F 62 17 118/61 95 Room Air 07/31/24 12:24 Room Air 07/31/24 12:15 97.6 F 72 16 115/62 96 Room Air 07/31/24 12:00 97.6 F 64 16 99/52 L 97 Room Air 07/31/24 11:45 97.6 F 71 16 91/62 L 96 Room Air 07/31/24 11:30 97.6 F 68 16 93/58 L 96 Room Air 07/31/24 11:15 97.6 F 76 16 97/54 L 98 Room Air 07/31/24 11:10 78 16 111/54 L 96 Room Air 07/31/24 11:08 68 16 94/52 L 96 07/31/24 10:58 97.2 F L 73 16 81/44 L 96 Room Air 07/31/24 10:46 Nasal Cannula 5 07/31/24 10:09 Room Air 07/31/24 09:20 Room Air 07/31/24 09:00 Room Air 07/31/24 08:00 97.7 F 70 18 107/50 L 96 Nasal Cannula 07/31/24 06:52 Room Air 07/31/24 05:00 Room Air 07/31/24 04:00 97.8 F 78 16 111/59 L 95 Room Air 07/31/24 03:00 Room Air 07/31/24 01:00 Room Air 07/31/24 00:00 97.9 F 76 16 120/64 98 Room Air 07/30/24 23:00 Room Air 07/30/24 21:00 Room Air 07/30/24 20:00 Room Air 07/30/24 20:00 97.5 F L 74 16 123/70 95 Room Air 07/30/24 19:00 Room Air 07/30/24 17:00 Room Air 07/30/24 16:00 97.8 F 72 17 121/62 97 Room Air 07/30/24 15:00 Room Air Intake and Output 07/30/24 07/31/24 07/31/24 23:59 07:59 15:59 Intake Total 270 / 620 270 / 270 Output Total 400 / 1625 400 / 400 0 / 400 Balance -130 / -1005 -400 / -130 270 / -130 Intake: Intake, Oral Amount 270 / 420 270 / 270 Output: Output, Urine Amount 400 / 1625 400 / 400 0 / 400 Other: Number of Unmeasured Voids 0 0 Number of Bowel Movements 1 1 1 Weight 81.647 kg Patient Weight 07/31/24 23:59 Weight 81.647 kg Laboratory Results - last 24 hr 07/29/24 02:52: Fluid Glucose 105, Fluid Total Protein 1.5, Fluid Albumin 0.8, Fluid LDH 98 07/29/24 11:15: Ceruloplasmin 14.9 L 07/30/24 14:55: Gaied-7-Kkyqxopnqud 225 H, IgG 1275, IgA 630 H, IgM 140, KATIE Screen Negative, Mitochondria M2 Ab <20.0, Anti-Smooth Muscle Ab 5, Liver/Kid Microsomes Ab <1.0 07/31/24 04:52: WBC 10.2, RBC 3.19 L, Hgb 9.6 L, Hct 27.4 L, MCV 85.9, MCH 30.1, MCHC 35.0, RDW 17.1, Plt Count 226 D, MPV 10.6 H, Neut % (Auto) 67.0, Lymph % (Auto) 15.3, [place] % (Auto) 9.7 H, Eos % (Auto) 6.7, Baso % (Auto) 0.9, Neut # (Auto) 6.8, Lymph # (Auto) 1.6, [place] # (Auto) 1.0, Eos # (Auto) 0.7 H, Baso # (Auto) 0.1, Sodium 134 L, Potassium 3.8 D, Chloride 96 L, Carbon Dioxide 33 H, Anion Gap 8.8, BUN 17, Creatinine 1.10, Estimated Creat Clear 63, Estimated GFR 65, Est GFR ( Amer) 78, Glucose 98, Calcium 8.3 L, Magnesium 2.1 D, Total Bilirubin 1.2, AST 46, ALT 26, Alkaline Phosphatase 111, Ammonia 18, Total Protein 5.4 L, Albumin 2.7 L, Globulin 2.7, Albumin/Globulin Ratio 1.0 L I & O for Labs for Last 24 Hours: Intake & Output 07/28/24 07/29/24 07/30/24 07/31/24 23:59 23:59 23:59 23:59 Intake Total 840 / 1090 620 / 620 270 / 270 Output Total 1800 / 2100 1625 / 1625 400 / 400 Balance -960 / -1010 -1005 / -1005 -130 / -130 Weight 91.5 kg 82.599 kg 81.692 kg 81.647 kg Microbiology Reports for the Last 24 Hours: Microbiology 07/28/24 22:57 Blood Blood Culture - Preliminary NO GROWTH AFTER 48 HOURS 07/28/24 22:35 Blood Blood Culture - Preliminary NO GROWTH AFTER 48 HOURS 07/29/24 02:52 Peritoneal Fluid Gram Stain - Final 07/29/24 02:52 Peritoneal Fluid Body Fluid Culture - Preliminary NO GROWTH AFTER 48 HOURS 07/28/24 22:57 Urine,Clean Catch Urine Culture - Final Multiple organisms, suggests contamination. Constitutional: Present no acute distress, average body habitus, chronically ill appearing and cooperative Head: Present atraumatic and normocephalic Respiratory: Present normal respiratory effort; Absent respiratory distress, rhonchi, stridor, wheezes or crackles Cardiac: Present Reg Rate and Rhythm GI: Present soft and normal bowel sounds; Absent distention or tenderness Extremities: Present normal inspection and full ROM Skin: Present intact; Absent erythema Neuro: Present Grossly Intact, alert, awake and moves all extremities Comment:: Somnolent secondary to sedatives for his EGD Assessment and Plan *Assessment and plan (1) Cirrhosis: Status: Acute Qualifiers: Hepatic cirrhosis type: alcoholic cirrhosis Ascites presence: with ascites Qualified Code(s): K70.31 - Alcoholic cirrhosis of liver with ascites Category: Medical Code(s): K74.60 - Unspecified cirrhosis of liver (2) Pneumonia: Status: Acute Qualifiers: Pneumonia type: due to unspecified organism Laterality: bilateral Lung location: unspecified part of lung Qualified Code(s): J18.9 - Pneumonia, unspecified organism Category: Medical Code(s): J18.9 - Pneumonia, unspecified organism (3) Ascites: Status: Acute Qualifiers: Ascites type: due to alcoholic cirrhosis Qualified Code(s): K70.31 - Alcoholic cirrhosis of liver with ascites Category: Medical Code(s): R18.8 - Other ascites (4) Hyponatremia: Status: Acute Category: Medical Code(s): E87.1 - Hypo-osmolality and hyponatremia (5) Elevated bilirubin: Status: Acute Category: Medical Code(s): R17 - Unspecified jaundice (6) Gastric varices without bleeding: Status: Acute Category: Medical Code(s): I86.4 - Gastric varices (7) Hypervolemia: Status: Acute Qualifiers: Hypervolemia type: unspecified Qualified Code(s): E87.70 - Fluid overload, unspecified Category: Medical Code(s): E87.70 - Fluid overload, unspecified Plan Carlos Rogers is a 79-year-old male with history significant for former alcohol use disorder who was admitted for decompensated cirrhosis. For EGD today. Awaiting placement. Anticipate discharge tomorrow after sedation wears off and can evaluate mentation for appropriateness to discharge. Problems addressed as follows: #Decompensated alcoholic cirrhosis #Hepatic encephalopathy #Gastroesophageal varices #Bilateral pleural effusions #History of alcohol use disorder ? Presents with gross volume overload, ascites, hepatic encephalopathy with CT evidence of cirrhosis, portal hypertension, gastroesophageal varices. ? S/p paracentesis in the ED with 1.4 L drained. No evidence of SBP. ? MELD-Na score today 12, 6% chance of 3-month mortality. ? Hepatitis panel negative, normal AFP, low ceruloplasmin 14.9. Will need further evaluation for Herbie's disease outpatient. ?Encephalopathy improved, more or less back to baseline per family at bedside. Continue lactulose ? Continue IV Bumex 1 mg daily, spironolactone 50 mg daily, lactulose 10 g 3 times daily, nadolol 20 mg. - Discussed case with GI, patient taken for EGD today, no significant ulcers or significant bleeding. No evidence of Klein's or stricturing. Does have superficial erosive ulcerative esophagitis likely secondary to reflux. No significant esophageal varices. Small fundic/cardia gastric varices. GI recommends carvedilol 3.125 mg twice daily. - continue pantoprazole 40 mg daily #Sepsis #UTI ? UA grossly abnormal. Continue ceftriaxone day 3. WBC 10.2, stable. Hemoglobin 9.6. Repeat CBC, CMP, magnesium ordered for the morning. ?Urine to multiple organisms, concern for contaminant. Blood cultures negative to date. #Elevated BNP ? Initial BNP 8350. In the setting of decompensated cirrhosis, however cannot rule out heart failure. ? Follow-up ECHO. #Hypothyroidism ? Resumed home levothyroxine 50 mcg. TFTs normal during admission. DNR/DNI Lovenox 40 mg
--- NOTE | 2024-07-31 14:50 | PC.NURSE ---
Aox 3 with confusion noted, upper 90's on ra, turn every two hours with patient assist, speech is slurred at times, 22g R FA SL, PT and OT following, EGD done today see notes.
[2024-07-31] MEDS: BUMETANIDE 1MG/4ML VIAL 1 MG IV (16:08)
[2024-07-31] MEDS: CEFTRIAXONE SODIUM 2 GM in 0.9 % SODIUM CHLORIDE 100 ML IV (20:57)
[2024-07-31] MEDS: ATORVASTATIN 40MG TABLET 40 MG PO (20:57)
[2024-07-31] MEDS: PANTOPRAZOLE 40MG TABLET 40 MG PO (20:58)
[2024-08-01] VITALS: BP 96/46; PULSE 84; RESP 16; TEMP 36.6; O2SAT 95
[2024-08-01 04:00] VITALS: BP 97/46; PULSE 80; RESP 16; TEMP 36.6; O2SAT 92; BMI 25.8
[2024-08-01 06:53] LABS: Basophils # 0.1 K/mm3 (0-0.2); Eosinophils # 0.6 K/mm3 (0.0-0.4); Eosinophils % 5.8 % (0.1-12.0); Hematocrit 28.2 % (42.0-52.0); Hemoglobin 9.7 g/dL (14.1-18.0); Lymphocytes # 1.9 K/mm3 (0.7-4.5); Lymphocytes % 19.3 % (10-50); Mean Corpuscular HGB Conc 34.4 g/dL (31.8-35.4); Mean Corpuscular Hemoglobin 29.8 pg (27.0-31.2); Mean Corpuscular Volume 86.8 fl (80-94); Mean Platelet Volume 10.7 fl (7.4-10.4); Monocytes # 1.2 K/mm3 (0.1-1.0); Monocytes % 12.3 % (1.7-9.3); Neutrophils % 61.3 % (37.0-80.0); Platelet Count 235 K/mm3 (142-424); Red Blood Count 3.25 M/mm3 (4.60-6.20); White Blood Count 9.8 K/mm3 (4.8-10.8)
[2024-08-01] MEDS: LEVOTHYROXINE 50MCG (0.05MG) TAB 50 MCG PO (07:03)
[2024-08-01 07:16] LABS: Alanine Aminotransferase 25 U/L (12-78); Albumin Level 2.7 g/dl (3.5-5.0); Albumin/Globulin Ratio 0.9 (1.1-1.8); Alkaline Phosphatase 102 U/L (38-126); Anion Gap 10.1 mEq/L (5-15); Aspartate Amino Transferase 64 U/L (17-59); Bilirubin,Total 1.3 mg/dl (0.2-1.3); Blood Urea Nitrogen 17 mg/dl (9-20); Calcium 8.4 mg/dl (8.4-10.2); Carbon Dioxide 29 mmol/L (22.0-30.0); Chloride 96 mmol/L (98-107); Creatinine Clearance Estimated 63 mL/min (50-200); Estimated Glomerular Filt Rate 65 ml/min (>60); GFR (African American) 78 ML/MIN (>60); Globulin 2.9 g/dL (1.3-3.2); Glucose 79 mg/dl (74-100); Magnesium 1.9 mg/dl (1.6-2.3); Potassium 4.1 mmoL/L (3.5-5.1); Sodium 131 mmol/L (136-145); Total Protein,Serum 5.6 g/dl (6.3-8.2)
--- NOTE | 2024-08-01 07:20 | P.PN_ITS ---
Subjective *Date: 08/01/24 *Time: 07:20 Interval history: Patient asleep this morning and still fairly somnolent. Exam Data for Last 24 hours Vital signs and Labs for Last 24 Hours: Temp Pulse Resp BP Pulse Ox O2 Del Method O2 Flow Rate 97.8 F 80 16 97/46 L 92 L Room Air 2 08/01/24 04:00 08/01/24 04:00 08/01/24 04:00 08/01/24 04:00 08/01/24 04:00 08/01/24 04:00 07/31/24 20:00 Laboratory Results - last 24 hr 07/29/24 02:52: Fluid Glucose 105, Fluid Total Protein 1.5, Fluid Albumin 0.8, Fluid LDH 98 07/30/24 14:55: [place]-5-Mwnipixoujg 225 H, IgG 1275, IgA 630 H, IgM 140, KATIE Screen Negative, Mitochondria M2 Ab <20.0, Anti-Smooth Muscle Ab 5, Liver/Kid Microsomes Ab <1.0 07/31/24 04:52: Magnesium 2.1 D 08/01/24 06:11: WBC 9.8, RBC 3.25 L, Hgb 9.7 L, Hct 28.2 L, MCV 86.8, MCH 29.8, MCHC 34.4, RDW 17.0, Plt Count 235, MPV 10.7 H, Neut % (Auto) 61.3, Lymph % (Auto) 19.3, [place] % (Auto) 12.3 H, Eos % (Auto) 5.8, Baso % (Auto) 1.0, Neut # (Auto) 6.0, Lymph # (Auto) 1.9, [place] # (Auto) 1.2 H, Eos # (Auto) 0.6 H, Baso # (Auto) 0.1 I & O for Last 24 hours: Intake & Output 07/29/24 07/30/24 07/31/24 08/01/24 23:59 23:59 23:59 23:59 Intake Total 840 / 1090 620 / 620 390 / 790 400 / 400 Output Total 1800 / 2100 1625 / 1625 1100 / 1100 300 / 300 Balance -960 / -1010 -1005 / -1005 -710 / -310 100 / 100 Weight 182 lb 1.6 oz 180 lb 1.6 oz 180 lb 180 lb 6.4 oz Microbiology Reports for the Last 24 Hours: Microbiology 07/29/24 02:52 Peritoneal Fluid Gram Stain - Final 07/29/24 02:52 Peritoneal Fluid Body Fluid Culture - Preliminary NO GROWTH AFTER 72 HOURS 07/28/24 22:57 Blood Blood Culture - Preliminary NO GROWTH AFTER 48 HOURS 07/28/24 22:35 Blood Blood Culture - Preliminary NO GROWTH AFTER 48 HOURS 07/28/24 22:57 Urine,Clean Catch Urine Culture - Final Multiple organisms, suggests contamination. Assessment and Plan *Assessment and plan (1) Alcoholic cirrhosis: Status: Acute Category: Medical Code(s): K70.30 - Alcoholic cirrhosis of liver without ascites (2) Hepatic encephalopathy: Status: Acute Category: Medical Code(s): K76.82 - Hepatic encephalopathy (3) Portal hypertension: Status: Acute Category: Medical Code(s): K76.6 - Portal hypertension (4) Gastric varices without bleeding: Status: Acute Category: Medical Code(s): I86.4 - Gastric varices (5) Ascites: Status: Acute Qualifiers: Ascites type: due to alcoholic cirrhosis Qualified Code(s): K70.31 - Alcoholic cirrhosis of liver with ascites Category: Medical Code(s): R18.8 - Other ascites Plan 1. Alcoholic cirrhosis with primary admission symptom altered mental status secondary to hepatic encephalopathy. He is still a little somnolent and I am going to add Xifaxan to his regimen. I would continue the lactulose. He also had some ascites and I would continue combined spironolactone and loop diuretic (favorably Lasix). I have started low-dose carvedilol for his portal hypertension. Nutrition is important presently and I would like for him to advance and broaden his diet. Autoimmune serologies and hepatitis serologies are negative. Most likely the ceruloplasmin low level is related to malnutrition. Ferritin elevation is seen with acute alcoholic hepatitis but we will check hemochromatosis genetic assay. The patient's alpha-fetoprotein was normal. When patient more alert with resolution of cognitive changes and tolerating good oral nutrition, he can be followed as an outpatient.
[2024-08-01] MEDS: LACTULOSE 20GM/30ML UDC 10 GM PO (07:50)
[2024-08-01] MEDS: CARVEDILOL 3.125MG TABLET 3.125 MG PO (07:50)
[2024-08-01] MEDS: ENOXAPARIN 40MG/0.4ML SYRINGE 40 MG SUBCUT (07:51)
[2024-08-01 08:00] VITALS: BP 110/62; PULSE 82; RESP 18; TEMP 36.4; O2SAT 93
--- NOTE | 2024-08-01 08:34 | EXP.DC.SUM ---
General Admission date:: 07/29/24 Discharge date: 08/01/24 HPI HPI HPI: Mr. Rogers is a 79-year-old gentleman who presented to the emergency department with altered mental status and confusion. Workup in the emergency department included labs, ultrasound and eventual paracentesis. His abdominal CAT scan showed evidence of portal hypertension including recanalization of the umbilical vein and gastroesophageal varices. There was also moderate abdominal ascites. There was a dilated common bile duct. Subsequent ultrasound did show moderate ascites and a gallbladder wall polyp with dilated common bile duct without evidence of choledocholithiasis. The patient presented without any abdominal pain. Lab studies showed hemoglobin hematocrit of 9.1 and 25.9 which was diminished from prior labs in April 2024. His ferritin level was 449. Total bilirubin was 1.4 with AST 58 and ALT 28. His alkaline phosphatase was 113. His ammonia level today was 45. Peritoneal study showed 97 PMNs. Hepatitis B and C serologies are negative. The patient does drink alcohol moderately. Calculated MELD score today is 12. Hospital Course Hospital Course Hospital Course: Carlos Rogers is a 79-year-old male with history significant for former alcohol use disorder who was admitted for decompensated cirrhosis. Showed gradual improvement in patient with treatment for his cirrhosis and encephalopathy. GI was consulted. Taken for EGD on 07/31. Found to have small gastric varices. No active signs of bleeding. No banding performed. Tolerating medical management of his cirrhosis. Stable to discharge to rehab. Problems addressed as follows: #Decompensated alcoholic cirrhosis #Hepatic encephalopathy #Gastroesophageal varices #Bilateral pleural effusions #History of alcohol use disorder ? Presents with gross volume overload, ascites, hepatic encephalopathy with CT evidence of cirrhosis, portal hypertension, gastroesophageal varices. S/p paracentesis in the ED with 1.4 L drained. No evidence of SBP. MELD-Na score today 12, 6% chance of 3-month mortality. Hepatitis panel negative, normal AFP, low ceruloplasmin 14.9. Will need further evaluation for Herbie's disease outpatient. Encephalopathy improved with lactulose and rifaximin. More or less back to baseline per family at bedside. Continue lactulose and rifaximin daily as ordered. Continue IV Bumex 1 mg daily, spironolactone 25mg daily, lactulose 10 g 3 times daily, carvedilol 3.125 mg twice daily and rifaximin daily. GI was consulted, patient taken for EGD on 07/31. No evidence of significant bleeding, Klein's, or stricturing. Does have superficial erosive ulcerative esophagitis likely secondary to reflux. No significant esophageal varices. Small fundic/cardia gastric varices. GI recommends carvedilol 3.125 mg twice daily. - continue pantoprazole 40 mg daily #Sepsis #UTI ? UA grossly abnormal. Initiated on ceftriaxone. Urine culture was negative. White count normalized. No further antibiotics after discharge. On day of discharge, patient's labs were normal with white count 9.8, hemoglobin 9.7, platelets 235. Would benefit from repeat CBC and CMP in 1 week. Magnesium 1.9, potassium 4.1, kidney function normal with BUN 17, creatinine 1.1. Blood cultures also remained negative #Elevated BNP ? Initial BNP 8350. In the setting of decompensated cirrhosis, however cannot rule out heart failure. Continue diuretic daily. Echo obtained with preliminary read showing preserved ejection fraction. Formal read still pending at discharge. #Hypothyroidism ? Resumed home levothyroxine 50 mcg. TFTs normal during admission. DNR/DNI during admission. Evaluate CODE STATUS on arrival to alf. Total time spent on discharge 32 minutes in counseling, documentation, chart review, and direct care with patient. Exam Data for Last 24 hours Vital signs and Labs for Last 24 Hours: Temp Pulse Resp BP Pulse Ox O2 Del Method O2 Flow Rate 97.6 F 82 18 110/62 93 L Room Air 2 08/01/24 08:00 08/01/24 08:00 08/01/24 08:00 08/01/24 08:00 08/01/24 08:00 08/01/24 08:10 07/31/24 20:00 Laboratory Results - last 24 hr 07/29/24 02:52: Fluid Glucose 105, Fluid Total Protein 1.5, Fluid Albumin 0.8, Fluid LDH 98 07/30/24 14:55: KATIE Screen Negative, Mitochondria M2 Ab <20.0, Anti-Smooth Muscle Ab 5, Liver/Kid Microsomes Ab <1.0 07/31/24 04:52: Magnesium 2.1 D 08/01/24 06:11: WBC 9.8, RBC 3.25 L, Hgb 9.7 L, Hct 28.2 L, MCV 86.8, MCH 29.8, MCHC 34.4, RDW 17.0, Plt Count 235, MPV 10.7 H, Neut % (Auto) 61.3, Lymph % (Auto) 19.3, Carson % (Auto) 12.3 H, Eos % (Auto) 5.8, Baso % (Auto) 1.0, Neut # (Auto) 6.0, Lymph # (Auto) 1.9, Carson # (Auto) 1.2 H, Eos # (Auto) 0.6 H, Baso # (Auto) 0.1, Sodium 131 L, Potassium 4.1, Chloride 96 L, Carbon Dioxide 29, Anion Gap 10.1, BUN 17, Creatinine 1.10, Estimated Creat Clear 63, Estimated GFR 65, Est GFR ( Amer) 78, Glucose 79, Calcium 8.4, Magnesium 1.9, Total Bilirubin 1.3, AST 64 H D, ALT 25, Alkaline Phosphatase 102, Total Protein 5.6 L, Albumin 2.7 L, Globulin 2.9, Albumin/Globulin Ratio 0.9 L I & O for Last 24 hours: Intake & Output 07/29/24 07/30/24 07/31/24 08/01/24 23:59 23:59 23:59 23:59 Intake Total 840 / 1090 620 / 620 390 / 790 670 / 670 Output Total 1800 / 2100 1625 / 1625 1100 / 1100 300 / 300 Balance -960 / -1010 -1005 / -1005 -710 / -310 370 / 370 Weight 82.599 kg 81.692 kg 81.647 kg 81.828 kg Microbiology Reports for the Last 24 Hours: Microbiology 07/29/24 02:52 Peritoneal Fluid Gram Stain - Final 07/29/24 02:52 Peritoneal Fluid Body Fluid Culture - Preliminary NO GROWTH AFTER 72 HOURS 07/28/24 22:57 Blood Blood Culture - Preliminary NO GROWTH AFTER 48 HOURS 07/28/24 22:35 Blood Blood Culture - Preliminary NO GROWTH AFTER 48 HOURS 07/28/24 22:57 Urine,Clean Catch Urine Culture - Final Multiple organisms, suggests contamination. Constitutional Constitutional: no acute distress, average body habitus, chronically ill appearing and cooperative *Routine HEENT Exam Head: Present normocephalic Eye: Present EOMI and PERRL ENT: Present mucous membranes moist *Routine Neck Exam Neck: Present supple; Absent lymphadenopathy *Routine Respiratory Exam Respiratory: Present CTA bilaterally; Absent respiratory distress, rhonchi, stridor, wheezes or crackles *Routine Cardiovascular Exam Cardiovascular: Present RRR *Routine Abdominal Exam Abdominal: Present soft and normoactive bowel sounds; Absent tenderness *Routine Rectal Exam Patient deferred: visual exam *Routine Exam Patient deferred: penile exam *Routine Extremities Exam Extremities: Absent cyanosis, clubbing or edema *Routine Skin Exam Skin: Present warm; Absent rash *Routine Neurological Exam Neurological: Present alert, oriented X3 and moving all extremities; Absent altered mental status Comments: slow to respond, but responds appropriately; baseline per . Results Data Completed and Pending Labs on day of discharge: Labs from last 24 hours 08/01/24 07/31/24 07/30/24 06:11 04:52 14:55 WBC 9.8 RBC 3.25 L Hgb 9.7 L Hct 28.2 L MCV 86.8 MCH 29.8 MCHC 34.4 RDW 17.0 Plt Count 235 MPV 10.7 H Neut % (Auto) 61.3 Lymph % (Auto) 19.3 Carson % (Auto) 12.3 H Eos % (Auto) 5.8 Baso % (Auto) 1.0 Neut # (Auto) 6.0 Lymph # (Auto) 1.9 Carson # (Auto) 1.2 H Eos # (Auto) 0.6 H Baso # (Auto) 0.1 Sodium 131 L Potassium 4.1 Chloride 96 L Carbon Dioxide 29 Anion Gap 10.1 BUN 17 Creatinine 1.10 Estimated Creat Clear 63 Estimated GFR 65 Est GFR ( Amer) 78 Glucose 79 Calcium 8.4 Magnesium 1.9 2.1 D Total Bilirubin 1.3 AST 64 H D ALT 25 Alkaline Phosphatase 102 Total Protein 5.6 L Albumin 2.7 L Globulin 2.9 Albumin/Globulin Ratio 0.9 L Fluid Glucose Fluid Total Protein Fluid Albumin Fluid LDH KATIE Screen Negative Mitochondria M2 Ab <20.0 Anti-Smooth Muscle Ab 5 Liver/Kid Microsomes Ab <1.0 07/29/24 02:52 WBC RBC Hgb Hct MCV MCH MCHC RDW Plt Count MPV Neut % (Auto) Lymph % (Auto) Carson % (Auto) Eos % (Auto) Baso % (Auto) Neut # (Auto) Lymph # (Auto) Carson # (Auto) Eos # (Auto) Baso # (Auto) Sodium Potassium Chloride Carbon Dioxide Anion Gap BUN Creatinine Estimated Creat Clear Estimated GFR Est GFR ( Amer) Glucose Calcium Magnesium Total Bilirubin AST ALT Alkaline Phosphatase Total Protein Albumin Globulin Albumin/Globulin Ratio Fluid Glucose 105 Fluid Total Protein 1.5 Fluid Albumin 0.8 Fluid LDH 98 KATIE Screen Mitochondria M2 Ab Anti-Smooth Muscle Ab Liver/Kid Microsomes Ab Preliminary micro results at discharge 07/29/24 02:52 Body Fluid Culture - Preliminary Peritoneal Fluid NO GROWTH AFTER 72 HOURS 07/28/24 22:57 Blood Culture - Preliminary Blood NO GROWTH AFTER 48 HOURS 07/28/24 22:35 Blood Culture - Preliminary Blood NO GROWTH AFTER 48 HOURS DS: Diagnosis Discharge Diagnosis (1) Alcoholic cirrhosis: Status: Acute Code(s): K70.30 - Alcoholic cirrhosis of liver without ascites (2) Hepatic encephalopathy: Status: Acute Code(s): K76.82 - Hepatic encephalopathy (3) Portal hypertension: Status: Acute Code(s): K76.6 - Portal hypertension (4) Gastric varices without bleeding: Status: Acute Code(s): I86.4 - Gastric varices (5) Ascites: Status: Acute Code(s): R18.8 - Other ascites Qualifiers: Ascites type: due to alcoholic cirrhosis Qualified Code(s): K70.31 - Alcoholic cirrhosis of liver with ascites Meds Home Medications and Allergies Home Medications ?Medication ?Instructions ?Recorded ?Confirmed ?Type atorvastatin 40 mg tablet 40 mg PO HS 30 days #30 tabs 08/01/24 Rx bumetanide 1 mg tablet 1 mg PO DAILY #30 tabs 08/01/24 Rx carvedilol 3.125 mg tablet 3.125 mg PO BID 30 days #60 tabs 08/01/24 Rx ferrous sulfate 325 mg (65 mg 325 mg PO DAILY 30 days #30 tabs 08/01/24 Rx iron) tablet (iron) lactulose 20 gram/30 mL oral 10 g (15 mL) PO TID 30 days #1,350 08/01/24 Rx solution mL levothyroxine 50 mcg tablet 50 mcg PO DAILYDM 30 days #30 tabs 08/01/24 Rx pantoprazole 40 mg tablet,delayed 40 mg PO HS #30 tabs 08/01/24 Rx release rifaximin 550 mg tablet (Xifaxan) 550 mg PO DAILY 30 days #30 tabs 08/01/24 Rx spironolactone 25 mg tablet 25 mg PO DAILY 30 days #30 tabs 08/01/24 Rx New Prescriptions to Start Prescriptions: atorvastatin Chen,Santiago bumetanide Chen,Santiago carvedilol Chen,Santiago ferrous sulfate [iron] Chen,Santiago lactulose Chen,Santiago levothyroxine Chen,Santiago pantoprazole Chen,Santiago rifaximin [Xifaxan] Chen,Santiago spironolactone Santiago Siddiqui Allergies Allergy/AdvReac Type Severity Reaction Status Date / Time No Known Allergies Allergy Verified 05/03/24 13:29 Discharge Plan Disposition Patient Disposition: er [facility] Condition: Fair Discharge Order Discharge Orders: Discharge Order (Routine); Ordered 08/01/24 Ordered By: Santiago Siddiqui Follow up Plan Follow up with: Ky Parker II, MD [Staff Physician] - 09/13/24 10:00 am Prescriptions/Medication Reconciliation: New spironolactone 25 mg Tablet 25 mg PO DAILY 30 Days Qty: 30 0RF carvedilol 3.125 mg Tablet 3.125 mg PO BID 30 Days Qty: 60 0RF pantoprazole 40 mg Tablet,Delayed Release (Dr/Ec) 40 mg PO HS Qty: 30 0RF Xifaxan 550 mg Tablet 550 mg PO DAILY 30 Days Qty: 30 0RF lactulose 20 gram/30 mL Solution 10 g PO TID 30 Days Qty: 1350 0RF Rx Instructions: goal 1-2 soft stools a day bumetanide 1 mg tablet 1 mg PO DAILY Qty: 30 0RF Continued atorvastatin 40 mg tablet 40 mg PO HS 30 Days Qty: 30 0RF levothyroxine 50 mcg tablet 50 mcg PO DAILYDM 30 Days Qty: 30 0RF ferrous sulfate [iron] 325 mg (65 mg iron) Tablet 325 mg PO DAILY 30 Days Qty: 30 0RF Discontinued metoprolol succinate [Toprol XL] 25 mg tablet extended release 24 hr 25 mg PO DAILY Qty: 90 3RF Problem Reconciliation Problems Reviewed?: Yes Patient Discharge Instructions ACTIVITY: Continue current activity DIET: continue same diet Patient Instructions: DI for Pneumonia -- Adult, DI for Abdominal Paracentesis, DI for Cirrhosis, DI for Urinary Tract Infection (UTI), DI for Surgical Site Infection, DI for Altered Mental Status, DI for Pleural Effusion, DI for Hepatic Encephalopathy Print Language: Tajik Providers Primary Care Provider: Louis Shrestha Admit Provider: Miguelito Nunn Attending Provider: Miguelito Nunn
[2024-08-01] MEDS: RIFAXIMIN 550MG TABLET 550 MG PO (08:39)
--- NOTE | 2024-08-01 09:16 | P.PN_ITS ---
Subjective *Date: 08/01/24 *Time: 09:16 Medical Exam Vital signs and Labs for Last 24 Hours: Vital Signs Temp Pulse Resp BP Pulse Ox O2 Del Method O2 Flow Rate 08/01/24 08:10 Room Air 08/01/24 08:00 97.6 F 82 18 110/62 93 L Room Air 08/01/24 08:00 Room Air 08/01/24 07:00 Room Air 08/01/24 05:00 Room Air 08/01/24 04:00 97.8 F 80 16 97/46 L 92 L Room Air 08/01/24 03:00 Room Air 08/01/24 01:00 Room Air 08/01/24 00:00 97.8 F 84 16 96/46 L 95 Room Air 07/31/24 23:00 Room Air 07/31/24 21:00 Room Air 07/31/24 20:00 Room Air 07/31/24 20:00 97.9 F 82 16 93/52 L 96 Nasal Cannula 2 07/31/24 17:42 Room Air 07/31/24 16:35 Room Air 07/31/24 15:56 97.6 F 73 18 118/64 93 L Room Air 07/31/24 15:00 97.9 F 75 18 110/65 95 Room Air 07/31/24 14:25 Room Air 07/31/24 14:00 97.7 F 71 17 105/65 L 96 Room Air 07/31/24 13:00 97.6 F 72 17 102/63 L 95 Room Air 07/31/24 12:30 97.6 F 62 17 118/61 95 Room Air 07/31/24 12:24 Room Air 07/31/24 12:15 97.6 F 72 16 115/62 96 Room Air 07/31/24 12:00 97.6 F 64 16 99/52 L 97 Room Air 07/31/24 11:45 97.6 F 71 16 91/62 L 96 Room Air 07/31/24 11:30 97.6 F 68 16 93/58 L 96 Room Air 07/31/24 11:15 97.6 F 76 16 97/54 L 98 Room Air 07/31/24 11:10 78 16 111/54 L 96 Room Air 07/31/24 11:08 68 16 94/52 L 96 07/31/24 10:58 97.2 F L 73 16 81/44 L 96 Room Air 07/31/24 10:46 Nasal Cannula 5 07/31/24 10:09 Room Air 07/31/24 09:20 Room Air Intake and Output 07/31/24 08/01/24 08/01/24 23:59 07:59 15:59 Intake Total 120 / 790 400 / 670 270 / 670 Output Total 700 / 1100 300 / 300 0 / 300 Balance -580 / -310 100 / 370 270 / 370 Intake: Intake, Oral Amount 120 / 690 300 / 570 270 / 570 Intake, Total IV Amount 100 / 100 Ceftriaxone Sodium 2 gm In 0.9 100 / 100 % Sodium Chloride 100 ml @ 200 mls/hr IV Q24H [facility] Rx#:[id number] Output: Output, Urine Amount 700 / 1100 300 / 300 0 / 300 Other: Number of Unmeasured Voids 0 0 Number of Bowel Movements 1 Weight 81.828 kg Patient Weight 08/01/24 23:59 Weight 81.828 kg Laboratory Results - last 24 hr 07/29/24 02:52: Fluid Glucose 105, Fluid Total Protein 1.5, Fluid Albumin 0.8, Fluid LDH 98 07/30/24 14:55: KATIE Screen Negative, Mitochondria M2 Ab <20.0, Anti-Smooth Muscle Ab 5, Liver/Kid Microsomes Ab <1.0 07/31/24 04:52: Magnesium 2.1 D 08/01/24 06:11: WBC 9.8, RBC 3.25 L, Hgb 9.7 L, Hct 28.2 L, MCV 86.8, MCH 29.8, MCHC 34.4, RDW 17.0, Plt Count 235, MPV 10.7 H, Neut % (Auto) 61.3, Lymph % (Auto) 19.3, [place]pton % (Auto) 12.3 H, Eos % (Auto) 5.8, Baso % (Auto) 1.0, Neut # (Auto) 6.0, Lymph # (Auto) 1.9, [place]pton # (Auto) 1.2 H, Eos # (Auto) 0.6 H, Baso # (Auto) 0.1, Sodium 131 L, Potassium 4.1, Chloride 96 L, Carbon Dioxide 29, Anion Gap 10.1, BUN 17, Creatinine 1.10, Estimated Creat Clear 63, Estimated GFR 65, Est GFR ( Amer) 78, Glucose 79, Calcium 8.4, Magnesium 1.9, Total Bilirubin 1.3, AST 64 H D, ALT 25, Alkaline Phosphatase 102, Total Protein 5.6 L , Albumin 2.7 L, Globulin 2.9, Albumin/Globulin Ratio 0.9 L I & O for Labs for Last 24 Hours: Intake & Output 07/29/24 07/30/24 07/31/24 08/01/24 23:59 23:59 23:59 23:59 Intake Total 840 / 1090 620 / 620 390 / 790 670 / 670 Output Total 1800 / 2100 1625 / 1625 1100 / 1100 300 / 300 Balance -960 / -1010 -1005 / -1005 -710 / -310 370 / 370 Weight 82.599 kg 81.692 kg 81.647 kg 81.828 kg Microbiology Reports for the Last 24 Hours: Microbiology 07/29/24 02:52 Peritoneal Fluid Gram Stain - Final 07/29/24 02:52 Peritoneal Fluid Body Fluid Culture - Preliminary NO GROWTH AFTER 72 HOURS 07/28/24 22:57 Blood Blood Culture - Preliminary NO GROWTH AFTER 48 HOURS 07/28/24 22:35 Blood Blood Culture - Preliminary NO GROWTH AFTER 48 HOURS 07/28/24 22:57 Urine,Clean Catch Urine Culture - Final Multiple organisms, suggests contamination. The patient's infection will respond to the chosen ABx?: Yes Is the patient receiving the right drug, dose, and route?: Yes Could a more targeted ABx be ordered?: No
[2024-08-01] MEDS: SPIRONOLACTONE 25MG TABLET 25 MG PO (09:20)
[2024-08-01] MEDS: BUMETANIDE 1MG/4ML VIAL 1 MG IV (09:20)
[2024-08-01] MEDS: MAGNESIUM SULFATE IN WATER 2 GM/50 ML PIGGYBACK IV (09:20)
[2024-08-01 11:47] VITALS: BP 119/56; PULSE 83; RESP 16; TEMP 36.4; O2SAT 95
--- NOTE | 2024-08-01 14:30 | PC.NURSE ---
Report called to [facility] nurse FLORINDA.
[2024-08-13 19:27] LABS: Alpha-1-Antitrypsin 196 mg/dL (101-187)
== END 2024-08-01 14:56 | DRG 441 ==
LOC: ER 23:57 → 2ND 07-29 02:47
PROVIDERS: Internal Medicine Adolescent Medicine; Internal Medicine Gastroenterology; Nurse Practitioner Family; Student in an Organized Health Care Education/Training Program; Admitting Provider Student in an Organized Health Care Education/Training Program; Emergency Provider Emergency Medicine; PCP Family Medicine; Visit Provider Student in an Organized Health Care Education/Training Program
PROC: 0DJ08ZZ Inspection of Upper Intestinal Tract, Via Natural or Artificial Opening Endoscopic (ICD-10-PCS; principal; 2024-07-31 12:00)
DX: K76.82 Hepatic encephalopathy (principal); A41.9 Sepsis, unspecified organism; I85.11 Secondary esophageal varices with bleeding; E87.1 Hypo-osmolality and hyponatremia; K22.10 Ulcer of esophagus without bleeding; N39.0 Urinary tract infection, site not specified; K76.6 Portal hypertension; D62 Acute posthemorrhagic anemia; J91.8 Pleural effusion in other conditions classified elsewhere; K70.31 Alcoholic cirrhosis of liver with ascites; I86.4 Gastric varices; K70.40 Alcoholic hepatic failure without coma; E03.9 Hypothyroidism, unspecified; F10.21 Alcohol dependence, in remission; E78.5 Hyperlipidemia, unspecified; I25.2 Old myocardial infarction; E87.6 Hypokalemia; R79.1 Abnormal coagulation profile; R63.4 Abnormal weight loss; I25.10 Atherosclerotic heart disease of native coronary artery without angina pectoris; R45.6 Violent behavior; I65.23 Occlusion and stenosis of bilateral carotid arteries; R55 Syncope and collapse; R19.7 Diarrhea, unspecified; Z79.02 Long term (current) use of antithrombotics/antiplatelets; Z87.891 Personal history of nicotine dependence; Z79.890 Hormone replacement therapy; Z79.899 Other long term (current) drug therapy; Z74.1 Need for assistance with personal care; Z82.3 Family history of stroke; Z80.1 Family history of malignant neoplasm of trachea, bronchus and lung; Z82.49 Family history of ischemic heart disease and other diseases of the circulatory system; Z91.81 History of falling; Z66 Do not resuscitate
CPT/HCPCS: 36415; 49083; 70450; 70496; 70498; 71045; 71260; 74177; 76705; 80053; 80074; 81001; 81256; 82042; 82103; 82104; 82105; 82140; 82247; 82248; 82390; 82607; 82728; 82746; 82784; 82803; 82945; 82977; 83540; 83550; 83605; 83615; 83735; 83880; 84155; 84439; 84443; 84484; 84630; 85007; 85025; 85044; 85610; 86038; 86255; 86256; 86376; 86803; 87040; 87070; 87086; 87205; 87389; 88305; 89051; 93005; 93306; 93971; 94640; 97162; 97165; 97530; 99285; J0696; J1650; J1939; J1940; J3475; J7620; P9047; Q9967

== ENCOUNTER 2024-09-06 15:00 | Outpatient (RCR) | payer MEDICARE, SELFPAY | END 2024-09-06 23:59 | disposition home or self-care (01) | LOC: PT 15:00 | PROVIDERS: PCP Family Medicine; Visit Provider Family Medicine | DX: R26.2 Difficulty in walking, not elsewhere classified (principal); Z91.81 History of falling | CPT/HCPCS: 97110; 97163; 97530 ==

== ENCOUNTER 2024-09-13 12:18 | Outpatient (CLI) | payer MEDICARE, SELFPAY ==
[2024-09-13 12:50] LABS: Ammonia 20 umol/L (9-30)
[2024-09-13 12:51] LABS: Basophils # 0.1 K/mm3 (0-0.2); Eosinophils # 0.5 K/mm3 (0.0-0.4); Eosinophils % 8.4 % (0.1-12.0); Hematocrit 28.8 % (42.0-52.0); INR 1.09 (0.9-1.1); Lymphocytes # 1.3 K/mm3 (0.7-4.5); Lymphocytes % 23.4 % (10-50); Mean Corpuscular HGB Conc 34.7 g/dL (31.8-35.4); Mean Corpuscular Hemoglobin 29.2 pg (27.0-31.2); Mean Platelet Volume 9.7 fl (7.4-10.4); Monocytes # 0.7 K/mm3 (0.1-1.0); Neutrophils # 3.2 K/mm3 (1.8-7.8); Platelet Count 287 K/mm3 (142-424); Prothrombin Time 12.1 seconds (10.1-12.5); Red Blood Count 3.43 M/mm3 (4.60-6.20); Red Cell Distribution Width 15.2 % (11.5-17.5); White Blood Count 5.7 K/mm3 (4.8-10.8)
[2024-09-13 13:16] LABS: Albumin Level 3.1 g/dl (3.5-5.0); Chloride 88 mmol/L (98-107)
[2024-09-13 13:17] LABS: Sodium 128 mmol/L (136-145)
[2024-09-13 13:19] LABS: Alanine Aminotransferase 23 U/L (12-78); Aspartate Amino Transferase 41 U/L (17-59); Blood Urea Nitrogen 22 mg/dl (9-20); Carbon Dioxide 35 mmol/L (22.0-30.0); Estimated Glomerular Filt Rate 53 ml/min (>60); GFR (African American) 64 ML/MIN (>60); Globulin 3.1 g/dL (1.3-3.2); Total Protein,Serum 6.2 g/dl (6.3-8.2)
[2024-09-13 13:20] LABS: Alkaline Phosphatase 114 U/L (38-126); Bilirubin,Total 1.1 mg/dl (0.2-1.3); Calcium 8.7 mg/dl (8.4-10.2); Glucose 106 mg/dl (74-100); Iron 43 ug/dL (49-181)
[2024-09-13 13:22] LABS: Bilirubin,Direct 0.5 mg/dl (0.0-0.4); Chol/HDL Ratio 3.7 (1-3.5); Cholesterol 152 mg/dl (140-200); HDL Cholesterol 41 mg/dl (40-60); Magnesium 1.4 mg/dl (1.6-2.3); Triglycerides 105 mg/dl (30-150); VLDL Cholesterol 21 mg/dL (0-40)
[2024-09-13 13:29] LABS: Total Iron Binding Capacity 212 ug/dL (261-462)
[2024-09-13 13:36] LABS: Free T4 (Free Thyroxine) 2.04 ng/dl (0.78-2.19)
[2024-09-13 13:51] LABS: Thyroid Stimulating Hormone 6.49 uIU/mL (0.465-4.68)
[2024-09-13 13:55] LABS: Ferritin 401 ng/ml (17.9-464)
[2024-09-13 14:40] LABS: Anion Gap 9.2 mEq/L (5-15); Potassium 4.2 mmoL/L (3.5-5.1)
[2024-09-14 09:14] LABS: AFP, Tumor Marker 2.9 ng/mL (0.0-8.4)
== END 2024-09-13 23:59 | disposition home or self-care (01) ==
LOC: LAB 12:19
PROVIDERS: Physician Assistant; PCP Family Medicine; Visit Provider Nurse Practitioner Family
DX: E87.1 Hypo-osmolality and hyponatremia (principal); K70.31 Alcoholic cirrhosis of liver with ascites; R06.2 Wheezing; Z87.891 Personal history of nicotine dependence; G47.33 Obstructive sleep apnea (adult) (pediatric); E07.9 Disorder of thyroid, unspecified; D64.9 Anemia, unspecified; Z86.79 Personal history of other diseases of the circulatory system; Z86.39 Personal history of other endocrine, nutritional and metabolic disease
CPT/HCPCS: 80053; 80061; 82105; 82140; 82248; 82728; 83540; 83550; 83735; 84439; 84443; 85025; 85610

== ENCOUNTER 2024-09-18 07:49 | Outpatient (CLI) | payer MEDICARE, SELFPAY ==
--- NOTE | 2024-09-18 | CA_ITS ---
APPROVED REPORT Exam: Pharmacologic Technologist: Ericka Shipley Ht: 5 ft 10 in Wt: 180 lbs BSA: 2.00 m2 HR: 82 bpm BP: 130/69 mmHg Stress Test Details Test: Lexiscan HR Resting HR: 82 bpm Max Heart Rate (APMHR): 141.926395 bpm Max HR Achieved: 84 bpm Target HR (85% APMHR): 119.743152 bpm % of APMHR: 59.57 Recovery HR: 83 bpm BP Resting BP: 130.0/69.0 mmHg Max BP: 130.0/69.0 mmHg Recovery BP: 122.0/63.0 mmHg ECG Resting ECG: Sinus rhythm Stress ECG Conclusion Symptoms: None Arrhytmias/Ectopy: - ST-T Changes: Less than [address] depression Conclusion: EKG unremarkable due to Lexiscan infusion. Electronically signed by : Hilda Niño MD 09/23/2024 20:45:47
--- NOTE | 2024-09-18 07:50 | NM_ITS ---
APPROVED REPORT Exam: Nuclear Stress Test Indication: SOB, Abnormal EKG, Edema, HTN, High cholesterol, Family history Patient Location: Outpatient Stress Tech: Ericka Shipley IN Tech:Hannah Underwood, ARRT, RT (R)(N) Ht: 5 ft 10 in Wt: 180 lbs HR: 82 bpm BP: 130/69 mmHg BSA: 2.00 m2 TID: 1.07 BMI: 25.8 History: SOB, Abnormal EKG, Edema, HTN, High cholesterol, Family history Procedure: Patient received 0.4 mg of intravenous Lexiscan, resting heart rate 82 bpm, resting blood pressure 130/69 mmHg, with Lexiscan maximum heart rate achieved was 85 bpm which is % of the maximum predicted heart rate and blood pressure was 122/63 mmHg. With Lexiscan, patient denied any complaint of chest pain. Cardiac Stress and Resting SPECT Images: Cardiac Stress and Resting SPECT images were obtained using technetium 99m Myoview 32.3 mCi stress and 10.88 mCi at rest. The patient could not lie on his abdomen. Therefore, prone stress imaging could not be performed. This may affect the diagnostic interpretation of the study findings. Resting and stress imaging in supine positions demonstrate no evidence of fixed or reversible perfusion defects. Gated imaging demonstrates normal global and regional LV systolic function. LVEF is calculated at 72%. Conclusion: No evidence of fixed or reversible perfusion defects. Gated imaging demonstrates normal global and regional LV systolic function. LVEF is calculated at 72%. Electronically signed by : Hilda Niño MD 09/18/2024 10:47:47
[2024-09-18] MEDS: REGADENOSON 0.4MG/5ML SYRINGE 0.4 MG IV (13:27)
[2024-09-18] MEDS: ISOTOPE MYOVIEW (PER STUDY) 1 DOSE IV (13:28)
[2024-09-18] MEDS: SODIUM CHLORIDE 0.9% 10ML SYR (RAD ONLY) 10 ML IV ×2 (13:28)
== END 2024-09-18 23:59 | disposition home or self-care (01) ==
PROVIDERS: PCP Family Medicine; Visit Provider Physician Assistant
DX: I25.10 Atherosclerotic heart disease of native coronary artery without angina pectoris (principal); Z86.79 Personal history of other diseases of the circulatory system; Z86.39 Personal history of other endocrine, nutritional and metabolic disease; T67.1XXA Heat syncope, initial encounter; I50.9 Heart failure, unspecified
CPT/HCPCS: 78452; 93017; 93018; A9502; J2785

== ENCOUNTER 2024-10-01 10:00 | Outpatient (RCR) | payer MEDICARE, SELFPAY | END 2024-10-08 15:59 | disposition home or self-care (01) | LOC: PT 10:00 | PROVIDERS: PCP Family Medicine; Visit Provider Family Medicine | DX: R26.2 Difficulty in walking, not elsewhere classified (principal) | CPT/HCPCS: 97110; 97112; 97530 ==

== ENCOUNTER 2024-11-20 09:57 | Inpatient (IN) | payer MEDICARE, SELFPAY ==
[2024-11-20] VITALS (9 sets, daily range): BP systolic 127–144; BP diastolic 59–85; PULSE 75–80; RESP 17–20; TEMP 36.3–37; O2SAT 95–97; BMI 24.3
--- NOTE | 2024-11-20 10:01 | CT_ITS ---
FINAL REPORT TECHNIQUE: Multiple axial CT images were performed from the foramen magnum to the vertex without enhancement. This study was performed with techniques to keep radiation doses as low as reasonably achievable, (ALARA). Individualized dose reduction techniques using automated exposure control or adjustment of mA and/or kV according to the patient's size were employed. CLINICAL HISTORY: Fall, head trauma COMPARISON: 07/29/2024 FINDINGS: There is moderate atrophy. There is proportional ventriculomegaly. There is physiologic calcification of the basal ganglia. There is no evidence of hemorrhage, mass effect, or edema. No masses are identified. No extra-axial fluid is seen. The paranasal sinuses are well aerated. IMPRESSION: Atrophy without acute intracranial abnormality. Reviewed, Interpreted and Dictated by Loyd Lacey MD Transcribed by Margaret Leung Authenticated and [facility]
--- NOTE | 2024-11-20 10:01 | XR_ITS ---
FINAL REPORT CLINICAL HISTORY: Fall, right hip pain, NWB RLE COMPARISON: None FINDINGS: RIGHT FEMUR Two views of the right femur were obtained. There is a nondisplaced subcapital fracture of the proximal right femur. The joint spaces are well-preserved. There is no acute soft tissue abnormality. IMPRESSION: Nondisplaced subcapital fracture of the proximal right femur. Reviewed, Interpreted and Dictated by Loyd Lacey MD Transcribed by Margaret Leung Authenticated and [facility]
--- NOTE | 2024-11-20 10:01 | CT_ITS ---
FINAL REPORT TECHNIQUE: Axial images were obtained of the cervical spine by computed tomography. Coronal and sagittal reconstruction process performed. This study was performed with techniques to keep radiation doses as low as reasonably achievable (ALARA). Individualized dose reduction techniques using automated exposure control or adjustment of mA and/or kV according to the patient''s size were employed. CLINICAL HISTORY: fall, head trauma, weakness FINDINGS: There is advanced disc space narrowing at C5-6, C6-7, and C7-T1 with posterior osteophyte formation at these levels. There is reversal of the cervical lordosis. There is moderate bilateral neuroforaminal narrowing at C5-6 and moderate right neuroforaminal narrowing at C6-7. There is dense vascular calcification of the carotid bifurcations. IMPRESSION: Hypertrophic changes changes of degenerative disc disease without acute bony abnormality. Reviewed, Interpreted and Dictated by Loyd Lacey MD Transcribed by Heidy Carrizales Authenticated and [facility]
--- NOTE | 2024-11-20 10:01 | XR_ITS ---
FINAL REPORT CLINICAL HISTORY: Fall, right hip pain, NWB RLE COMPARISON: None FINDINGS: RIGHT HIP Two views of the right hip and an AP pelvis view were obtained. There is a nondisplaced subcapital fracture of the proximal right femur. The femoral head is properly located. The hip joint space is preserved. The visualized bony structures are well aligned. There is no acute soft tissue abnormality. IMPRESSION: Nondisplaced subcapital fracture of the proximal right femur. Reviewed, Interpreted and Dictated by Loyd Lacey MD Transcribed by Margaret Leung Authenticated and [facility]
--- NOTE | 2024-11-20 10:01 | CT_ITS ---
FINAL REPORT TECHNIQUE: Axial images through the pelvis were performed by computed tomography. Sagittal coronal reformatted images were obtained and reviewed. This study was performed with techniques to keep radiation doses as low as reasonably achievable, (ALARA). Individualized dose reduction techniques using automated exposure control or adjustment of mA and/or kV according to the patient's size were employed. CLINICAL HISTORY: fall, R hip pain, NWB RLE FINDINGS: There is a minimally impacted subcapital fracture of the proximal right femur with minimal displacement. The femoral head demonstrates normal smooth contour. Hip joint spaces preserved. The left hip is unremarkable. There is dense vascular calcification of the abdominal aorta and iliac vessels. Massive ascites is identified. IMPRESSION: Displaced subcapital fracture of the proximal right femur. Reviewed, Interpreted and Dictated by Loyd Lacey MD Transcribed by Heidy Carrizales Authenticated and [facility]
--- NOTE | 2024-11-20 10:02 | XR_ITS ---
FINAL REPORT CLINICAL HISTORY: Fall, wheezing, rule out pneumonia COMPARISON: 07/29/2024 FINDINGS: A single view of the chest was obtained. There is mild cardiomegaly. The mediastinum is normal. There is a calcified granuloma in the right midlung. There is patchy airspace opacity at the left lung base, which appears stable and probably chronic. There is a small left pleural effusion. There is no pneumothorax. There is no osseous abnormality. IMPRESSION: Patchy airspace opacity left lung base and small left pleural effusion, which appear stable and probably chronic. Reviewed, Interpreted and Dictated by Loyd Lacey MD Transcribed by Margaret Leung Authenticated and [facility]
[2024-11-20 10:09] LABS: Basophils # 0.1 K/mm3 (0-0.2); Basophils % 0.9 % (0.1-2.0); Eosinophils # 0.6 Kmm3 (0.0-0.4); Hematocrit 24.6 % (42.0-52.0); Hemoglobin 8.3 g/dL (14.1-18.0); Immature Granulocytes # 0.01 10^3uL; Immature Granulocytes % 0.2 %; Lymphocytes % 15.6 % (10-50); Mean Corpuscular HGB Conc 33.7 g/dL (31.8-35.4); Mean Corpuscular Volume 80.1 fl (80-94); Mean Platelet Volume 9.8 fl (7.4-10.4); Monocytes # 0.9 K/mm3 (0.1-1.0); Monocytes % 13.9 % (1.7-9.3); Neutrophils # 3.8 K/mm3 (1.8-7.8); Neutrophils % 60.4 % (37.0-80.0); Nucleated Red Blood Cells # 0 10^3/uL; Nucleated Red Blood Cells % 0 %; Platelet Count 223 K/mm3 (142-424); Red Blood Count 3.07 M/mm3 (4.60-6.20); Red Cell Distribution Width 15.6 % (11.5-17.5); Red Cell Distribution Width-SD 45.3 fL; White Blood Count 6.4 K/mm3 (4.8-10.8)
[2024-11-20 10:12] LABS: Albumin Level 2.9 g/dl (3.5-5.0); Chloride 92 mmol/L (98-107); Potassium 3.7 mmoL/L (3.5-5.1); Sodium 122 mmol/L (136-145)
[2024-11-20 10:15] LABS: Alanine Aminotransferase 17 U/L (12-78); Albumin/Globulin Ratio 0.9 (1.1-1.8); Alkaline Phosphatase 85 U/L (38-126); Anion Gap 5.7 mEq/L (5-15); Aspartate Amino Transferase 37 U/L (17-59); Bilirubin,Total 1.1 mg/dl (0.2-1.3); Blood Urea Nitrogen 13 mg/dl (9-20); Calcium 8.6 mg/dl (8.4-10.2); Carbon Dioxide 28 mmol/L (22.0-30.0); Creatine Kinase 33 U/L (55-170); Creatinine Clearance Estimated 65 mL/min (50-200); Estimated Glomerular Filt Rate 81 ml/min (>60); GFR (African American) 98 ML/MIN (>60); Globulin 3.1 g/dL (1.3-3.2); Glucose 129 mg/dl (74-100); Magnesium 1.7 mg/dl (1.6-2.3)
--- NOTE | 2024-11-20 10:15 | PC.NURSE ---
pt to scan via stretcher
--- NOTE | 2024-11-20 10:15 | ED_ITS ---
Discharge Plan Disposition Patient Disposition: Admitted Chief Complaint: PAIN Prescriptions Prescriptions: No Action albuterol sulfate 90 mcg/actuation HFA aerosol inhaler inhalation zinc sulfate 220 mg capsule 220 mg PO DAILY magnesium oxide 400 mg magnesium capsule 400 mg PO DAILY bumetanide 1 mg tablet 1 mg PO BID 90 Days Qty: 180 3RF levothyroxine 50 mcg tablet 75 mcg PO DAILYDM sodium chloride 1,000 mg tablet,soluble 1,000 mg PO BID Qty: 6 0RF Rx Instructions: Take 1 tablet twice a day x 3 days carvedilol 3.125 mg Tablet 3.125 mg PO BID 30 Days Qty: 60 0RF Xifaxan 550 mg Tablet 550 mg PO DAILY 30 Days Qty: 30 0RF lactulose 20 gram/30 mL Solution 10 g PO TID 30 Days Qty: 1350 0RF Rx Instructions: goal 1-2 soft stools a day atorvastatin 40 mg tablet 40 mg PO HS 30 Days Qty: 30 0RF ferrous sulfate [iron] 325 mg (65 mg iron) Tablet 325 mg PO DAILY 30 Days Qty: 30 0RF Referrals Follow up/Referrals: Provider,Referral, MD [Primary Care Provider] - See instructions Clinical Impressions Clinical Impression: Closed right femoral fracture, Acute hyponatremia Print Language Print Language: Albanian Discharge ED Provider: Lionel Graf General Adult HPI General Chief complaint: PAIN Stated complaint: R foot pain Time Seen by Provider: 11/20/24 09:59 Mode of Arrival: EMS Source of Information: Patient and EMS Description of Symptoms (Recalled from ER Triage Doc. by RN): pt presents to ED with c/o fall in kitchen on tuesday. ems was called to scene but pt did not want to come to ER. ems state they helped pt into his bed and family states that pt has been in bed since tuesday. pt reports right hip pain. History of Present Illness HPI narrative: Please note that above description of symptoms, in this electronic medical record under categorization of recalled from ER triage doctor by RN are reflective of an initial nursing assessment, however, is not reflective of my full history and physical exam that was personally taken and clarified. Consequentially, this preceding description of symptoms, which may include the patient's categorized chief complaint in the EMR, do not reflect my personal clinical impression, and the ultimate description of history of present illness and patient stated complaints should be deferred to this section of the note. Unless stated otherwise or congruent with this section of the note, additional signs, symptoms, or incongruence should be interpreted as inaccurate with my clinical impression. Related Data Home Medications ?Medication ?Instructions ?Recorded ?Confirmed albuterol sulfate 90 mcg/actuation inhalation 08/27/24 10/16/24 aerosol inhaler magnesium oxide 400 mg PO DAILY 08/27/24 10/16/24 zinc sulfate 220 mg capsule 220 mg PO DAILY 08/27/24 10/16/24 levothyroxine 50 mcg tablet 75 mcg PO DAILYDM 09/13/24 10/16/24 Previous Rx's ?Medication ?Instructions ?Recorded atorvastatin 40 mg tablet 40 mg PO HS 30 days #30 tabs 08/01/24 carvedilol 3.125 mg tablet 3.125 mg PO BID 30 days #60 tabs 08/01/24 ferrous sulfate 325 mg (65 mg 325 mg PO DAILY 30 days #30 tabs 08/01/24 iron) tablet (iron) lactulose 20 gram/30 mL oral 10 g (15 mL) PO TID 30 days #1,350 08/01/24 solution mL rifaximin 550 mg tablet (Xifaxan) 550 mg PO DAILY 30 days #30 tabs 08/01/24 bumetanide 1 mg tablet 1 mg PO BID 90 days #180 tabs 08/27/24 sodium chloride 1,000 mg soluble 1,000 mg PO BID #6 tabs 09/17/24 tablet Allergies Allergy/AdvReac Type Severity Reaction Status Date / Time No Known Allergies Allergy Verified 10/16/24 09:50 [facility] Disclaimer: The information contained in this section may have been updated after the patient was seen, as this information can be updated by other users. Medical History Coronary artery disease Weight loss, unintentional Former smoker Wheezing Alcohol abuse Thyroid disease History of hyperlipidemia History of hypertension Surgical History No significant past surgical history Family History Other Heart attack Hyperlipidemia Hypertension Lung cancer No significant family history Prostate CA Stroke Social History Smoking Status: Current every day smoker alcohol intake: current alcohol intake frequency: 3 or more drinks per day substance use type: denies use current occupational status: retired Travel in the last 8 weeks?: None household members: spouse housing: house Have you lived/traveled outside US in past 30 days?: No Contact w/someone who lives/traveled outside US past 30 days?: No Exposure to someone with infectious disease in past 14 days?: No Do you have a fever (greater than 100.4 F or 38 C)?: No Have you tested positive for COVID-19?: No Exposed to someone with COVID-19 in past 14 days?: No Do you have a sore throat?: No Do you have a cough?: No Do you have any weakness?: No Do you have any diarrhea?: No Are you experiencing any unusual bleeding?: No Do you have any muscle aches/pain?: No Do you have any abdominal pain?: No Are you experiencing loss of taste or smell?: No Other Medical History Have you received the Flu Vaccine for this season: No Have you received the Pneumonia Vaccine: Yes ROS Obtained: Yes All systems reviewed & no additional complaints except as documented Physical Exam General General appearance: alert and in no apparent distress Comment: Chronically ill Head Head exam: atraumatic and normocephalic Eye Eye exam: Present normal appearance, PERRL and EOMI Neck Neck exam: Present normal inspection, full ROM and trachea midline Respiratory Respiratory exam: Present wheezes (Diffuse bilateral); Absent respiratory distress, stridor, accessory muscle use or prolonged expiratory phase Cardiovascular Cardiovascular exam: Present regular rate, normal rhythm and other (Pulses equal symmetric in upper and lower extremities) Abdominal Exam Abdominal exam: Present soft; Absent distention, tenderness or pulsatile mass Extremities Exam Extremities exam: Absent edema Neurological Exam Neurological exam: Present alert, oriented X3 and CN II-XII intact; Absent motor sensory deficit Skin Skin exam: Present warm and dry; Absent diaphoresis or erythema Medical Decision Making Medical Records Medical records reviewed: Yes I reviewed the patient's medical records. Screening: Per USPSTF and CDC recommendations, given the prevalence of disease in our region, it is our hospital?s policy to screen for HIV and viral Hepatitis for all patients aged 18 and over and those with ongoing risk factors. Chun Inquiry Pt receiving controlled substance: No Chun was queried for this patient: No Vital Signs: 11/20/24 09:58 11/20/24 10:00 Temperature 98.3 F Temperature Source Oral Pulse Rate 75 Pulse Rate [Left Radial] 78 Respiratory Rate 17 19 Blood Pressure 134/70 Blood Pressure [Right Arm] 127/62 Blood Pressure Mean [Right Arm] 83 Blood Pressure Source [Right Arm] Automatic Cuff Blood Pressure Position [Right Arm] Supine 02 Sat by Pulse Oximetry 95 96 Oxygen Delivery Method Room Air Room Air Lab Data Lab Results 11/20/24 09:54: WBC 6.4, RBC 3.07 L, Hgb 8.3 L, Hct 24.6 L, MCV 80.1, MCH 27.0, MCHC 33.7, RDW 15.6, Plt Count 223, MPV 9.8, Neut % (Auto) 60.4, Lymph % (Auto) 15.6, [place] % (Auto) 13.9 H, Eos % (Auto) 9.0, Baso % (Auto) 0.9, Neut # (Auto) 3.8, Lymph # (Auto) 1.0, [place] # (Auto) 0.9, Eos # (Auto) 0.6 H, Baso # (Auto) 0.1, APTT 30.2, Sodium 122 L, Potassium 3.7, Chloride 92 L, Carbon Dioxide 28, Anion Gap 5.7, BUN 13, Creatinine 0.90, Estimated Creat Clear 65, Estimated GFR 81, Est GFR ( Amer) 98, Glucose 129 H, Calcium 8.6, Magnesium 1.7, Total Bilirubin 1.1, AST 37, ALT 17, Alkaline Phosphatase 85, Total Creatine Kinase 33 L, Total Protein 6.0 L, Albumin 2.9 L, Globulin 3.1, Albumin/Globulin Ratio 0.9 L 11/20/24 09:54 11/20/24 09:54 Orders (Tests/Meds): ED MEDICATIONS Generic Name Dose Route Start Last Admin Trade Name Freq PRN Reason Stop Dose Admin Sodium Chloride 1,000 mls @ 999 mls/hr 11/20/24 10:01 11/20/24 10:38 Sod Chlor 0.9% 1000ml Bag IV 11/20/24 11:01 999 mls/hr .Q1H1M ONE Administration Discontinued Medications Generic Name Dose Route Start Last Admin Trade Name Freq PRN Reason Stop Dose Admin Ketorolac Tromethamine 15 mg 11/20/24 10:01 11/20/24 10:38 Ketorolac 30mg/Ml Vial IV 11/20/24 10:02 15 mg ONCE ONE Administration ORDERS Category Date Time Status CT bony pelvis Stat Cat Scan 11/20/24 10:[address] cervical spine wo con Stat Cat Scan 11/20/24 10:[address] head/brain wo con Stat Cat Scan 11/20/24 10:01 Taken Femur XR right 2 views [XR femur RT 2V] Stat Exams 11/20/24 10:01 Taken Hip XR right minimum 2 views [XR hip RT 2-3V w/pelvis] Exams 11/20/24 10:01 Taken Stat XR chest portable Stat Exams 11/20/24 10:02 Taken CK [Creatine Kinase] Stat Lab 11/20/24 09:54 Completed Complete Blood Count Auto Diff Stat Lab 11/20/24 09:54 Completed Comprehensive Metabolic Panel Stat Lab 11/20/24 09:54 Completed Hemoglobin A1C Stat Lab 11/20/24 09:54 Received Magnesium Stat Lab 11/20/24 09:54 Completed PTT [Activated Partial Thrombo Time] Stat Lab 11/20/24 09:54 Completed Medical Decision Narrative: This is a 79-year-old male presenting with fall a few days ago. Has a history of alcoholism, alcohol related cirrhosis, CAD, hypertension, hyperlipidemia, COPD not on home oxygen. He states that he fell on Tuesday, 11/16 while he was walking down the hallway, tripped over a puppy pads that were on the ground and landed on his right hip. Unable to get up or ambulate without help, has been laying around unable to do anything for himself since that time due to significant pain and my ball joint. Having no new back pain, chest pain, shortness of breath, bowel or bladder dysfunction, has been eating and drinking at home with family able to bring him. He does state Cardoza he fell he hit his head, but did not lose consciousness and remembers the whole thing. History was obtained via conversation with patient and EMS. On arrival, patient hemodynamically stable, alert, oriented x4, appropriate, GCS 15, moving all extremities spontaneously, pupils equal and reactive to light. Full physical exam performed and significant for chronically ill-appearing male who is in no acute distress. He speaking in full sentences. Lungs with diffuse bilateral wheezing, but no focal breath sounds. Cardiac exam with no murmurs gallops rubs, no lower extremity edema, pulses equal and symmetric in upper and lower extremities. He is obviously grossly neurologically intact. Regarding lower extremity, patient has significant pain with extension and flexion of the knee, also has significant pain with any rotation of the hip. Neurovascularly intact right lower extremity with bounding pulses otherwise. Does have significant tenderness in the true hip inguinal fold. Differential includes fracture, sprain, dislocation, strain, rhabdomyolysis, acute renal failure, intracranial hemorrhage, cervical spine injury, benign MSK injury, among others. Patient placed on continuous cardiac monitoring and continuous pulse ox with initial blood pressure 127/62, heart rate 78, saturation 95% on room air. Patient was given Toradol and IV fluids for symptomatic management and correction of underlying abnormalities. Workup independently interpreted and significant for no white count, hemoglobin of 8.3. Patient's sodium also 122, appears to be downtrending. On independent interpretation of imaging, patient has inflammatory changes consistent with likely COPD exacerbation, no obvious lobar consolidation. Mild bilateral pleural effusions. Pelvis and hip x-rays with subcapital femoral neck fracture. CT confirms this on independent interpretation. See radiology read for full review of final results. On reevaluation, patient still in mild to moderate pain, but better without movement. Orthopedics was consulted and case was discussed at length, recommended admission for operative fixation.. Hospital medicine was formally consulted and case was discussed, patient to be admitted given patient presentation, workup, history, this most likely represents hyponatremia, fall, subcapital right femoral neck fracture. Because patient high risk for clinical decompensation, deemed appropriate for inpatient admission. Results were relayed to patient who voiced understanding and patient was agreeable to inpatient admission and management. Patient was admitted to the hospital for further definitive management. 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 Electronic home comfort advisor of the spoken language may permit errors. Although I have reviewed the note, some errors may still exist. Critical Care Critical Care Time Critical Care Time: No
[2024-11-20 10:16] LABS: Activated Partial Thrombo Time 30.2 seconds (22.8-30.6)
[2024-11-20] MEDS: KETOROLAC 30MG/ML VIAL 15 MG IV (10:38)
[2024-11-20] MEDS: 0.9 % SODIUM CHLORIDE 1000ML 1,000 ML 999 ML IV (10:38)
--- NOTE | 2024-11-20 10:51 | PC.NURSE ---
Dr Graf s/w Dr Kruger for ortho consult regarding R hip fx.
[2024-11-20 10:58] LABS: Hemoglobin A1C 4.7 % (4.0-6.0)
--- NOTE | 2024-11-20 11:12 | PC.NURSE ---
speaking with Hospitalist for pt admission
--- NOTE | 2024-11-20 11:16 | P.HP_ITS ---
History of Present Illness *Admission Date: 11/20/24 *Reason for visit:: fall last week with persistent right hip pain, inability to walk *History of present illness: Mr. Rogers is a 79-year-old male who presented to the ER after a fall several days ago. EMS was called to his house at that time, they help to get him up and he elected not to come to the hospital for evaluation. He has not been ambulating since and more or less been bedbound at home. Continued to have worsening pain. Family encouraged him to come to the ER for evaluation today. History complicated by alcoholism, alcoholic cirrhosis, CAD, hypertension, hyperlipidemia, COPD, hypothyroid. Was admitted earlier this year in July for decompensated cirrhosis. Has not had any alcohol since June 2024. Alert and oriented on presentation but slow to respond. On evaluation in the ER, imaging of his hip showed a subcapital fracture of the femur. Orthopedics was consulted, recommended admission for hemiarthroplasty and further management. Medicine consulted for admission Patient complains of pain, history supplemented by spouse at bedside. Has a bruise on his right shoulder. Afebrile. Denies chest pain or shortness of breath. On room air. Had a bowel movement today. [facility] Disclaimer: The information contained in this section may have been updated after the patient was seen, as this information can be updated by other users. Medical History Coronary artery disease Weight loss, unintentional Former smoker Wheezing Alcohol abuse Thyroid disease History of hyperlipidemia History of hypertension Surgical History No significant past surgical history Family History No significant family history Prostate CA Hyperlipidemia Heart attack Lung cancer Hypertension Stroke Social History (Updated 11/20/24 @ 13:39 by Claire Mcintosh RN) Smoking Status: Former smoker alcohol intake: former substance use type: denies use current occupational status: retired Travel in the last 8 weeks?: None household members: spouse housing: house Have you lived/traveled outside US in past 30 days?: No Contact w/someone who lives/traveled outside US past 30 days?: No Exposure to someone with infectious disease in past 14 days?: No Do you have a fever (greater than 100.4 F or 38 C)?: No Have you tested positive for COVID-19?: No Exposed to someone with COVID-19 in past 14 days?: No Do you have a sore throat?: No Do you have a cough?: No Do you have any weakness?: No Do you have any diarrhea?: No Are you experiencing any unusual bleeding?: No Do you have any muscle aches/pain?: No Do you have any abdominal pain?: No Are you experiencing loss of taste or smell?: No Other Medical History Have you received the Flu Vaccine for this season: No Have you received the Pneumonia Vaccine: Yes Review of Systems Review of Systems Review of systems (narrative): 14 point review of systems performed, pertinent positives and negatives as per [facility] Meds Home Medications and Allergies Home Medications ?Medication ?Instructions ?Recorded ?Confirmed ?Type carvedilol 3.125 mg tablet 3.125 mg PO BID 30 days #60 tabs 08/01/24 11/20/24 Rx albuterol sulfate 90 mcg/actuation 2 puff inhalation Q4HP PRN 08/27/24 11/20/24 History aerosol inhaler Shortness Of Breath aspirin 81 mg chewable tablet 81 mg PO DAILY 11/20/24 11/20/24 History atorvastatin 40 mg tablet 40 mg PO HS 11/20/24 11/20/24 History bumetanide 1 mg tablet 1 mg PO BID 11/20/24 11/20/24 History ferrous sulfate 325 mg (65 mg 325 mg PO BID 11/20/24 11/20/24 History iron) tablet (iron) lactulose 10 gram/15 mL oral 15 ml PO TID 11/20/24 11/20/24 History solution levothyroxine 75 mcg tablet 75 mcg PO DAILY 11/20/24 11/20/24 History New Prescriptions to Start Prescriptions: Allergies Allergy/AdvReac Type Severity Reaction Status Date / Time No Known Allergies Allergy Verified 10/16/24 09:50 Exam Data for Last 24 hours Vital signs and Labs for Last 24 Hours: Temp Pulse Resp BP Pulse Ox O2 Del Method 98.3 F 75 19 134/70 96 Room Air 11/20/24 09:58 11/20/24 10:00 11/20/24 10:00 11/20/24 10:00 11/20/24 10:00 11/20/24 10:00 Laboratory Results - last 24 hr 11/20/24 09:54: WBC 6.4, RBC 3.07 L, Hgb 8.3 L, Hct 24.6 L, MCV 80.1, MCH 27.0, MCHC 33.7, RDW 15.6, Plt Count 223, MPV 9.8, Neut % (Auto) 60.4, Lymph % (Auto) 15.6, [place] % (Auto) 13.9 H, Eos % (Auto) 9.0, Baso % (Auto) 0.9, Neut # (Auto) 3.8, Lymph # (Auto) 1.0, [place] # (Auto) 0.9, Eos # (Auto) 0.6 H, Baso # (Auto) 0.1, APTT 30.2, Sodium 122 L, Potassium 3.7, Chloride 92 L, Carbon Dioxide 28, Anion Gap 5.7, BUN 13, Creatinine 0.90, Estimated Creat Clear 65, Estimated GFR 81, Est GFR ( Amer) 98, Glucose 129 H, Hemoglobin A1c 4.7, Calcium 8.6, Magnesium 1.7, Total Bilirubin 1.1, AST 37, ALT 17, Alkaline Phosphatase 85, Total Creatine Kinase 33 L, Total Protein 6.0 L, Albumin 2.9 L, Globulin 3.1, Albumin/Globulin Ratio 0.9 L I & O for Last 24 hours: Intake & Output 11/17/24 11/18/24 11/19/24 11/20/24 23:59 23:59 23:59 23:59 Weight 77.111 kg Constitutional Constitutional: no acute distress, obese, chronically ill appearing and cooperative *Routine HEENT Exam Head: Present normocephalic and atraumatic Eye: Present EOMI ENT: Present mucous membranes moist *Routine Neck Exam Neck: Present supple and full ROM *Routine Respiratory Exam Respiratory: Present wheezes, crackles and distant breath sounds *Routine Cardiovascular Exam Cardiovascular: Present RRR and JVD *Routine Abdominal Exam Abdominal: Present soft, distended and obese; Absent tenderness, rebound or guarding *Routine Rectal Exam Rectal:: deferred *Routine Genitalia Exam Genitalia:: deferred *Routine Extremities Exam Extremities: Present edema Comments: 3+ to the RLE; 2+ to the LLE; right leg with slight external rotation and marginally shorter than left leg. Pain in right hip with movement Routine Back/Spine/Pelvis Exam Back/Spine: Present full ROM *Routine Skin Exam Skin: Present dry and warm *Routine Neurological Exam Neurological: Present alert, oriented X3, CN II-XII intact, altered mental status and moving all extremities Routine Psychiatric Exam Psychiatric: Present cooperative Assessment and Plan *Assessment and plan (1) Right hip pain: Status: Acute Category: Medical Code(s): M25.551 - Pain in right hip (2) Subcapital fracture of right hip: Status: Acute Category: Medical Code(s): S72.011A - Unspecified intracapsular fracture of right femur, initial encounter for closed fracture (3) Cirrhosis: Status: Acute Qualifiers: Ascites presence: with ascites Hepatic cirrhosis type: alcoholic cirrhosis Qualified Code(s): K70.31 - Alcoholic cirrhosis of liver with ascites Category: Medical Code(s): K74.60 - Unspecified cirrhosis of liver (4) Acute hyponatremia: Status: Acute Category: Medical Code(s): E87.1 - Hypo-osmolality and hyponatremia (5) Ascites: Status: Acute Qualifiers: Ascites type: due to alcoholic cirrhosis Qualified Code(s): K70.31 - Alcoholic cirrhosis of liver with ascites Category: Medical Code(s): R18.8 - Other ascites (6) Hyponatremia: Status: Acute Category: Medical Code(s): E87.1 - Hypo-osmolality and hyponatremia (7) Elevated bilirubin: Status: Acute Category: Medical Code(s): R17 - Unspecified jaundice (8) Gastric varices without bleeding: Status: Acute Category: Medical Code(s): I86.4 - Gastric varices (9) Hypervolemia: Status: Acute Qualifiers: Hypervolemia type: unspecified Qualified Code(s): E87.70 - Fluid overload, unspecified Category: Medical Code(s): E87.70 - Fluid overload, unspecified (10) Coronary artery disease: Status: Acute Category: Medical Code(s): I25.10 - Atherosclerotic heart disease of [place] coronary artery without angina pectoris (11) Portal hypertension: Status: Acute Category: Medical Code(s): K76.6 - Portal hypertension Plan Carlos Rogers is a 79-year-old male with history significant for former alcohol use disorder, cirrhosis, hypertension, hyperlipidemia, anemia, hypothyroid. Fell at home last week. Has had right hip pain since and inability to walk/bear weight. On presentation, found to have right subcapital fracture. Discussed case with ER physician, request admission for further management. Plan for orthopedic eval and surgical fixation. I agreed to admit patient for further management. Problems addressed as follows: # Right subcapital hip fracture - Per my review of CT and x-ray, has subcapital fracture right hip. Orthopedics consulted, planning on surgery tomorrow. - Patient has an elevated risk due to his underlying health conditions (cirrhosis, JOELLE, HFpEF). He did however have a Lexiscan stress test performed last month that showed No evidence of fixed or reversible perfusion defects. EF 72% during that test. Had normal global and regional LV systolic function. No further optimization necessary for surgery. - Audible wheeze from upper respiratory however no appreciable wheeze in his lungs. Continue DuoNeb scheduled every 6 hours. - Recommend conservative fluid management in the perioperative setting due to patient's cirrhosis and general volume overload status #Decompensated alcoholic cirrhosis #Gastroesophageal varices #Bilateral pleural effusions #History of alcohol use disorder ?Mild confusion today, slow to respond to questions but does answer appropriately. Ammonia level ordered and pending ? MELD-Na: 8, ~2% chance of 3-month mortality. - Child Pena class B, 9 points, abdominal surgery perioperative mortality of 30%. ? Hepatitis panel negative, normal AFP, low ceruloplasmin 14.9 on workup in July per chart review - Tolerating lactulose, continue QID, goal 2-3 BM daily ? Continue IV Bumex 1 mg daily, coreg 3.125mg BID, - EGD performed in July by GI. No significant ulcers or significant bleeding. No evidence of Klein's or stricturing. Does have superficial erosive ulcerative esophagitis likely secondary to reflux. No significant esophageal varices. Small fundic/cardia gastric varices. - continue pantoprazole 40 mg daily - White count 6.4, hemoglobin 8.3. Hyponatremia, acute on chronic: Sodium low at 122, potassium 3.7, chloride 92. Kidney function normal with BUN 13, creatinine 0.9. Repeat CBC, CMP, magnesium ordered for the morning. Monitor Froben sodium with diuresis. Continue low- sodium diet due to cirrhosis. 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 Will consider resuming after surgery #Hypothyroidism ? Resume home levothyroxine 75 mcg. TFTs normal during admission in July Full code Regular diet, n.p.o. at midnight Holding anticoagulation in anticipation of surgery in the morning
--- NOTE | 2024-11-20 11:20 | PC.NURSE ---
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
--- NOTE | 2024-11-20 11:42 | HMH.PHAINT1 ---
Pharmacy Intervention Comments: MEDICATION RECONCILIATION COMPLETED ON PATIENT USING EXTERNAL FILL HISTORY FROM PHARMACY. -HANK NIEVES, SAVANNAHD
--- NOTE | 2024-11-20 11:45 | PC.NURSE ---
margarito took report on pt for admission to the floor
[2024-11-20] MEDS: OXYCODONE 5MG W/APAP 325MG TABLET 1 EACH PO (13:39)
[2024-11-20 15:05] LABS: INR 1.12 (0.9-1.1); Prothrombin Time 12.4 seconds (10.1-12.5)
[2024-11-20 15:19] LABS: Ammonia < 9 umol/L (9-30)
[2024-11-20] MEDS: LACTULOSE 20GM/30ML UDC 10 GM PO (16:03)
[2024-11-20] MEDS: BUMETANIDE 1 MG TABLET PO (16:03)
--- NOTE | 2024-11-20 16:23 | P.CONS_ITS ---
History of Present Illness *Admission Date: 11/20/24 *History of present illness: Mr. Rogers is a 79-year-old male who presented to the ER after a fall several days ago. EMS was called to his house at that time, they help to get him up and he elected not to come to the hospital for evaluation. He has not been ambulating since and more or less been bedbound at home. Continued to have worsening pain. Family encouraged him to come to the ER for evaluation today. History complicated by alcoholism, alcoholic cirrhosis, CAD, hypertension, hyperlipidemia, COPD, hypothyroid. Was admitted earlier this year in July for decompensated cirrhosis. Has not had any alcohol since June 2024. Alert and oriented on presentation but slow to respond. On evaluation in the ER, imaging of his hip showed a subcapital fracture of the femur. Orthopedics was consulted, recommended admission for hemiarthroplasty and further management. Medicine consulted for admission [facility] Disclaimer: The information contained in this section may have been updated after the patient was seen, as this information can be updated by other users. Medical History Coronary artery disease Weight loss, unintentional Former smoker Wheezing Alcohol abuse Thyroid disease History of hyperlipidemia History of hypertension Surgical History No significant past surgical history Family History No significant family history Prostate CA Hyperlipidemia Heart attack Lung cancer Hypertension Stroke Social History (Updated 11/20/24 @ 13:39 by Claire Mcintosh RN) Smoking Status: Former smoker alcohol intake: former substance use type: denies use current occupational status: retired Travel in the last 8 weeks?: None household members: spouse housing: house Have you lived/traveled outside US in past 30 days?: No Contact w/someone who lives/traveled outside US past 30 days?: No Exposure to someone with infectious disease in past 14 days?: No Do you have a fever (greater than 100.4 F or 38 C)?: No Have you tested positive for COVID-19?: No Exposed to someone with COVID-19 in past 14 days?: No Do you have a sore throat?: No Do you have a cough?: No Do you have any weakness?: No Do you have any diarrhea?: No Are you experiencing any unusual bleeding?: No Do you have any muscle aches/pain?: No Do you have any abdominal pain?: No Are you experiencing loss of taste or smell?: No Meds Home Medications and Allergies Home Medications ?Medication ?Instructions ?Recorded ?Confirmed ?Type carvedilol 3.125 mg tablet 3.125 mg PO BID 30 days #60 tabs 08/01/24 11/20/24 Rx albuterol sulfate 90 mcg/actuation 2 puff inhalation Q4HP PRN 08/27/24 11/20/24 History aerosol inhaler Shortness Of Breath aspirin 81 mg chewable tablet 81 mg PO DAILY 11/20/24 11/20/24 History atorvastatin 40 mg tablet 40 mg PO HS 11/20/24 11/20/24 History bumetanide 1 mg tablet 1 mg PO BID 11/20/24 11/20/24 History ferrous sulfate 325 mg (65 mg 325 mg PO BID 11/20/24 11/20/24 History iron) tablet (iron) lactulose 10 gram/15 mL oral 15 ml PO TID 11/20/24 11/20/24 History solution levothyroxine 75 mcg tablet 75 mcg PO DAILY 11/20/24 11/20/24 History New Prescriptions to Start Prescriptions: Allergies Allergy/AdvReac Type Severity Reaction Status Date / Time No Known Allergies Allergy Verified 10/16/24 09:50 Ortho Exam (Inpt) Vital signs and Labs for Last 24 Hours: Temp Pulse Resp BP Pulse Ox O2 Del Method 98.6 F 76 18 129/83 95 Room Air 11/20/24 12:33 11/20/24 12:33 11/20/24 12:33 11/20/24 12:33 11/20/24 12:33 11/20/24 14:52 Laboratory Results - last 24 hr 11/20/24 09:54: WBC 6.4, RBC 3.07 L, Hgb 8.3 L, Hct 24.6 L, MCV 80.1, MCH 27.0, MCHC 33.7, RDW 15.6, Plt Count 223, MPV 9.8, Neut % (Auto) 60.4, Lymph % (Auto) 15.6, [place] % (Auto) 13.9 H, Eos % (Auto) 9.0, Baso % (Auto) 0.9, Neut # (Auto) 3.8, Lymph # (Auto) 1.0, [place] # (Auto) 0.9, Eos # (Auto) 0.6 H, Baso # (Auto) 0.1, APTT 30.2, Sodium 122 L, Potassium 3.7, Chloride 92 L, Carbon Dioxide 28, Anion Gap 5.7, BUN 13, Creatinine 0.90, Estimated Creat Clear 65, Estimated GFR 81, Est GFR ( Amer) 98, Glucose 129 H, Hemoglobin A1c 4.7, Calcium 8.6, Magnesium 1.7, Total Bilirubin 1.1, AST 37, ALT 17, Alkaline Phosphatase 85, T otal Creatine Kinase 33 L, Total Protein 6.0 L, Albumin 2.9 L, Globulin 3.1, A lbumin/Globulin Ratio 0.9 L 11/20/24 14:46: PT 12.4, INR 1.12 H, Ammonia < 9 L I & O for Labs for Last 24 Hours: Intake & Output 11/17/24 11/18/24 11/19/24 11/20/24 23:59 23:59 23:59 23:59 Weight 170 lb Head: Present normocephalic and atraumatic Additional findings:: Right hip: Skins intact sensations intact externally rotated none shortened. Pain with any attempted range of motion of the hip and knee. Compartments are soft grossly neurovasc intact. X-rays and CT scan of the right hip were reviewed. There is an impacted subcapital femoral neck fracture with displacement. Results Labs 11/20/24 09:54 11/20/24 09:54 Labs: Abnormal lab results 11/20/24 11/20/24 Range/Units 09:54 14:46 RBC 3.07 L (4.60-6.20) M/mm3 Hgb 8.3 L (14.1-18.0) g/dL Hct 24.6 L (42.0-52.0) % [place] % (Auto) 13.9 H (1.7-9.3) % Eos # (Auto) 0.6 H (0.0-0.4) Kmm3 INR 1.12 H (0.9-1.1) Sodium 122 L (136-145) mmol/L Chloride 92 L (98-107) mmol/L Glucose 129 H (74-100) mg/dl Ammonia < 9 L (9-30) umol/L Total Creatine Kinase 33 L (55-170) U/L Total Protein 6.0 L (6.3-8.2) g/dl Albumin 2.9 L (3.5-5.0) g/dl Albumin/Globulin Ratio 0.9 L (1.1-1.8) H & H 11/20/24 Range/Units 09:54 Hgb 8.3 L (14.1-18.0) g/dL Hct 24.6 L (42.0-52.0) % Coagulation 11/20/24 Range/Units 14:46 INR 1.12 H (0.9-1.1) All other labs normal. Assessment and Plan *Assessment and plan (1) Subcapital fracture of right hip: Status: Acute Qualifiers: Encounter type: initial encounter Fracture type: closed Qualified Code(s): S72.011A - Unspecified intracapsular fracture of right femur, initial encounter for closed fracture Category: Medical Code(s): S72.011A - Unspecified intracapsular fracture of right femur, initial encounter for closed fracture Plan I discussion with him and his spouse. In regards to treatment options. Given the femoral neck fracture operative intervention is indicated. His indication will be for hemiarthroplasty of the hip. The benefits of weightbearing immediately on the hemiarthroplasty were explained. There is a high probability he will require long-term rehab following hospitalization because he has 14 steps to get into his house. N.p.o. after midnight tonight. Surgery optimization discussed with Dr. Siddiqui the hospitalist team. Plan on proceeding tomorrow with hemiarthroplasty of right hip. PROPOSED SURGERY: Hemiarthroplasty right hip the risks and benefits of the proposed surgery were discussed in depth with the patient. Potential complications including inherent risk of anesthesia, infection, neurovascular damage, DVT, and rare but real potential loss of limb or life were all reviewed. Patient voices understanding and seems to understand to my satisfaction and wishes to proceed with surgery. I gave them adequate time to ask any questions they have pertaining to this surgery and answered all of them to the best of my ability. I gave them no guarantees in regards to outcomes of this surgery.
[2024-11-20] MEDS: IPRATROPIUM/ALBUTEROL 3 ML NEB IH ×2 (18:22→23:07)
--- NOTE | 2024-11-20 18:59 | PC.NURSE ---
Ok to skip pm dose of lactulose per md
[2024-11-20] MEDS: CARVEDILOL 3.125MG TABLET 3.125 MG PO (20:19)
[2024-11-21] VITALS (22 sets, daily range): BP systolic 97–133; BP diastolic 47–74; PULSE 62–92; RESP 17–20; TEMP 36–43; O2SAT 91–98; BMI 31.5
--- NOTE | 2024-11-21 03:24 | PC.NURSE ---
Pt AOx4, [place]. Resting in bed with eyes open. Denies pain or any additional needs at this time. CNAs are bathing and changing him at this time. Pt has been NPO since midnight for surgery in the morning. Respirations are even and unlabored. Bed is low, locked, and call light is in reach.
[2024-11-21] MEDS: LEVOTHYROXINE 75MCG (0.075MG) TAB 75 MCG PO (06:01)
[2024-11-21] MEDS: IPRATROPIUM/ALBUTEROL 3 ML NEB IH ×4 (06:07→23:32)
[2024-11-21 06:50] LABS: Basophils % 0.8 % (0.1-2.0); Eosinophils # 0.5 Kmm3 (0.0-0.4); Eosinophils % 9.1 % (0.1-12.0); Hematocrit 24.5 % (42.0-52.0); Hemoglobin 8.3 g/dL (14.1-18.0); Immature Granulocytes # 0 10^3uL; Immature Granulocytes % 0 %; Lymphocytes # 0.8 K/mm3 (0.7-4.5); Lymphocytes % 16.3 % (10-50); Mean Corpuscular HGB Conc 33.9 g/dL (31.8-35.4); Mean Corpuscular Hemoglobin 27.2 pg (27.0-31.2); Mean Corpuscular Volume 80.3 fl (80-94); Mean Platelet Volume 9.4 fl (7.4-10.4); Monocytes # 0.6 K/mm3 (0.1-1.0); Monocytes % 12.1 % (1.7-9.3); Neutrophils # 3.1 K/mm3 (1.8-7.8); Neutrophils % 61.7 % (37.0-80.0); Nucleated Red Blood Cells # 0 10^3/uL; Nucleated Red Blood Cells % 0 %; Platelet Count 191 K/mm3 (142-424); Red Blood Count 3.05 M/mm3 (4.60-6.20); Red Cell Distribution Width 15.7 % (11.5-17.5); Red Cell Distribution Width-SD 45.3 fL
[2024-11-21 07:26] LABS: Alanine Aminotransferase 13 U/L (12-78); Albumin Level 2.7 g/dl (3.5-5.0); Alkaline Phosphatase 80 U/L (38-126); Anion Gap 5.7 mEq/L (5-15); Aspartate Amino Transferase 26 U/L (17-59); Bilirubin,Total 1.1 mg/dl (0.2-1.3); Blood Urea Nitrogen 15 mg/dl (9-20); Calcium 8.4 mg/dl (8.4-10.2); Carbon Dioxide 29 mmol/L (22.0-30.0); Chloride 93 mmol/L (98-107); Creatinine Clearance Estimated 66 mL/min (50-200); Estimated Glomerular Filt Rate 81 ml/min (>60); GFR (African American) 98 ML/MIN (>60); Globulin 2.8 g/dL (1.3-3.2); Glucose 86 mg/dl (74-100); Magnesium 1.9 mg/dl (1.6-2.3); Potassium 3.7 mmoL/L (3.5-5.1); Sodium 124 mmol/L (136-145); Total Protein,Serum 5.5 g/dl (6.3-8.2)
[2024-11-21] MEDS: BUMETANIDE 1 MG TABLET PO ×2 (08:40→17:45)
--- NOTE | 2024-11-21 10:17 | PC.NURSE ---
Held coreg this AM due to low BP, pt asymptomatic.
--- NOTE | 2024-11-21 10:31 | EXP.ACUTE.PN ---
Subjective *Date: 11/21/24 *Time: 14:31 Interval history: Pain stable. On room air. No nausea or vomiting. Denies abdominal pain or shortness of breath. Medical Exam Vital signs and Labs for Last 24 Hours: Vital Signs Temp Pulse Pulse Resp BP BP Pulse Ox 11/21/24 10:11 11/21/24 09:12 97.9 F 85 20 97/51 L 95 11/21/24 09:03 95 11/21/24 07:57 86 20 11/21/24 07:56 11/21/24 06:35 11/21/24 06:09 86 11/21/24 06:09 88 11/21/24 05:00 11/21/24 03:20 97.9 F 83 18 105/55 L 96 11/21/24 03:00 11/21/24 01:00 11/21/24 00:16 72 11/21/24 00:16 77 11/20/24 23:00 11/20/24 21:00 11/20/24 20:00 11/20/24 19:28 97.4 F L 80 18 130/59 L 97 11/20/24 18:48 11/20/24 18:40 77 11/20/24 18:30 78 11/20/24 17:00 11/20/24 16:00 97.6 F 77 20 140/73 96 11/20/24 14:52 11/20/24 13:20 11/20/24 12:33 98.6 F 76 18 129/83 95 11/20/24 12:20 11/20/24 12:09 98.0 F 78 20 129/83 11/20/24 11:01 75 19 144/85 H 95 O2 Del Method 11/21/24 10:11 Room Air 11/21/24 09:12 Room Air 11/21/24 09:03 Room Air 11/21/24 07:57 Room Air 11/21/24 07:56 Room Air 11/21/24 06:35 Room Air 11/21/24 06:09 11/21/24 06:09 11/21/24 05:00 Room Air 11/21/24 03:20 Room Air 11/21/24 03:00 Room Air 11/21/24 01:00 Room Air 11/21/24 00:16 11/21/24 00:16 11/20/24 23:00 Room Air 11/20/24 21:00 Room Air 11/20/24 20:00 Room Air 11/20/24 19:28 Room Air 11/20/24 18:48 Room Air 11/20/24 18:40 11/20/24 18:30 11/20/24 17:00 Room Air 11/20/24 16:00 Room Air 11/20/24 14:52 Room Air 11/20/24 13:20 Room Air 11/20/24 12:33 Room Air 11/20/24 12:20 Room Air 11/20/24 12:09 11/20/24 11:01 Intake and Output 11/20/24 11/21/24 11/21/24 23:59 07:59 15:59 Output Total 350 / 350 Balance -350 / -350 Output: Output, Urine Amount 350 / 350 Other: Number of Unmeasured Voids 1 Number of Urine Attends/Diapers 1 Weight 78.273 kg Patient Weight 11/21/24 23:59 Weight 78.273 kg Laboratory Results - last 24 hr 11/20/24 09:54: Hemoglobin A1c 4.7 11/20/24 14:46: PT 12.4, INR 1.12 H, Ammonia < 9 L 11/21/24 06:23: WBC 5.0, RBC 3.05 L, Hgb 8.3 L, Hct 24.5 L, MCV 80.3, MCH 27.2, MCHC 33.9, RDW 15.7, Plt Count 191, MPV 9.4, Neut % (Auto) 61.7, Lymph % (Auto) 16.3, White % (Auto) 12.1 H, Eos % (Auto) 9.1, Baso % (Auto) 0.8, Neut # (Auto) 3.1, Lymph # (Auto) 0.8, White # (Auto) 0.6, Eos # (Auto) 0.5 H, Baso # (Auto) 0.0, Sodium 124 L, Potassium 3.7, Chloride 93 L, Carbon Dioxide 29, Anion Gap 5.7, BUN 15, Creatinine 0.90, Estimated Creat Clear 66, Estimated GFR 81, Est GFR ( Amer) 98, Glucose 86 D, Calcium 8.4, Magnesium 1.9 D, Total Bilirubin 1.1, AST 26 D, ALT 13, Alkaline Phosphatase 80, Total Protein 5.5 L, Albumin 2.7 L, Globulin 2.8, Albumin/Globulin Ratio 1.0 L I & O for Labs for Last 24 Hours: Intake & Output 11/18/24 11/19/24 11/20/24 11/21/24 23:59 23:59 23:59 23:59 Output Total 350 / 350 Balance -350 / -350 Weight 77.111 kg 78.273 kg Constitutional: Present no acute distress, average body habitus, chronically ill appearing and cooperative Head: Present atraumatic and normocephalic Respiratory: Present normal respiratory effort; Absent respiratory distress, rhonchi, stridor, wheezes or crackles Cardiac: Present Reg Rate and Rhythm GI: Present soft, distention and normal bowel sounds; Absent tenderness Comment:: Right leg shorter and externally rotated compared to left. Tender over right hip Skin: Present intact; Absent erythema Neuro: Present Grossly Intact, alert, awake, oriented x 3 and moves all extremities Assessment and Plan *Assessment and plan (1) Right hip pain: Status: Acute Category: Medical Code(s): M25.551 - Pain in right hip (2) Subcapital fracture of right hip: Status: Acute Qualifiers: Encounter type: initial encounter Fracture type: closed Qualified Code(s): S72.011A - Unspecified intracapsular fracture of right femur, initial encounter for closed fracture Category: Medical Code(s): S72.011A - Unspecified intracapsular fracture of right femur, initial encounter for closed fracture (3) Cirrhosis: Status: Acute Qualifiers: Hepatic cirrhosis type: alcoholic cirrhosis Ascites presence: with ascites Qualified Code(s): K70.31 - Alcoholic cirrhosis of liver with ascites Category: Medical Code(s): K74.60 - Unspecified cirrhosis of liver (4) Acute hyponatremia: Status: Acute Category: Medical Code(s): E87.1 - Hypo-osmolality and hyponatremia (5) Ascites: Status: Acute Qualifiers: Ascites type: due to alcoholic cirrhosis Qualified Code(s): K70.31 - Alcoholic cirrhosis of liver with ascites Category: Medical Code(s): R18.8 - Other ascites (6) Hyponatremia: Status: Acute Category: Medical Code(s): E87.1 - Hypo-osmolality and hyponatremia (7) Elevated bilirubin: Status: Acute Category: Medical Code(s): R17 - Unspecified jaundice (8) Gastric varices without bleeding: Status: Acute Category: Medical Code(s): I86.4 - Gastric varices (9) Hypervolemia: Status: Acute Qualifiers: Hypervolemia type: unspecified Qualified Code(s): E87.70 - Fluid overload, unspecified Category: Medical Code(s): E87.70 - Fluid overload, unspecified (10) Coronary artery disease: Status: Acute Category: Medical Code(s): I25.10 - Atherosclerotic heart disease of [place] coronary artery without angina pectoris (11) Portal hypertension: Status: Acute Category: Medical Code(s): K76.6 - Portal hypertension Plan Carlos Rogers is a 79-year-old male with history significant for former alcohol use disorder, cirrhosis, hypertension, hyperlipidemia, anemia, hypothyroid. Fell at home last week. Has had right hip pain since and inability to walk/bear weight. On presentation, found to have right subcapital fracture. Discussed case with ER physician, request admission for further management. Orthopedics taking for hemiarthroplasty today. Continues to require inpatient management. Will have therapy evaluate after 4 dispo planning. Problems addressed as follows: # Right subcapital hip fracture - Pain stable today. Going for surgery with orthopedics. Discussed case, planning on hemiarthroplasty. - Patient has an elevated risk due to his underlying health conditions (cirrhosis, JOELLE, HFpEF). He did however have a Lexiscan stress test performed last month that showed No evidence of fixed or reversible perfusion defects. EF 72% during that test. Had normal global and regional LV systolic function. No further optimization necessary for surgery. - Continue DuoNeb scheduled every 6 hours. - Recommend conservative fluid management in the perioperative setting due to patient's cirrhosis and general volume overload status #Decompensated alcoholic cirrhosis #Gastroesophageal varices #Bilateral pleural effusions #History of alcohol use disorder ? Confusion improved, multifactorial secondary to pain and pain medication. Ammonia less than 9. - MELD-Na: 8, ~2% chance of 3-month mortality. - Child Pena class B, 9 points, abdominal surgery perioperative mortality of 30%. ? Hepatitis panel negative, normal AFP, low ceruloplasmin 14.9 on workup in July per chart review - Tolerating lactulose, continue QID, goal 2-3 BM daily ? Continue IV Bumex 1 mg daily, coreg 3.125mg BID, - EGD performed in July by GI. No significant ulcers or significant bleeding. No evidence of Klein's or stricturing. Does have superficial erosive ulcerative esophagitis likely secondary to reflux. No significant esophageal varices. Small fundic/cardia gastric varices. - continue pantoprazole 40 mg daily - White count 5, hemoglobin 8.3. May necessitate transfusion after surgery, type and screen with morning labs. CBC, CMP, magnesium ordered for the morning. Hyponatremia, acute on chronic: Sodium marginally improved at 124, chloride 93. Potassium 3.7 with magnesium 1.9. Kidney function normal with BUN 15, creatinine 0.9. - continue low-sodium diet due to cirrhosis. 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 Will consider resuming after surgery #Hypothyroidism: levothyroxine 75 mcg. TFTs normal during admission in July Full code N.p.o. pending surgery, resume regular diet thereafter Holding anticoagulation in anticipation of surgery in the morning
[2024-11-21] MEDS: CEFAZOLIN SODIUM 2 GM in 0.9 % SODIUM CHLORIDE 100 ML IV (13:14)
--- NOTE | 2024-11-21 16:36 | P.PNANES_ITS ---
[facility] Anesthesia Record Part I Anesthesia Record I Intake, IV Amount: 2,000 Hydration: Adequate Estimated blood loss (mL): 200 Urine output (mL): 300 Blood Pressure: 120/47 SaO2: 92 Pulse Rate: 80 Airway Patency: Patent Respiratory Rate: 18 Temperature: 96.8 F Patient is:: Awake and Drowsy Stable to PACU at:: 16:40
--- NOTE | 2024-11-21 16:38 | XR_ITS ---
PROCEDURE INFORMATION: Exam: XR Right Hip Exam date and time: 11/21/2024 4:34 PM Age: 79 years old Clinical indication: Hip pain; Right hip; Additional info: Post-op RT hip TECHNIQUE: Imaging protocol: Radiologic exam of the right hip. Views: 2 or 3 views hip with pelvis when performed. COMPARISON: CR XR HIP RT 2-3V W/PELVIS 11/20/2024 10:20 AM FINDINGS: Bones/joints: Complete right hip replacement in adequate alignment and without complications. No fracture or dislocation. Soft tissues: Expected post surgical soft tissue changes. Skin clips in the right thigh. IMPRESSION: Complete right hip replacement in adequate alignment and without complications.
[2024-11-21 16:51] LABS: Microscopic,Cath URINE MICROSCOPIC (MICROSCOPIC)
--- NOTE | 2024-11-21 17:20 | EXP.OP.NOTE ---
Date of procedure: 11/21/24 Pre-op Diagnosis:: Displaced right femoral neck fracture Post-op Diagnosis:: Same Procedure performed:: Right hip hemiarthroplasty Surgeon:: Isma Kruger DO Alcohol And Drug Counselor(s):: Carlos Alberto LAWLER FUEL OPERATOR:: Santiago Lombardo Anesthesia: spinal Estimated blood loss (mL): 200 Clinical Note:: Implants: DePuy Corail size 13 collared stem press-fit 51 mm bipolar head standard neck Operative findings:: Displaced femoral neck fracture Operative note:: Patient identified preoperatively. Right hip marked with yes and my initials. Transported operative suite. Given spinal anesthesia. Davidson catheter placed. Then placed on the bed placed in a lateral position with all bony prominences well-padded. Axillary roll placed. Right hip placed up. Right hip prepped and draped normal sterile fashion. Once prepped and draped final operative timeout performed to identify proper patient procedure and extremity. Everyone involved the case agreed. Is no counter indications to beginning. Did receive preoperative antibiotics. Marking pen was used to jeison plan incision over the lateral aspect of the hip. Skin knife was used to incise through skin dissection is taken down to the IT band and IT band was cut in line with the femur Charnley retractor was placed for retraction. This exposed the abductors of the hip. Using a modified Hardinge approach abductor peel was performed and protected through the procedure with a Charnley retractor. This exposed the capsule of the hip. Capsule was cut in line with the neck large fracture hematoma present intra-articular. Capsule was cut in L-type fashion off the neck. Hip was brought into external rotation and brought level in the field of surgery where the osteotomy was performed fingerbreadth above the lesser trochanter. I removed the femoral head placed and onto the back table sized to a size 51. The acetabulum was then cleaned of all debris irrigation with the Pulsavac was performed. Once the sizing of the femoral head was selected attention was brought to preparation of the femur. The leg was brought anteriorly within the bag and externally rotated starting with a lateralizing cutting guide initial broach and hooked broach lateralization was performed subsequently placed implants from size 8 to size 13 with the broach. Size 13 gave good fit and fill in the canal. Final implant size 13 with a collar was selected and impacted into place. The 51 mm bipolar head was assembled on the back table impacted into place in the neutral neck. Hip was then reduced placed through range of motion flexion extension internal and external rotation found to be very stable. Irrigation wound performed. Capsule closed with 0 Vicryl stitch. Abductor peel repaired with #5 Ethibond sutures. Irrigation repeated deep layers closed with 0 Vicryl IT band closed with a running strata fix suture #1 deep layers with 0 Vicryl subcutaneous with 2-0 Vicryl surgical clips in skin for closure. Sterile dressing placed along with pillow. Patient waken anesthesia taken recovery stable condition. Condition: stable Disposition: PACU Complications:: None apparent
[2024-11-21] MEDS: LACTULOSE 20GM/30ML UDC 10 GM PO ×2 (17:46→20:35)
[2024-11-21] MEDS: LACTATED RINGERS 1000ML 1,000 ML 75 ML IV (17:50)
--- NOTE | 2024-11-21 18:01 | PC.NURSE ---
PATIENT ARRIVED BACK TO FLOOR FROM PACU AT 1700, ALERT TO SELF. DENIES PAIN. DRESSING TO RIGHT HIP IS CLEAN/DRY/INTACT. VITAL SIGNS ARE STABLE. SUPPLEMENTAL OXYGEN APPLIED AT 2L VIA NASAL CANNULA. LR @ 75ML/HR PER MD ORDER. FOAM WEDGE IN BETWEEN PATIENTS LEGS. POST OP VITALS IN PROGRESS. WILL CONTINUE TO MONITOR.
[2024-11-21 18:17] LABS: Hematocrit 25.2 % (42.0-52.0); Hemoglobin 8.5 g/dL (14.1-18.0)
[2024-11-21] MEDS: CEFAZOLIN SODIUM 1 GM in 0.9 % SODIUM CHLORIDE 50 ML IV (20:31)
[2024-11-21] MEDS: ASPIRIN 81MG CHEWABLE TABLET 81 MG PO (20:35)
[2024-11-21] MEDS: CARVEDILOL 3.125MG TABLET 3.125 MG PO (20:35)
[2024-11-21 20:40] LABS: Appearance,Urine/Cath CLEAR (Clear); Bilirubin,Cath Negative (Negative); Blood, Urine/Cath 1+ (Negative); Color,Urine/Cath YELLOW (Yellow); Glucose,Urine/Cath (UA) Negative (Negative); Ketones,Urine/Cath Negative (Negative); Leukocyte Esterase,Cath Negative (Negative); Nitrate,Cath Negative (Negative); Protein,Urine/Cath Negative (Negative); Urobilinogen,Cath 0.2 EU/dl (0.2)
[2024-11-21 21:02] LABS: Bacteria,Urine/Cath TRACE /lpf; Squamous Epithelial Ur./Cath Occasional #/hpf (0-5)
[2024-11-21] MEDS: HYDROCODONE/APAP 5/325 MG TABLET 2 TAB PO (21:04)
[2024-11-22] VITALS (29 sets, daily range): BP systolic 90–132; BP diastolic 52–70; PULSE 78–96; RESP 16–24; TEMP 36.3–36.8; O2SAT 91–98; BMI 33.5
[2024-11-22] MEDS: CEFAZOLIN SODIUM 1 GM in 0.9 % SODIUM CHLORIDE 50 ML IV (01:23)
--- NOTE | 2024-11-22 05:37 | PC.NURSE ---
Pt is alert to self, with moments of confusion. Pt is able to be redirected at times. Pt surgical incision site dressing in clean and intact. Pt did c/o right hip pain and was treated per SEP. This nurse did dress pt skin tear to left elbow with non-adhesive and kurlex. Pt tolerated fluids and antibiotics well this shift and [address] remains in [address].
[2024-11-22 06:17] LABS: Albumin Level 2.4 g/dl (3.5-5.0); Chloride 93 mmol/L (98-107); Sodium 123 mmol/L (136-145)
[2024-11-22 06:18] LABS: Potassium 4.2 mmoL/L (3.5-5.1)
[2024-11-22 06:20] LABS: Alanine Aminotransferase 13 U/L (12-78); Albumin/Globulin Ratio 0.9 (1.1-1.8); Alkaline Phosphatase 58 U/L (38-126); Anion Gap 8.2 mEq/L (5-15); Aspartate Amino Transferase 26 U/L (17-59); Bilirubin,Total 0.8 mg/dl (0.2-1.3); Blood Urea Nitrogen 21 mg/dl (9-20); Carbon Dioxide 26 mmol/L (22.0-30.0); Creatinine Clearance Estimated 70 mL/min (50-200); Estimated Glomerular Filt Rate 72 ml/min (>60); GFR (African American) 87 ML/MIN (>60); Globulin 2.7 g/dL (1.3-3.2); Immature Granulocytes # 0.02 10^3uL; Immature Granulocytes % 0.4 %; Lymphocytes # 0.5 K/mm3 (0.7-4.5); Monocytes # 0.4 K/mm3 (0.1-1.0); Neutrophils # 4.6 K/mm3 (1.8-7.8); Nucleated Red Blood Cells # 0 10^3/uL; Nucleated Red Blood Cells % 0 %; Total Protein,Serum 5.1 g/dl (6.3-8.2); White Blood Count 5.5 K/mm3 (4.8-10.8)
[2024-11-22 06:21] LABS: Calcium 7.9 mg/dl (8.4-10.2); Glucose 128 mg/dl (74-100); Magnesium 1.7 mg/dl (1.6-2.3)
[2024-11-22] MEDS: IPRATROPIUM/ALBUTEROL 3 ML NEB IH ×4 (06:31→23:25)
[2024-11-22 06:53] LABS: Basophils % 0.2 % (0.1-2.0); Lymphocytes % 9.1 % (10-50); Mean Corpuscular HGB Conc 34.6 g/dL (31.8-35.4); Mean Corpuscular Hemoglobin 27.6 pg (27.0-31.2); Mean Corpuscular Volume 79.8 fl (80-94); Mean Platelet Volume 9.7 fl (7.4-10.4); Monocytes % 6.4 % (1.7-9.3); Neutrophils % 83.9 % (37.0-80.0); Platelet Count 165 K/mm3 (142-424); Red Blood Count 2.28 M/mm3 (4.60-6.20); Red Cell Distribution Width 15.6 % (11.5-17.5); Red Cell Distribution Width-SD 45.4 fL
[2024-11-22 06:57] LABS: Hemoglobin 6.3 g/dL (14.1-18.0)
[2024-11-22 06:58] LABS: Hematocrit 18.2 % (42.0-52.0); MANUAL DIFFERENTIAL MANUAL DIFFERENTIAL (MANUAL DIFF)
--- NOTE | 2024-11-22 07:00 | PC.NURSE ---
lab called critical labs Hgb:6.2 and Hct:18.2, Dr. Jayne Meyer notified at this time, orders to infuse 1 unit NOW.
[2024-11-22 07:51] LABS: Lymphocytes % 11 % (10-50); Monocytes % 3 % (2-9); Neutrophils % 86 % (42-76); Total Cells Counted 100
[2024-11-22 07:52] LABS: Platelet Estimate Normal; RBC Morphology Normal
[2024-11-22] MEDS: BUMETANIDE 1 MG TABLET PO ×2 (08:12→15:21)
[2024-11-22] MEDS: LACTULOSE 20GM/30ML UDC 10 GM PO ×2 (08:12→21:06)
[2024-11-22] MEDS: LEVOTHYROXINE 75MCG (0.075MG) TAB 75 MCG PO (08:12)
[2024-11-22] MEDS: ASPIRIN 81MG CHEWABLE TABLET 81 MG PO ×2 (08:13→21:06)
--- NOTE | 2024-11-22 09:27 | SW/DCPLANNER ---
Addendum entered by Rebeca Dimas 11/23/24 07:36: [facility] confirmed that precert was started yesterday afternoon for this patient. Addendum entered by Rebeca Dimas 11/22/24 15:34: [facility] w/ [facility] is reviewing referral. Original Note: I spoke w/ patient and regarding plans once medically stable for discharge. PT/OT has been ordered to evaluate patient today. Patient/ are agreeable to placement if recommended and prefer [facility]. I will fax patient information to Alona mcdowell/ [facility] and continue to follow up. Discharge date is unknown at this time.
--- NOTE | 2024-11-22 10:14 | HMH.PTEV ---
Physical Therapy Evaluation Rehab PT IP Evaluation Start: 11/21/24 16:40 Freq: ONCE Status: Active Protocol: Document 11/22/24 10:10 [facility] (Rec: 11/22/24 10:14 [facility] [id number]) Subjective/History History History Pt is a 79 y/o male s/p Right hip hemiarthroplasty 11/22/24. Pt is WBAT RLE. Subjective Subjective Pt oriented to name and birthdate. Pt reports he lives in a home with his . Pt's home has [address] with one- sided railing. Pt is normally IND with all mobility using a RW. Pt's is available to assist as needed. New diagnosis of cancer in past 12 No months? [facility] How much help from another person do you currently need... Turning from your back to your side A little while in a flat bed without using bedrails? Moving from lying on back to sitting on A lot the side of a flat bed without using bedrails? Moving to and from a bed to a chair ( A lot including a wheelchair)? Standing up from a chair using your arms A lot ? (e.g., wheelchair, bedside chair) Walking in hospital room? A lot Climbing 3-5 steps with a railing? Total Mobility Score 12 Mobility Level [facility] Mobility Calculator Mobility 4 Move to chair/ commode Rehab PT IP Eval Objective Appearance Patient Behavior Appropriate,Cooperative Patient Orientation Person,Birthday Difficulty following instructions mild Speech Pattern Rambling Ambulation Patient Able to Ambulate No Balance Ability to Arise Able, uses arms to help Sitting Balance Steady, safe Standing Balance Unsteady Dynamic Sitting Balance Ability Good Transfers Bed Transfer Ability Moderate x 2 (50% assist) Sit to Stand Bed Transfer Ability Maximum x 2 (75% assist) Rehab PT IP prob,goals,plan Problems Date of Evaluation: 11/22/24 PT IP Problems Bed Mobility,Transfers,Gait, Balance,Self care,Safety Rehab Potential Rehab Potential Good Equipment Needs Assistive Devices Rolling / Wheeled Walker Plan PT Intervention Plan Bed Mobility,Transfers,Gait, Balance,Self care,Safety, Therapeutic Exercise Other Intervention Plan 1-2 times PT Plan Frequency Daily Duration LOS Discharge Goals Bed Transfer Ability Moderate x 1 (50% assist) Sit to Stand Chair Transfer Ability Moderate x 1 (50% assist) Discharge Plan PT Discharge Plan Initial physical therapy evaluation performed. Patient presents below baseline at this time in functional mobility, transfers, and strength. Pt not safe to return home at this time d/t current level of functional mobility. PT recommending short-term rehabilitation stay upon d/c from [facility]. Pt would benefit from skilled PT while at [facility] to prevent further functional decline and maximize safety with mobility. Eval Complexity Eval Charge Codes 97129 - Moderate Complexity PHYSICIAN CERTIFICATION: I certify the specified therapy services for Joshua Rogers are required, authorized, and reviewed every 30 days.
[2024-11-22] MEDS: SODIUM CHLORIDE 3% 15ML NEB 3 ML IH (11:51)
--- NOTE | 2024-11-22 12:20 | P.PN_ITS ---
Subjective *Date: 11/22/24 *Time: 12:20 Interval history: Talkative this morning on exam. Family at bedside. Stable on room air. Eating breakfast on interview. Denies chest pain, nausea, vomiting. Pain from hip stable. Working with therapy. Needing significant support. Recommend pl acement. Medical Exam Vital signs and Labs for Last 24 Hours: Vital Signs Temp Pulse Pulse Resp BP BP Pulse Ox 11/22/24 12:10 97.4 F L 89 20 105/66 L 95 11/22/24 11:55 97.5 F L 86 18 94/59 L 95 11/22/24 11:52 83 24 11/22/24 11:40 97.8 F 87 16 97/61 L 93 L 11/22/24 11:25 97.8 F 78 16 91/58 L 95 11/22/24 11:20 97.9 F 85 20 100/55 L 95 11/22/24 11:15 98.1 F 86 16 90/55 L 94 L 11/22/24 11:10 98.0 F 86 18 96/56 L 94 L 11/22/24 11:00 98.0 F 87 16 104/60 L 94 L 11/22/24 10:36 11/22/24 10:07 97.7 F 89 18 104/57 L 95 11/22/24 09:10 98.2 F 84 16 98/62 L 95 11/22/24 08:55 97.8 F 86 16 93/66 L 97 11/22/24 08:40 98.1 F 88 18 100/55 L 95 11/22/24 08:25 98.0 F 87 16 105/57 L 98 11/22/24 08:20 98.0 F 89 18 105/62 L 94 L 11/22/24 08:19 11/22/24 08:15 97.7 F 87 16 96/55 L 94 L 11/22/24 08:10 97.7 F 85 16 100/52 L 92 L 11/22/24 08:00 11/22/24 08:00 97.7 F 79 16 102/53 L 96 11/22/24 08:00 97.9 F 86 18 95/56 L 91 L 11/22/24 07:00 11/22/24 06:31 85 11/22/24 06:31 85 11/22/24 05:00 05/15/25 04:00 97.6 F 89 18 104/57 L 96 11/22/24 03:00 11/22/24 01:00 11/21/24 23:43 97.4 F L 92 H 18 128/73 96 11/21/24 23:33 90 11/21/24 23:33 88 11/21/24 22:39 11/21/24 21:00 11/21/24 20:00 11/21/24 19:45 88 20 115/74 98 11/21/24 19:15 97.6 F 90 20 109/69 L 96 11/21/24 18:45 62 18 123/60 92 L 11/21/24 18:36 11/21/24 18:15 83 18 109/63 L 95 11/21/24 18:07 84 11/21/24 18:07 83 11/21/24 18:07 96 11/21/24 17:45 84 20 121/71 95 11/21/24 17:30 97.5 F L 79 20 126/66 93 L 11/21/24 17:15 97.7 F 83 20 117/74 93 L 11/21/24 17:00 97.3 F L 85 20 133/72 91 L 11/21/24 17:00 11/21/24 17:00 97.4 F L 83 18 132/64 93 L 11/21/24 16:50 80 18 113/65 93 L 11/21/24 16:40 81 17 123/55 L 94 L 11/21/24 16:39 96.8 F L 80 18 120/47 L 11/21/24 16:30 97.4 F L 88 20 115/51 L 91 L O2 Del Method O2 Flow Rate 11/22/24 12:10 11/22/24 11:55 11/22/24 11:52 11/22/24 11:40 11/22/24 11:25 11/22/24 11:20 11/22/24 11:15 11/22/24 11:10 11/22/24 11:00 11/22/24 10:36 Room Air 11/22/24 10:07 11/22/24 09:10 11/22/24 08:55 11/22/24 08:40 11/22/24 08:25 11/22/24 08:20 11/22/24 08:19 Room Air 11/22/24 08:15 11/22/24 08:10 11/22/24 08:00 Room Air 11/22/24 08:00 Room Air 11/22/24 08:00 11/22/24 07:00 Room Air 11/22/24 06:31 11/22/24 06:31 11/22/24 05:00 Room Air 11/22/24 04:00 Room Air 11/22/24 03:00 Nasal Cannula 1 11/22/24 01:00 Nasal Cannula 1 11/21/24 23:43 Nasal Cannula 1 11/21/24 23:33 11/21/24 23:33 11/21/24 22:39 Nasal Cannula 1 11/21/24 21:00 Nasal Cannula 2 11/21/24 20:00 Nasal Cannula 1 11/21/24 19:45 Nasal Cannula 1 11/21/24 19:15 Nasal Cannula 1 11/21/24 18:45 Nasal Cannula 2 11/21/24 18:36 Nasal Cannula 2 11/21/24 18:15 Nasal Cannula 2 11/21/24 18:07 11/21/24 18:07 11/21/24 18:07 Nasal Cannula 2 11/21/24 17:45 Nasal Cannula 2 11/21/24 17:30 Nasal Cannula 2 11/21/24 17:15 Nasal Cannula 2 11/21/24 17:00 Nasal Cannula 3 11/21/24 17:00 Nasal Cannula 11/21/24 17:00 Nasal Cannula 3 11/21/24 16:50 Nasal Cannula 3 11/21/24 16:40 Nasal Cannula 3 11/21/24 16:39 11/21/24 16:30 Room Air 3 Intake and Output 11/21/24 11/22/24 11/22/24 23:59 07:59 15:59 Intake Total 1999 250 / 250 Output Total 400 / 875 325 / 325 Balance 15995 -325 / -75 250 / -75 Intake: Intake, Oral Amount 0 / 0 Intake, Total IV Amount 1999 Intake (Blood Product) Amt 250 / 250 Red Blood Cells Unit 0 / 0 [id number] Red Blood Cells Unit 250 / 250 [id number] Output: Output, Urine Amount 400 / 875 325 / 325 Other: Number of Unmeasured Voids 0 Weight 82.667 kg Patient Weight 11/22/24 23:59 Weight 82.667 kg Laboratory Results - last 24 hr 11/21/24 06:23: Blood Type Confirm O Negative 11/21/24 14:00: Urine Color Yellow, Urine Appearance Clear, Urine pH 6.0, Ur Specific [place] 1.010, Urine Protein Negative, Urine Glucose (UA) Negative, Urine Ketones Negative, Urine Blood 1+, Urine Nitrate Negative, Urine Bilirubin Negative, Urine Urobilinogen 0.2, Ur Leukocyte Esterase Negative, Urine RBC 10- 20, Urine WBC 3-5, Ur Squamous Epith Cells Occasional, Urine Bacteria Trace 11/21/24 18:05: Hgb 8.5 L, Hct 25.2 L, Blood Type O Negative, Antibody Screen Negative, Crossmatch (AHG) See Detail 11/22/24 05:57: WBC 5.5, RBC 2.28 L D, Hgb 6.3 L* D, Hct 18.2 L*, MCV 79.8 L, MCH 27.6, MCHC 34.6, RDW 15.6, Plt Count 165, MPV 9.7, Neut % (Auto) 83.9 H, Lymph % (Auto) 9.1 L, [place] % (Auto) 6.4, Eos % (Auto) 0.0 L, Baso % (Auto) 0.2, Neut # (Auto) 4.6, Lymph # (Auto) 0.5 L, [place] # (Auto) 0.4, Eos # (Auto) 0.0, Baso # (Auto) 0.0, Total Counted 100, Neutrophils % (Manual) 86 H, Lymphocytes % (Manual) 11, Monocytes % (Manual) 3, Platelet Estimate Normal, RBC Morphology Normal, Sodium 123 L, Potassium 4.2, Chloride 93 L, Carbon Dioxide 26, Anion Gap 8.2, BUN 21 H D, Creatinine 1.00, Estimated Creat Clear 70, Estimated GFR 72, Est GFR ( Amer) 87, Glucose 128 H D, Calcium 7.9 L, Magnesium 1.7 D, Total Bilirubin 0.8, AST 26, ALT 13, Alkaline Phosphatase 58, Total Protein 5.1 L, Albumin 2.4 L D, Globulin 2.7, Albumin/Globulin Ratio 0.9 L I & O for Labs for Last 24 Hours: Intake & Output 11/19/24 11/20/24 11/21/24 11/22/24 23:59 23:59 23:59 23:59 Intake Total 1999 250 / 250 Output Total 750 / 875 325 / 325 Balance 1250 / 1125 -75 / -75 Weight 77.111 kg 78.273 kg 82.667 kg Constitutional: Present no acute distress, average body habitus, chronically ill appearing and cooperative Head: Present atraumatic and normocephalic Respiratory: Present normal respiratory effort; Absent respiratory distress, rhonchi, stridor, wheezes or crackles Cardiac: Present Reg Rate and Rhythm GI: Present soft, distention and normal bowel sounds; Absent tenderness Comment:: Legs equal length, tender over surgical site. Neurovascularly intact in feet; bandage clean dry and intact Skin: Present intact; Absent erythema Neuro: Present Grossly Intact, alert, awake, oriented x 3 and moves all extremities Assessment and Plan *Assessment and plan (1) Right hip pain: Status: Acute Category: Medical Code(s): M25.551 - Pain in right hip (2) Subcapital fracture of right hip: Status: Acute Qualifiers: Encounter type: initial encounter Fracture type: closed Qualified Code(s): S72.011A - Unspecified intracapsular fracture of right femur, initial encounter for closed fracture Category: Medical Code(s): S72.011A - Unspecified intracapsular fracture of right femur, initial encounter for closed fracture (3) Cirrhosis: Status: Acute Qualifiers: Hepatic cirrhosis type: alcoholic cirrhosis Ascites presence: with ascites Qualified Code(s): K70.31 - Alcoholic cirrhosis of liver with ascites Category: Medical Code(s): K74.60 - Unspecified cirrhosis of liver (4) Acute hyponatremia: Status: Acute Category: Medical Code(s): E87.1 - Hypo-osmolality and hyponatremia (5) Ascites: Status: Acute Qualifiers: Ascites type: due to alcoholic cirrhosis Qualified Code(s): K70.31 - Alcoholic cirrhosis of liver with ascites Category: Medical Code(s): R18.8 - Other ascites (6) Hyponatremia: Status: Acute Category: Medical Code(s): E87.1 - Hypo-osmolality and hyponatremia (7) Elevated bilirubin: Status: Acute Category: Medical Code(s): R17 - Unspecified jaundice (8) Gastric varices without bleeding: Status: Acute Category: Medical Code(s): I86.4 - Gastric varices (9) Hypervolemia: Status: Acute Qualifiers: Hypervolemia type: unspecified Qualified Code(s): E87.70 - Fluid overload, unspecified Category: Medical Code(s): E87.70 - Fluid overload, unspecified (10) Coronary artery disease: Status: Acute Category: Medical Code(s): I25.10 - Atherosclerotic heart disease of [place] coronary artery without angina pectoris (11) Portal hypertension: Status: Acute Category: Medical Code(s): K76.6 - Portal hypertension (12) Acute on chronic anemia: Status: Acute Category: Medical Code(s): D64.9 - Anemia, unspecified Plan Carlos Rogers is a 79-year-old male with history significant for former alcohol use disorder, cirrhosis, hypertension, hyperlipidemia, anemia, hypothyroid. Fell at home last week. Has had right hip pain since and inability to walk/bear weight. On presentation, found to have right subcapital fracture. Discussed case with ER physician, request admission for further management. Orthopedics took patient for hemiarthroplasty on 11/21. Tolerated well. Worsening anemia today. Continues to require inpatient management. Therapy evaluated, recommend SNF. Case management assisting with placement. Problems addressed as follows: # Right subcapital hip fracture - Pain stable. Taken by orthopedics yesterday for hemiarthroplasty. Tolerated well. Therapy evaluated, recommend SNF. Acute on chronic anemia secondary to blood loss - Hemoglobin 6.3, will transfuse 2 units packed red blood cells. Transfusion threshold hemoglobin less than 7. No active signs of bleeding. Platelets 167. 2-hour posttransfusion H&H. Repeat CBC, CMP, magnesium ordered for the morning. #Decompensated alcoholic cirrhosis #Gastroesophageal varices #Bilateral pleural effusions #History of alcohol use disorder ? Confusion improved, multifactorial secondary to pain and pain medication. Ammonia less than 9. - MELD-Na: 8, ~2% chance of 3-month mortality. - Child Pena class B, 9 points, abdominal surgery perioperative mortality of 30%. ? Hepatitis panel negative, normal AFP, low ceruloplasmin 14.9 on workup in July per chart review - Tolerating lactulose, continue QID, goal 2-3 BM daily ? Continue IV Bumex 1 mg daily, coreg 3.125mg BID, - EGD performed in July by GI. No significant ulcers or significant bleeding. No evidence of Klein's or stricturing. Does have superficial erosive ulcerative esophagitis likely secondary to reflux. No significant esophageal varices. Small fundic/cardia gastric varices. - continue pantoprazole 40 mg daily - White count normal at 5.5. CBC, CMP, magnesium ordered for the morning. Hyponatremia, acute on chronic: Sodium remains low at 123, chloride 93. Potassium 4.2 with magnesium 1.7. Electrolyte protocol in place, will replace per protocol - continue low-sodium diet due to cirrhosis. 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 Will consider resuming after surgery #Hypothyroidism: levothyroxine 75 mcg. TFTs normal during admission in July Full code regular diet Aspirin 81 mg twice daily. Holding Lovenox or heparin due to worsening anemia
--- NOTE | 2024-11-22 13:36 | EXP.ANES.II ---
[facility] Anesthesia Record Part II Anesthesia Record Part II Discharge Time: 17:00 Destination: Medical Surgical Department PACU nurse assessment reviewed?: Yes Patient Condition:: Good Anesthesia Complications:: None Swallowing reflex intact?: Yes Airway Patency: Patent Cyanosis?: No Blood Pressure: 132/64 SaO2: 93 Respiratory Rate: 18 Pulse Rate: 83 Temperature: 97.4 F Mental Status: Alert & Oriented Pain level:: 0 Nausea and/or vomitting:: None Intake, IV Amount: 0 Hydration: Adequate
--- NOTE | 2024-11-22 15:04 | HMH.OTEV ---
OT Inpatient Evaluation Rehab OT IP Evaluation Start: 11/20/24 13:36 Freq: ONCE Status: Active Protocol: Document 11/22/24 14:22 [facility] (Rec: 11/22/24 15:01 [facility] [id number]) Rehab OT IP Assessment Subjective History Pt oriented x3 on arrival. Pt agreeable to engage in therapy evaluation. Pt admitted on 11/20/24 due to fall with right hip pain; requiring a Right hip hemiarthroplasty on 11/21/24. History and physical Mr. Rogers is a 79-year-old male who presented to the ER after a fall several days ago. EMS was called to his house at that time, they help to get him up and he elected not to come to the hospital for evaluation. He has not been ambulating since and more or less been bedbound at home. Continued to have worsening pain. Family encouraged him to come to the ER for evaluation today. History complicated by alcoholism, alcoholic cirrhosis, CAD, hypertension, hyperlipidemia, COPD, hypothyroid. Was admitted earlier this year in July for decompensated cirrhosis. Has not had any alcohol since June 2024. Alert and oriented on presentation but slow to respond. On evaluation in the ER, imaging of his hip showed a subcapital fracture of the femur. Orthopedics was consulted, recommended admission for hemiarthroplasty and further management. Medicine consulted for admission Patient complains of pain, history supplemented by spouse at bedside. Has a bruise on his right shoulder. Afebrile. Denies chest pain or shortness of breath. On room air. Had a bowel movement today. Subjective Pt reports prior to being in the hospital, pt lived at home with his with [address] home. Pt is normally independent with ADLs. However, pt normally completes IADLs. Pt does have a cane and rolling walker. Objective Patient Orientation Person,Place,Birthday Right Upper Extremity Gross ROM WFL Left Upper Extremity Gross ROM WFL Bed Mobility bed mobility-scooting,bed mobility - supine/sit Assist Level Maximum x 2 (75% assist) Transfer Training Sit/Stand/Step Transfer Assist Level Moderate x 2 (50% assist) Chair Transfer Ability Moderate x 2 (50% assist) Chair Transfer Technique Stand Step Pivot Chair Transfer Assistive Devices Rolling Walker Rehab OT IP prob,goals,plan Problems Date of Evaluation: 05/15/25 OT IP Problems Bed Mobility,Transfers,Balance ,Self care,Safety Rehab Potential Rehab Potential Good Equipment Needs Assistive Devices Rolling / Wheeled Walker Plan OT intervention Plan Bed Mobility,Transfers,Balance ,Self care,Safety,Therapeutic Exercise OT Plan Frequency Daily Duration LOS Discharge Goals Bed Mobility Ability Assistance x1 Sit to Stand Chair Transfer Ability Moderate x 1 (50% assist) Chair Transfer Ability Moderate x 1 (50% assist) Chair Transfer Technique Sit to/from Ambulatory Chair Transfer Assistive Devices Rolling Walker Feeding Ability Assist with Tray Set Up Lower Body Dressing Ability Moderate Assistance Upper Body Dressing Ability Minimal Assistance Bathing Ability Moderate Assistance Performing Toilet Hygiene Ability Moderate Assistance Overall Commode/Toilet Transfer Ability Moderate Assistance Commode/Toilet Transfer Technique Sit to/from Ambulatory Discharge Plan OT Discharge Plan Pt will continue to be seen for OT services while at [facility]. Pt would benefit most from short term rehab at SNF following hospital stay for continued skilled therapy. Continued skilled therapy is important in order for patient to improve strength, safety, endurance, ADL independence, and functional transfers. Eval Complexity Eval Charge Codes 58237 - Moderate Complexity PHYSICIAN CERTIFICATION: I certify the specified therapy services for Joshua Rogers are required, authorized, and reviewed every 30 days.
[2024-11-22 15:44] LABS: Hematocrit 25.6 % (42.0-52.0)
[2024-11-22 15:45] LABS: Hemoglobin 8.8 g/dL (14.1-18.0)
--- NOTE | 2024-11-22 15:47 | XR_ITS ---
FINAL REPORT CLINICAL HISTORY: s/p R kerrie COMPARISON: 11/21/2024 FINDINGS: PELVIS One view was obtained. There is no fracture or dislocation. Patient is status post right hip prosthesis. Overlying skin ruthy are identified. There is no evidence of acute abnormality. Gas is seen in the soft tissues, probably related to recent surgery. IMPRESSION: Postsurgical changes as above. Reviewed, Interpreted and Dictated by Loyd Lacey MD Transcribed by Heidy Carrizales Authenticated and [facility]
--- NOTE | 2024-11-22 15:49 | P.PN_ITS ---
Subjective *Date: 11/22/24 *Time: 15:49 Interval history: Patient seen while sitting in chair, states that pain is significantly better than before surgery, but still rates it as a 5 out of 10. He had a period of altered mental status this morning due to anesthesia, and is still slightly confused. Spinal wore off this morning as well, patient states that he can is excited to now feel his toes. He states that he has some burning pain into his feet, and worked with physical therapy this morning, standing and walking couple steps to the chair. Ortho Exam (Inpt) Vital signs and Labs for Last 24 Hours: Temp Pulse Resp BP Pulse Ox O2 Del Method O2 Flow Rate 97.5 F L 92 H 16 96/54 L 95 Room Air 1 11/22/24 14:15 11/22/24 14:15 11/22/24 14:15 11/22/24 14:15 11/22/24 14:15 11/22/24 15:00 11/22/24 03:00 Laboratory Results - last 24 hr 11/21/24 06:23: Blood Type Confirm O Negative 11/21/24 14:00: Urine Color Yellow, Urine Appearance Clear, Urine pH 6.0, Ur Specific [place] 1.010, Urine Protein Negative, Urine Glucose (UA) Negative, Urine Ketones Negative, Urine Blood 1+, Urine Nitrate Negative, Urine Bilirubin Negative, Urine Urobilinogen 0.2, Ur Leukocyte Esterase Negative, Urine RBC 10- 20, Urine WBC 3-5, Ur Squamous Epith Cells Occasional, Urine Bacteria Trace 11/21/24 18:05: Hgb 8.5 L, Hct 25.2 L, Blood Type O Negative, Antibody Screen Negative, Crossmatch (AHG) See Detail 11/22/24 05:57: WBC 5.5, RBC 2.28 L D, Hgb 6.3 L* D, Hct 18.2 L*, MCV 79.8 L, MCH 27.6, MCHC 34.6, RDW 15.6, Plt Count 165, MPV 9.7, Neut % (Auto) 83.9 H, Lymph % (Auto) 9.1 L, [place] % (Auto) 6.4, Eos % (Auto) 0.0 L, Baso % (Auto) 0.2, Neut # (Auto) 4.6, Lymph # (Auto) 0.5 L, [place] # (Auto) 0.4, Eos # (Auto) 0.0, Baso # (Auto) 0.0, Total Counted 100, Neutrophils % (Manual) 86 H, Lymphocytes % (Manual) 11, Monocytes % (Manual) 3, Platelet Estimate Normal, RBC Morphology Normal, Sodium 123 L, Potassium 4.2, Chloride 93 L, Carbon Dioxide 26, Anion Gap 8.2, BUN 21 H D, Creatinine 1.00, Estimated Creat Clear 70, Estimated GFR 72, Est GFR ( Amer) 87, Glucose 128 H D, Calcium 7.9 L, Magnesium 1.7 D, Total Bilirubin 0.8, AST 26, ALT 13, Alkaline Phosphatase 58, Total Protein 5.1 L, Albumin 2.4 L D, Globulin 2.7, Albumin/Globulin Ratio 0.9 L 11/22/24 15:30: Hgb 8.8 L D, Hct 25.6 L I & O for Labs for Last 24 Hours: Intake & Output 11/19/24 11/20/24 11/21/24 11/22/24 23:59 23:59 23:59 23:59 Intake Total 1999 1220 / 1220 Output Total 750 / 875 525 / 525 Balance 1250 / 1125 695 / 695 Weight 77.111 kg 78.273 kg 82.667 kg Additional findings:: Right hip:Dressing clean dry and intact, thigh soft. On examination, patient's foot appears externally rotated with a 1 to 2 cm leg length discrepancy. Sensation is intact at first dorsal webspace/plantar aspect, with motor function intact to EHL/FHL. Calves are soft and nontender. Assessment and Plan *Assessment and plan (1) Subcapital fracture of right hip: Problem Comment: s/p R hip hemiarthroplasty on 11/21/24 Status: Acute Qualifiers: Encounter type: initial encounter Fracture type: closed Qualified Code(s): S72.011A - Unspecified intracapsular fracture of right femur, initial encounter for closed fracture Category: Medical Code(s): S72.011A - Unspecified intracapsular fracture of right femur, initial encounter for closed fracture Plan S/p right hip hemiarthroplasty POD# 1: Stat AP pelvis appears normal, kerrie in place. Weightbearing as tolerated to right lower extremity with precautions at all times. Ambulate with a rolling walker or other devices as needed. Abduction pillow when in bed. DVT ppx: On hold. Ice as needed swelling and pain at incision site. Pain medication as needed. Hgb/Hct: 8.8/25.6 after 2 units of RBC, continue to monitor Appreciate medical input on non-orthopedic issues. Discharge planning per PT recommendations. F/u 10-14 days for post-op wound check in clinic.
--- NOTE | 2024-11-22 17:24 | PC.NURSE ---
PT IS RESTING IN BED. ALERT AND ORIENTED X3. EATING AND DRINKING FAIR. PT NEEDS SOME ASSISTANCE WITH MEALS. PT TOLERATED SITTING UP IN THE CHAIR FOR A FEW HOURS THIS SHIFT. MODERATE ASSIST X2 TO TRANSFER. PT WAS ABLE TO TAKE A FEW SHORT STEPS TO THE CHAIR WITH WALKER. TURNED AND REPOSITIONED WHEN IN BED. ABDUCTOR PILLOW IN PLACE. DRESSING TO RIGHT HIP C/D/I. SKIN TEAR NOTED TO LFA. REDNESS NOTED TO BUTTOCKS. PT TOLERATED 2 UNITS OF PRBC'S THIS SHIFT. KEVIN DC'D AT [address]. LUNG SOUNDS CLEAR. ABDOMEN FIRM/DISTENDED WITH ACTIVE BOWEL SOUNDS. WILL CONTINUE TO MONITOR.
[2024-11-22] MEDS: CARVEDILOL 3.125MG TABLET 3.125 MG PO (21:06)
[2024-11-23] MEDS: HYDROCODONE/APAP 5/325 MG TABLET 2 TAB PO (00:45)
[2024-11-23 04:00] VITALS: BP 100/64; PULSE 88; RESP 18; TEMP 36.6; O2SAT 94; BMI 35.8
--- NOTE | 2024-11-23 05:43 | PC.NURSE ---
v/s, ox4. No acute events to report. Plan of care ongoing.
[2024-11-23 06:09] VITALS: PULSE 91; PULSE 94
[2024-11-23] MEDS: IPRATROPIUM/ALBUTEROL 3 ML NEB IH (06:09)
[2024-11-23] MEDS: LEVOTHYROXINE 75MCG (0.075MG) TAB 75 MCG PO (06:45)
[2024-11-23 06:54] LABS: Eosinophils % 0.1 % (0.1-12.0); Hematocrit 22.6 % (42.0-52.0); Immature Granulocytes # 0.04 10^3uL; Immature Granulocytes % 0.4 %; Lymphocytes # 0.6 K/mm3 (0.7-4.5); Mean Corpuscular Hemoglobin 27.6 pg (27.0-31.2); Mean Platelet Volume 9.8 fl (7.4-10.4); Monocytes # 1.1 K/mm3 (0.1-1.0); Monocytes % 11.1 % (1.7-9.3); Neutrophils % 82.4 % (37.0-80.0); Nucleated Red Blood Cells # 0 10^3/uL; Nucleated Red Blood Cells % 0 %; Platelet Count 174 K/mm3 (142-424); Red Blood Count 2.86 M/mm3 (4.60-6.20); Red Cell Distribution Width 14.7 % (11.5-17.5); Red Cell Distribution Width-SD 42.7 fL; White Blood Count 9.7 K/mm3 (4.8-10.8)
[2024-11-23 07:19] LABS: Alanine Aminotransferase 13 U/L (12-78); Albumin Level 2.7 g/dl (3.5-5.0); Anion Gap 9.2 mEq/L (5-15); Aspartate Amino Transferase 27 U/L (17-59); Bilirubin,Total 0.8 mg/dl (0.2-1.3); Blood Urea Nitrogen 28 mg/dl (9-20); Carbon Dioxide 26 mmol/L (22.0-30.0); Chloride 90 mmol/L (98-107); Creatinine Clearance Estimated 68 mL/min (50-200); Estimated Glomerular Filt Rate 65 ml/min (>60); GFR (African American) 78 ML/MIN (>60); Globulin 2.7 g/dL (1.3-3.2); Glucose 127 mg/dl (74-100); Potassium 4.2 mmoL/L (3.5-5.1); Sodium 121 mmol/L (136-145); Total Protein,Serum 5.4 g/dl (6.3-8.2)
[2024-11-23 07:20] LABS: Alkaline Phosphatase 100 U/L (38-126)
[2024-11-23 07:26] LABS: Hemoglobin 7.9 g/dL (14.1-18.0)
[2024-11-23 08:00] VITALS: BP 121/57; PULSE 52; RESP 16; TEMP 37; O2SAT 92
[2024-11-23 08:13] LABS: Magnesium 1.9 mg/dl (1.6-2.3)
--- NOTE | 2024-11-23 08:22 | P.DS_ITS ---
General Admission date:: 11/20/24 Discharge date: 11/23/24 HPI HPI HPI: Mr. Rogers is a 79-year-old male who presented to the ER after a fall several days ago. EMS was called to his house at that time, they help to get him up and he elected not to come to the hospital for evaluation. He has not been ambulating since and more or less been bedbound at home. Continued to have worsening pain. Family encouraged him to come to the ER for evaluation today. History complicated by alcoholism, alcoholic cirrhosis, CAD, hypertension, hyperlipidemia, COPD, hypothyroid. Was admitted earlier this year in July for decompensated cirrhosis. Has not had any alcohol since June 2024. Alert and oriented on presentation but slow to respond. On evaluation in the ER, imaging of his hip showed a subcapital fracture of the femur. Orthopedics was consulted, recommended admission for hemiarthroplasty and further management. Medicine consulted for admission Hospital Course Hospital Course Hospital Course: Carlos Rogers is a 79-year-old male with history significant for former alcohol use disorder, cirrhosis, hypertension, hyperlipidemia, anemia, hypothyroid. Fell at home last week. Has had right hip pain since and inability to walk/bear weight. On presentation, found to have right subcapital fracture. Discussed case with ER physician, request admission for further management. Orthopedics took patient for hemiarthroplasty on 11/21. Tolerated well. Had a drop in hemoglobin after surgery. Responded well to transfusion. Remained stable thereafter. Stable discharge to rehab for further management. Graciously septa by [facility]. Problems addressed as follows: # Right subcapital hip fracture - Pain stable. Taken by orthopedics on 11/21/2024 for hemiarthroplasty. Tolerated well. Working with therapy. Recommended SNF placement for rehab. Gr aciously excepted by [facility]. Stable to discharge Acute on chronic anemia secondary to blood loss - Hemoglobin dropped from 8-6.3 after surgery. Likely blood loss from procedure. Transfused 2 units with good response. Remained stable around 8 on serial monitoring. Platelets stable at 174. Needs repeat labs with CBC, CMP, magnesium in 1 week to monitor stability of electrolytes, kidney function, sodium and hemoglobin. No active signs of significant bleeding. #Decompensated alcoholic cirrhosis #Gastroesophageal varices #Bilateral pleural effusions #History of alcohol use disorder ? Confusion improved, multifactorial secondary to pain and pain medication. Ammonia less than 9. MELD-Na: 8, ~2% chance of 3-month mortality. Child Pena class B, 9 points, abdominal surgery perioperative mortality of 30%. Hepatitis panel negative, normal AFP, low ceruloplasmin 14.9 on workup in July per chart review. Tolerating lactulose, continue QID, goal 2-3 BM daily. Continue Bumex 1 mg twice daily and Coreg 3.125 mg twice daily for management of ascites and portal hypertension. Of note, EGD performed in July by GI. No significant ulcers or significant bleeding. No evidence of Klein's or stricturing. Does have superficial erosive ulcerative esophagitis likely secondary to reflux. No significant esophageal varices. Small fundic/cardia gastric varices. continue pantoprazole 40 mg daily. Hyponatremia, acute on chronic: Sodium has remained low between 121 and 125 during admission. 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 Should improve in time now that his hip fracture is fixed. Recommend regular diet, would not adhere to low-sodium diet at this time. Repeat labs in 1 week to monitor improvement. Patient is asymptomatic from his hyponatremia at this time. #CAD/hyperlipidemia: Resume home Lipitor. Continue aspirin twice daily for DVT prophylaxis after hip replacement. Complete 28 days of twice daily aspirin, decrease to once daily thereafter. #Hypothyroidism: levothyroxine 75 mcg. TFTs normal during admission in July Aspirin 81 mg twice daily. Total time spent on discharge 36 minutes in counseling, documentation, chart review, and direct care with patient. Exam Data for Last 24 hours Vital signs and Labs for Last 24 Hours: Temp Pulse Resp BP Pulse Ox O2 Del Method O2 Flow Rate 98.6 F 52 L 16 121/57 L 92 L Room Air 2 11/23/24 08:00 11/23/24 08:00 11/23/24 08:00 11/23/24 08:00 11/23/24 08:00 11/23/24 08:00 11/22/24 18:32 Laboratory Results - last 24 hr 11/21/24 18:05: Blood Type O Negative, Antibody Screen Negative, Crossmatch (AHG) See Detail 11/22/24 15:30: Hgb 8.8 L D, Hct 25.6 L 11/23/24 06:36: WBC 9.7 D, RBC 2.86 L D, Hgb 7.9 L D, Hct 22.6 L, MCV 79.0 L, MCH 27.6, MCHC 35.0, RDW 14.7, Plt Count 174, MPV 9.8, Neut % (Auto) 82.4 H, Lymph % (Auto) 6.0 L, [place] % (Auto) 11.1 H, Eos % (Auto) 0.1, Baso % (Auto) 0.0 L, Neut # (Auto) 8.0 H, Lymph # (Auto) 0.6 L, [place] # (Auto) 1.1 H, Eos # (Auto) 0.0, Baso # (Auto) 0.0, Sodium 121 L, Potassium 4.2, Chloride 90 L, Carbon Dioxide 26, Anion Gap 9.2, BUN 28 H D, Creatinine 1.10, Estimated Creat Clear 68, Estimated GFR 65, Est GFR ( Amer) 78, Glucose 127 H, Calcium 8.0 L, Total Bilirubin 0.8, AST 27, ALT 13, Alkaline Phosphatase 100, Total Protein 5.4 L, Albumin 2.7 L D, Globulin 2.7, Albumin/Globulin Ratio 1.0 L I & O for Last 24 hours: Intake & Output 11/20/24 11/21/24 11/22/24 11/23/24 23:59 23:59 23:59 23:59 Intake Total 1999 / 1999 1490 / 1590 100 / 100 Output Total 750 / 875 525 / 525 150 / 150 Balance 1250 / 1125 965 / 1065 -50 / -50 Weight 77.111 kg 78.273 kg 82.667 kg 88.36 kg Microbiology Reports for the Last 24 Hours: Microbiology 11/22/24 23:43 Sputum - Expectorated Sputum Gram Stain - Preliminary Constitutional Constitutional: no acute distress, average body habitus, chronically ill appearing and cooperative *Routine HEENT Exam Head: Present normocephalic Eye: Present EOMI and PERRL ENT: Present mucous membranes moist *Routine Neck Exam Neck: Present supple; Absent lymphadenopathy *Routine Respiratory Exam Respiratory: Present CTA bilaterally; Absent respiratory distress, rhonchi, stridor, wheezes or crackles *Routine Cardiovascular Exam Cardiovascular: Present RRR *Routine Abdominal Exam Abdominal: Present soft, normoactive bowel sounds and distended; Absent tenderness *Routine Rectal Exam Patient deferred: visual exam *Routine Exam Patient deferred: penile exam *Routine Extremities Exam Extremities: Absent cyanosis, clubbing or edema Comments: Legs equal length, right surgical site clean dry and intact. Tender to palpation *Routine Skin Exam Skin: Present warm; Absent rash *Routine Neurological Exam Neurological: Present alert, oriented X3 and moving all extremities; Absent altered mental status Comments: slow to respond, but responds appropriately; baseline per . Results Data Completed and Pending Labs on day of discharge: Labs from last 24 hours 11/23/24 11/22/24 11/21/24 06:36 15:30 18:05 WBC 9.7 D RBC 2.86 L D Hgb 7.9 L D 8.8 L D Hct 22.6 L 25.6 L MCV 79.0 L MCH 27.6 MCHC 35.0 RDW 14.7 Plt Count 174 MPV 9.8 Neut % (Auto) 82.4 H Lymph % (Auto) 6.0 L [place] % (Auto) 11.1 H Eos % (Auto) 0.1 Baso % (Auto) 0.0 L Neut # (Auto) 8.0 H Lymph # (Auto) 0.6 L [place] # (Auto) 1.1 H Eos # (Auto) 0.0 Baso # (Auto) 0.0 Sodium 121 L Potassium 4.2 Chloride 90 L Carbon Dioxide 26 Anion Gap 9.2 BUN 28 H D Creatinine 1.10 Estimated Creat Clear 68 Estimated GFR 65 Est GFR ( Amer) 78 Glucose 127 H Calcium 8.0 L Total Bilirubin 0.8 AST 27 ALT 13 Alkaline Phosphatase 100 Total Protein 5.4 L Albumin 2.7 L D Globulin 2.7 Albumin/Globulin Ratio 1.0 L Blood Type O Negative Antibody Screen Negative Crossmatch (AHG) See Detail Preliminary micro results at discharge 11/22/24 23:43 Gram Stain - Preliminary Sputum - Expectorated Sputum DS: Diagnosis Discharge Diagnosis (1) Subcapital fracture of right hip: Status: Acute Code(s): S72.011A - Unspecified intracapsular fracture of right femur, initial encounter for closed fracture Qualifiers: Encounter type: initial encounter Fracture type: closed Qualified Code(s): S72.011A - Unspecified intracapsular fracture of right femur, initial encounter for closed fracture Problem details: s/p R hip hemiarthroplasty on 11/21/24 Meds Home Medications and Allergies Home Medications ?Medication ?Instructions ?Recorded ?Confirmed ?Type albuterol sulfate 90 mcg/actuation 2 puff inhalation Q4HP PRN 11/23/24 Rx aerosol inhaler Shortness Of Breath 30 days #8.5 grams aspirin 81 mg chewable tablet See Rx Instructions .Route 11/23/24 Rx .COMPLEX #60 tabs atorvastatin 40 mg tablet 40 mg PO HS 30 days #30 tabs 11/23/24 Rx bumetanide 1 mg tablet 1 mg PO BID 30 days #60 tabs 11/23/24 Rx carvedilol 3.125 mg tablet 3.125 mg PO BID 30 days #60 tabs 11/23/24 Rx ferrous sulfate 325 mg (65 mg 325 mg PO BID 30 days #60 tabs 11/23/24 Rx iron) tablet (iron) hydrocodone 5 mg-acetaminophen 325 1 tab PO Q6HP PRN Moderate To 11/23/24 Rx mg tablet Severe Pain (4-10) 5 days #20 tabs lactulose 10 gram/15 mL oral 15 ml PO TID 30 days #1,350 mL 11/23/24 Rx solution levothyroxine 75 mcg tablet 75 mcg PO DAILY 30 days #30 tabs 11/23/24 Rx New Prescriptions to Start Prescriptions: albuterol sulfate Santiago Siddiqui aspirin Chen,Santiago atorvastatin Chen,Santiago bumetanide Santiago Siddiqui carvedilol Santiago Siddiqui ferrous sulfate [iron] Santiago Siddiqui hydrocodone-acetaminophen Chen,Santiago lactulose Chen,Santiago levothyroxine Santiago Siddiqui Allergies Allergy/AdvReac Type Severity Reaction Status Date / Time No Known Allergies Allergy Verified 10/16/24 09:50 Discharge Plan Disposition Patient Disposition: Xfer SNF Condition: Fair Discharge Order Discharge Orders: Discharge Order (Routine); Ordered 11/23/24 Ordered By: Santiago Siddiqui Follow up Plan Follow up with: Isma Kruger DO [Staff Physician] - Enter time for follow up Prescriptions/Medication Reconciliation: New aspirin 81 mg Tablet,Chewable See Rx Instructions .ROUTE .COMPLEX Qty: 60 0RF Rx Instructions: 1 tablet twice daily for 4 weeks. Decrease to once daily thereafter (after 12/23/2024) hydrocodone-acetaminophen 5-325 mg Tablet 1 tab PO Q6HP PRN (Reason: Moderate To Severe Pain (4-10)) 5 Days Qty: 20 0RF Continued atorvastatin 40 mg tablet 40 mg PO HS 30 Days Qty: 30 0RF carvedilol 3.125 mg Tablet 3.125 mg PO BID 30 Days Qty: 60 0RF levothyroxine 75 mcg tablet 75 mcg PO DAILY 30 Days Qty: 30 0RF bumetanide 1 mg tablet 1 mg PO BID 30 Days Qty: 60 0RF albuterol sulfate 90 mcg/actuation HFA aerosol inhaler 2 puff inhalation Q4HP PRN (Reason: Shortness Of Breath) 30 Days Qty: 8.5 0RF lactulose 10 gram/15 mL solution 15 ml PO TID 30 Days Qty: 1350 0RF Rx Instructions: Goal 2-3 bowel movements a day Changed ferrous sulfate [iron] 325 mg (65 mg iron) tablet 325 mg PO BID 30 Days Qty: 60 0RF Discontinued aspirin 81 mg Tablet,Chewable 81 mg PO DAILY Problem Reconciliation Problems Reviewed?: Yes Patient Discharge Instructions ACTIVITY: Continue current activity DIET: continue same diet Patient Instructions: DI for Hip Fracture, DI for Hip Replacement, DI for Hyponatremia, DI for Surgical Site Infection, Stop Light Heart Failure, Stop Light Infection Print Language: Cymro Providers Primary Care Provider: Louis Shrestha Admit Provider: Santiago Siddiqui Attending Provider: Santiago Siddiqui
[2024-11-23] MEDS: ASPIRIN 81MG CHEWABLE TABLET 81 MG PO (09:59)
[2024-11-23] MEDS: LACTULOSE 20GM/30ML UDC 10 GM PO (09:59)
[2024-11-23] MEDS: CARVEDILOL 3.125MG TABLET 3.125 MG PO (09:59)
[2024-11-23] MEDS: BUMETANIDE 1 MG TABLET PO (09:59)
--- NOTE | 2024-11-23 11:29 | P.PN_ITS ---
Subjective *Date: 11/23/24 *Time: 11:29 Interval history: Pt seen while on stretcher for discharge. Excited to get out of hospital. Ortho Exam (Inpt) Vital signs and Labs for Last 24 Hours: Temp Pulse Resp BP Pulse Ox O2 Del Method O2 Flow Rate 98.6 F 52 L 16 121/57 L 92 L Room Air 2 11/23/24 08:00 11/23/24 08:00 11/23/24 08:00 11/23/24 08:00 11/23/24 08:00 11/23/24 11:00 11/22/24 18:32 Laboratory Results - last 24 hr 11/21/24 18:05: Crossmatch (AHG) See Detail 11/22/24 15:30: Hgb 8.8 L D, Hct 25.6 L 11/23/24 06:36: WBC 9.7 D, RBC 2.86 L D, Hgb 7.9 L D, Hct 22.6 L, MCV 79.0 L, MCH 27.6, MCHC 35.0, RDW 14.7, Plt Count 174, MPV 9.8, Neut % (Auto) 82.4 H, Lymph % (Auto) 6.0 L, [place] % (Auto) 11.1 H, Eos % (Auto) 0.1, Baso % (Auto) 0.0 L, Neut # (Auto) 8.0 H, Lymph # (Auto) 0.6 L, [place] # (Auto) 1.1 H, Eos # (Auto) 0.0, Baso # (Auto) 0.0, Sodium 121 L, Potassium 4.2, Chloride 90 L, Carbon Dioxide 26, Anion Gap 9.2, BUN 28 H D, Creatinine 1.10, Estimated Creat Clear 68, Estimated GFR 65, Est GFR ( Amer) 78, Glucose 127 H, Calcium 8.0 L, Magnesium 1.9 D, Total Bilirubin 0.8, AST 27, ALT 13, Alkaline Phosphatase 100, Total Protein 5.4 L, Albumin 2.7 L D, Globulin 2.7, Albumin/Globulin Ratio 1.0 L I & O for Labs for Last 24 Hours: Intake & Output 11/20/24 11/21/24 11/22/24 11/23/24 23:59 23:59 23:59 23:59 Intake Total 1999 1490 / 1590 100 / 100 Output Total 750 / 875 525 / 525 350 / 350 Balance 1250 / 1125 965 / 1065 -250 / -250 Weight 77.111 kg 78.273 kg 82.667 kg 88.36 kg Microbiology Reports for the Last 24 Hours: Microbiology 11/22/24 23:43 Sputum - Expectorated Sputum Gram Stain - Preliminary Additional findings:: Exam limited. Moving BLE spontaneously, sensation grossly intact. XR AP pelvis taken 11/22/24 showed kerrie arthropalsty in good position, no signs of dislocation or loosening of implants. Assessment and Plan *Assessment and plan (1) Subcapital fracture of right hip: Problem Comment: s/p R hip hemiarthroplasty on 11/21/24 Status: Acute Qualifiers: Encounter type: initial encounter Fracture type: closed Qualified Code(s): S72.011A - Unspecified intracapsular fracture of right femur, initial encounter for closed fracture Category: Medical Code(s): S72.011A - Unspecified intracapsular fracture of right femur, initial encounter for closed fracture Plan S/p right hip hemiarthroplasty POD# 2: Weightbearing as tolerated to right lower extremity with precautions at all times. Ambulate with a rolling walker or other devices as needed. Abduction pillow when in bed. DVT ppx: On hold. Ice as needed swelling and pain at incision site. Pain medication as needed. Appreciate medical input on non-orthopedic issues. F/u 10-14 days for post-op wound check in clinic.
== END 2024-11-23 11:26 | DRG 522 ==
LOC: ER 11:09 → 2ND 11:24
PROVIDERS: Orthopaedic Surgery; Admitting Provider Internal Medicine Adolescent Medicine; Emergency Provider Emergency Medicine; PCP Family Medicine; Visit Provider Internal Medicine Adolescent Medicine
PROC: 0SR904A Replacement of Right Hip Joint with Ceramic on Polyethylene Synthetic Substitute, Uncemented, Open Approach (ICD-10-PCS; principal; 2024-11-21 10:15)
DX: S72.011A Unspecified intracapsular fracture of right femur, initial encounter for closed fracture (principal); E87.1 Hypo-osmolality and hyponatremia; K76.6 Portal hypertension; D62 Acute posthemorrhagic anemia; K70.31 Alcoholic cirrhosis of liver with ascites; I25.10 Atherosclerotic heart disease of native coronary artery without angina pectoris; Z87.891 Personal history of nicotine dependence; W01.0XXA Fall on same level from slipping, tripping and stumbling without subsequent striking against object, initial encounter; Y92.010 Kitchen of single-family (private) house as the place of occurrence of the external cause; I10 Essential (primary) hypertension; E78.5 Hyperlipidemia, unspecified; E03.9 Hypothyroidism, unspecified; J44.9 Chronic obstructive pulmonary disease, unspecified; Z79.82 Long term (current) use of aspirin; Z79.51 Long term (current) use of inhaled steroids; I86.4 Gastric varices; F10.21 Alcohol dependence, in remission; R29.6 Repeated falls
CPT/HCPCS: 36415; 36430; 70450; 71045; 72125; 72170; 72192; 73502; 73552; 80053; 81001; 82140; 82550; 83036; 83735; 85007; 85014; 85018; 85025; 85610; 85730; 86850; 87070; 87077; 87186; 87205; 94640; 94761; 97162; 97166; 97530; 99285; C1776; J0690; J1885; J3010; J7030; J7120; J7620; P9016

== ENCOUNTER 2024-12-11 09:13 | Inpatient (IN) | payer MEDICARE, SELFPAY ==
[2024-12-11] VITALS (33 sets, daily range): BP systolic 93–132; BP diastolic 38–65; PULSE 64–89; RESP 15–23; TEMP 36.6–37.2; O2SAT 90–100; BMI 33.4; BMI 25.3; BMI 25.2
--- NOTE | 2024-12-11 09:18 | ECG_ITS ---
APPROVED REPORT Exam: Resting ECG HR:78 bpm ECG Measurements Heart Rate 78 AXES TN 174 P 57 QRSd 90 QRS 3 QT 320 T 66 QTc 353 Conclusion SINUS RHYTHM LOW QRS VOLTAGE IN EXTREMITY LEADS [QRS DEFLECTION < 0.5 mV IN LIMB LEADS] POSSIBLE ANTERIOR MYOCARDIAL INFARCTION , PROBABLY OLD [30 ms Q WAVE IN V3/V4, OR R < 0.2 mV IN V4] No STEMI Electronically signed by : RENAY MORAN, 12/12/2024 02:22:10
[2024-12-11 09:41] LABS: Microscopic, Urine URINE MICROSCOPIC (MICROSCOPIC)
--- NOTE | 2024-12-11 09:42 | CT_ITS ---
FINAL REPORT TECHNIQUE: Axial imaging of the chest is obtained after the administration of contrast. 3-D MIP reformatted images were also obtained and reviewed per PE protocol. This study was performed with techniques to keep radiation doses as low as reasonably achievable (ALARA). Individualized dose reduction techniques using automated exposure control or adjustment of mA and/or kV according to the patient's size were employed. CLINICAL HISTORY: AMS/abd distention/recent R hip surgery/RLE edema FINDINGS: The pulmonary arteries are well filled. There is no evidence of pulmonary embolus. There is no aortic dissection. Heart size is normal. There is no mediastinal, hilar, or axillary lymphadenopathy. There are stable, moderate, left greater than right pleural effusions. There is no pericardial effusion. There is bilateral lower lobe airspace disease, favor atelectasis. There is no pneumothorax. No acute osseous abnormality. IMPRESSION: No evidence of pulmonary embolism or aortic dissection. Stable, moderate bilateral pleural effusions with associated atelectasis. Reviewed, Interpreted and Dictated by Bernarda Calvillo MD Transcribed by Janay Boudreaux Authenticated and [facility]
--- NOTE | 2024-12-11 09:42 | CT_ITS ---
FINAL REPORT TECHNIQUE: Axial imaging of the right femur was obtained after the intravenous administration of contrast. Reformatted images were also obtained and reviewed. CLINICAL HISTORY: AMS/abd distention/recent R hip surgery/RLE edema COMPARISON: 11/20/2024 FINDINGS: There has been interval right hip arthroplasty. Hardware is intact. There is no acute osseous abnormality. There is no evidence of hardware complication. There is nonspecific soft tissue edema of the right thigh. A subcutaneous fluid collection is seen in the lateral proximal thigh, at the level of the proximal femoral shaft measuring 3.9 cm which may be postoperative. A second fluid collection, deep to the fascia of the lateral quadratus muscle appears to extend approximately 10 cm in long axis. IMPRESSION: Interval right hip arthroplasty without hardware complication or acute fracture. Subcutaneous and subfascial fluid collections lateral to the hardware extremity postoperative, evolving hematoma or seroma. Abscess considered less likely. Reviewed, Interpreted and Dictated by Bernarda Calvillo MD Transcribed by Janay Boudreaux Authenticated and [facility]
--- NOTE | 2024-12-11 09:42 | CT_ITS ---
FINAL REPORT TECHNIQUE: Thin section axial images were obtained from skull base to vertex without contrast. Coronal reconstruction images were obtained from the axial data. Exam was performed using dose reduction techniques such as automated exposure control, adjustment of the mA and kV according to patient size, and use of iterative reconstruction technique. CLINICAL HISTORY: AMS/abd distention/recent R hip surgery/RLE edema COMPARISON: 11/20/2024 FINDINGS: There is atrophy. No mass effect or midline shift. No intracranial hemorrhage. No hydrocephalus. Periventricular low density is likely related to changes of chronic small vessel ischemia. The basilar cisterns are preserved. The posterior fossa is without acute abnormality. A small amount of fluid is seen in the inferior left mastoid air cells. No acute osseous abnormality is identified. IMPRESSION: No acute intracranial abnormality. Atrophy and changes suggesting chronic small vessel ischemia. Left mastoiditis. Reviewed, Interpreted and Dictated by Bernarda Calvillo MD Transcribed by Janay Boudreaux Authenticated and [facility]
--- NOTE | 2024-12-11 09:42 | CT_ITS ---
FINAL REPORT TECHNIQUE: Thin section axial images are obtained through the abdomen and pelvis after intravenous contrast. Reconstruction images were obtained from the axial data. Exam was performed using dose reduction techniques. CLINICAL HISTORY: AMS/abd distention/recent R hip surgery/RLE edema FINDINGS: LIVER: Liver is nodular consistent with cirrhosis. No focal lesion. GALLBLADDER/BILIARY SYSTEM: Gallbladder is present. No gallstones. No biliary dilatation. SPLEEN: Borderline enlarged at 13 cm. PANCREAS: Unremarkable. ADRENALS: Unremarkable. KIDNEYS/URETERS/BLADDER: No hydronephrosis, renal mass, or renal stone. Unremarkable urinary bladder. GI TRACT: No small bowel obstruction or dilatation. Normal appendix. No acute colon abnormality. PELVIC ORGANS: Unremarkable for age. LYMPH NODES/RETROPERITONEUM/MESENTERY: Small retroperitoneal lymph nodes which are nonspecific. No abdominal aortic aneurysm. ABDOMINAL WALL: The abdominal wall is intact. FREE FLUID: Moderate to large amount of pelvic and abdominal ascites BONES: No acute osseous abnormality. IMPRESSION: Cirrhosis with ascites and portal hypertension. Reviewed, Interpreted and Dictated by Bernarda Calvillo MD Transcribed by Janay Boudreaux Authenticated and [facility]
--- NOTE | 2024-12-11 09:42 | CA_ITS ---
FINAL REPORT TECHNIQUE: Multiple transverse and longitudinal images were performed of right the femoral-popliteal deep venous system with augmentation and compression maneuvers. CLINICAL HISTORY: RLE EDEMA,PT HAD RT HIP SURGERY 11/21/24 FINDINGS: Right lower extremity duplex ultrasound demonstrates normal flow in the deep venous system. There is no abnormal echogenicity to suggest thrombus. There is normal compression and augmentation. IMPRESSION: No evidence of right DVT. Reviewed, Interpreted and Dictated by Bernarda Calvillo MD Transcribed by Janay Boudreaux Authenticated and [facility]
[2024-12-11 09:43] LABS: Appearance,Urine CLOUDY (Clear); Bilirubin,Urine Negative (Negative); Blood, Urine TRACE-I (Negative); Color,Urine YELLOW (Yellow); Glucose,Urine (UA) Negative (Negative); Ketones,Urine Negative (Negative); Leukocyte Esterase,Urine 2+ (Negative); Nitrate,Urine Negative (Negative); Protein,Urine 1+ (Negative); Specific Gravity, Urine 1.015 (1.005-1.030); Urobilinogen,Urine 0.2 EU/dl (0.2)
[2024-12-11 09:44] LABS: Basophils % 0.5 % (0.1-2.0); Eosinophils % 0.7 % (0.1-12.0); Immature Granulocytes # 0.01 10^3uL; Immature Granulocytes % 0.2 %; Lymphocytes # 0.8 K/mm3 (0.7-4.5); Lymphocytes % 19.3 % (10-50); Mean Corpuscular HGB Conc 33.7 g/dL (31.8-35.4); Mean Corpuscular Hemoglobin 27.3 pg (27.0-31.2); Mean Corpuscular Volume 81.1 fl (80-94); Mean Platelet Volume 9.6 fl (7.4-10.4); Monocytes # 1.1 K/mm3 (0.1-1.0); Monocytes % 26.5 % (1.7-9.3); Neutrophils # 2.1 K/mm3 (1.8-7.8); Neutrophils % 52.8 % (37.0-80.0); Nucleated Red Blood Cells # 0 10^3/uL; Nucleated Red Blood Cells % 0 %; Platelet Count 171 K/mm3 (142-424); Red Blood Count 2.49 M/mm3 (4.60-6.20); Red Cell Distribution Width 16.7 % (11.5-17.5); Red Cell Distribution Width-SD 48.9 fL
--- NOTE | 2024-12-11 09:45 | ED_ITS ---
Discharge Plan Disposition Patient Disposition: Admitted Condition: Fair Clinical Impressions Clinical Impression: General weakness, Non-ST elevation DC (NSTEMI), CHF (congestive heart failure), Acute on chronic anemia, Acute UTI, Cirrhosis Discharge ED Provider: Jennifer Bell General Adult HPI General Chief complaint: Weakness Stated complaint: weakness Time Seen by Provider: 12/11/24 09:17 Mode of Arrival: EMS Source of Information: Patient Description of Symptoms (Recalled from ER Triage Doc. by RN): ems states they were called for weakness, wanted him to get checked out. they reported he sounded wheezy and gave him a duoneb in route. patient denies any pain. has swelling in his right lower leg and right foot with pitting edema. History of Present Illness HPI narrative: This patient is a 79-year-old male with a history of subcapital fracture of the right hip status post operative fixation 11/21/2024 with discharged to rehab facility from hospital 11/23/2024 and subsequent return home, alcoholic cirrhosis, CAD, gastric varices without bleeding, prior pleural effusion, JOELLE, hypothyroidism, hypertension, CHF, history of hyponatremia presenting to the emergency department for evaluation with concern for altered mental status and general weakness. According to EMS, they were called to the patient's home yesterday for general weakness, and his wanted him to get checked out. Yesterday, he refused transport, but today is much worse so had him brought in by EMS for evaluation. According to EMS, was concern for altered mental status and general weakness. EMS noted concern for wheezing en route, so they give a DuoNeb. They note vital signs were stable. The patient was confused and did not contribute further to history. He denies any concerns or complaints of pain but cannot answer orientation questions appropriately. Related Data Home Medications ?Medication ?Instructions ?Recorded ?Confirmed aspirin 81 mg chewable tablet 81 mg PO BID 12/11/24 lactulose 10 gram/15 mL oral 15 ml PO BID 12/11/2410/02 solution Previous Rx's ?Medication ?Instructions ?Recorded albuterol sulfate 90 mcg/actuation 2 puff inhalation Q 4HP PRN 11/23/24 aerosol inhaler Shortness Of Breath 30 days #8.5 grams atorvastatin 40 mg tablet 40 mg PO HS 30 days #30 tabs 11/23/24 bumetanide 1 mg tablet 1 mg PO BID 30 days #60 tabs 11/23/24 carvedilol 3.125 mg tablet 3.125 mg PO BID 30 days #60 tabs 11/23/24 ferrous sulfate 325 mg (65 mg 325 mg PO BID 30 days #6 0 tabs 11/23/24 iron) tablet (iron) levothyroxine 75 mcg tablet 75 mcg PO DAILY 30 days #3 0 tabs 11/23/24 Allergies Allergy/AdvReac Type Severity Reaction Status Date / Time No Known Allergies Allergy Verified 12/05/24 10:21 [facility] Disclaimer: The information contained in this section may have been updated after the patient was seen, as this information can be updated by other users. Medical History Coronary artery disease Weight loss, unintentional Former smoker Wheezing Alcohol abuse Thyroid disease History of hyperlipidemia History of hypertension Surgical History No significant past surgical history Family History Other Heart attack Hyperlipidemia Hypertension Lung cancer No significant family history Prostate CA Stroke Social History (Updated 12/11/24 @ 16:15 by Karlene Benitez RN) Smoking Status: Former smoker alcohol intake: former substance use type: denies use current occupational status: retired Travel in the last 8 weeks?: None household members: spouse housing: house Have you lived/traveled outside [place] in past 30 days?: No Contact w/someone who lives/traveled outside US past 30 days?: No Exposure to someone with infectious disease in past 14 days?: No Do you have a fever (greater than 100.4 F or 38 C)?: No Have you tested positive for COVID-19?: No Exposed to someone with COVID-19 in past 14 days?: No Do you have a sore throat?: No Do you have a cough?: No Do you have any weakness?: Yes Do you have any diarrhea?: No Are you experiencing any unusual bleeding?: No Do you have any muscle aches/pain?: No Do you have any abdominal pain?: No Are you experiencing loss of taste or smell?: No Other Medical History Have you received the Flu Vaccine for this season: No Have you received the Pneumonia Vaccine: Yes ROS Obtained: Yes unobtainable due to mental status Physical Exam General General appearance: in no apparent distress Comment: Somnolent but arouses to voice. Strong smell of urine Head Head exam: atraumatic and normocephalic Eye Eye exam: Present normal appearance, PERRL and EOMI ENT ENT exam: Present normal exam, normal oropharynx, mucous membranes dry and normal external ear exam Neck Neck exam: Present normal inspection, full ROM and trachea midline; Absent tenderness Chest Chest inspection: Present normal inspection and symmetric chest wall rise; Absent tenderness Respiratory Respiratory exam: Present wheezes; Absent respiratory distress, stridor or accessory muscle use Cardiovascular Cardiovascular exam: Present regular rate and normal rhythm Abdominal Exam Abdominal exam: Present distention; Absent tenderness, guarding, rebound or rigidity Extremities Exam Extremities exam: Present normal capillary refill and edema (Right lower extremity); Absent tenderness Back Exam Back exam: Present normal inspection and full ROM; Absent tenderness Neurological Exam Neurological exam: Present other (Generally weak and confused without any obvious focal neurologic deficit); Absent alert or oriented X3 Skin Skin exam: Present warm and dry Medical Decision Making Medical Records Medical records reviewed: Yes I reviewed the patient's medical records. Screening: Per USPSTF and CDC recommendations, given the prevalence of disease in our region, it is our hospital?s policy to screen for HIV and viral Hepatitis for all patients aged 18 and over and those with ongoing risk factors. Chun Inquiry Pt receiving controlled substance: No Vital Signs: 12/11/24 09:19 12/11/24 09:25 12/11/24 09:30 Temperature 98.7 F Temperature Source Oral Pulse Rate 78 Pulse Rate [Right Radial] 73 Respiratory Rate 20 17 20 TAR Vitals Timing Blood Pressure 116/56 L 96/58 L Blood Pressure [Right Arm] 116/56 L Blood Pressure Mean 72 69 Blood Pressure Mean [Right Arm] 76 Blood Pressure Source Blood Pressure Source [Right Arm] Automatic Cuff Blood Pressure Position Blood Pressure Position [Right Arm] Supine 02 Sat by Pulse Oximetry 90 L 95 94 L Oxygen Delivery Method Room Air Oxygen Flow Rate (LPM) 12/11/24 10:00 12/11/24 10:47 12/11/24 11:00 Temperature Temperature Source Pulse Rate 82 89 85 Pulse Rate [Right Radial] Respiratory Rate 20 22 20 TAR Vitals Timing Blood Pressure 114/64 113/58 L 125/55 L Blood Pressure [Right Arm] Blood Pressure Mean 76 69 66 Blood Pressure Mean [Right Arm] Blood Pressure Source Blood Pressure Source [Right Arm] Blood Pressure Position Blood Pressure Position [Right Arm] 02 Sat by Pulse Oximetry 94 L 94 L 94 L Oxygen Delivery Method Oxygen Flow Rate (LPM) 12/11/24 11:30 12/11/24 12:00 12/11/24 12:00 Temperature 98.8 F Temperature Source Oral Pulse Rate 89 77 89 Pulse Rate [Right Radial] Respiratory Rate 18 16 18 TAR Vitals Timing Pre-Blood Vitals Blood Pressure 132/62 116/56 L 116/56 L Blood Pressure [Right Arm] Blood Pressure Mean 71 76 76 Blood Pressure Mean [Right Arm] Blood Pressure Source Automatic Cuff Blood Pressure Source [Right Arm] Blood Pressure Position Blood Pressure Position [Right Arm] 02 Sat by Pulse Oximetry 94 L 93 L 94 L Oxygen Delivery Method Nasal Cannula Nasal Cannula Oxygen Flow Rate (LPM) 2 2 12/11/24 12:04 12/11/24 12:10 12/11/24 12:10 Temperature 98.8 F 98.7 F Temperature Source Oral Oral Pulse Rate 77 71 79 Pulse Rate [Right Radial] Respiratory Rate 16 18 20 TAR Vitals Timing Start Vitals 5 Minute Blood Pressure 116/56 L 106/53 L 106/53 L Blood Pressure [Right Arm] Blood Pressure Mean 76 70 69 Blood Pressure Mean [Right Arm] Blood Pressure Source Automatic Cuff Automatic Cuff Blood Pressure Source [Right Arm] Blood Pressure Position Blood Pressure Position [Right Arm] 02 Sat by Pulse Oximetry 93 L 100 97 Oxygen Delivery Method Oxygen Flow Rate (LPM) 12/11/24 12:14 12/11/24 12:19 12/11/24 12:20 Temperature 99 F 98.8 F Temperature Source Oral Oral Pulse Rate 76 79 80 Pulse Rate [Right Radial] Respiratory Rate 18 18 15 TAR Vitals Timing 10 Minute 15 Minute Blood Pressure 108/64 L 114/54 L 114/54 L Blood Pressure [Right Arm] Blood Pressure Mean 78 74 64 Blood Pressure Mean [Right Arm] Blood Pressure Source Automatic Cuff Automatic Cuff Blood Pressure Source [Right Arm] Blood Pressure Position Blood Pressure Position [Right Arm] 02 Sat by Pulse Oximetry 100 97 97 Oxygen Delivery Method Oxygen Flow Rate (LPM) 12/11/24 12:30 12/11/24 12:52 12/11/24 13:00 Temperature Temperature Source Pulse Rate 68 75 66 Pulse Rate [Right Radial] Respiratory Rate 23 21 20 TAR Vitals Timing Blood Pressure 111/49 L 117/52 L 125/54 L Blood Pressure [Right Arm] Blood Pressure Mean 68 73 77 Blood Pressure Mean [Right Arm] Blood Pressure Source Blood Pressure Source [Right Arm] Blood Pressure Position Blood Pressure Position [Right Arm] 02 Sat by Pulse Oximetry 93 L 91 L 98 Oxygen Delivery Method Oxygen Flow Rate (LPM) 12/11/24 13:30 12/11/24 14:01 12/11/24 14:32 Temperature Temperature Source Pulse Rate 80 69 81 Pulse Rate [Right Radial] Respiratory Rate 20 15 21 TAR Vitals Timing Blood Pressure 117/65 117/59 L 120/64 Blood Pressure [Right Arm] Blood Pressure Mean 82 Blood Pressure Mean [Right Arm] Blood Pressure Source Blood Pressure Source [Right Arm] Blood Pressure Position Blood Pressure Position [Right Arm] 02 Sat by Pulse Oximetry 94 L 97 97 Oxygen Delivery Method Room Air Room Air Oxygen Flow Rate (LPM) 12/11/24 15:00 12/11/24 15:09 12/11/24 15:19 Temperature 98.0 F Temperature Source Oral Pulse Rate 80 77 67 Pulse Rate [Right Radial] Respiratory Rate 19 18 20 TAR Vitals Timing Blood Pressure 131/63 131/63 122/54 L Blood Pressure [Right Arm] Blood Pressure Mean 85 76 Blood Pressure Mean [Right Arm] Blood Pressure Source Automatic Cuff Blood Pressure Source [Right Arm] Blood Pressure Position Supine Blood Pressure Position [Right Arm] 02 Sat by Pulse Oximetry 93 L 95 Oxygen Delivery Method Room Air Oxygen Flow Rate (LPM) 12/11/24 15:30 Temperature Temperature Source Pulse Rate 66 Pulse Rate [Right Radial] Respiratory Rate 20 TAR Vitals Timing Blood Pressure 125/52 L Blood Pressure [Right Arm] Blood Pressure Mean 76 Blood Pressure Mean [Right Arm] Blood Pressure Source Blood Pressure Source [Right Arm] Blood Pressure Position Blood Pressure Position [Right Arm] 02 Sat by Pulse Oximetry 95 Oxygen Delivery Method Oxygen Flow Rate (LPM) Lab Data Lab results reviewed: Yes I reviewed the patient's lab results. Lab Results 12/11/24 09:18: PT 13.5 H, INR 1.24 H, APTT 31.0 H, Magnesium 1.4 L, Troponin I 0.10 H, C-Reactive Protein 120.6 H, NT-Pro-B Natriuret Pep 06297 H, Procalcitonin 0.238, TSH 3.71, Thyroxine (T4) 10.6, Plasma/Serum Alcohol < 10 12/11/24 09:27: WBC 4.0 L, RBC 2.49 L, Hgb 6.8 L*, Hct 20.2 L*, MCV 81.1, MCH 27.3, MCHC 33.7, RDW 16.7, Plt Count 171, MPV 9.6, Neut % (Auto) 52.8, Lymph % (Auto) 19.3, Alexander % (Auto) 26.5 H, Eos % (Auto) 0.7, Baso % (Auto) 0.5, Neut # (Auto) 2.1, Lymph # (Auto) 0.8, Alexander # (Auto) 1.1 H, Eos # (Auto) 0.0, Baso # (Auto) 0.0, Sodium 127 L, Potassium 3.2 L, Chloride 88 L, Carbon Dioxide 36 H, Anion Gap 6.2, BUN 28 H, Creatinine 1.30 H, Estimated Creat Clear 65, Estimated GFR 53 L, Est GFR ( Amer) 64, Glucose 128 H, Calcium 8.5, Total Bilirubin 1.4 H, AST 37, ALT 17, Alkaline Phosphatase 112, Total Protein 6.0 L, Albumin 3.1 L, Globulin 2.9, Albumin/Globulin Ratio 1.1, Urine Color Yellow, Urine Appearance Cloudy, Urine pH 6.0, Ur Specific [place] 1.015, Urine Protein 1+ A, Urine Glucose (UA) Negative, Urine Ketones Negative, Urine Blood Trace-i, Urine Nitrate Negative, Urine Bilirubin Negative, Urine Urobilinogen 0.2, Ur Leukocyte Esterase 2+ A, Urine RBC None, Urine WBC 3-5, Ur Squamous Epith Cells Occasional, Urine Bacteria 3+, Urine Opiates Screen Negative, Urine Methadone Screen Negative, Ur Barbituates Screen Negative, Ur Phencyclidine Scrn Negative, Ur Amphetamines Screen Negative, U Benzodiazepines Scrn Negative, Urine Cocaine Screen Negative, U Marijuana (THC) Screen Negative 12/11/24 09:41: VBG pH 7.42 H, VBG pCO2 51.1 H, VBG pO2 102.4 H, VBG HCO3 32.7 H , VBG Total CO2 34.3 H, VBG O2 Saturation 97.2 H, VBG Base Excess 8.3 H, VBG Lactic Acid 2.2 H 12/11/24 10:06: Ammonia 13, Blood Type O Negative, Antibody Screen Negative, Crossmatch ([facility]) See Detail 12/11/24 12:55: Troponin I 0.11 H 12/11/24 16:08 12/11/24 09:27 Orders (Tests/Meds): ED MEDICATIONS Generic Name Dose Route Start Last Admin Trade Name Freq PRN Reason Stop Dose Admin Acetaminophen 650 mg 12/11/24 15:25 Acetaminophen 325mg Tab PO 01/10/25 15:24 Q4HP PRN Fever or Mild Pain (1-3) Albuterol/Ipratropium 3 ml 12/11/24 18:00 12/11/24 18:03 Ipratropium/Albuterol 3 Ml Neb IH 01/10/25 17:59 3 ml Q6RT EMMA Administration Atorvastatin Calcium 40 mg 12/11/24 21:00 Atorvastatin 40mg Tablet PO 01/10/25 20:59 HS EMMA Bumetanide 2 mg 12/11/24 16:00 12/11/24 17:26 Bumetanide 1mg/4ml Vial IV 01/10/25 15:59 2 mg BIDL EMMA Administration Sodium Chloride 250 mls @ 25 mls/hr 12/11/24 10:00 12/11/24 10:48 Sod Chlor 0.9% 250ml Bag IV 12/12/24 09:59 25 mls/hr .Q10H EMMA Administration Potassium Chloride/Water 100 mls @ 100 mls/hr 12/11/24 17:00 12/11/24 17:18 Potassium Chloride 10meq/100ml Ivpb IV 12/11/24 22:59 100 mls/hr Q1H EMMA Administration Magnesium Sulfate 2 gm in 50 mls @ 50 mls/hr 12/11/24 17:00 12/11/24 17:18 Magnesium Sulfate 2gm/50ml Premix IV 12/11/24 19:59 50 mls/hr Q1H EMMA Administration Ceftriaxone Sodium 2 gm/ 100 mls @ 200 mls/hr 12/12/24 09:00 Sodium Chloride IV 12/22/24 08:59 DAILY EMMA Lactulose 10 gm 12/11/24 21:00 Lactulose 20gm/30ml Udc PO 01/10/25 20:59 BID EMMA Levothyroxine Sodium 75 mcg 12/12/24 09:00 Levothyroxine 75mcg (0.075mg) Tab PO 01/11/25 08:59 DAILY EMMA Ondansetron HCl 4 mg 12/11/24 15:25 Ondansetron 4mg/2ml Vial IV 01/10/25 15:24 Q8HP PRN Nausea Pantoprazole Sodium 40 mg 12/11/24 15:30 12/11/24 16:28 Pantoprazole 40mg Vial IV 01/10/25 15:29 40 mg BID EMMA Administration Sodium Chloride 10 ml 12/11/24 15:29 12/11/24 16:28 Sodium Chloride 0.9% 10ml Vial IV 01/10/25 15:28 10 ml NEEDED PRN Administration dilute protonix Spironolactone 25 mg 12/12/24 09:00 Spironolactone 25mg Tablet PO 01/11/25 08:59 DAILY EMMA Discontinued Medications Generic Name Dose Route Start Last Admin Trade Name Freq PRN Reason Stop Dose Admin Ceftriaxone Sodium 2 gm/ 100 mls @ 200 mls/hr 12/11/24 11:07 12/11/24 11:26 Sodium Chloride IV 12/11/24 11:36 200 mls/hr ONCE ONE Administration Iopamidol 70 ml 12/11/24 10:25 12/11/24 10:26 Iopamidol-370 (76%);100ml Bottle IV 12/11/24 10:26 70 ml ONCE ONE Administration Iopamidol 75 ml 12/11/24 10:31 12/11/24 10:35 Iopamidol-370 (76%);100ml Bottle IV 12/11/24 10:32 75 ml ONCE ONE Administration Sodium Chloride 10 ml 12/11/24 10:25 12/11/24 10:26 Sodium Chloride 0.9% 10ml Syr (Rad Only) IV 12/11/24 10:26 10 ml ONCE ONE Administration Sodium Chloride 50 ml 12/11/24 10:25 12/11/24 10:26 0.9 % Sodium Chloride 50 Ml Vial IV 12/11/24 10:26 50 ml ONCE ONE Administration Sodium Chloride 10 ml 12/11/24 10:26 12/11/24 10:35 Sodium Chloride 0.9% 10ml Syr (Rad Only) IV 12/11/24 10:27 10 ml ONCE ONE Administration ORDERS Category Date Time Status Blood transfusion [Red Blood Cells] Stat BBK 12/11/24 10:06 Completed Type and Screen Stat BBK 12/11/24 10:[address] abdomen pelvis w con Stat Cat Scan 12/11/24 09:[address] angio chest PE protocol Stat Cat Scan 12/11/24 09:[address] femur RT w con Stat Cat Scan 12/11/24 09:[address] head/brain wo con Stat Cat Scan 12/11/24 09:42 Completed Ammonia Stat Lab 12/11/24 10:06 Completed BNP [NT Pro Brain Natriuretic Pep.] Stat Lab 12/11/24 09:18 Completed CRP [C-Reactive Protein] Stat Lab 12/11/24 09:18 Completed Complete Blood Count Auto Diff Stat Lab 12/11/24 09:27 Completed Comprehensive Metabolic Panel Stat Lab 12/11/24 09:27 Completed Ethyl Alcohol Stat Lab 12/11/24 09:18 Completed MAG [Magnesium] Stat Lab 12/11/24 09:18 Completed PT INR [Prothrombin Time INR] Stat Lab 12/11/24 09:18 Completed PTT [Activated Partial Thrombo Time] Stat Lab 12/11/24 09:18 Completed Procalcitonin Stat Lab 12/11/24 09:18 Completed T4 (Thyroxine) Stat Lab 12/11/24 09:18 Completed TSH [Thyroid Stimulating Hormone] Stat Lab 12/11/24 09:18 Completed Trop I [Troponin I] Stat Lab 12/11/24 09:18 Completed Troponin I Q3H Lab 12/11/24 12:55 Completed Troponin I Q3H Lab 12/11/24 15:34 Completed UDS [Drug Screen,Urine] Stat Lab 12/11/24 09:27 Completed Urinalysis and Microscopic Stat Lab 12/11/24 09:27 Completed Blood Culture Stat Micro 12/11/24 09:27 Received Urine Culture Stat Micro 12/11/24 09:27 Received VBG [Venous Blood Gas] Stat RT 12/11/24 09:41 Completed CA venous doppler LE RT Stat Y 12/11/24 09:42 Completed ECG Data Tracing #1: I reviewed this ECG and interpreted as documented below: Normal sinus rhythm with a ventricular rate of 78 bpm. Some motion effect a great study. No acute ST changes concerning for ischemia ECG initial impression date: 12/11/24 ECG initial impression time: 09:21 Medical Decision Narrative: In summary, this patient is a 79-year-old male presenting to the Emergency Department for evaluation of general weakness and altered mental status. Differential diagnoses considered include but are not limited to pneumonia, UTI, sepsis, CVA, intracranial hemorrhage, hepatic encephalopathy, JEROMY, electrolyte derangements, DVT/PE, postoperative infection. Ruling out the most morbid conditions drove assessment. It should be noted patient's history includes alcoholic cirrhosis, hypothyroidism, hypertension morbid lipidemia, CHF which likely are not at goal therapy. This complicates all aspects of care by increasing patient's risk for morbidity. I reviewed patient's past medical records and noted recent admission for subcapital hip fracture with operative fixation in the OR 11/21/2024 as detailed in HPI. He was discharged to rehab 11/23/2024 but now apparently is at home. On exam, the patient is somnolent but arouses to voice. He is very confused and does not contribute to history. His abdomen is distended, he smells strongly of urine. He has significant right lower extremity swelling when compared to the left, which is his recent operative side. Workup included broad lab evaluation to evaluate for infectious, metabolic, cardiac derangements as well as CT head, CTA PE protocol, CT abdomen pelvis with IV contrast, CT right femur with contrast, and DVT ultrasound of the right lower extremity. EKG obtained is reassuring without acute STEMI. I independently interpreted CT scans and ultrasound prior to the radiologist read and noted no blood clot, no PE, no obvious pneumonia, no bowel obstruction. He does have fluid collection adjacent to his femur postoperatively as well as ascites. Per radiology read, this is more likely to be hematoma versus seroma as opposed to being abscess. Please see their read for final interpretation. Labs do not suggest acute infection at this time with no significant leukocytosis. He does have a urinary tract infection, however, based on urinalysis. He also smells very strongly of urine. Given this, blood cultures and urine culture were sent and he was started on IV Rocephin. Labs were obtained that demonstrated acute on chronic anemia with hemoglobin of 6.8, for which 1 unit of blood transfusion was ordered. He also has chronic hyponatremia. He has mild JEROMY. His troponin is elevated with no STEMI noted on EKG. He also has significant elevation in BNP from prior. Possible he could have acute heart failure, unclear if that could be related to heart failure versus his liver disease versus NSTEMI related to his current ill state with UTI and acute on chronic anemia.. He was not given a bolus of IV fluids here in the emergency department as we were planning to give him a unit of blood and he already has significant elevation in BNP with some evidence of volume overload, so I felt it would be detrimental to him. Given acute on chronic anemia, altered mental status, general weakness, UTI, and abnormal cardiac enzymes, I feel the patient would benefit from admission for further evaluation and management. I had an interactive discussion with the hospitalist who admitted the patient in stable condition. Critical Care Critical Care Time Critical Care Time: Yes Attestation: On 12/11/24, the high probability of a clinically significant, sudden or life threatening deterioration of the following system(s) required my full and direct attention, intervention and personal management. The time I documented below is in addition to time spent performing reported procedures but includes the following listed in this critical care notation. Total Time Total Critical Care Time: 45
[2024-12-11 09:47] LABS: Chloride 88 mmol/L (98-107)
[2024-12-11 09:47] LABS: VBG Base Excess 8.3 mmol/L (-2.4-2.3); VBG HCO3 32.7 mmol/L (23-30); VBG Oxygen Saturation 97.2 % (50-70); VBG PCO2 51.1 mmol/L (35-51); VBG PH 7.42 mmol/L (7.31-7.41); VBG PO2 102.4 mmol/L (28-40); VBG Total CO2 34.3 mmol/L (23-27)
[2024-12-11 09:48] LABS: Albumin Level 3.1 g/dl (3.5-5.0); Potassium 3.2 mmoL/L (3.5-5.1); Sodium 127 mmol/L (136-145)
[2024-12-11 09:50] LABS: Lactate Venous 2.2 mmol/L (0.4-2.0)
[2024-12-11 09:51] LABS: Alanine Aminotransferase 17 U/L (12-78); Albumin/Globulin Ratio 1.1 (1.1-1.8); Alkaline Phosphatase 112 U/L (38-126); Anion Gap 6.2 mEq/L (5-15); Aspartate Amino Transferase 37 U/L (17-59); Bilirubin,Total 1.4 mg/dl (0.2-1.3); Blood Urea Nitrogen 28 mg/dl (9-20); Calcium 8.5 mg/dl (8.4-10.2); Carbon Dioxide 36 mmol/L (22.0-30.0); Creatinine Clearance Estimated 65 mL/min (50-200); Estimated Glomerular Filt Rate 53 ml/min (>60); GFR (African American) 64 ML/MIN (>60); Globulin 2.9 g/dL (1.3-3.2); Glucose 128 mg/dl (74-100)
[2024-12-11 09:52] LABS: Hematocrit 20.2 % (42.0-52.0); Hemoglobin 6.8 g/dL (14.1-18.0)
[2024-12-11 09:55] LABS: Bacteria,Urine 3+ /lpf; Squamous Epithelial Cell,Urine Occasional #/hpf (0-5)
--- NOTE | 2024-12-11 09:57 | PC.NURSE ---
lab called for type and screen.
[2024-12-11 09:58] LABS: INR 1.24 (0.9-1.1); Prothrombin Time 13.5 seconds (10.1-12.5)
[2024-12-11 10:04] LABS: C-Reactive Protein 120.6 mg/L (0-4)
[2024-12-11 10:14] LABS: NT Pro Brain Natriuretic Pep. 19100 pg/mL (0-450)
[2024-12-11 10:15] LABS: Amphetamine/Metha Screen,Urine Negative ng/ml (<1000)
[2024-12-11 10:16] LABS: Barbiturates Screen,Urine Negative ng/ml (<200); Benzodiazepines Screen,Urine Negative ng/ml (<200)
[2024-12-11 10:17] LABS: Cannabinoid Screen,Urine Negative ng/ml (<50)
[2024-12-11 10:18] LABS: Cocaine Screen,Urine Negative ng/ml (<300); Methadone Screen,Urine Negative ng/ml (<300)
[2024-12-11 10:18] LABS: Procalcitonin 0.238 ng/mL (0.0-2.0); T4 (Thyroxine) 10.6 ug/dl (5.53-11.0)
[2024-12-11 10:19] LABS: Opiate Screen,Urine Negative ng/ml (<300); Phencyclidine Screen,Urine Negative ng/ml (<25)
[2024-12-11 10:22] LABS: Ethyl Alcohol < 10 mg/dl (0-10)
[2024-12-11] MEDS: 0.9 % SODIUM CHLORIDE 50 ML VIAL IV (10:26)
[2024-12-11] MEDS: IOPAMIDOL-370 (76%);100ML BOTTLE 70 ML IV (10:26)
[2024-12-11] MEDS: SODIUM CHLORIDE 0.9% 10ML SYR (RAD ONLY) 10 ML IV ×2 (10:26→10:35)
[2024-12-11 10:27] LABS: Magnesium 1.4 mg/dl (1.6-2.3)
[2024-12-11 10:30] LABS: Ammonia 13 umol/L (9-30)
[2024-12-11 10:32] LABS: Thyroid Stimulating Hormone 3.71 uIU/mL (0.465-4.68)
[2024-12-11] MEDS: IOPAMIDOL-370 (76%);100ML BOTTLE 75 ML IV (10:35)
--- NOTE | 2024-12-11 10:39 | PC.NURSE ---
pt returned from radiology.
[2024-12-11] MEDS: 0.9 % SODIUM CHLORIDE 250 ML 25 ML IV (10:48)
--- NOTE | 2024-12-11 10:58 | PC.NURSE ---
Lab called about unit of blood and told it is 40 min until ready
[2024-12-11] MEDS: CEFTRIAXONE SODIUM 2 GM in 0.9 % SODIUM CHLORIDE 100 ML IV (11:26)
--- NOTE | 2024-12-11 12:12 | PC.NURSE ---
Blood began at 1205, RN at bedside for 15 min watch.
--- NOTE | 2024-12-11 13:19 | PC.NURSE ---
House notified of admission.
[2024-12-11 13:23] LABS: Troponin I 0.11 ng/ml (0.00-0.034)
[2024-12-11 13:51] LABS: Reflex Lactic Add Lactic Reflex
--- NOTE | 2024-12-11 14:21 | [facility].PHAINT1 ---
Pharmacy Intervention Comments: MEDICATION RECONCILIATION COMPLETED ON PATIENT USING EXTERNAL FILL HISTORY FROM PHARMACY AND DISCHARGE SUMMARY FROM PREVIOUS ADMISSION. -HANK NIEVES, SAVANNAHD
[2024-12-11 14:26] LABS: Lactic Acid Follow Up (RFLX 1) 1.1 mmol/L (0.7-2.1)
--- NOTE | 2024-12-11 15:24 | EXP.HP ---
History of Present Illness *Admission Date: 12/11/24 *Reason for visit:: Confusion, weakness *History of present illness: Joshua Rogers is a 79-year-old male with a medical history significant for alcoholic cirrhosis with gastroesophageal varices, CAD, hypothyroidism, COPD who presents with several day onset of progressive confusion, weakness. states he was unable to get out of bed yesterday and called EMS who were able to get him back into bed. This morning it occurred again patient called EMS again who brought him to the ED. states patient becomes like this at any time he has a UTI. She also states he has been more confused, speaking out of his head . Patient has not endorsed chest pain, shortness of breath, abdominal pain, dark/bloody stools to . Has been adherent to his medications other than lactulose this morning. Workup in the ED significant for hemoglobin 6.3, MCV 81, creatinine 1.3, magnesium 1.4, troponin 0.11, BNP 19,100, UA grossly abnormal. Patient was encephalopathic, somnolent on my exam. VBG pH normal. Upper airway wheezing. CTA chest revealed moderate bilateral pleural effusions, does have right lower extremity pitting edema but did have a right hip fracture earlier this month. Case discussed with ED provider and decision was made to admit patient for acute metabolic encephalopathy from UTI, NSTEMI, acute on chronic anemia, HFpEF exacerbation. [facility] Disclaimer: The information contained in this section may have been updated after the patient was seen, as this information can be updated by other users. Medical History Coronary artery disease Weight loss, unintentional Former smoker Wheezing Alcohol abuse Thyroid disease History of hyperlipidemia History of hypertension Surgical History No significant past surgical history Family History Other Heart attack Hyperlipidemia Hypertension Lung cancer No significant family history Prostate CA Stroke Social History (Updated 12/11/24 @ 16:15 by Karlene Benitez RN) Smoking Status: Former smoker alcohol intake: former substance use type: denies use current occupational status: retired Travel in the last 8 weeks?: None household members: spouse housing: house Have you lived/traveled outside [place] in past 30 days?: No Contact w/someone who lives/traveled outside [place] past 30 days?: No Exposure to someone with infectious disease in past 14 days?: No Do you have a fever (greater than 100.4 F or 38 C)?: No Have you tested positive for COVID-19?: No Exposed to someone with COVID-19 in past 14 days?: No Do you have a sore throat?: No Do you have a cough?: No Do you have any weakness?: Yes Do you have any diarrhea?: No Are you experiencing any unusual bleeding?: No Do you have any muscle aches/pain?: No Do you have any abdominal pain?: No Are you experiencing loss of taste or smell?: No Other Medical History Have you received the Flu Vaccine for this season: No Have you received the Pneumonia Vaccine: Yes Meds Home Medications and Allergies Home Medications ?Medication ?Instructions ?Recorded ?Confirmed ?Type albuterol sulfate 90 mcg/actuation 2 puff inhalation Q4HP PRN 11/23/24 12/11/24 Rx aerosol inhaler Shortness Of Breath 30 days #8.5 grams atorvastatin 40 mg tablet 40 mg PO HS 30 days #30 tabs 11/23/24 12/11/24 Rx bumetanide 1 mg tablet 1 mg PO BID 30 days #60 tabs 11/23/24 12/11/24 Rx carvedilol 3.125 mg tablet 3.125 mg PO BID 30 days #60 tabs 11/23/24 12/11/24 Rx ferrous sulfate 325 mg (65 mg 325 mg PO BID 30 days #60 tabs 11/23/24 12/11/24 Rx iron) tablet (iron) levothyroxine 75 mcg tablet 75 mcg PO DAILY 30 days #30 tabs 11/23/24 12/11/24 Rx aspirin 81 mg chewable tablet 81 mg PO BID 12/11/24 12/11/24 History lactulose 10 gram/15 mL oral 15 ml PO BID 12/11/24 12/11/24 History solution New Prescriptions to Start Prescriptions: Allergies Allergy/AdvReac Type Severity Reaction Status Date / Time No Known Allergies Allergy Verified 12/05/24 10:21 Exam Data for Last 24 hours Vital signs and Labs for Last 24 Hours: Temp Pulse Resp BP Pulse Ox O2 Del Method O2 Flow Rate 98.0 F 77 18 131/63 93 L Room Air 2 12/11/24 15:09 12/11/24 15:09 12/11/24 15:12/11/24 15:12/11/24 15:00 12/11/24 15:12/11/24 12:00 Laboratory Results - last 24 hr 12/11/24 09:18: PT 13.5 H, INR 1.24 H, APTT 31.0 H, Magnesium 1.4 L, Troponin I 0.10 H, C-Reactive Protein 120.6 H, NT-Pro-B Natriuret Pep 99772 H, Procalcitonin 0.238, TSH 3.71, Thyroxine (T4) 10.6, Plasma/Serum Alcohol < 10 12/11/24 09:27: WBC 4.0 L, RBC 2.49 L, Hgb 6.8 L*, Hct 20.2 L*, MCV 81.1, MCH 27.3, MCHC 33.7, RDW 16.7, Plt Count 171, MPV 9.6, Neut % (Auto) 52.8, Lymph % (Auto) 19.3, Vance % (Auto) 26.5 H, Eos % (Auto) 0.7, Baso % (Auto) 0.5, Neut # (Auto) 2.1, Lymph # (Auto) 0.8, Vance # (Auto) 1.1 H, Eos # (Auto) 0.0, Baso # (Auto) 0.0, Sodium 127 L, Potassium 3.2 L, Chloride 88 L, Carbon Dioxide 36 H, Anion Gap 6.2, BUN 28 H, Creatinine 1.30 H, Estimated Creat Clear 65, Estimated GFR 53 L, Est GFR ( Amer) 64, Glucose 128 H, Calcium 8.5, Total Bilirubin 1.4 H, AST 37, ALT 17, Alkaline Phosphatase 112, Total Protein 6.0 L, Albumin 3.1 L, Globulin 2.9, Albumin/Globulin Ratio 1.1, Urine Color Yellow, Urine Appearance Cloudy, Urine pH 6.0, Ur Specific [place] 1.015, Urine Protein 1+ A, Urine Glucose (UA) Negative, Urine Ketones Negative, Urine Blood Trace-i, Urine Nitrate Negative, Urine Bilirubin Negative, Urine Urobilinogen 0.2, Ur Leukocyte Esterase 2+ A, Urine RBC None, Urine WBC 3-5, Ur Squamous Epith Cells Occasional, Urine Bacteria 3+, Urine Opiates Screen Negative, Urine Methadone Screen Negative, Ur Barbituates Screen Negative, Ur Phencyclidine Scrn Negative, Ur Amphetamines Screen Negative, U Benzodiazepines Scrn Negative, Urine Cocaine Screen Negative, U Marijuana (THC) Screen Negative 12/11/24 09:41: VBG pH 7.42 H, VBG pCO2 51.1 H, VBG pO2 102.4 H, VBG HCO3 32.7 H, VBG Total CO2 34.3 H, VBG O2 Saturation 97.2 H, VBG Base Excess 8.3 H, VBG Lactic Acid 2.2 H 12/11/24 10:06: Ammonia 13, Blood Type O Negative, Antibody Screen Negative, Crossmatch (AHG) See Detail 12/11/24 12:55: Troponin I 0.11 H 12/11/24 14:07: Lactate 1.1 I & O for Last 24 hours: Intake & Output 12/08/24 12/09/24 12/10/24 12/11/24 23:59 23:59 23:59 23:59 Intake Total .69 / .69 Balance .69 / .69 Weight 99.79 kg Constitutional Constitutional: no acute distress Comments: Somnolent, lethargic. *Routine HEENT Exam Head: Present normocephalic Eye: Present EOMI and PERRL ENT: Present mucous membranes moist *Routine Neck Exam Neck: Present supple; Absent lymphadenopathy *Routine Respiratory Exam Respiratory: Present CTA bilaterally *Routine Cardiovascular Exam Cardiovascular: Present RRR *Routine Abdominal Exam Abdominal: Present soft and normoactive bowel sounds; Absent tenderness *Routine Rectal Exam Rectal:: deferred *Routine Genitalia Exam Genitalia:: deferred *Routine Extremities Exam Extremities: Absent cyanosis, clubbing or edema Comments: Right lower extremity pitting edema. *Routine Skin Exam Skin: Present warm; Absent rash *Routine Neurological Exam Neurological: Present alert Assessment and Plan *Assessment and plan (1) Acute UTI: Status: Acute Category: Medical Code(s): N39.0 - Urinary tract infection, site not specified Plan Joshua Rogers is a 79-year-old male with a medical history significant for alcoholic cirrhosis with gastroesophageal varices, CAD, hypothyroidism, COPD who presents with several day onset of progressive confusion, weakness. states he was unable to get out of bed yesterday and called EMS who were able to get him back into bed. This morning it occurred again patient called EMS again who brought him to the ED. states patient becomes like this at any time he has a UTI. She also states he has been more confused, speaking out of his head . Patient has not endorsed chest pain, shortness of breath, abdominal pain, dark/bloody stools to . Has been adherent to his medications other than lactulose this morning. Workup in the ED significant for hemoglobin 6.3, MCV 81, creatinine 1.3, magnesium 1.4, troponin 0.11, BNP 19,100, UA grossly abnormal. Patient was encephalopathic, somnolent on my exam. VBG pH normal. Upper airway wheezing. CTA chest revealed moderate bilateral pleural effusions, does have right lower extremity pitting edema but did have a right hip fracture earlier this month. Case discussed with ED provider and decision was made to admit patient for acute metabolic encephalopathy from UTI, NSTEMI, acute on chronic anemia, HFpEF exacerbation. #Acute metabolic encephalopathy #Sepsis #UTI #Left mastoiditis ? Progressive weakness, confusion over the past several days. states this becomes an when he has a UTI. ? Presented with leukopenia, tachypnea on admission. ? CT head without acute findings other than left mastoiditis. ? UA grossly abnormal, urine culture pending. ? IV ceftriaxone day 07/15. ? Follow-up urine, blood cultures. #Acute on chronic anemia #History of gastroesophageal varices ? Hemoglobin 6.3 on admission. MCV 81. History of gastroesophageal varices. Denies dark, bloody stools. ? Transfuse 1 unit with improvement to 8.3. ? GI consulted, pending further recommendations. N.p.o. at midnight until evaluation. ? IV Protonix 40 mg twice daily. Hold home Coreg due to soft pressures. #HFpEF exacerbation versus decompensated cirrhosis #Ascites #Possible SBP ? Moderate bilateral pleural effusions on CTA chest, BNP 19,100. ? ECHO July 2024 shows normal biventricular systolic function. ? Right lower extremity pitting edema in the setting of right hip fracture s/p hemiarthroplasty in November 2024. ? Given moderate pleural effusions, started Bumex diuresis. ? IV Bumex 2 mg twice daily. Spironolactone 25 mg due to soft pressures. ? Continue home lactulose. ? Started IV ceftriaxone 2 g daily in the setting of ascites, encephalopathy. Diagnostic value of diagnostic paracentesis lower at this time as he has already been treated with ceftriaxone in the ED. Will treat empirically. Will consider paracentesis if not clinically improving. ? Follow-up repeat ECHO. #COPD ? Currently stable. Does have upper airway wheezing. ? DuoNebs every 6 hours. #History of right subcapital hip fracture s/p hemiarthroplasty 11/21/2024 ? Continue pain management as needed. #CAD ? Hold home aspirin due to possible GI bleed. #Hypothyroidism ? Continue home levothyroxine 75 mcg. TFTs stable. Full code DVT prophylaxis: Hold AC due to possible GI bleed.
[2024-12-11 16:05] LABS: Troponin I 0.11 ng/ml (0.00-0.034)
[2024-12-11 16:15] LABS: Hematocrit 24.4 % (42.0-52.0)
[2024-12-11 16:18] LABS: Hemoglobin 8.3 g/dL (14.1-18.0)
[2024-12-11] MEDS: SODIUM CHLORIDE 0.9% 10ML VIAL 10 ML IV ×2 (16:28→21:22)
[2024-12-11] MEDS: PANTOPRAZOLE 40MG VIAL 40 MG IV ×2 (16:28→21:22)
[2024-12-11] MEDS: KCl 10mEq/100ml 100 ML 100 MEQ IV ×5 (17:18→23:25)
[2024-12-11] MEDS: MAGNESIUM SULFATE IN WATER 2 GM/50 ML PIGGYBACK IV ×3 (17:18→21:22)
[2024-12-11] MEDS: BUMETANIDE 1MG/4ML VIAL 2 MG IV (17:26)
[2024-12-11] MEDS: IPRATROPIUM/ALBUTEROL 3 ML NEB IH ×2 (18:03→23:39)
--- NOTE | 2024-12-11 20:07 | P.EN_ITS ---
Called by nursing staff stating that patient's blood pressure was 93/46 and he had wheezing on auscultation. Presented to patient's bedside and noted expiratory wheezing patient was confused. Assessment completed S1-S2 no murmur no rub, patient is alert to self, as previously mentioned patient has a lung wheezing and is currently on nasal cannula. Reviewed patient history and physic al noted that patient presented with hepatic encephalopathy with bilateral pleural effusions. More than likely, patient's wheezing is due to pulmonary edema. Since patient's blood pressure is soft, we may need not be able to achieve the diuresis as planned by attending. Moreover, he may have to experience some permissive hypotension. Will place patient on the BiPAP with an inspiratory pressure of 12 and expiratory pressure of 6-RT to titrate for comfort. Will use BiPAP for pulmonary shunting. Will transition patient to stepdown unit. I will update attending physician.
--- NOTE | 2024-12-11 20:22 | PC.NURSE ---
/This RN was in the patients room to assess. Pt. has audible wet lung sounds and audible wheezes. Lung sounds with coarse crackles bilat lungs. PPt. also has expiratory wheezes. Blood pressure low 96/38. Luiz TORRES notified and came to bedside to assess. orders recieved. Pt. will go on BIPAP, and be moved to step down unit. Report callled and patient transferred to step down unit.
--- NOTE | 2024-12-11 21:00 | PC.NURSE ---
Yusra arrived to ICU via bed from Med Surg floor @20:34
[2024-12-11] MEDS: ALBUMIN HUMAN 12.5 GM/50 ML BAG IV (21:22)
[2024-12-12] VITALS (54 sets, daily range): BP systolic 75–133; BP diastolic 34–78; PULSE 55–80; RESP 13–23; TEMP 36.1–37.4; O2SAT 89–99; BMI 25.2
[2024-12-12] MEDS: KCl 10mEq/100ml 100 ML 100 MEQ IV (00:27)
[2024-12-12 05:17] LABS: Albumin Level 3.2 g/dl (3.5-5.0); Chloride 89 mmol/L (98-107); Potassium 3.5 mmoL/L (3.5-5.1); Sodium 130 mmol/L (136-145)
[2024-12-12 05:20] LABS: Alanine Aminotransferase 18 U/L (12-78); Albumin/Globulin Ratio 1.1 (1.1-1.8); Alkaline Phosphatase 103 U/L (38-126); Anion Gap 11.5 mEq/L (5-15); Aspartate Amino Transferase 41 U/L (17-59); Bilirubin,Total 1.1 mg/dl (0.2-1.3); Blood Urea Nitrogen 32 mg/dl (9-20); Calcium 8.6 mg/dl (8.4-10.2); Carbon Dioxide 33 mmol/L (22.0-30.0); Creatinine Clearance Estimated 49 mL/min (50-200); Estimated Glomerular Filt Rate 53 ml/min (>60); GFR (African American) 64 ML/MIN (>60); Glucose 87 mg/dl (74-100); Total Protein,Serum 6.2 g/dl (6.3-8.2)
[2024-12-12 05:21] LABS: Magnesium 2.5 mg/dl (1.6-2.3)
[2024-12-12 05:44] LABS: Basophils % 0.5 % (0.1-2.0); Eosinophils % 0.5 % (0.1-12.0); Hematocrit 23.8 % (42.0-52.0); Hemoglobin 7.7 g/dL (14.1-18.0); Immature Granulocytes # 0.02 10^3uL; Immature Granulocytes % 0.5 %; Lymphocytes # 0.7 K/mm3 (0.7-4.5); Lymphocytes % 17.6 % (10-50); Mean Corpuscular HGB Conc 32.4 g/dL (31.8-35.4); Mean Corpuscular Hemoglobin 26.3 pg (27.0-31.2); Mean Corpuscular Volume 81.2 fl (80-94); Mean Platelet Volume 10.3 fl (7.4-10.4); Monocytes # 0.6 K/mm3 (0.1-1.0); Monocytes % 14.8 % (1.7-9.3); Neutrophils # 2.6 K/mm3 (1.8-7.8); Neutrophils % 66.1 % (37.0-80.0); Nucleated Red Blood Cells # 0 10^3/uL; Nucleated Red Blood Cells % 0 %; Platelet Count 175 K/mm3 (142-424); Red Blood Count 2.93 M/mm3 (4.60-6.20); Red Cell Distribution Width 17.5 % (11.5-17.5); Red Cell Distribution Width-SD 51.1 fL; White Blood Count 3.9 K/mm3 (4.8-10.8)
--- NOTE | 2024-12-12 06:00 | CA_ITS ---
APPROVED REPORT EXAM: Comprehensive 2D, Doppler, and color-flow Echocardiogram Senior C Software Developer: Maryuri Nagel RCS, RVS Ht: 5 ft 8 in Wt: 67lbs BSA: 1.28 BP: 131/63 mmHg Indications: Elevated tropnonin, CAD, Herat failure, Pulmonary edema Echo Enhancing Agent Comments: TDS: Patient supine and in constant motion 2D Dimensions IVSd 0.59 cm LVEF (Visual) 73.80 % PWd 0.76 cm EF AP4 53.10 % LVDd 4.09 cm GL Strain -21.1 % LVDs 2.36 cm Left Atrium 4.12 cm M-Mode Dimensions LA Diam 3.23 cm (1.9-4.0) LVDd 4.30 cm (3.5-5.7) LVDs 2.01 cm (3.5-5.7) EF (Teich) 84.50% EPSs 0.52 cm FS 53.30% EDV (Teich) 83.10 mL TAPSE 2.46 (<1.7) ESV (Teich) 12.90 mL LV Diastology E Decel Time 237 (160-240 msec) E/A Ratio 1.55 MED A' 11.60 cm/s LAT A' 8.00 cm/s Aortic Valve DILLON Index 0.92 cm2/m2 AoV Peak Quang. 196.0 (50-130 cm/s) AO Peak GR. 15.40 mmHg AO Mean GR. 7.40 (<5 mmHg) AO VTI 45.9 (18-25 cm) DILLON (VTI) 1.21 (2.5-4.5 cm2) Mitral Valve MV A Velocity 75.0 (40-130 cm/s) E/A Ratio 1.55 MV Mean Gr. 2.30 (<2mmHg) MV PHT 107.0 ms Pulmonary Valve PV Peak Velocity 106.0 (50-150 cm/s) Tricuspid Valve TR P. Velocity 269.00 cm/s RAP Estimate 10.00 mmHg RVSP 38.90 mmHg Left Ventricle The left ventricle is normal size. The left ventricular systolic function is normal. The left ventricular ejection fraction is within the normal range. There is increased overall thickness. Diastolic function is indeterminate. There is normal LV segmental wall motion. LVEF is 60%. Right Ventricle Right ventricle is moderately dilated. Right ventricle is mildly hypokinetic. Atria The left atrium size is normal. The right atrium is mildly dilated. There is no Doppler evidence of interatrial shunt. Aortic Valve Aortic valve is moderately thickened. Aortic sclerosis is present, but no evidence of hemodynamically significant aortic stenosis. Mild aortic regurgitation. Mitral Valve Mild mitral annular calcification. The mitral valve leaflets are mildly thickened. No evidence of mitral valve stenosis. Trace mitral regurgitation. Tricuspid Valve Tricuspid valve is grossly normal in structure and function. Trace mild tricuspid regurgitation. RVSP 30-35 mmHg. Trace pulmonic regurgitation. Pulmonic Valve The pulmonary valve is normal in structure. Great Vessels The aortic root is normal in size. IVC is normal in size and collapses >50% with inspiration. Pericardium There is no pericardial effusion. Other Information Study Quality: Fair Conclusion Normal LV systolic function. Moderate RV dilation with mild reduction in RV function. Mild RA dilation. Mild TR, Mild AI. Electronically signed by : Hilda Niño MD 12/12/2024 12:11:55
[2024-12-12] MEDS: IPRATROPIUM/ALBUTEROL 3 ML NEB IH ×4 (06:19→23:20)
--- NOTE | 2024-12-12 06:21 | PC.NURSE ---
Took Pt off BiPAP to have breakfast. Pt resting comfortably on room air SPO2 93%. Will continue to monitor.
--- NOTE | 2024-12-12 09:13 | P.CONS_ITS ---
History of Present Illness History of present illness: Ms. Rogers is a 79-year-old male greater than [id number] smoking last month more than 15 years ago albuterol twice daily, history of alcoholic cirrhosis, gastroesophageal varices, CAD hypothyroidism COPD presented to ER with progressively worsening confusion weakness and pulmonary was called for further evaluation and management. [facility] Disclaimer: The information contained in this section may have been updated after the patient was seen, as this information can be updated by other users. Medical History (Updated 12/12/24 @ 11:17 by Reid Alston MD) Pleural effusion, bilateral Acute respiratory failure with hypoxia Coronary artery disease Weight loss, unintentional Former smoker Wheezing Alcohol abuse Thyroid disease History of hyperlipidemia History of hypertension Surgical History No significant past surgical history Family History Other Heart attack Hyperlipidemia Hypertension Lung cancer No significant family history Prostate CA Stroke Social History (Updated 12/11/24 @ 16:15 by Karlene Benitez RN) Smoking Status: Former smoker alcohol intake: former substance use type: denies use current occupational status: retired Travel in the last 8 weeks?: None household members: spouse housing: house Have you lived/traveled outside [place] in past 30 days?: No Contact w/someone who lives/traveled outside US past 30 days?: No Exposure to someone with infectious disease in past 14 days?: No Do you have a fever (greater than 100.4 F or 38 C)?: No Have you tested positive for COVID-19?: No Exposed to someone with COVID-19 in past 14 days?: No Do you have a sore throat?: No Do you have a cough?: No Do you have any weakness?: Yes Do you have any diarrhea?: No Are you experiencing any unusual bleeding?: No Do you have any muscle aches/pain?: No Do you have any abdominal pain?: No Are you experiencing loss of taste or smell?: No Review of Systems Constitutional Constitutional: Reports anorexia, Reports body ache(s) and Reports fatigue Eyes Eyes: Denies eye discharge, Denies dry eyes, Denies irritation and Denies itchy eyes ENT Ears, Nose, Mouth, and Throat: Denies epistaxis, Denies facial pain, Denies lip swelling and Denies throat swelling *Cardiovascular Cardiovascular: Reports dyspnea, Reports dyspnea on exertion, Reports leg edema and Reports orthopnea *Respiratory Respiratory: Reports chest congestion, Reports cough, Reports dyspnea, Reports dyspnea on exertion, Reports excessive phlegm production and Reports wheezing *Gastrointestinal Gastrointestinal: Denies abdominal pain, Denies belching and Denies cramping Comments: Abd distension *Musculoskeletal Musculoskeletal: Reports back pain, Reports myalgias and Reports other (No small joint swelling or Pain) Psychiatric Psychiatric: Denies homicidal ideation and Denies suicidal ideation Endocrine Endocrine: Reports fatigue and Denies heat intolerance Hematologic/Lymphatic Hematologic/Lymphatic: Denies easy bleeding and Denies lymphadenopathy Allergic/Immunologic Allergic/Immunologic: Denies itchy eyes, Denies lip swelling, Denies throat swelling and Reports wheezing Pulmonology Exam Inpatient Vital signs and Labs for Last 24 Hours: Temp Pulse Resp BP Pulse Ox O2 Del Method O2 Flow Rate 99.4 F 68 20 91/47 L 92 L Room Air 2 12/12/24 04:00 12/12/24 08:31 12/12/24 08:31 12/12/24 08:31 12/12/24 08:31 12/12/24 09:00 12/11/24 18:35 FiO2 25 12/12/24 03:01 Laboratory Results - last 24 hr 12/11/24 09:18: PT 13.5 H, INR 1.24 H, APTT 31.0 H, Magnesium 1.4 L, Troponin I 0.10 H, C-Reactive Protein 120.6 H, NT-Pro-B Natriuret Pep 70858 H, Procalcitonin 0.238, TSH 3.71, Thyroxine (T4) 10.6, Plasma/Serum Alcohol < 10 12/11/24 09:27: WBC 4.0 L, RBC 2.49 L, Hgb 6.8 L*, Hct 20.2 L*, MCV 81.1, MCH 27.3, MCHC 33.7, RDW 16.7, Plt Count 171, MPV 9.6, Neut % (Auto) 52.8, Lymph % (Auto) 19.3, [place] % (Auto) 26.5 H, Eos % (Auto) 0.7, Baso % (Auto) 0.5, Neut # (Auto) 2.1, Lymph # (Auto) 0.8, [place] # (Auto) 1.1 H, Eos # (Auto) 0.0, Baso # (Auto) 0.0, Sodium 127 L, Potassium 3.2 L, Chloride 88 L, Carbon Dioxide 36 H, Anion Gap 6.2, BUN 28 H, Creatinine 1.30 H, Estimated Creat Clear 65, Estimated GFR 53 L, Est GFR ( Amer) 64, Glucose 128 H, Calcium 8.5, Total Bilirubin 1.4 H, AST 37, ALT 17, Alkaline Phosphatase 112, Total Protein 6.0 L, Albumin 3.1 L, Globulin 2.9, Albumin/Globulin Ratio 1.1, Urine Color Yellow, Urine Appearance Cloudy, Urine pH 6.0, Ur Specific [place] 1.015, Urine Protein 1+ A, Urine Glucose (UA) Negative, Urine Ketones Negative, Urine Blood Trace-i, Urine Nitrate Negative, Urine Bilirubin Negative, Urine Urobilinogen 0.2, Ur Leukocyte Esterase 2+ A, Urine RBC None, Urine WBC 3-5, Ur Squamous Epith Cells Occasional, Urine Bacteria 3+, Urine Opiates Screen Negative, Urine Methadone Screen Negative, Ur Barbituates Screen Negative, Ur Phencyclidine Scrn Negative, Ur Amphetamines Screen Negative, U Benzodiazepines Scrn Negative, Urine Cocaine Screen Negative, U Marijuana (THC) Screen Negative 12/11/24 09:41: VBG pH 7.42 H, VBG pCO2 51.1 H, VBG pO2 102.4 H, VBG HCO3 32.7 H , VBG Total CO2 34.3 H, VBG O2 Saturation 97.2 H, VBG Base Excess 8.3 H, VBG Lactic Acid 2.2 H 12/11/24 10:06: Ammonia 13, Blood Type O Negative, Antibody Screen Negative, Crossmatch (AHG) See Detail 12/11/24 12:55: Troponin I 0.11 H 12/11/24 14:07: Lactate 1.1 12/11/24 15:34: Troponin I 0.11 H 12/11/24 16:08: Hgb 8.3 L D, Hct 24.4 L 12/12/24 04:51: WBC 3.9 L, RBC 2.93 L, Hgb 7.7 L, Hct 23.8 L, MCV 81.2, MCH 26.3 L, MCHC 32.4, RDW 17.5, Plt Count 175, MPV 10.3, Neut % (Auto) 66.1, Lymph % (Auto) 17.6, [place] % (Auto) 14.8 H, Eos % (Auto) 0.5, Baso % (Auto) 0.5, Neut # (Auto) 2.6, Lymph # (Auto) 0.7, [place] # (Auto) 0.6, Eos # (Auto) 0.0, Baso # (Auto) 0.0, Sodium 130 L, Potassium 3.5, Chloride 89 L, Carbon Dioxide 33 H, Anion Gap 11.5, BUN 32 H, Creatinine 1.30 H, Estimated Creat Clear 49, Estimated GFR 53 L, Est GFR ( Amer) 64, Glucose 87 D, Calcium 8.6, Magnesium 2.5 H D, Total Bilirubin 1.1, AST 41, ALT 18, Alkaline Phosphatase 103, Total Protein 6.2 L, Albumin 3.2 L, Globulin 3.0, Albumin/Globulin Ratio 1.1 I & O for Labs for Last 24 Hours: Intake & Output 12/09/24 12/10/24 12/11/24 12/12/24 23:59 23:59 23:59 23:59 Intake Total 171.69 / 421.69 250 / 250 Output Total 0 / 200 500 / 500 Balance 171.69 / 221.69 -250 / -250 Weight 167 lb 167 lb 0.002 oz Microbiology Reports for the Last 24 Hours: Microbiology 12/11/24 09:27 Urine,Catheterized Urine Culture - Preliminary Gram Negative Rods Constitutional: Present moderate distress Head: Present normocephalic and atraumatic ENT: Present normal exam, normal oropharynx and mucous membranes moist Neck: Present normal inspection and full ROM Respiratory: Present respiratory distress, diminished air movement and able to speak in complete sentences; Absent wheezes or crackles Cardiac: Present S1/S2, Tachycardia and radial pulses present GI: Present soft and distention; Absent tenderness or guarding Skin: Present intact; Absent cyanosis or jaundice Neuro: Present alert, awake and oriented x 3 Extremities: Present normal inspection; Absent clubbing or cyanosis Psychiatric: Present normal affect and cooperative Meds Home Medications and Allergies Home Medications ?Medication ?Instructions ?Recorded ?Confirmed ?Type albuterol sulfate 90 mcg/actuation 2 puff inhalation Q 4HP PRN 11/23/24 12/11/24 Rx aerosol inhaler Shortness Of Breath 30 days #8.5 grams atorvastatin 40 mg tablet 40 mg PO HS 30 days #30 tabs 11/23/24 12/11/24 Rx bumetanide 1 mg tablet 1 mg PO BID 30 days #60 tabs 11/23/24 12/11/24 Rx carvedilol 3.125 mg tablet 3.125 mg PO BID 30 days #60 tabs 11/23/24 12/11/24 Rx ferrous sulfate 325 mg (65 mg 325 mg PO BID 30 days #6 0 tabs 11/23/24 12/11/24 Rx iron) tablet (iron) levothyroxine 75 mcg tablet 75 mcg PO DAILY 30 days #3 0 tabs 11/23/24 12/11/24 Rx aspirin 81 mg chewable tablet 81 mg PO BID 12/11/24 History lactulose 10 gram/15 mL oral 15 ml PO BID 12/11/2410/02 History solution New Prescriptions to Start Prescriptions: Allergies Allergy/AdvReac Type Severity Reaction Status Date / Time No Known Allergies Allergy Verified 12/05/24 10:21 Results Laboratory Findings 12/12/24 04:51 12/12/24 04:51 PT/INR, D-dimer PT 13.5 seconds (10.1-12.5) H 12/11/24 09:18 INR 1.24 (0.9-1.1) H 12/11/24 09:18 Abnormal lab findings: Abnormal Labs 12/11/24 12/11/24 12/11/24 09:18 09:27 09:41 WBC 4.0 L RBC 2.49 L Hgb 6.8 L* Hct 20.2 L* MCH [place] % (Auto) 26.5 H [place] # (Auto) 1.1 H PT 13.5 H INR 1.24 H APTT 31.0 H VBG pH 7.42 H VBG pCO2 51.1 H VBG pO2 102.4 H VBG HCO3 32.7 H VBG Total CO2 34.3 H VBG O2 Saturation 97.2 H VBG Base Excess 8.3 H VBG Lactic Acid 2.2 H Sodium 127 L Potassium 3.2 L Chloride 88 L Carbon Dioxide 36 H BUN 28 H Creatinine 1.30 H Estimated GFR 53 L Glucose 128 H Magnesium 1.4 L Total Bilirubin 1.4 H Troponin I 0.10 H C-Reactive Protein 120.6 H NT-Pro-B Natriuret Pep 44877 H Total Protein 6.0 L Albumin 3.1 L Urine Protein 1+ A Ur Leukocyte Esterase 2+ A Crossmatch (AHG) 12/11/24 12/11/24 12/11/24 10:06 12:55 15:34 WBC RBC Hgb Hct MCH [place] % (Auto) [place] # (Auto) PT INR APTT VBG pH VBG pCO2 VBG pO2 VBG HCO3 VBG Total CO2 VBG O2 Saturation VBG Base Excess VBG Lactic Acid Sodium Potassium Chloride Carbon Dioxide BUN Creatinine Estimated GFR Glucose Magnesium Total Bilirubin Troponin I 0.11 H 0.11 H C-Reactive Protein NT-Pro-B Natriuret Pep Total Protein Albumin Urine Protein Ur Leukocyte Esterase Crossmatch (AHG) See Detail 12/11/24 12/12/24 16:08 04:51 WBC 3.9 L RBC 2.93 L Hgb 8.3 L D 7.7 L Hct 24.4 L 23.8 L MCH 26.3 L [place] % (Auto) 14.8 H [place] # (Auto) PT INR APTT VBG pH VBG pCO2 VBG pO2 VBG HCO3 VBG Total CO2 VBG O2 Saturation VBG Base Excess VBG Lactic Acid Sodium 130 L Potassium Chloride 89 L Carbon Dioxide 33 H BUN 32 H Creatinine 1.30 H Estimated GFR 53 L Glucose Magnesium 2.5 H D Total Bilirubin Troponin I C-Reactive Protein NT-Pro-B Natriuret Pep Total Protein 6.2 L Albumin 3.2 L Urine Protein Ur Leukocyte Esterase Crossmatch ([facility]) Assessment and Plan *Assessment and plan (1) Acute respiratory failure with hypoxia: Status: Acute Category: Medical Code(s): J96.01 - Acute respiratory failure with hypoxia (2) Pleural effusion, bilateral: Status: Acute Category: Medical Code(s): J90 - Pleural effusion, not elsewhere classified Plan Ms. Rogers is a 79-year-old male greater than [id number] smoking last month more than 15 years ago albuterol twice daily, history of alcoholic cirrhosis, gastroesophageal varices, CAD hypothyroidism COPD presented to ER with progressively worsening confusion weakness and pulmonary was called for further evaluation and management. Tmax of 99.4 since admission. Hemodynamically stable. No evidence of leukocytosis. Anemia noted hemoglobin at 6.8 upon admission. Platelet count greater than 170. JEROMY upon admission. Serum ammonia on this admission within normal limits at 13. Elevated troponins CTA upon admission no evidence of pulmonary embolism. No dense consolidative/airspace changes. Bilateral pleural effusions left greater than right with adjacent atelectasis. CT abdomen ascites. Currently receiving ceftriaxone 2 g/day. Urine culture on this admission gram- negative rods. On examination bilateral decreased breath sounds. No significant wheezing noted on auscultation with no noted supplementation saturating 89% and improved Plan: Recommend therapeutic paracentesis we will hold off on performing thoracentesis at this point of time. Continue to receive antibiotics for presumed UTI/SBP DuoNebs every 6 hours on a scheduled basis Continue oxygen supplementation to maintain O2 saturation goal of 90% and above Incentive spirometer Recommend to Evalute for possible HRS
[2024-12-12] MEDS: PANTOPRAZOLE 40MG VIAL 40 MG IV ×2 (09:21→20:42)
[2024-12-12] MEDS: CEFTRIAXONE SODIUM 2 GM in 0.9 % SODIUM CHLORIDE 100 ML IV (09:22)
[2024-12-12] MEDS: LACTULOSE 20GM/30ML UDC 10 GM PO ×2 (09:22→20:42)
[2024-12-12] MEDS: BUMETANIDE 1MG/4ML VIAL 1 MG IV (09:46)
[2024-12-12] MEDS: LEVOTHYROXINE 75MCG (0.075MG) TAB 75 MCG PO (09:46)
[2024-12-12 10:11] LABS: Occult Blood,Stool Positive (Negative)
[2024-12-12] MEDS: ACETAMINOPHEN 325MG TAB 650 MG PO (10:25)
--- NOTE | 2024-12-12 10:51 | HMH.PTEV ---
Physical Therapy Evaluation Rehab PT IP Evaluation Start: 12/11/24 17:46 Freq: ONCE Status: Active Protocol: Document 12/12/24 10:46 DARIUS (Rec: 12/12/24 10:51 DARIUS [id number]) Subjective/History History History Per H&P: Joshua Rogers is a 79-year-old male with a medical history significant for alcoholic cirrhosis with gastroesophageal varices, CAD, hypothyroidism, COPD who presents with several day onset of progressive confusion, weakness. states he was unable to get out of bed yesterday and called EMS who were able to get him back into bed. This morning it occurred again patient called EMS again who brought him to the ED. states patient becomes like this at any time he has a UTI. She also states he has been more confused, speaking out of his head . Patient has not endorsed chest pain, shortness of breath, abdominal pain, dark/ bloody stools to . Has been adherent to his medications other than lactulose this morning. Workup in the ED significant for hemoglobin 6.3, MCV 81, creatinine 1.3, magnesium 1.4, troponin 0.11, BNP 19, 100, UA grossly abnormal. Patient was encephalopathic, somnolent on my exam. VBG pH normal. Upper airway wheezing. CTA chest revealed moderate bilateral pleural effusions, does have right lower extremity pitting edema but did have a right hip fracture earlier this month. Case discussed with ED provider and decision was made to admit patient for acute metabolic encephalopathy from UTI, NSTEMI, acute on chronic anemia, HFpEF exacerbation. Subjective Subjective Pt lives with his . Pt reports he is usually IND with mobility using a RW. Pt's assists as needed. Pt is [facility]. [facility] How much help from another person do you currently need... Turning from your A little back to your side while in a flat bed without using bedrails? Moving from lying on A little back to sitting on the side of a flat bed without using bedrails? Moving to and from a A little bed to a chair ( including a wheelchair)? Standing up from a A little chair using your arms? (e.g., wheelchair, bedside chair) Walking in hospital A lot room? Climbing 3-5 steps A lot with a railing? Mobility Score 16 Mobility Level [facility] 5 Stand (1 or more minutes) Mobility Calculator Rehab PT IP Eval Objective Appearance Patient Behavior Appropriate,Cooperative Patient Orientation Person,Situation Difficulty following none instructions Speech Pattern Mumbled Ambulation Patient Able to Yes Ambulate Ambulation Observation IP General Gait Wide Based Gait Pattern Observation Ambulation Distance 4 (feet) Ambulation Assistive Rolling Walker Device Ambulation Ability Minimal x 1 (25% assist) Balance Ability to Arise Able, uses arms to help Sitting Balance Steady, safe Standing Balance Unsteady Dynamic Sitting Good Balance Ability Dynamic Standing Fair Balance Ability Transfers Bed Transfer Ability Moderate x 1 (50% assist) Sit to Stand Bed Moderate x 1 (50% assist) Transfer Ability Sit to Stand Chair Moderate x 1 (50% assist) Transfer Ability Rehab PT IP prob,goals,plan Problems Date of Evaluation: 12/12/24 PT IP Problems Bed Mobility,Transfers,Gait,Balance,Self care,Safety Rehab Potential Rehab Potential Good Plan PT Intervention Plan Bed Mobility,Transfers,Gait,Balance,Self care,Safety, Therapeutic Exercise Other Intervention 1-2 times Plan PT Plan Frequency Daily Duration LOS Discharge Goals Bed Transfer Ability Minimal x 1 (25% assist) Sit to Stand Chair Minimal x 1 (25% assist) Transfer Ability Ambulation Assistive Rolling Walker Device Ambulation Distance 10 (feet) Discharge Plan PT Discharge Plan Initial physical therapy evaluation performed. Patient presents below baseline at this time in functional mobility, transfers, and strength. Pt not safe to return home at this time d/t current level of functional mobility. PT recommending short-term rehabilitation stay upon d/c from [facility]. Pt may be safe to return home with 24/7 assistance if his mobility and ambulation improves to Min A-CGA while at [facility]. Pt would benefit from skilled PT while at [facility] to prevent further functional decline and maximize safety with mobility. Eval Complexity Eval Charge Codes 20551 - Moderate Complexity PHYSICIAN CERTIFICATION: I certify the specified therapy services for Joshua Rogers are required, authorized, and reviewed every 30 days.
--- NOTE | 2024-12-12 11:29 | EXP.GE.CONS ---
History of Present Illness *Admission Date: 12/11/24 *History of present illness: Joshua Rogers is a 79-year-old male with a medical history significant for alcoholic cirrhosis with gastroesophageal varices, CAD, hypothyroidism, COPD who presents with several day onset of progressive confusion, weakness. states he was unable to get out of bed yesterday and called EMS who were able to get him back into bed. This morning it occurred again patient called EMS again who brought him to the ED. states patient becomes like this at any time he has a UTI. She also states he has been more confused, speaking out of his head . Patient has not endorsed chest pain, shortness of breath, abdominal pain, dark/bloody stools to . Has been adherent to his medications other than lactulose this morning. Workup in the ED significant for hemoglobin 6.3, MCV 81, creatinine 1.3, magnesium 1.4, troponin 0.11, BNP 19,100, UA grossly abnormal. Patient was encephalopathic, somnolent on my exam. VBG pH normal. Upper airway wheezing. CTA chest revealed moderate bilateral pleural effusions, does have right lower extremity pitting edema but did have a right hip fracture earlier this month. Case discussed with ED provider and decision was made to admit patient for acute metabolic encephalopathy from UTI, NSTEMI, acute on chronic anemia, HFpEF exacerbation. Per admission H &P This is a 79-year-old male with a history of alcoholic cirrhosis, portal hypertension, gastric varices, hepatic encephalopathy, ascites. The patient had been a daily alcohol drinker since teenage years. His last alcoholic beverage was in June and he has been sober ever since. Incidental finding of portal hypertension, cirrhosis, and moderate ascites on imaging during hospitalization. He was on carvedilol twice daily and Bumex at home. He was hospitalized in June and reports that was the first time he is ever diagnosed with cirrhosis. He was seen as an outpatient in our GI office a few months ago and had improvement of all symptoms. Ascites had improved. His last paracentesis was in July without findings of SBP then. Encephalopathy resolved and he was on lactulose twice a day having 3-4 bowel movements per day. He was previously on Xifaxan but it was cost prohibitive over $500 per month. He has been off of Xifaxan for couple of months. He does have some chronic anemia and was on oral iron supplements. Patient recently underwent right hip surgery. He was in rehab after the surgery and has been back home for about a week. He has been back on his lactulose twice a day. He had stopped narcotic pain medication about a week ago upon arrival back home. Hemoglobin dropped to 6.3. Patient placed on IV Protonix twice daily. He is status post EGD with Dr. Parker in July who found no esophageal varices but he did have small nonbleeding gastric varices at the time. Imaging upon arrival did show moderate to large amount of pelvic and abdominal ascites. Patient did develop altered mental status 2 days ago that got worse leading to his presentation in the ER yesterday. Concern for acute illness UTI versus mastoiditis and patient was started on ceftriaxone. His reports that he has had altered mental status with previous UTIs. Mentation has improved since admission but not at baseline. Current MELD score equals 18 which is an increase for the patient, likely exacerbated by JEROMY. [facility] Disclaimer: The information contained in this section may have been updated after the patient was seen, as this information can be updated by other users. Medical History (Updated 12/12/24 @ 11:17 by Reid Alston MD) Pleural effusion, bilateral Acute respiratory failure with hypoxia Coronary artery disease Weight loss, unintentional Former smoker Wheezing Alcohol abuse Thyroid disease History of hyperlipidemia History of hypertension Surgical History No significant past surgical history Family History Other Heart attack Hyperlipidemia Hypertension Lung cancer No significant family history Prostate CA Stroke Social History (Updated 12/11/24 @ 16:15 by Karlene Benitez RN) Smoking Status: Former smoker alcohol intake: former substance use type: denies use current occupational status: retired Travel in the last 8 weeks?: None household members: spouse housing: house Have you lived/traveled outside US in past 30 days?: No Contact w/someone who lives/traveled outside US past 30 days?: No Exposure to someone with infectious disease in past 14 days?: No Do you have a fever (greater than 100.4 F or 38 C)?: No Have you tested positive for COVID-19?: No Exposed to someone with COVID-19 in past 14 days?: No Do you have a sore throat?: No Do you have a cough?: No Do you have any weakness?: Yes Do you have any diarrhea?: No Are you experiencing any unusual bleeding?: No Do you have any muscle aches/pain?: No Do you have any abdominal pain?: No Are you experiencing loss of taste or smell?: No Meds Home Medications and Allergies Home Medications ?Medication ?Instructions ?Recorded ?Confirmed ?Type albuterol sulfate 90 mcg/actuation 2 puff inhalation Q4HP PRN 11/23/24 12/11/24 Rx aerosol inhaler Shortness Of Breath 30 days #8.5 grams atorvastatin 40 mg tablet 40 mg PO HS 30 days #30 tabs 11/23/24 12/11/24 Rx bumetanide 1 mg tablet 1 mg PO BID 30 days #60 tabs 11/23/24 12/11/24 Rx carvedilol 3.125 mg tablet 3.125 mg PO BID 30 days #60 tabs 11/23/24 12/11/24 Rx ferrous sulfate 325 mg (65 mg 325 mg PO BID 30 days #60 tabs 11/23/24 12/11/24 Rx iron) tablet (iron) levothyroxine 75 mcg tablet 75 mcg PO DAILY 30 days #30 tabs 11/23/24 12/11/24 Rx aspirin 81 mg chewable tablet 81 mg PO BID 12/11/24 12/11/24 History lactulose 10 gram/15 mL oral 15 ml PO BID 12/11/24 12/11/24 History solution New Prescriptions to Start Prescriptions: Allergies Allergy/AdvReac Type Severity Reaction Status Date / Time No Known Allergies Allergy Verified 12/05/24 10:21 Exam (Inpt) Vital signs and Labs for Last 24 Hours: Temp Pulse Resp BP Pulse Ox O2 Del Method O2 Flow Rate 99.4 F 67 16 101/47 L 92 L Room Air 2 12/12/24 04:00 12/12/24 10:14 12/12/24 10:14 12/12/24 10:14 12/12/24 10:14 12/12/24 10:14 12/11/24 18:35 FiO2 12/12/24 03:01 Laboratory Results - last 24 hr 12/11/24 09:27: Urine Color Yellow, Urine Appearance Cloudy, Urine pH 6.0, Ur Specific [place] 1.015, Urine Protein 1+ A, Urine Glucose (UA) Negative, Urine Ketones Negative, Urine Blood Trace-i, Urine Nitrate Negative, Urine Bilirubin Negative, Urine Urobilinogen 0.2, Ur Leukocyte Esterase 2+ A, Urine RBC None, Urine WBC 3-5, Ur Squamous Epith Cells Occasional, Urine Bacteria 3+ 12/11/24 10:02: Stool Occult Blood Positive A 12/11/24 10:06: Blood Type O Negative, Antibody Screen Negative, Crossmatch (AHG) See Detail 12/11/24 12:55: Troponin I 0.11 H 12/11/24 14:07: Lactate 1.1 12/11/24 15:34: Troponin I 0.11 H 12/11/24 16:08: Hgb 8.3 L D, Hct 24.4 L 12/12/24 04:51: WBC 3.9 L, RBC 2.93 L, Hgb 7.7 L, Hct 23.8 L, MCV 81.2, MCH 26.3 L, MCHC 32.4, RDW 17.5, Plt Count 175, MPV 10.3, Neut % (Auto) 66.1, Lymph % (Auto) 17.6, [place] % (Auto) 14.8 H, Eos % (Auto) 0.5, Baso % (Auto) 0.5, Neut # (Auto) 2.6, Lymph # (Auto) 0.7, [place] # (Auto) 0.6, Eos # (Auto) 0.0, Baso # (Auto) 0.0, Sodium 130 L, Potassium 3.5, Chloride 89 L, Carbon Dioxide 33 H, Anion Gap 11.5, BUN 32 H, Creatinine 1.30 H, Estimated Creat Clear 49, Estimated GFR 53 L, Est GFR ( Amer) 64, Glucose 87 D, Calcium 8.6, Magnesium 2.5 H D, Total Bilirubin 1.1, AST 41, ALT 18, Alkaline Phosphatase 103, Total Protein 6.2 L, Albumin 3.2 L, Globulin 3.0, Albumin/Globulin Ratio 1.1 I & O for Labs for Last 24 Hours: Intake & Output 12/09/24 12/10/24 12/11/24 12/12/24 11:59 11:59 11:59 11:59 Intake Total 421.69 Output Total 500 Balance -78.31 Weight 99.79 kg 75.75 kg Microbiology Reports for the Last 24 Hours: Microbiology 12/11/24 09:27 Blood Blood Culture - Preliminary NO GROWTH AFTER 24 HOURS 12/11/24 09:27 Blood Blood Culture - Preliminary NO GROWTH AFTER 24 HOURS 12/11/24 09:27 Urine,Catheterized Urine Culture - Preliminary Gram Negative Rods Results Labs 12/12/24 04:51 12/12/24 04:51 Labs: Laboratory Results - last 24 hr 12/11/24 09:27: Urine Color Yellow, Urine Appearance Cloudy, Urine pH 6.0, Ur Specific [place] 1.015, Urine Protein 1+ A, Urine Glucose (UA) Negative, Urine Ketones Negative, Urine Blood Trace-i, Urine Nitrate Negative, Urine Bilirubin Negative, Urine Urobilinogen 0.2, Ur Leukocyte Esterase 2+ A, Urine RBC None, Urine WBC 3-5, Ur Squamous Epith Cells Occasional, Urine Bacteria 3+ 12/11/24 10:02: Stool Occult Blood Positive A 12/11/24 10:06: Blood Type O Negative, Antibody Screen Negative, Crossmatch (AHG) See Detail 12/11/24 12:55: Troponin I 0.11 H 12/11/24 14:07: Lactate 1.1 12/11/24 15:34: Troponin I 0.11 H 12/11/24 16:08: Hgb 8.3 L D, Hct 24.4 L 12/12/24 04:51: WBC 3.9 L, RBC 2.93 L, Hgb 7.7 L, Hct 23.8 L, MCV 81.2, MCH 26.3 L, MCHC 32.4, RDW 17.5, Plt Count 175, MPV 10.3, Neut % (Auto) 66.1, Lymph % (Auto) 17.6, [place] % (Auto) 14.8 H, Eos % (Auto) 0.5, Baso % (Auto) 0.5, Neut # (Auto) 2.6, Lymph # (Auto) 0.7, [place] # (Auto) 0.6, Eos # (Auto) 0.0, Baso # (Auto) 0.0, Sodium 130 L, Potassium 3.5, Chloride 89 L, Carbon Dioxide 33 H, Anion Gap 11.5, BUN 32 H, Creatinine 1.30 H, Estimated Creat Clear 49, Estimated GFR 53 L, Est GFR ( Amer) 64, Glucose 87 D, Calcium 8.6, Magnesium 2.5 H D, Total Bilirubin 1.1, AST 41, ALT 18, Alkaline Phosphatase 103, Total Protein 6.2 L, Albumin 3.2 L, Globulin 3.0, Albumin/Globulin Ratio 1.1 Assessment and Plan *Assessment and plan (1) Alcoholic cirrhosis: Status: Acute Category: Medical Code(s): K70.30 - Alcoholic cirrhosis of liver without ascites (2) Portal hypertension: Status: Acute Category: Medical Code(s): K76.6 - Portal hypertension (3) Gastric varices without bleeding: Status: Acute Category: Medical Code(s): I86.4 - Gastric varices (4) Ascites: Status: Acute Qualifiers: Ascites type: due to alcoholic cirrhosis Qualified Code(s): K70.31 - Alcoholic cirrhosis of liver with ascites Category: Medical Code(s): R18.8 - Other ascites (5) Anemia: Status: Acute Qualifiers: Anemia type: unspecified type Qualified Code(s): D64.9 - Anemia, unspecified Category: Medical Code(s): D64.9 - Anemia, unspecified (6) Altered mental status: Status: Resolved Category: Medical Code(s): R41.82 - Altered mental status, unspecified Plan 1. Alcoholic cirrhosis/portal hypertension/ascites Long history of daily alcohol consumption likely since teenage years. Was drinking 2 or 3 drinks a day up until June. He has been alcohol free since June. Ascites and portal hypertension noted on imaging during hospitalization in June, volume of ascites significantly worse currently. He is on carvedilol and Bumex at home. Recommend the addition of spironolactone. Current MELD score equals 18 which is an increase for the patient with the current JEROMY likely contributing. BNP greater than 19,000. With the altered mental status and the worsening of the abdominal ascites Patient is quite distended and uncomfortable on exam. Concern for SBP. I would suggest continue Bumex and Lasix. Low-sodium diet. I suggest paracentesis with eval for SBP and for comfort with albumin replacement per protocol. 2. Altered mental status Patient struggled with hepatic encephalopathy and elevated ammonia levels during hospitalization in June. Was previously on Xifaxan twice a day but not sustainable as they are cost was over $500 a month. He was on lactulose twice a day at home having 3 or 4 bowel movements per day and developed worsening altered mental status 2 days ago. Ammonia level normal. He has been off narcotic pain medicine for a week as well. I am not convinced that this is hepatic encephalopathy, possibly related to acute infectious process, has had improvement since hospitalization although he has not at baseline. Continue lactulose twice a day. 3. Anemia Patient has some chronic anemia, worsened with a hemoglobin of 6.3. Has been on p.o. iron replacement. Has completed screening EGD with Keith in July. No esophageal varices but he did have some gastric varices. Will check Hemoccult but this may be directly related to his recent hip surgery. I would not repeat endoscopy unless Hemoccult positive or if hemoglobin continues to drop.
--- NOTE | 2024-12-12 11:37 | PC.NURSE ---
IS education reviewed w/ pt and available @ bedside. Pt demonstrated appropriate use. Frequent encouragement will be required. IS max = 1500.
--- NOTE | 2024-12-12 12:24 | EXP.CARD.CON ---
History of Present Illness History of Present Illness Consult date: 12/12/24 Requesting physician: Miguelito Nunn Chief complaint: Generalized weakness History of present illness: This is a 79 year old white male with past medical hx of alcoholic cirrhosis with esophageal varices, HTN, recent right hip fracture status post surgery, HLD, chronic pleural effusions with abdominal distention with lower extremity edema likely secondary to cirrhosis, historically normal EF and a normal myoview stress test 09/2024 who presented to ER with complaints of generalized weakness and confusion per . reports this is usually how patient acts when he has a UTI. Upon presntation to ER EKG showed NSR rate of 78 without acute ischemic changes noted. CT abdomen pelvis shows cirrhosis with ascites and portal hypertension. Chest CTA shows no evidence of pulmonary embolism or aortic dissection with stable moderate bilateral pleural effusions with associated atelectasis. A CT head was obtained which is negative for acute intracranial abnormality. Venous Doppler was negative for right DVT. Labs were as follow: WBC 3.9, hemoglobin 8.3, sodium 130, potassium 3.5, BUN 32, creatinine 1.3, normal liver enzymes and troponin 0.1 trending up to 0.11 and elevated BNP. Urinalysis concerning for UTI. Patient was admitted for acute metabolic encephalopathy secondary to UTI, NSTEMI and acute on chronic anemia with HFpEF exacerbation. [facility] Disclaimer: The information contained in this section may have been updated after the patient was seen, as this information can be updated by other users. Medical History (Updated 12/12/24 @ 11:17 by Reid Alston MD) Pleural effusion, bilateral Acute respiratory failure with hypoxia Coronary artery disease Weight loss, unintentional Former smoker Wheezing Alcohol abuse Thyroid disease History of hyperlipidemia History of hypertension Surgical History No significant past surgical history Family History Other Heart attack Hyperlipidemia Hypertension Lung cancer No significant family history Prostate CA Stroke Social History (Updated 12/11/24 @ 16:15 by Karlene Benitez RN) Smoking Status: Former smoker alcohol intake: former substance use type: denies use current occupational status: retired Travel in the last 8 weeks?: None household members: spouse housing: house Have you lived/traveled outside US in past 30 days?: No Contact w/someone who lives/traveled outside US past 30 days?: No Exposure to someone with infectious disease in past 14 days?: No Do you have a fever (greater than 100.4 F or 38 C)?: No Have you tested positive for COVID-19?: No Exposed to someone with COVID-19 in past 14 days?: No Do you have a sore throat?: No Do you have a cough?: No Do you have any weakness?: Yes Do you have any diarrhea?: No Are you experiencing any unusual bleeding?: No Do you have any muscle aches/pain?: No Do you have any abdominal pain?: No Are you experiencing loss of taste or smell?: No Review of Systems Review of Systems Review of systems:: pertinent systems reviewed and negative unless documented below Constitutional Constitutional: Reports weakness *Cardiovascular Cardiovascular: Denies chest pain and Denies dyspnea *Respiratory Respiratory: Denies dyspnea *Neurologic Neurologic: Reports weakness Exam Data for Last 24 hours Vital signs and Labs for Last 24 Hours: Temp Pulse Resp BP Pulse Ox O2 Del Method O2 Flow Rate 99.4 F 74 16 110/56 L 93 L Room Air 2 12/12/24 04:00 12/12/24 11:59 12/12/24 11:01 12/12/24 11:01 12/12/24 11:01 12/12/24 11:01 12/11/24 18:35 FiO2 12/12/24 03:01 Laboratory Results - last 24 hr 12/11/24 09:27: Urine Color Yellow, Urine Appearance Cloudy, Urine pH 6.0, Ur Specific [place] 1.015, Urine Protein 1+ A, Urine Glucose (UA) Negative, Urine Ketones Negative, Urine Blood Trace-i, Urine Nitrate Negative, Urine Bilirubin Negative, Urine Urobilinogen 0.2, Ur Leukocyte Esterase 2+ A, Urine RBC None, Urine WBC 3-5, Ur Squamous Epith Cells Occasional, Urine Bacteria 3+ 12/11/24 10:02: Stool Occult Blood Positive A 12/11/24 10:06: Blood Type O Negative, Antibody Screen Negative, Crossmatch (AHG) See Detail 12/11/24 12:55: Troponin I 0.11 H 12/11/24 14:07: Lactate 1.1 12/11/24 15:34: Troponin I 0.11 H 12/11/24 16:08: Hgb 8.3 L D, Hct 24.4 L 12/12/24 04:51: WBC 3.9 L, RBC 2.93 L, Hgb 7.7 L, Hct 23.8 L, MCV 81.2, MCH 26.3 L, MCHC 32.4, RDW 17.5, Plt Count 175, MPV 10.3, Neut % (Auto) 66.1, Lymph % (Auto) 17.6, [place] % (Auto) 14.8 H, Eos % (Auto) 0.5, Baso % (Auto) 0.5, Neut # (Auto) 2.6, Lymph # (Auto) 0.7, [place] # (Auto) 0.6, Eos # (Auto) 0.0, Baso # (Auto) 0.0, Sodium 130 L, Potassium 3.5, Chloride 89 L, Carbon Dioxide 33 H, Anion Gap 11.5, BUN 32 H, Creatinine 1.30 H, Estimated Creat Clear 49, Estimated GFR 53 L, Est GFR ( Amer) 64, Glucose 87 D, Calcium 8.6, Magnesium 2.5 H D, Total Bilirubin 1.1, AST 41, ALT 18, Alkaline Phosphatase 103, Total Protein 6.2 L, Albumin 3.2 L, Globulin 3.0, Albumin/Globulin Ratio 1.1 I & O for Last 24 hours: Intake & Output 12/09/24 12/10/24 12/11/24 12/12/24 23:59 23:59 23:59 23:59 Intake Total 171.69 / 421.69 250 / 250 Output Total 0 / 200 500 / 500 Balance 171.69 / 221.69 -250 / -250 Weight 167 lb 167 lb 0.002 oz Microbiology Reports for the Last 24 Hours: Microbiology 12/11/24 09:27 Blood Blood Culture - Preliminary NO GROWTH AFTER 24 HOURS 12/11/24 09:27 Blood Blood Culture - Preliminary NO GROWTH AFTER 24 HOURS 12/11/24 09:27 Urine,Catheterized Urine Culture - Preliminary Gram Negative Rods Constitutional Constitutional: no acute distress *Routine Respiratory Exam Respiratory: Present CTA bilaterally and symmetric chest movement *Routine Cardiovascular Exam Cardiovascular: Present RRR, Normal S1 and Normal S2 *Routine Abdominal Exam Abdominal: Present soft and normoactive bowel sounds; Absent tenderness *Routine Extremities Exam Extremities: Present full ROM and normal capillary refill; Absent edema *Routine Skin Exam Skin: Present intact, dry and warm Detailed Neck Exam: Thyroids Thyroid: Absent bruit Meds Home Medications and Allergies Home Medications ?Medication ?Instructions ?Recorded ?Confirmed ?Type albuterol sulfate 90 mcg/actuation 2 puff inhalation Q4HP PRN 11/23/24 12/11/24 Rx aerosol inhaler Shortness Of Breath 30 days #8.5 grams atorvastatin 40 mg tablet 40 mg PO HS 30 days #30 tabs 11/23/24 12/11/24 Rx bumetanide 1 mg tablet 1 mg PO BID 30 days #60 tabs 11/23/24 12/11/24 Rx carvedilol 3.125 mg tablet 3.125 mg PO BID 30 days #60 tabs 11/23/24 12/11/24 Rx ferrous sulfate 325 mg (65 mg 325 mg PO BID 30 days #60 tabs 11/23/24 12/11/24 Rx iron) tablet (iron) levothyroxine 75 mcg tablet 75 mcg PO DAILY 30 days #30 tabs 11/23/24 12/11/24 Rx aspirin 81 mg chewable tablet 81 mg PO BID 12/11/24 12/11/24 History lactulose 10 gram/15 mL oral 15 ml PO BID 12/11/24 12/11/24 History solution New Prescriptions to Start Prescriptions: Allergies Allergy/AdvReac Type Severity Reaction Status Date / Time No Known Allergies Allergy Verified 12/05/24 10:21 Assessment and Plan *Assessment and plan (1) Acute UTI: Status: Acute Category: Medical Code(s): N39.0 - Urinary tract infection, site not specified Plan Hx of CAD noted on Chest CT Normal Myoview 09/2024 Acute myocardial injury Patient denies chest pain Trop 0.10-0.11 in the setting of acute illness and anemia EKG without new acute ischemic changes Echo shows normal EF, moderate RV dilation with mild reduction in RV function, mild TR, AI Recommend outpatient stress testing Continue statin History of HFpEF Stable moderate bilateral pleural effusions Ascites in the setting of cirrhosis Normal EF with mild reduction in RV function Decrease Bumex to 1 mg p.o. daily due to hypotension Add Aldactone 25 mg p.o. daily Add Farxiga 10 mg Acute metabolic encephalopathy Sepsis UTI Left mastoiditis Defer to primary service Acute on chronic anemia History of gastroesophageal varices Hemoglobin 6.3 on admission Patient transfused with 1 unit with improvement of hemoglobin 8.3 GI consulted CV summary 12/12/2024: Pressures have remained soft all day. Will hold Coreg at this time. Continue Bumex at reduced dose of 1 mg p.o. daily. Tomorrow add Aldactone. Start Farxiga today
[2024-12-12 13:37] LABS: Adenovirus,PCR Not Detected (NotDetected); Bordetella Pertussis Not Detected (NotDetected); Chlamydophila Pneumoniae, PCR Not Detected (NotDetected); Coronavirus 229E Not Detected (NotDetected); Coronavirus NL63 Not Detected (NotDetected); Coronavirus OC43 Not Detected (NotDetected); Coronovirus HKU1,PCR Not Detected (NotDetected); Human Metapneumovirus Not Detected (NotDetected); Influenza A, PCR Not Detected (NotDetected); Influenza AH1, 2009 Not Detected (NotDetected); Influenza AH1, PCR Not Detected (NotDetected); Influenza AH3,PCR Not Detected (NotDetected); Influenza B, PCR Not Detected (NotDetected); Mycoplasma Pneumoniae, PCR Not Detected (NotDetected); Parainfluenza 1, PCR Not Detected (NotDetected); Parainfluenza 2, PCR Not Detected (NotDetected); Parainfluenza 3, PCR Not Detected (NotDetected); Parainfluenza 4, PCR Not Detected (NotDetected); Respiratory Syncytial Virus Not Detected (NotDetected); Rhinovirus/Enterovirus Not Detected (NotDetected)
--- NOTE | 2024-12-12 14:35 | P.EN_ITS ---
PROCEDURE: I was asked to come upstairs to do a paracentesis on the patient given that he had large-volume ascites and possible SBP. Informed consent was obtained from the patient's who is next of kin, as patient is not able to consent given altered mental status at this time. Ultrasound was used to identify pocket of fluid, and skin was marked. Patient was prepped sterilely wi th chlorhexidine and sterile drapes, and sterile gloves and a safety centesis kit were used to perform paracentesis. After sterility was obtained, the area was anesthetized with 8 cc of 1% lidocaine. A small incision was made with a scalpel for introduction of the safety centesis needle and catheter. Once fluid was aspirated, the catheter was advanced over the needle into the ascitic fluid. Clear yellow fluid was drained. Approximately 600 mL of fluid was drained when the catheter stopped draining. Despite attempts at repositioning and manipulation of the catheter, it did not resume draining. On ultrasound, his bowel is now positioned up against the abdominal wall where the catheter is in place. He does have a pocket of fluid above this area, but I am not able to manipulate the fluid to drain from this catheter. Given this, the catheter was removed. I did have a discussion with the hospitalist regarding further attempted paracentesis, but the patient is now hypotensive so we will defer further paracentesis at this time. Fluid studies including cultures were sent and are pending.
[2024-12-12] MEDS: NOREPINEPHRINE BITARTRATE/D5W 8 MG/250 ML PLAST..BAG 15 MG IV (14:40)
[2024-12-12] MEDS: ALBUMIN HUMAN 12.5 GM/50 ML BAG IV (14:45)
--- NOTE | 2024-12-12 15:06 | PC.NURSE ---
MD notified of hypotension, SBP ranging 70-80's. Pt awakens w/ stimuli, but very lethargic. MD placing orders for Levo gtt and albumin infusion. Levo started @ 1440 and titrated per MAR for goal MAP > 90. brought back to bedside and updated on POC. Pt currently resting in bed. Call keke w/in reach.
--- NOTE | 2024-12-12 15:11 | PC.NURSE ---
Addendum entered by Yuko Kruger RN 12/12/24 17:44: 510mL removed from Paracentesis Original Note: Dr.Amber Bell at bedside to perform ultrasound guided Paracentesis. Carolyn Graff Taylor Hunt at bedside. 1354 Time out performed @ this time w/ all in agreeance. 1356 - Procedure Start time. 1404 - Procedure End time. Patient tolerated procedure well. Abdominal fluid collected and sent to lab per provider orders. Dressing applied to insertion site. Dressing clean, dry, and intact. Dr. Miguelito Nunn aware. Continuation of care plan.
[2024-12-12 15:17] LABS: Appearance,Body Fld. Normal; RBC,Body Fluid < 2000 cells/uL (< 10 X 10^3); Source, Body Fld. Peritoneal Fluid; TNC,Body Fluid 130 cells/uL (< 1000); Volume,Body Fld. 70 mL
[2024-12-12 15:30] LABS: Mononuclear WBCs,Body Fluid 100 %; Polynuclear WBC,Body Fluid 0 %
--- NOTE | 2024-12-12 15:40 | PC.NURSE ---
Patient bladder scanned at this time. Greater than 400 shown on bladder scanner. notified. New orders received. Continuation of care plan.
[2024-12-12 16:55] LABS: Coronavirus 19, PCR Detected (NotDetected)
--- NOTE | 2024-12-12 17:47 | PC.NURSE ---
Patient bladder scanned at this time. Greater than 400 shown on bladder scanner. notified. New orders received. Continuation of care plan.
[2024-12-12] MEDS: PHENYLEPHRINE 0.5% NASAL SPRAY 15ML NS (20:42)
[2024-12-12] MEDS: ATORVASTATIN 40MG TABLET 40 MG PO (20:42)
--- NOTE | 2024-12-12 21:54 | P.PN_ITS ---
Subjective *Date: 12/12/24 *Time: 21:54 Interval history: Patient significantly improved today Exam Data for Last 24 hours Vital signs and Labs for Last 24 Hours: Temp Pulse Resp BP Pulse Ox O2 Del Method O2 Flow Rate 98 F 72 18 107/56 L 92 L Nasal Cannula 2 12/12/24 20:00 12/12/24 21:00 12/12/24 21:00 12/12/24 21:00 12/12/24 21:00 12/12/24 21:00 12/12/24 21:00 FiO2 12/12/24 03:01 Laboratory Results - last 24 hr 12/11/24 09:27: Urine Color Yellow, Urine Appearance Cloudy, Urine pH 6.0, Ur Specific [place] 1.015, Urine Protein 1+ A, Urine Glucose (UA) Negative, Urine Ketones Negative, Urine Blood Trace-i, Urine Nitrate Negative, Urine Bilirubin Negative, Urine Urobilinogen 0.2, Ur Leukocyte Esterase 2+ A, Urine RBC None, Urine WBC 3-5, Ur Squamous Epith Cells Occasional, Urine Bacteria 3+ 12/11/24 10:02: Stool Occult Blood Positive A 12/12/24 04:51: WBC 3.9 L, RBC 2.93 L, Hgb 7.7 L, Hct 23.8 L, MCV 81.2, MCH 26.3 L, MCHC 32.4, RDW 17.5, Plt Count 175, MPV 10.3, Neut % (Auto) 66.1, Lymph % (Auto) 17.6, [place] % (Auto) 14.8 H, Eos % (Auto) 0.5, Baso % (Auto) 0.5, Neut # (Auto) 2.6, Lymph # (Auto) 0.7, [place] # (Auto) 0.6, Eos # (Auto) 0.0, Baso # (Auto) 0.0, Sodium 130 L, Potassium 3.5, Chloride 89 L, Carbon Dioxide 33 H, Anion Gap 11.5, BUN 32 H, Creatinine 1.30 H, Estimated Creat Clear 49, Estimated GFR 53 L, Est GFR ( Amer) 64, Glucose 87 D, Calcium 8.6, Magnesium 2.5 H D, Total Bilirubin 1.1, AST 41, ALT 18, Alkaline Phosphatase 103, Total Protein 6.2 L, Albumin 3.2 L, Globulin 3.0, Albumin/Globulin Ratio 1.1 12/12/24 13:29: Chlamy pneumoniae PCR Not detected, Adenovirus (PCR) Not detected, B. pertussis DNA (PCR) Not detected, Coronavirus OC43 (PCR) Not detected, Coronavirus HKU1 (PCR) Not detected, Coronavirus 229E (PCR) Not detected, SARS-CoV-2 (PCR) Detected A, Coronavirus NL63 (PCR) Not detected, Human Metapneumovir PCR Not detected, Influenza A (H1) PCR Not detected, Influ A (H1N1/09) PCR Not detected, Influenza A (H3) PCR Not detected, Influenza Type A (PCR) Not detected, Influenza Type B (PCR) Not detected, M. pneumoniae (PCR) Not detected, Parainfluenza 1 (PCR) Not detected, Parainfluenza 2 (PCR) Not detec noa, Parainfluenza 3 (PCR) Not detected, Parainfluenza 4 (PCR) Not detected, RSV (PCR) Not detected, Entero/Rhino (PCR) Not detected 12/12/24 14:00: Fluid Source Peritoneal fluid, Fluid Volume 70, Fluid Appearance Normal, Fluid RBC (Auto) < 2000, Fld Tot Nucleated Cell 130, Fld Polynuclear WBCs % 0, Fld Mononuclear WBCs % 100 I & O for Last 24 hours: Intake & Output 12/09/24 12/10/24 12/11/24 12/12/24 23:59 23:59 23:59 23:59 Intake Total 171.69 / 421.69 983.783 / 983.783 Output Total 0 / 200 1510 / 1510 Balance 171.69 / 221.69 -526.217 / -526.217 Weight 75.75 kg 75.75 kg Microbiology Reports for the Last 24 Hours: Microbiology 12/12/24 11:40 Sputum - Expectorated Sputum Gram Stain - Final 12/12/24 14:00 Ascites Fluid Gram Stain - Final 12/11/24 09:27 Blood Blood Culture - Preliminary NO GROWTH AFTER 24 HOURS 12/11/24 09:27 Blood Blood Culture - Preliminary NO GROWTH AFTER 24 HOURS 12/11/24 09:27 Urine,Catheterized Urine Culture - Preliminary Gram Negative Rods Constitutional Constitutional: no acute distress *Routine HEENT Exam Head: Present normocephalic Eye: Present EOMI and PERRL ENT: Present mucous membranes moist *Routine Neck Exam Neck: Present supple; Absent lymphadenopathy *Routine Respiratory Exam Respiratory: Present CTA bilaterally *Routine Cardiovascular Exam Cardiovascular: Present RRR *Routine Abdominal Exam Abdominal: Present soft, normoactive bowel sounds and distended; Absent tenderness *Routine Extremities Exam Extremities: Absent cyanosis, clubbing or edema *Routine Skin Exam Skin: Present warm; Absent rash *Routine Neurological Exam Neurological: Present alert Assessment and Plan *Assessment and plan (1) Acute UTI: Status: Acute Category: Medical Code(s): N39.0 - Urinary tract infection, site not specified Plan Joshua Rogers is a 79-year-old male with a medical history significant for alcoholic cirrhosis with gastroesophageal varices, CAD, hypothyroidism, COPD who presents with several day onset of progressive confusion, weakness. states he was unable to get out of bed yesterday and called EMS who were able to get him back into bed. This morning it occurred again patient called EMS again who brought him to the ED. states patient becomes like this at any time he has a UTI. She also states he has been more confused, speaking out of his head . Patient has not endorsed chest pain, shortness of breath, abdominal pain, d ark/bloody stools to . Has been adherent to his medications other than lactulose this morning. Workup in the ED significant for hemoglobin 6.3, MCV 81, creatinine 1.3, magnesium 1.4, troponin 0.11, BNP 19,100, UA grossly abnormal. Patient was encephalopathic, somnolent on my exam. VBG pH normal. Upper airway wheezing. CTA chest revealed moderate bilateral pleural effusions, does have right lower extremity pitting edema but did have a right hip fracture earlier this month. Case discussed with ED provider and decision was made to admit patient for acute metabolic encephalopathy from UTI, NSTEMI, acute on chronic anemia, HFpEF exacerbation. #HFpEF exacerbation versus decompensated cirrhosis #Ascites #Possible SBP ? Moderate bilateral pleural effusions on CTA chest, BNP 19,100. ? ECHO July 2024 shows normal biventricular systolic function. ? Right lower extremity pitting edema in the setting of right hip fracture s/p hemiarthroplasty in November 2024. ? Given moderate pleural effusions, started Bumex diuresis. Patient became hypotensive last night, will reduce BUmex dose to 1mg daily. ? IV Bumex 1 mg daily. Spironolactone 25 mg. ? Continue home lactulose. ? Continue IV ceftriaxone 2 g daily in the setting of ascites, encephalopathy. Diagnostic value of diagnostic paracentesis lower at this time as he has already been treated with ceftriaxone in the ED. Will treat empirically. Will consider paracentesis if not clinically improving. - Dr. Bell from ED graciously performed therapeutic paracentesis with about 600 mL of urine output from the peritoneal pocket. Further drainage was not obtained due to difficult pocket. Patient became slightly hypotensive after procedure, improved with albumin and Levophed. ? Started octreotide 100 mg 3 times daily SQ, albumin 12.5mg BID due to hypotension in the setting of cirrhosis. Hepatorenal syndrome was considered but current renal function not significantly different from baseline. Will continue to monitor. ? ECHO reveals normal biventricular systolic function, mildly reduced RV function. #Acute metabolic encephalopathy # Septic shock #UTI #Left mastoiditis ? Progressive weakness, confusion over the past several days. states this becomes an when he has a UTI. ? Presented with leukopenia, tachypnea on admission. ? CT head without acute findings other than left mastoiditis. ? UA grossly abnormal, urine culture pending. ? IV ceftriaxone day 2/5. Mentation significantly improved today. ? Currently requiring Levophed, wean as tolerated. ? Follow-up urine, blood cultures. #Acute on chronic anemia #History of gastroesophageal varices ? Hemoglobin 6.3 on admission. MCV 81. History of gastroesophageal varices. Denies dark, bloody stools. ? Transfuse 1 unit with improvement to 8.3. Positive FOBT. ? GI consulted, tentatively planning EGD as FOBT potitive with downtrending hemoglobin. ? IV Protonix 40 mg twice daily. Hold home Coreg due to soft pressures. #COPD ? Currently stable. Does have upper airway wheezing. ? DuoNebs every 6 hours. #History of right subcapital hip fracture s/p hemiarthroplasty 11/21/2024 ? Continue pain management as needed. #CAD ? Hold home aspirin due to possible GI bleed. #Hypothyroidism ? Continue home levothyroxine 75 mcg. TFTs stable. Full code DVT prophylaxis: Hold AC due to possible GI bleed.
[2024-12-12] MEDS: OCTREOTIDE 100 MCG/ML 1ML AMP SUBCUT (22:47)
[2024-12-13] VITALS (45 sets, daily range): BP systolic 88–137; BP diastolic 49–94; PULSE 56–147; RESP 11–23; TEMP 36.4–37.1; O2SAT 90–100; BMI 25.8
[2024-12-13] MEDS: AMIODARONE HCL 150 MG in DEXTROSE 5 % IN WATER 100 ML 618 MG IV (02:12)
--- NOTE | 2024-12-13 02:12 | ECG_ITS ---
APPROVED REPORT Exam: Resting ECG HR:129 bpm ECG Measurements Heart Rate 129 AXES QRSd 87 QRS 24 QT 315 T 93 QTc 391 Conclusion ATRIAL FIBRILLATION WITH RAPID VENTRICULAR RESPONSE LOW QRS VOLTAGE [QRS DEFLECTION < 0.5/1.0 mV IN LIMB/CHEST LEADS] ABNORMAL QRS-T ANGLE [QRS-T AXIS DIFFERENCE > 60] ABNORMAL ECG UNCONFIRMED REPORT Electronically signed by : Gómez Stahl MD 12/13/2024 08:35:13
--- NOTE | 2024-12-13 02:19 | PC.NURSE ---
Pt noted to become tachy on monitor with heart rate maintaining 130s-160s. EKG obtained reading Afib RVR. Dick Min notified and verbal ordered to give amiodarone 150mg bolus to run over 10 minutes. Order read back, verified and carried out. Notified Dick Min pt heart rate 120-140s after receiving amio bolus. MD states he will order amiodarone gtt and this RN may start gtt if pt remains tachycardic in 1 hour post amiodarone bolus.
[2024-12-13] MEDS: AMIODARONE HCL 900 MG in DEXTROSE 5 % IN WATER 500 ML 34.53 MG IV (04:29)
[2024-12-13] MEDS: IPRATROPIUM/ALBUTEROL 3 ML NEB IH ×2 (06:36→11:34)
[2024-12-13 06:47] LABS: Thyroid Stimulating Hormone 4.26 uIU/mL (0.465-4.68)
[2024-12-13 08:06] LABS: Basophils % 0.6 % (0.1-2.0); Eosinophils # 0.2 Kmm3 (0.0-0.4); Eosinophils % 4.8 % (0.1-12.0); Hematocrit 24.2 % (42.0-52.0); Hemoglobin 8.1 g/dL (14.1-18.0); Immature Granulocytes # 0.01 10^3uL; Immature Granulocytes % 0.3 %; Lymphocytes # 0.8 K/mm3 (0.7-4.5); Lymphocytes % 23.6 % (10-50); Mean Corpuscular HGB Conc 33.5 g/dL (31.8-35.4); Mean Corpuscular Hemoglobin 27.1 pg (27.0-31.2); Mean Corpuscular Volume 80.9 fl (80-94); Mean Platelet Volume 9.9 fl (7.4-10.4); Monocytes # 0.5 K/mm3 (0.1-1.0); Monocytes % 14.2 % (1.7-9.3); Neutrophils % 56.5 % (37.0-80.0); Nucleated Red Blood Cells # 0 10^3/uL; Nucleated Red Blood Cells % 0 %; Platelet Count 166 K/mm3 (142-424); Red Blood Count 2.99 M/mm3 (4.60-6.20); Red Cell Distribution Width 17.4 % (11.5-17.5); Red Cell Distribution Width-SD 51.8 fL; White Blood Count 3.5 K/mm3 (4.8-10.8)
[2024-12-13 08:09] LABS: Albumin Level 2.6 g/dl (3.5-5.0); Chloride 87 mmol/L (98-107); Potassium 3.4 mmoL/L (3.5-5.1); Sodium 125 mmol/L (136-145)
[2024-12-13 08:11] LABS: Blood Urea Nitrogen 34 mg/dl (9-20); Creatinine Clearance Estimated 47 mL/min (50-200); Estimated Glomerular Filt Rate 49 ml/min (>60); GFR (African American) 59 ML/MIN (>60)
[2024-12-13 08:12] LABS: Alanine Aminotransferase 15 U/L (12-78); Alkaline Phosphatase 91 U/L (38-126); Anion Gap 9.4 mEq/L (5-15); Aspartate Amino Transferase 36 U/L (17-59); Bilirubin,Total 0.6 mg/dl (0.2-1.3); Calcium 7.9 mg/dl (8.4-10.2); Carbon Dioxide 32 mmol/L (22.0-30.0); Globulin 2.7 g/dL (1.3-3.2); Glucose 185 mg/dl (74-100); Magnesium 2.1 mg/dl (1.6-2.3); Total Protein,Serum 5.3 g/dl (6.3-8.2)
[2024-12-13] MEDS: ALBUMIN HUMAN 12.5 GM/50 ML BAG IV ×2 (08:16→20:20)
[2024-12-13] MEDS: SPIRONOLACTONE 25MG TABLET 25 MG PO (08:17)
[2024-12-13] MEDS: OCTREOTIDE 100 MCG/ML 1ML AMP SUBCUT ×3 (08:17→20:19)
[2024-12-13] MEDS: PANTOPRAZOLE 40MG VIAL 40 MG IV ×2 (08:20→20:19)
[2024-12-13] MEDS: LACTULOSE 20GM/30ML UDC 10 GM PO ×2 (08:21→20:21)
[2024-12-13] MEDS: DEXAMETHASONE 4MG/ML 1ML VIAL 6 MG IV (08:25)
[2024-12-13] MEDS: LEVOTHYROXINE 75MCG (0.075MG) TAB 75 MCG PO (08:34)
[2024-12-13] MEDS: CEFTRIAXONE SODIUM 2 GM in 0.9 % SODIUM CHLORIDE 100 ML IV (08:35)
[2024-12-13] MEDS: REMDESIVIR 200 MG in 0.9 % SODIUM CHLORIDE 250 ML 250 MG IV (08:35)
[2024-12-13] MEDS: ACETAMINOPHEN 325MG TAB 650 MG PO (08:46)
[2024-12-13] MEDS: ERTAPENEM SODIUM 1 GM in 0.9 % SODIUM CHLORIDE 50 ML IV (10:00)
--- NOTE | 2024-12-13 11:00 | PC.NURSE ---
Notified @ this time that PRBC's are ready.
--- NOTE | 2024-12-13 11:00 | PC.NURSE ---
Pt refused to work w/ PT @ this time. Educated on importance of keeping mobile in hospital setting. PT states they will come back around after lunch and attempt to work w/ pt.
--- NOTE | 2024-12-13 11:41 | EXP.CARD.PN ---
Subjective Subjective Date: 12/13/24 Time: 08:00 Principal diagnosis: Acute metabolic encephalopathy from UTI, NSTEMI, acute on chronic anemia, Interval history: Covid positive, Urine positive for E. coli. s/p paracentesis yesterday- 600 mL withdrawn. Awaiting results of fluid. Patient became hypotensive throughout the evening requiring Levophed,, however, was tapered off. He also developed A-fib RVR and is currently on an Amio drip and rate controlled. Echo shows a normal LV systolic function with moderate RV dilation and mild reduction in RV function, mild RA dilation mild TR and AI. Morning labs reviewed. Patient getting one unit PRBC. Stool positive for occult blood. GI is following. Exam Data for Last 24 hours Vital signs and Labs for Last 24 Hours: Temp Pulse Resp BP Pulse Ox O2 Del Method O2 Flow Rate 98 F 99 H 18 132/80 100 Room Air 2 12/13/24 11:35 12/13/24 11:35 12/13/24 11:35 12/13/24 11:35 12/13/24 11:35 12/13/24 11:00 12/13/24 06:40 FiO2 12/12/24 03:01 Laboratory Results - last 24 hr 12/11/24 10:06: Blood Type O Negative, Antibody Screen Negative, Crossmatch (AHG) See Detail 12/12/24 13:29: Chlamy pneumoniae PCR Not detected, Adenovirus (PCR) Not detected, B. pertussis DNA (PCR) Not detected, Coronavirus OC43 (PCR) Not detected, Coronavirus HKU1 (PCR) Not detected, Coronavirus 229E (PCR) Not detected, SARS-CoV-2 (PCR) Detected A, Coronavirus NL63 (PCR) Not detected, Human Metapneumovir PCR Not detected, Influenza A (H1) PCR Not detected, Influ A (H1N1/09) PCR Not detected, Influenza A (H3) PCR Not detected, Influenza Type A (PCR) Not detected, Influenza Type B (PCR) Not detected, M. pneumoniae (PCR) Not detected, Parainfluenza 1 (PCR) Not detected, Parainfluenza 2 (PCR) Not detected, Parainfluenza 3 (PCR) Not detected, Parainfluenza 4 (PCR) Not detected, RSV (PCR) Not detected, Entero/Rhino (PCR) Not detected 12/12/24 14:00: Fluid Source Peritoneal fluid, Fluid Volume 70, Fluid Appearance Normal, Fluid RBC (Auto) < 2000, Fld Tot Nucleated Cell 130, Fld Polynuclear WBCs % 0, Fld Mononuclear WBCs % 100 12/13/24 04:46: WBC 3.5 L, RBC 2.99 L, Hgb 8.1 L, Hct 24.2 L, MCV 80.9, MCH 27.1, MCHC 33.5, RDW 17.4, Plt Count 166, MPV 9.9, Neut % (Auto) 56.5, Lymph % (Auto) 23.6, [place] % (Auto) 14.2 H, Eos % (Auto) 4.8, Baso % (Auto) 0.6, Neut # (Auto) 2.0, Lymph # (Auto) 0.8, [place] # (Auto) 0.5, Eos # (Auto) 0.2, Baso # (Auto) 0.0, Sodium 125 L, Potassium 3.4 L, Chloride 87 L, Carbon Dioxide 32 H, Anion Gap 9.4, BUN 34 H, Creatinine 1.40 H, Estimated Creat Clear 47, Estimated GFR 49 L, Est GFR ( Amer) 59, Glucose 185 H D, Calcium 7.9 L, Magnesium 2.1 D, Total Bilirubin 0.6, AST 36, ALT 15, Alkaline Phosphatase 91, Total Protein 5.3 L, Albumin 2.6 L D, Globulin 2.7, Albumin/Globulin Ratio 1.0 L, TSH 4.26 I & O for Last 24 hours: Intake & Output 12/10/24 12/11/24 12/12/24 12/13/24 23:59 23:59 23:59 23:59 Intake Total 171.69 / 421.69 1011.783 / 1011.783 847.993 / 847.993 Output Total 0 / 200 1510 / 1510 Balance 171.69 / 221.69 -498.217 / -498.217 847.993 / 847.993 Weight 167 lb 167 lb 0.002 oz 170 lb 11.2 oz Microbiology Reports for the Last 24 Hours: Microbiology 12/12/24 11:40 Sputum - Expectorated Sputum Gram Stain - Final 12/12/24 11:40 Sputum - Expectorated Sputum Sputum Culture - Preliminary Gram Negative Rods 12/11/24 09:27 Blood Blood Culture - Preliminary NO GROWTH AFTER 48 HOURS 12/11/24 09:27 Blood Blood Culture - Preliminary NO GROWTH AFTER 48 HOURS 12/11/24 09:27 Urine,Catheterized Urine Culture - Final Escherichia coli 12/12/24 14:00 Ascites Fluid Gram Stain - Final Constitutional Constitutional: chronically ill appearing Comments: Confused at times *Routine Respiratory Exam Respiratory: Present rhonchi, diminished air movement and symmetric chest movement *Routine Cardiovascular Exam Cardiovascular: Present Normal S1, Normal S2, irregular rhythm and irregularly irregular *Routine Abdominal Exam Abdominal: Present soft and normoactive bowel sounds; Absent tenderness *Routine Extremities Exam Extremities: Present full ROM and normal capillary refill; Absent edema Comments: Right lower extremity edema present *Routine Skin Exam Skin: Present intact, dry and warm Detailed Neck Exam: Thyroids Thyroid: Absent bruit Progress Note: A&P Assessment and plan (1) Acute UTI: Status: Acute Assessment and Plan Assessment and Plan for All Diagnoses:: Hx of CAD noted on Chest CT Normal Myoview 09/2024 Acute myocardial injury Patient denies chest pain Trop 0.10-0.11 in the setting of acute illness and anemia EKG without new acute ischemic changes Echo shows normal EF, moderate RV dilation with mild reduction in RV function, mild TR, AI Recommend outpatient stress testing Continue statin History of HFpEF Stable moderate bilateral pleural effusions Ascites in the setting of cirrhosis Normal EF with mild reduction in RV function Bumex held this am due to hypotension requiring Levophed which has since been turned off. Will give bumex 1mg IV s/p 1 unit transfusion this afternoon. Start Aldactone 25 mg p.o. daily No Farxiga at this time due to UTI. s/p paracentesis yesterday, 600mls removed. cultures pending [place] Afib RVR, Chadsvasc score > 2 Was started on Amio and rate improved Will change to low dose betablocker for rate control as patient has not had proper anticoagulation for cardioversion Will hold anticoagulation until cleared by GI Acute metabolic encephalopathy Sepsis UTI Left mastoiditis Covid 19 positive Defer to antibiotics management to primary service. Acute on chronic anemia History of gastroesophageal varices Concern for possible GI bleed Stool positive for occult blood Hemoglobin 6.3 on admission, 8.1 after transfusion Patient is receiving 1 unit of packed red blood cells today On octreotide and Protonix GI consulted and following CV summary 12/13/2024: Pressures have remained soft but stable today. Will stop amiodarone drip as patient has not been on anticoagulation for cardioversion. Will attempt to rate control with low dose beta nolan while maintaining an acceptable blood pressure, start toprol 12.5mg po daily. Aldactone started today. Will give Bumex 1mg IV s/p transfusion of 1 unit packed RBCs. GI and pulmonology are both following. Will hold on starting anticoagulation for A-fib until cleared by GI.
--- NOTE | 2024-12-13 13:10 | SW/DCPLANNER ---
Addendum entered by Bridgette Proctor RN 12/18/24 08:03: Patient is approved to go to [facility] today. Addendum entered by Rebeca Dimas 12/17/24 15:07: Updated patient information faxed to Iris mcdowell/ [facility]. Addendum entered by Rebeca Dimas 12/17/24 10:53: Per Iris mcdowell/ [facility] precert will be started today. Precert was not started last week. Addendum entered by Bridgette Proctor RN 12/14/24 12:44: [facility] is starting an authorization for Tuesday. He will require private room due to COVID status. He is having EGD on Tuesday Original Note: I spoke w/ patient's regarding plans once medically stable for discharge. PT evaluated patient and recommended SNF level of care. stated patient will need placement at time of discharge but they do not want to return to [facility]. is interested in [facility] or [facility]. I will fax information to both facilities and follow up. Discharge date is unknown at this time.
--- NOTE | 2024-12-13 13:16 | EXP.MED.FU ---
Subjective *Date: 12/13/24 *Time: 15:31 Interval history: Patient found to be COVID-positive. E. coli in urine gram-negative rods and respiratory culture. No family at bedside. He is intermittently with it and confused technically A&O x 3 but intermittently gets off track during speaking. Paracentesis yesterday only able to withdraw 600 mL. Awaiting results of ascitic fluid. Patient became hypotensive overnight. Currently receiving a unit of packed red cells, on albumin twice daily and octreotide 3 times daily with Protonix twice daily. Exam Data for Last 24 hours Vital signs and Labs for Last 24 Hours: Temp Pulse Resp BP Pulse Ox O2 Del Method O2 Flow Rate 98 F 108 H 17 114/79 96 Room Air 2 12/13/24 12:20 12/13/24 12:20 12/13/24 12:20 12/13/24 12:20 12/13/24 12:20 12/13/24 13:00 12/13/24 06:40 FiO2 25 12/12/24 03:01 Laboratory Results - last 24 hr 12/11/24 10:06: Blood Type O Negative, Antibody Screen Negative, Crossmatch (AHG) See Detail 12/12/24 13:29: Chlamy pneumoniae PCR Not detected, Adenovirus (PCR) Not detected, B. pertussis DNA (PCR) Not detected, Coronavirus OC43 (PCR) Not detected, Coronavirus HKU1 (PCR) Not detected, Coronavirus 229E (PCR) Not detected, SARS-CoV-2 (PCR) Detected A, Coronavirus NL63 (PCR) Not detected, Human Metapneumovir PCR Not detected, Influenza A (H1) PCR Not detected, Influ A (H1N1/09) PCR Not detected, Influenza A (H3) PCR Not detected, Influenza Type A (PCR) Not detected, Influenza Type B (PCR) Not detected, M. pneumoniae (PCR) Not detected, Parainfluenza 1 (PCR) Not detected, Parainfluenza 2 (PCR) Not detected, Parainfluenza 3 (PCR) Not detected, Parainfluenza 4 (PCR) Not detected, RSV (PCR) Not detected, Entero/Rhino (PCR) Not detected 12/12/24 14:00: Fluid Source Peritoneal fluid, Fluid Volume 70, Fluid Appearance Normal, Fluid RBC (Auto) < 2000, Fld Tot Nucleated Cell 130, Fld Polynuclear WBCs % 0, Fld Mononuclear WBCs % 100 12/13/24 04:46: WBC 3.5 L, RBC 2.99 L, Hgb 8.1 L, Hct 24.2 L, MCV 80.9, MCH 27.1, MCHC 33.5, RDW 17.4, Plt Count 166, MPV 9.9, Neut % (Auto) 56.5, Lymph % (Auto) 23.6, [place] % (Auto) 14.2 H, Eos % (Auto) 4.8, Baso % (Auto) 0.6, Neut # (Auto) 2.0, Lymph # (Auto) 0.8, [place] # (Auto) 0.5, Eos # (Auto) 0.2, Baso # (Auto) 0.0, Sodium 125 L, Potassium 3.4 L, Chloride 87 L, Carbon Dioxide 32 H, Anion Gap 9.4, BUN 34 H, Creatinine 1.40 H, Estimated Creat Clear 47, Estimated GFR 49 L, Est GFR ( Amer) 59, Glucose 185 H D, Calcium 7.9 L, Magnesium 2.1 D, Total Bilirubin 0.6, AST 36, ALT 15, Alkaline Phosphatase 91, Total Protein 5.3 L, Albumin 2.6 L D, Globulin 2.7, Albumin/Globulin Ratio 1.0 L, TSH 4.26 I & O for Last 24 hours: Intake & Output 12/11/24 12/12/24 12/13/24 12/14/24 11:59 11:59 11:59 11:59 Intake Total 421.69 1609.776 Output Total 500 1010 Balance -78.31 599.776 Weight 99.79 kg 75.75 kg 77.428 kg Microbiology Reports for the Last 24 Hours: Microbiology 12/12/24 11:40 Sputum - Expectorated Sputum Gram Stain - Final 12/12/24 11:40 Sputum - Expectorated Sputum Sputum Culture - Preliminary Gram Negative Rods 12/11/24 09:27 Blood Blood Culture - Preliminary NO GROWTH AFTER 48 HOURS 12/11/24 09:27 Blood Blood Culture - Preliminary NO GROWTH AFTER 48 HOURS 12/11/24 09:27 Urine,Catheterized Urine Culture - Final Escherichia coli 12/12/24 14:00 Ascites Fluid Gram Stain - Final Constitutional Constitutional: no acute distress and cooperative *Routine HEENT Exam Head: Present normocephalic and atraumatic *Routine Respiratory Exam Respiratory: Present rhonchi (Mild lower bilateral) and able to speak in complete sentences *Routine Cardiovascular Exam Cardiovascular: Present tachycardia *Routine Abdominal Exam Abdominal: Present soft and distended (ascites on dependent side) *Routine Neurological Exam Neurological: Present alert and oriented X3 Comments: Intermittent confused speech or hard to keep on track of conversation. Assessment and Plan *Assessment and plan (1) Cirrhosis: Status: Acute Category: Medical Code(s): K74.60 - Unspecified cirrhosis of liver (2) Acute on chronic anemia: Status: Acute Category: Medical Code(s): D64.9 - Anemia, unspecified (3) Portal hypertension: Status: Acute Category: Medical Code(s): K76.6 - Portal hypertension (4) Gastric varices without bleeding: Status: Acute Category: Medical Code(s): I86.4 - Gastric varices (5) Ascites: Status: Acute Qualifiers: Ascites type: due to alcoholic cirrhosis Qualified Code(s): K70.31 - Alcoholic cirrhosis of liver with ascites Category: Medical Code(s): R18.8 - Other ascites Plan 1. Alcoholic cirrhosis/portal hypertension/ascites Long history of daily alcohol consumption likely since teenage years. Was drinking 2 or 3 drinks a day up until June. He has been alcohol free since June. Ascites and portal hypertension noted on imaging during hospitalization in June, volume of ascites significantly worse currently. He is on carvedilol and Bumex at home. Given his hypotension, cardiology has decreased his Bumex and added low-dose Aldactone. Given the extensive abdominal distention and significant worsening of abdominal ascites, unfortunately, paracentesis was only able to remove 600 mL. Patient became unstable afterwards and hypotensive. Patient has been on ceftriaxone, awaiting ascitic fluid evaluation. Patient struggled with hepatic encephalopathy and elevated ammonia levels during hospitalization in June. Was previously on Xifaxan twice a day but not sustainable as they are cost was over $500 a month. He was on lactulose twice a day at home having 3 or 4 bowel movements per day and developed worsening altered mental status 2 days ago. Ammonia level normal. He has been off narcotic pain medicine for a week as well. I am not convinced that this is hepatic encephalopathy, possibly related to acute infectious process (UTI, COVID, new onset congestive heart failure, etc.), has had improvement since hospitalization although he has not at baseline. Mentation is going up and down today. Continue lactulose twice a day. 3. Anemia Patient has some chronic anemia, worsened with a hemoglobin of 6.8. Has been on p.o. iron replacement. Has completed screening EGD with Keith in July. No esophageal varices but he did have some gastric varices. Hemoccult was positive. Looking back over previous visits through the hospital, his hemoglobin dropped to 6.3 in November hospitalization requiring PRBC infusion. I agree with the Protonix twice daily and the octreotide 3 times daily. Patient also on ceftriaxone. After discussion with Dr. Parker, patient will likely need a repeat endoscopy but he is too unstable at this point.
[2024-12-13] MEDS: METOPROLOL SUCCINATE XL 25MG TABLET 12.5 MG PO (13:22)
--- NOTE | 2024-12-13 14:35 | P.PN_ITS ---
Subjective *Date: 12/13/24 *Time: 14:35 Interval history: No acute respiratory vents overnight. Pulmonology Exam Inpatient Vital signs and Labs for Last 24 Hours: Temp Pulse Resp BP Pulse Ox O2 Del Method O2 Flow Rate 98.2 F 103 H 20 113/80 96 Room Air 2 12/13/24 13:40 12/13/24 13:40 12/13/24 13:40 12/13/24 13:40 12/13/24 13:40 12/13/24 13:00 12/13/24 06:40 FiO2 25 12/12/24 03:01 Laboratory Results - last 24 hr 12/11/24 10:06: Blood Type O Negative, Antibody Screen Negative, Crossmatch (AHG) See Detail 12/12/24 13:29: Chlamy pneumoniae PCR Not detected, Adenovirus (PCR) Not detected, B. pertussis DNA (PCR) Not detected, Coronavirus OC43 (PCR) Not detected, Coronavirus HKU1 (PCR) Not detected, Coronavirus 229E (PCR) Not detected, SARS-CoV-2 (PCR) Detected A, Coronavirus NL63 (PCR) Not detected, Human Metapneumovir PCR Not detected, Influenza A (H1) PCR Not detected, Influ A (H1N1/09) PCR Not detected, Influenza A (H3) PCR Not detected, Influenza Type A (PCR) Not detected, Influenza Type B (PCR) Not detected, M. pneumoniae (PCR) Not detected, Parainfluenza 1 (PCR) Not detected, Parainfluenza 2 (PCR) Not detected, Parainfluenza 3 (PCR) Not detected, Parainfluenza 4 (PCR) Not detected, RSV (PCR) Not detected, Entero/Rhino (PCR) Not detected 12/12/24 14:00: Fluid Source Peritoneal fluid, Fluid Volume 70, Fluid Appearance Normal, Fluid RBC (Auto) < 2000, Fld Tot Nucleated Cell 130, Fld Polynuclear WBCs % 0, Fld Mononuclear WBCs % 100 12/13/24 04:46: WBC 3.5 L, RBC 2.99 L, Hgb 8.1 L, Hct 24.2 L, MCV 80.9, MCH 27.1, MCHC 33.5, RDW 17.4, Plt Count 166, MPV 9.9, Neut % (Auto) 56.5, Lymph % (Auto) 23.6, [place] % (Auto) 14.2 H, Eos % (Auto) 4.8, Baso % (Auto) 0.6, Neut # (Auto) 2.0, Lymph # (Auto) 0.8, [place] # (Auto) 0.5, Eos # (Auto) 0.2, Baso # (Auto) 0.0, Sodium 125 L, Potassium 3.4 L, Chloride 87 L, Carbon Dioxide 32 H, Anion Gap 9.4, BUN 34 H, Creatinine 1.40 H, Estimated Creat Clear 47, Estimated GFR 49 L, Est GFR ( Amer) 59, Glucose 185 H D, Calcium 7.9 L, Magnesium 2.1 D, Total Bilirubin 0.6, AST 36, ALT 15, Alkaline Phosphatase 91, Total Protein 5.3 L, Albumin 2.6 L D, Globulin 2.7, Albumin/Globulin Ratio 1.0 L, TSH 4.26 Temp Pulse Resp BP Pulse Ox O2 Del Method O2 Flow Rate 99.4 F 68 20 91/47 L 92 L Room Air 2 12/12/24 04:00 12/12/24 08:31 12/12/24 08:31 12/12/24 08:31 12/12/24 08:31 12/12/24 09:00 12/11/24 18:35 FiO2 25 12/12/24 03:01 Laboratory Results - last 24 hr 12/11/24 09:18: PT 13.5 H, INR 1.24 H, APTT 31.0 H, Magnesium 1.4 L, Troponin I 0.10 H, C-Reactive Protein 120.6 H, NT-Pro-B Natriuret Pep 49897 H, Procalcitonin 0.238, TSH 3.71, Thyroxine (T4) 10.6, Plasma/Serum Alcohol < 10 12/11/24 09:27: WBC 4.0 L, RBC 2.49 L, Hgb 6.8 L*, Hct 20.2 L*, MCV 81.1, MCH 27.3, MCHC 33.7, RDW 16.7, Plt Count 171, MPV 9.6, Neut % (Auto) 52.8, Lymph % (Auto) 19.3, [place] % (Auto) 26.5 H, Eos % (Auto) 0.7, Baso % (Auto) 0.5, Neut # (Auto) 2.1, Lymph # (Auto) 0.8, [place] # (Auto) 1.1 H, Eos # (Auto) 0.0, Baso # (Auto) 0.0, Sodium 127 L, Potassium 3.2 L, Chloride 88 L, Carbon Dioxide 36 H, Anion Gap 6.2, BUN 28 H, Creatinine 1.30 H, Estimated Creat Clear 65, Estimated GFR 53 L, Est GFR ( Amer) 64, Glucose 128 H, Calcium 8.5, Total Bilirubin 1.4 H, AST 37, ALT 17, Alkaline Phosphatase 112, Total Protein 6.0 L, Albumin 3.1 L, Globulin 2.9, Albumin/Globulin Ratio 1.1, Urine Color Yellow, Urine Appearance Cloudy, Urine pH 6.0, Ur Specific [place] 1.015, Urine Protein 1+ A, Urine Glucose (UA) Negative, Urine Ketones Negative, Urine Blood Trace-i, Urine Nitrate Negative, Urine Bilirubin Negative, Urine Urobilinogen 0.2, Ur Leukocyte Esterase 2+ A, Urine RBC None, Urine WBC 3-5, Ur Squamous Epith Cells Occasional, Urine Bacteria 3+, Urine Opiates Screen Negative, Urine Methadone Screen Negative, Ur Barbituates Screen Negative, Ur Phencyclidine Scrn Negative, Ur Amphetamines Screen Negative, U Benzodiazepines Scrn Negative, Urine Cocaine Screen Negative, U Marijuana (THC) Screen Negative 12/11/24 09:41: VBG pH 7.42 H, VBG pCO2 51.1 H, VBG pO2 102.4 H, VBG HCO3 32.7 H , VBG Total CO2 34.3 H, VBG O2 Saturation 97.2 H, VBG Base Excess 8.3 H, VBG Lactic Acid 2.2 H 12/11/24 10:06: Ammonia 13, Blood Type O Negative, Antibody Screen Negative, Crossmatch (AHG) See Detail 12/11/24 12:55: Troponin I 0.11 H 12/11/24 14:07: Lactate 1.1 12/11/24 15:34: Troponin I 0.11 H 12/11/24 16:08: Hgb 8.3 L D, Hct 24.4 L 12/12/24 04:51: WBC 3.9 L, RBC 2.93 L, Hgb 7.7 L, Hct 23.8 L, MCV 81.2, MCH 26.3 L, MCHC 32.4, RDW 17.5, Plt Count 175, MPV 10.3, Neut % (Auto) 66.1, Lymph % (Auto) 17.6, [place] % (Auto) 14.8 H, Eos % (Auto) 0.5, Baso % (Auto) 0.5, Neut # (Auto) 2.6, Lymph # (Auto) 0.7, [place] # (Auto) 0.6, Eos # (Auto) 0.0, Baso # (Auto) 0.0, Sodium 130 L, Potassium 3.5, Chloride 89 L, Carbon Dioxide 33 H, Anion Gap 11.5, BUN 32 H, Creatinine 1.30 H, Estimated Creat Clear 49, Estimated GFR 53 L, Est GFR ( Amer) 64, Glucose 87 D, Calcium 8.6, Magnesium 2.5 H D, Total Bilirubin 1.1, AST 41, ALT 18, Alkaline Phosphatase 103, Total Protein 6.2 L, Albumin 3.2 L, Globulin 3.0, Albumin/Globulin Ratio 1.1 I & O for Labs for Last 24 Hours: Intake & Output 12/10/24 12/11/24 12/12/24 12/13/24 23:59 23:59 23:59 23:59 Intake Total 171.69 / 421.69 1011.783 / 3456.315 9977.145 / 1376.145 Output Total 0 / 200 1510 / 1510 Balance 171.69 / 221.69 -498.217 / -658.119 5675.145 / 1376.145 Weight 167 lb 167 lb 0.002 oz 170 lb 11.2 oz Intake & Output 12/09/24 12/10/24 12/11/24 12/12/24 23:59 23:59 23:59 23:59 Intake Total 171.69 / 421.69 250 / 250 Output Total 0 / 200 500 / 500 Balance 171.69 / 221.69 -250 / -250 Weight 167 lb 167 lb 0.002 oz Microbiology Reports for the Last 24 Hours: Microbiology 12/12/24 11:40 Sputum - Expectorated Sputum Gram Stain - Final 12/12/24 11:40 Sputum - Expectorated Sputum Sputum Culture - Preliminary Gram Negative Rods 12/11/24 09:27 Blood Blood Culture - Preliminary NO GROWTH AFTER 48 HOURS 12/11/24 09:27 Blood Blood Culture - Preliminary NO GROWTH AFTER 48 HOURS 12/11/24 09:27 Urine,Catheterized Urine Culture - Final Escherichia coli 12/12/24 14:00 Ascites Fluid Gram Stain - Final Microbiology 12/11/24 09:27 Urine,Catheterized Urine Culture - Preliminary Gram Negative Rods Constitutional: Present moderate distress Head: Present normocephalic and atraumatic ENT: Present normal exam, normal oropharynx and mucous membranes moist Neck: Present normal inspection and full ROM Respiratory: Present respiratory distress, diminished air movement and able to speak in complete sentences; Absent wheezes or crackles Cardiac: Present S1/S2, Tachycardia and radial pulses present GI: Present soft and distention; Absent tenderness or guarding Skin: Present intact; Absent cyanosis or jaundice Neuro: Present awake; Absent alert or oriented x 3 Extremities: Present normal inspection; Absent clubbing or cyanosis Psychiatric: Present normal affect and cooperative Assessment and Plan *Assessment and plan (1) Acute respiratory failure with hypoxia: Status: Acute Category: Medical Code(s): J96.01 - Acute respiratory failure with hypoxia (2) Pleural effusion, bilateral: Status: Acute Category: Medical Code(s): J90 - Pleural effusion, not elsewhere classified Plan Ms. Rogers is a 79-year-old male greater than [id number] smoking last month more than 15 years ago albuterol twice daily, history of alcoholic cirrhosis, gastroesophageal varices, CAD hypothyroidism COPD presented to ER with progressively worsening confusion weakness and pulmonary was called for further evaluation and management. Tmax of 99.4 since admission. Hemodynamically stable. No evidence of leukocytosis. Anemia noted hemoglobin at 6.8 upon admission. Platelet count greater than 170. JEROMY upon admission. Serum ammonia on this admission within normal limits at 13. Elevated troponins CTA upon admission no evidence of pulmonary embolism. No dense consolidative/airspace changes. Bilateral pleural effusions left greater than right with adjacent atelectasis. CT abdomen ascites. Initiate on ceftriaxone, eventually urine culture showed E. coli antibiotics were changed to meropenem. On initial examination bilateral decreased breath sounds. No significant wheezing noted on auscultation with no noted supplementation saturating 89% and improved. Interval update: Respiratory viral PCR positive for COVID-19 pneumonia, initiated remdesivir. Antibiotics changed to meropenem for his UTI. Sputum cultures also showing gram-negative rods. Blood cultures no growth 48 hours. Status post paracentesis 600 cc fluid removal. Awaiting cultures. GI following. Plan: Will hold off on performing thoracentesis at this point of time given clinical stability and patient on room air not needing any oxygen supplementation next Continue remdesivir for COVID-19 pneumonia. Will hold off on initiating dexamethasone at this point of time Initiate Advair 250 daily along with DuoNebs 4 times daily as needed Incentive spirometer
[2024-12-13 14:47] LABS: Hematocrit 26.5 % (42.0-52.0); Hemoglobin 8.7 g/dL (14.1-18.0)
[2024-12-13] MEDS: BUMETANIDE 1MG/4ML VIAL 1 MG IV (16:16)
[2024-12-13] MEDS: FLUTICASONE/SALMETEROL 250/50MCG DISKUS 1 PUFF IH (18:51)
[2024-12-13 19:32] LABS: Albumin, Body Fluid 1.3 g/dL (Not Estab.); LD, Body Fluid 106 IU/L (.)
[2024-12-13] MEDS: SODIUM CHLORIDE 0.9% 10ML VIAL 10 ML IV (20:19)
[2024-12-13] MEDS: ATORVASTATIN 40MG TABLET 40 MG PO (20:20)
--- NOTE | 2024-12-13 21:54 | P.PN_ITS ---
Subjective *Date: 12/13/24 *Time: 21:54 Exam Data for Last 24 hours Vital signs and Labs for Last 24 Hours: Temp Pulse Resp BP Pulse Ox O2 Del Method O2 Flow Rate 97.9 F 64 16 100/55 L 98 Room Air 2 12/13/24 20:00 12/13/24 21:00 12/13/24 21:00 12/13/24 21:00 12/13/24 21:00 12/13/24 21:00 12/13/24 06:40 FiO2 12/12/24 03:01 Laboratory Results - last 24 hr 12/11/24 10:06: Blood Type O Negative, Antibody Screen Negative, Crossmatch (AHG) See Detail 12/12/24 14:00: Fluid Albumin 1.3, Fluid LDH 106 12/13/24 04:46: WBC 3.5 L, RBC 2.99 L, Hgb 8.1 L, Hct 24.2 L, MCV 80.9, MCH 27.1, MCHC 33.5, RDW 17.4, Plt Count 166, MPV 9.9, Neut % (Auto) 56.5, Lymph % (Auto) 23.6, [place] % (Auto) 14.2 H, Eos % (Auto) 4.8, Baso % (Auto) 0.6, Neut # (Auto) 2.0, Lymph # (Auto) 0.8, [place] # (Auto) 0.5, Eos # (Auto) 0.2, Baso # (Auto) 0.0, Sodium 125 L, Potassium 3.4 L, Chloride 87 L, Carbon Dioxide 32 H, Anion Gap 9.4, BUN 34 H, Creatinine 1.40 H, Estimated Creat Clear 47, Estimated GFR 49 L, Est GFR ( Amer) 59, Glucose 185 H D, Calcium 7.9 L, Magnesium 2.1 D, Total Bilirubin 0.6, AST 36, ALT 15, Alkaline Phosphatase 91, Total Protein 5.3 L, Albumin 2.6 L D, Globulin 2.7, Albumin/Globulin Ratio 1.0 L, TSH 4.26 12/13/24 14:40: Hgb 8.7 L, Hct 26.5 L I & O for Last 24 hours: Intake & Output 12/10/24 12/11/24 12/12/24 12/13/24 23:59 23:59 23:59 23:59 Intake Total 171.69 / 421.69 1011.783 / 1491.081 7594.145 / 2336.145 Output Total 0 / 200 1510 / 1510 650 / 650 Balance 171.69 / 221.69 -498.217 / -638.078 5190.145 / 1686.145 Weight 75.75 kg 75.75 kg 77.428 kg Microbiology Reports for the Last 24 Hours: Microbiology 12/12/24 14:00 Ascites Fluid Gram Stain - Final 12/12/24 14:00 Ascites Fluid Body Fluid Culture - Preliminary NO GROWTH AFTER 24 HOURS 12/12/24 11:40 Sputum - Expectorated Sputum Gram Stain - Final 12/12/24 11:40 Sputum - Expectorated Sputum Sputum Culture - Preliminary Gram Negative Rods 12/11/24 09:27 Blood Blood Culture - Preliminary NO GROWTH AFTER 48 HOURS 12/11/24 09:27 Blood Blood Culture - Preliminary NO GROWTH AFTER 48 HOURS 12/11/24 09:27 Urine,Catheterized Urine Culture - Final Escherichia coli Constitutional Constitutional: no acute distress *Routine HEENT Exam Head: Present normocephalic Eye: Present EOMI and PERRL ENT: Present mucous membranes moist *Routine Neck Exam Neck: Present supple; Absent lymphadenopathy *Routine Respiratory Exam Respiratory: Present CTA bilaterally *Routine Cardiovascular Exam Cardiovascular: Present RRR *Routine Abdominal Exam Abdominal: Present soft, normoactive bowel sounds and distended; Absent tenderness *Routine Extremities Exam Extremities: Absent cyanosis, clubbing or edema *Routine Skin Exam Skin: Present warm; Absent rash *Routine Neurological Exam Neurological: Present alert Assessment and Plan *Assessment and plan (1) Acute UTI: Status: Acute Category: Medical Code(s): N39.0 - Urinary tract infection, site not specified Plan Joshua Rogers is a 79-year-old male with a medical history significant for alcoholic cirrhosis with gastroesophageal varices, CAD, hypothyroidism, COPD who presents with several day onset of progressive confusion, weakness. states he was unable to get out of bed yesterday and called EMS who were able to get him back into bed. This morning it occurred again patient called EMS again who brought him to the ED. states patient becomes like this at any time he has a UTI. She also states he has been more confused, speaking out of his head . Patient has not endorsed chest pain, shortness of breath, abdominal pain, dark/bloody stools to . Has been adherent to his medications other than lactulose this morning. Workup in the ED significant for hemoglobin 6.3, MCV 81, creatinine 1.3, magnesium 1.4, troponin 0.11, BNP 19,100, UA grossly abnormal. Patient was encephalopathic, somnolent on my exam. VBG pH normal. Upper airway wheezing. CTA chest revealed moderate bilateral pleural effusions, does have right lower extremity pitting edema but did have a right hip fracture earlier this month. Case discussed with ED provider and decision was made to admit patient for acute metabolic encephalopathy from UTI, NSTEMI, acute on chronic anemia, HFpEF exacerbation. #Acute hypoxic respiratory failure #HFpEF exacerbation versus decompensated cirrhosis #Ascites #Bilateral pleural effusions #Possible hepatorenal syndrome ? Moderate bilateral pleural effusions on CTA chest, BNP 19,100. ? ECHO July 2024 shows normal biventricular systolic function. ? Right lower extremity pitting edema in the setting of right hip fracture s/p hemiarthroplasty in November 2024. ? Given moderate pleural effusions, started Bumex diuresis. Patient became hypotensive last night, will reduce BUmex dose to 1mg daily. ? Continue IV Bumex 1 mg daily. Spironolactone 25 mg. ? Continue home lactulose. Peritoneal fluid did not indicate SBP. - Dr. Bell from ED graciously performed therapeutic paracentesis on 12/12/2024 with about 600 mL of urine output from the peritoneal pocket. Further drainage was not obtained due to difficult pocket. Patient became slightly hypotensive after procedure, improved with albumin and Levophed. ? Continue octreotide 100 mg 3 times daily SQ, albumin 12.5mg BID due to soft pressures in the setting of cirrhosis. Creatinine bumped to 1.4, baseline 1.0. As such, hepatorenal syndrome may be at play. ? ECHO reveals normal biventricular systolic function, mildly reduced RV function. #Acute metabolic encephalopathy #Septic shock # ESBL UTI #COVID-19 #Left mastoiditis ? Progressive weakness, confusion over the past several days prior to admission. states this becomes an when he has a UTI. ? Presented with leukopenia, tachypnea on admission. ? CT head without acute findings other than left mastoiditis. ? UA grossly abnormal, urine culture showing E. coli ESBL sensitive to ertapenem. Weaned off Levophed 01/02. ? Respiratory panel positive for COVID-19. Started remdesivir. Given no pneumonia or COPD exacerbation, will hold off on further dexamethasone per pulmonology recommendations. ? Started IV ertapenem day 1, discontinue ceftriaxone. Mentation improving. ? Blood cultures NGTD. #A-fib RVR ? Patient developed A-fib RVR overnight, was initially started on amiodarone with improvement in heart rate. However, unable to anticoagulate due to GI bleed. Therefore, cardioversion to NSR is not preferable at this time. ? Cardiology switched amiodarone to metoprolol succinate 12.5 mg. Currently rate controlled. #Acute on chronic anemia #History of gastroesophageal varices ? Hemoglobin 6.3 on admission. MCV 81. History of gastroesophageal varices. Denies dark, bloody stools. ? Transfused 2 units with improvement to 8.7. Positive FOBT. ? GI consulted, tentatively planning EGD as FOBT potitive with downtrending hemoglobin stable at this time. will consider Tuesday. ? IV Protonix 40 mg twice daily. Hold home Coreg due to soft pressures. #COPD ? Currently stable. DuoNebs every 6 hours. #Severe protein calorie malnutrition ? Nutrition consulted, providing counseling and supplementation. #History of right subcapital hip fracture s/p hemiarthroplasty 11/21/2024 ? Continue pain management as needed. #CAD ? Hold home aspirin due to possible GI bleed. #Hypothyroidism ? Continue home levothyroxine 75 mcg. TFTs stable. Full code DVT prophylaxis: Hold AC due to possible GI bleed.
[2024-12-14] VITALS (27 sets, daily range): BP systolic 116–151; BP diastolic 61–92; PULSE 61–80; RESP 12–22; TEMP 36.4–36.8; O2SAT 92–100; BMI 26.1; BMI 25.8
[2024-12-14] MEDS: IPRATROPIUM/ALBUTEROL 3 ML NEB IH ×2 (02:41→16:57)
[2024-12-14 06:05] LABS: Albumin Level 3.2 g/dl (3.5-5.0); Chloride 88 mmol/L (98-107); Sodium 124 mmol/L (136-145)
[2024-12-14 06:06] LABS: Potassium 3.8 mmoL/L (3.5-5.1)
[2024-12-14 06:08] LABS: Alanine Aminotransferase 16 U/L (12-78); Albumin/Globulin Ratio 1.1 (1.1-1.8); Alkaline Phosphatase 97 U/L (38-126); Anion Gap 7.8 mEq/L (5-15); Aspartate Amino Transferase 38 U/L (17-59); Bilirubin,Total 0.6 mg/dl (0.2-1.3); Blood Urea Nitrogen 33 mg/dl (9-20); Carbon Dioxide 32 mmol/L (22.0-30.0); Creatinine Clearance Estimated 47 mL/min (50-200); Estimated Glomerular Filt Rate 49 ml/min (>60); GFR (African American) 59 ML/MIN (>60); Globulin 2.9 g/dL (1.3-3.2); Glucose 166 mg/dl (74-100); Total Protein,Serum 6.1 g/dl (6.3-8.2)
[2024-12-14 06:09] LABS: Magnesium 2.1 mg/dl (1.6-2.3)
[2024-12-14] MEDS: FLUTICASONE/SALMETEROL 250/50MCG DISKUS 1 PUFF IH ×2 (06:13→18:51)
[2024-12-14 06:16] LABS: Hematocrit 24.7 % (42.0-52.0); Hemoglobin 8.2 g/dL (14.1-18.0); Immature Granulocytes # 0.01 10^3uL; Immature Granulocytes % 0.4 %; Lymphocytes # 0.3 K/mm3 (0.7-4.5); Lymphocytes % 12.6 % (10-50); Mean Corpuscular HGB Conc 33.2 g/dL (31.8-35.4); Mean Corpuscular Hemoglobin 26.7 pg (27.0-31.2); Mean Corpuscular Volume 80.5 fl (80-94); Mean Platelet Volume 10.1 fl (7.4-10.4); Monocytes # 0.3 K/mm3 (0.1-1.0); Monocytes % 9.9 % (1.7-9.3); Neutrophils % 77.1 % (37.0-80.0); Nucleated Red Blood Cells # 0 10^3/uL; Nucleated Red Blood Cells % 0 %; Platelet Count 142 K/mm3 (142-424); Red Blood Count 3.07 M/mm3 (4.60-6.20); Red Cell Distribution Width 17.2 % (11.5-17.5); Red Cell Distribution Width-SD 50.2 fL; White Blood Count 2.6 K/mm3 (4.8-10.8)
[2024-12-14 06:27] LABS: MANUAL DIFFERENTIAL MANUAL DIFFERENTIAL (MANUAL DIFF)
[2024-12-14] MEDS: LEVOTHYROXINE 75MCG (0.075MG) TAB 75 MCG PO (06:33)
--- NOTE | 2024-12-14 06:44 | PC.NURSE ---
Pt alert to self at this time. He keeps talking about going fishing and that he has slept all night. pt didnt sleep at all last night. Pt put his false teeth in by himself just needed help with putting fixodent on them. Pt right leg is still swollen all the way to the foot 2+ pitting edema. Pt has a purwick and brief on. Pt has had 3 bowel movements during the shift. Pt has course crackles throughout his lungs, has audible wheezing and expiratory wheezing. pt did receive a duo neb treatment during the night. Pt is still on room air. Pt is nsr on the monitor at this time with rate of 68. Lab work shows pt wbc is 2.6, H/H is 8.2/24.7.
[2024-12-14 07:49] LABS: Lymphocytes % 17 % (10-50); Monocytes % 6 % (2-9); Neutrophils % 77 % (42-76); Total Cells Counted 100
[2024-12-14 07:51] LABS: Platelet Estimate Normal; RBC Morphology Normal
[2024-12-14] MEDS: LACTULOSE 20GM/30ML UDC 10 GM PO ×2 (08:33→20:45)
[2024-12-14] MEDS: METOPROLOL SUCCINATE XL 25MG TABLET 12.5 MG PO (08:34)
[2024-12-14] MEDS: BUMETANIDE 1MG/4ML VIAL 2 MG IV (08:34)
[2024-12-14] MEDS: PANTOPRAZOLE 40MG VIAL 40 MG IV (08:35)
[2024-12-14] MEDS: SPIRONOLACTONE 25MG TABLET 25 MG PO (08:35)
[2024-12-14] MEDS: SODIUM CHLORIDE 0.9% 10ML VIAL 10 ML IV (08:35)
--- NOTE | 2024-12-14 08:53 | EXP.CARD.PN ---
Subjective Subjective Date: 12/14/24 Time: 08:00 Principal diagnosis: Acute metabolic encephalopathy from UTI, NSTEMI, acute on chronic anemia, Interval history: Patient is sitting up in bed this morning eating. He is maintaining an oxygen saturation of 92% on 2 L. Blood pressure 140/81 heart rate 66. Morning labs reviewed. Exam Data for Last 24 hours Vital signs and Labs for Last 24 Hours: Temp Pulse Resp BP Pulse Ox O2 Del Method O2 Flow Rate 97.9 F 66 20 140/81 92 L Room Air 2 12/14/24 08:02 12/14/24 08:02 12/14/24 08:02 12/14/24 08:02 12/14/24 08:02 12/14/24 08:02 12/13/24 06:40 FiO2 25 12/12/24 03:01 Laboratory Results - last 24 hr 12/11/24 10:06: Blood Type O Negative, Antibody Screen Negative, Crossmatch (AHG) See Detail 12/12/24 14:00: Fluid Albumin 1.3, Fluid LDH 106 12/13/24 14:40: Hgb 8.7 L, Hct 26.5 L 12/14/24 05:02: WBC 2.6 L D, RBC 3.07 L, Hgb 8.2 L, Hct 24.7 L, MCV 80.5, MCH 26.7 L, MCHC 33.2, RDW 17.2, Plt Count 142, MPV 10.1, Neut % (Auto) 77.1, Lymph % (Auto) 12.6, [place] % (Auto) 9.9 H, Eos % (Auto) 0.0 L, Baso % (Auto) 0.0 L, Neut # (Auto) 2.0, Lymph # (Auto) 0.3 L, [place] # (Auto) 0.3, Eos # (Auto) 0.0, Baso # (Auto) 0.0, Total Counted 100, Neutrophils % (Manual) 77 H, Lymphocytes % (Manual) 17, Monocytes % (Manual) 6, Platelet Estimate Normal, RBC Morphology Normal, Sodium 124 L, Potassium 3.8, Chloride 88 L, Carbon Dioxide 32 H, Anion Gap 7.8, BUN 33 H, Creatinine 1.40 H, Estimated Creat Clear 47, Estimated GFR 49 L, Est GFR ( Amer) 59, Glucose 166 H, Calcium 8.0 L, Magnesium 2.1, Total Bilirubin 0.6, AST 38, ALT 16, Alkaline Phosphatase 97, Total Protein 6.1 L, Albumin 3.2 L D, Globulin 2.9, Albumin/Globulin Ratio 1.1 I & O for Last 24 hours: Intake & Output 12/11/24 12/12/24 12/13/24 12/14/24 23:59 23:59 23:59 23:59 Intake Total 171.69 / 421.69 1011.783 / 2079.705 9502.145 / 2336.145 Output Total 0 / 200 1510 / 1510 1000 / 1000 200 / 200 Balance 171.69 / 221.69 -498.217 / -675.499 3366.145 / 1336.145 -200 / -200 Weight 167 lb 167 lb 0.002 oz 170 lb 11.2 oz 172 lb 6.424 oz Microbiology Reports for the Last 24 Hours: Microbiology 12/12/24 14:00 Ascites Fluid Gram Stain - Final 12/12/24 14:00 Ascites Fluid Body Fluid Culture - Preliminary NO GROWTH AFTER 24 HOURS 12/12/24 11:40 Sputum - Expectorated Sputum Gram Stain - Final 12/12/24 11:40 Sputum - Expectorated Sputum Sputum Culture - Preliminary Gram Negative Rods 12/11/24 09:27 Blood Blood Culture - Preliminary NO GROWTH AFTER 48 HOURS 12/11/24 09:27 Blood Blood Culture - Preliminary NO GROWTH AFTER 48 HOURS 12/11/24 09:27 Urine,Catheterized Urine Culture - Final Escherichia coli Constitutional Constitutional: no acute distress *Routine Respiratory Exam Respiratory: Present rhonchi and wheezes *Routine Cardiovascular Exam Cardiovascular: Present Normal S1, Normal S2, irregular rhythm and irregularly irregular *Routine Extremities Exam Extremities: Present edema Comments: edema to right lower extremity Progress Note: A&P Assessment and plan (1) Acute UTI: Status: Acute Assessment and Plan Assessment and Plan for All Diagnoses:: Hx of CAD noted on Chest CT Normal Myoview 09/2024 Acute myocardial injury Patient denies chest pain Trop 0.10-0.11 in the setting of acute illness and anemia EKG without new acute ischemic changes Echo shows normal EF, moderate RV dilation with mild reduction in RV function, mild TR, AI Recommend outpatient stress testing Continue statin History of HFpEF Stable moderate bilateral pleural effusions Ascites in the setting of cirrhosis Normal EF with mild reduction in RV function Increase Bumex to 2 mg IV daily as blood pressure has improved Continue Aldactone 25 mg p.o. daily No Farxiga at this time due to UTI. s/p paracentesis 12/12, 600mls removed. cultures pending New Onset Afib RVR, Chadsvasc score > 2 Converted to normal sinus rhythm with beta-nolan Currently rate controlled Continue Toprol 12.5 mg p.o. daily Will hold anticoagulation until cleared by GI Acute metabolic encephalopathy Sepsis UTI Left mastoiditis Covid 19 positive Defer to antibiotics management to primary service. Acute on chronic anemia History of gastroesophageal varices Concern for possible GI bleed Stool positive for occult blood Hemoglobin 6.3 on admission, 8.2 after transfusion On octreotide and Protonix GI consulted and following CV summary 12/14/2024: Patient's blood pressure has improved, will increase Bumex to 2 mg IV daily and continue Aldactone 25 mg daily. Patient is in normal sinus rhythm this morning after the initiation of Toprol 12.5 mg p.o. daily. Will continue medications. Will hold on starting anticoagulation for A-fib until cleared by GI. Cardiac meds: Atorvastatin 40 mg p.o. daily Toprol 12.5 mg p.o. daily Aldactone 25 mg p.o. daily Bumex 2 mg IV daily
[2024-12-14] MEDS: REMDESIVIR 100 MG in 0.9 % SODIUM CHLORIDE 100 ML IV (09:01)
--- NOTE | 2024-12-14 09:23 | HMH.OTEV ---
OT Inpatient Evaluation Rehab OT IP Evaluation Start: 12/13/24 12:54 Freq: ONCE Status: Active Protocol: Document 12/14/24 09:19 [facility] (Rec: 12/14/24 09:23 [facility] [id number]) Rehab OT IP Assessment Subjective History Per H&P: Joshua Rogers is a 79-year-old male with a medical history significant for alcoholic cirrhosis with gastroesophageal varices, CAD, hypothyroidism, COPD who presents with several day onset of progressive confusion, weakness. states he was unable to get out of bed yesterday and called EMS who were able to get him back into bed. This morning it occurred again patient called EMS again who brought him to the ED. states patient becomes like this at any time he has a UTI. She also states he has been more confused, speaking out of his head . Patient has not endorsed chest pain, shortness of breath, abdominal pain, dark/ bloody stools to . Has been adherent to his medications other than lactulose this morning. Workup in the ED significant for hemoglobin 6.3, MCV 81, creatinine 1.3, magnesium 1.4, troponin 0.11, BNP 19, 100, UA grossly abnormal. Patient was encephalopathic, somnolent on my exam. VBG pH normal. Upper airway wheezing. CTA chest revealed moderate bilateral pleural effusions, does have right lower extremity pitting edema but did have a right hip fracture earlier this month. Case discussed with ED provider and decision was made to admit patient for acute metabolic encephalopathy from UTI, NSTEMI, acute on chronic anemia, HFpEF exacerbation. Subjective Pt lives with his . Pt reports he is usually IND with transfers using a RW. Pt's assists with IADLS, pt claims he is normally independent with ADLs Pt is [facility]. Objective Patient Orientation Person Right Upper WFL Extremity Gross ROM Left Upper Extremity WFL Gross ROM Bed Mobility bed mobility-scooting,bed mobility - supine/sit Assist Level Minimal x 1 (25% assist) Transfer Training Sit/Stand/Step Transfer Assist Level Minimal x 1 (25% assist) Lower Body Dressing Maximum Assistance Ability Rehab OT IP prob,goals,plan Problems Date of Evaluation: 12/14/24 OT IP Problems Bed Mobility,Transfers,Balance,Self care,Safety Rehab Potential Rehab Potential Good Equipment Needs Assistive Devices Rolling / Wheeled Walker Plan OT intervention Plan Bed Mobility,Transfers,Balance,Self care,Safety, Therapeutic Exercise OT Plan Frequency Daily Duration LOS Discharge Goals Bed Mobility Ability Standby Assistance Sit to Stand Chair Contact Guard/Hand Hold Transfer Ability Chair Transfer Contact Guard/Hand Hold Ability Chair Transfer Sit to/from Ambulatory Technique Chair Transfer Rolling Walker Assistive Devices Lower Body Dressing Moderate Assistance Ability Overall Commode/ Contact Guard Toilet Transfer Ability Commode/Toilet Sit to/from Ambulatory Transfer Technique Discharge Plan OT Discharge Plan Occupational therapy evaluation performed. Patient presents below baseline at this time in functional transfers, ADL independence, and strength. Pt not safe to return home at this time d/t current level of functional independence. OT recommending short-term rehabilitation stay upon d/c from [facility]. Pt would benefit from skilled OT while at [facility] to prevent further functional decline and maximize safety with mobility. Eval Complexity Eval Charge Codes 96058 - Moderate Complexity PHYSICIAN CERTIFICATION: I certify the specified therapy services for Joshua Rogers are required, authorized, and reviewed every 30 days.
--- NOTE | 2024-12-14 09:32 | P.PN_ITS ---
Subjective *Date: 12/14/24 *Time: 13:31 Pulmonology Exam Inpatient Vital signs and Labs for Last 24 Hours: Temp Pulse Resp BP Pulse Ox O2 Del Method O2 Flow Rate 97.9 F 66 20 140/81 92 L Room Air 2 12/14/24 08:02 12/14/24 08:02 12/14/24 08:02 12/14/24 08:02 12/14/24 08:02 12/14/24 08:02 12/13/24 06:40 FiO2 25 12/12/24 03:01 Laboratory Results - last 24 hr 12/11/24 10:06: Blood Type O Negative, Antibody Screen Negative, Crossmatch (AHG) See Detail 12/12/24 14:00: Fluid Albumin 1.3, Fluid LDH 106 12/13/24 14:40: Hgb 8.7 L, Hct 26.5 L 12/14/24 05:02: WBC 2.6 L D, RBC 3.07 L, Hgb 8.2 L, Hct 24.7 L, MCV 80.5, MCH 26.7 L, MCHC 33.2, RDW 17.2, Plt Count 142, MPV 10.1, Neut % (Auto) 77.1, Lymph % (Auto) 12.6, [place] % (Auto) 9.9 H, Eos % (Auto) 0.0 L, Baso % (Auto) 0.0 L, Neut # (Auto) 2.0, Lymph # (Auto) 0.3 L, [place] # (Auto) 0.3, Eos # (Auto) 0.0, Baso # (Auto) 0.0, Total Counted 100, Neutrophils % (Manual) 77 H, Lymphocytes % (Manual) 17, Monocytes % (Manual) 6, Platelet Estimate Normal, RBC Morphology Normal, Sodium 124 L, Potassium 3.8, Chloride 88 L, Carbon Dioxide 32 H, Anion Gap 7.8, BUN 33 H, Creatinine 1.40 H, Estimated Creat Clear 47, Estimated GFR 49 L, Est GFR ( Amer) 59, Glucose 166 H, Calcium 8.0 L, Magnesium 2.1, Total Bilirubin 0.6, AST 38, ALT 16, Alkaline Phosphatase 97, Total Protein 6.1 L, Albumin 3.2 L D, Globulin 2.9, Albumin/Globulin Ratio 1.1 I & O for Labs for Last 24 Hours: Intake & Output 12/11/24 12/12/24 12/13/24 12/14/24 23:59 23:59 23:59 23:59 Intake Total 171.69 / 421.69 1011.783 / 6515.491 5544.145 / 2336.145 120 / 120 Output Total 0 / 200 1510 / 1510 1000 / 1000 200 / 200 Balance 171.69 / 221.69 -498.217 / -742.803 5400.145 / 1336.145 -80 / -80 Weight 167 lb 167 lb 0.002 oz 170 lb 11.2 oz 172 lb 6.424 oz Microbiology Reports for the Last 24 Hours: Microbiology 12/12/24 14:00 Ascites Fluid Gram Stain - Final 12/12/24 14:00 Ascites Fluid Body Fluid Culture - Preliminary NO GROWTH AFTER 24 HOURS 12/12/24 11:40 Sputum - Expectorated Sputum Gram Stain - Final 12/12/24 11:40 Sputum - Expectorated Sputum Sputum Culture - Preliminary Gram Negative Rods 12/11/24 09:27 Blood Blood Culture - Preliminary NO GROWTH AFTER 48 HOURS 12/11/24 09:27 Blood Blood Culture - Preliminary NO GROWTH AFTER 48 HOURS 12/11/24 09:27 Urine,Catheterized Urine Culture - Final Escherichia coli Assessment and Plan *Assessment and plan (1) Acute respiratory failure with hypoxia: Status: Acute Category: Medical Code(s): J96.01 - Acute respiratory failure with hypoxia (2) Pleural effusion, bilateral: Status: Acute Category: Medical Code(s): J90 - Pleural effusion, not elsewhere classified Plan Ms. Rogers is a 79-year-old male greater than [id number] smoking last month more than 15 years ago albuterol twice daily, history of alcoholic cirrhosis, gastroesophageal varices, CAD hypothyroidism COPD presented to ER with progressively worsening confusion weakness and pulmonary was called for further evaluation and management. Tmax of 99.4 since admission. Hemodynamically stable. No evidence of leukocytosis. Anemia noted hemoglobin at 6.8 upon admission. Platelet count greater than 170. JEROMY upon admission. Serum ammonia on this admission within normal limits at 13. Elevated troponins CTA upon admission no evidence of pulmonary embolism. No dense consolid ative/airspace changes. Bilateral pleural effusions left greater than right with adjacent atelectasis. CT abdomen ascites. Initiate on ceftriaxone, eventually urine culture showed E. coli antibiotics were changed to meropenem. On initial examination bilateral decreased breath sounds. No significant wheezing noted on auscultation with no noted supplementation saturating 89% and improved. Status post paracentesis 600 cc fluid removal. Respiratory viral PCR positive for COVID-19 pneumonia, initiated remdesivir. Currently receiving meropenem for UTI Interval update: No acute respiratory vents overnight. Continued remain on room air. Worsening mentation. Plan: Will hold off on performing thoracentesis at this point of time given clinical stability and patient on room air not needing any oxygen supplementation next Continue remdesivir for COVID-19 pneumonia. Will hold off on initiating dexamethasone at this point of time Continue Advair 250 daily along with DuoNebs 4 times daily as needed Incentive spirometer
[2024-12-14] MEDS: ERTAPENEM SODIUM 1 GM in 0.9 % SODIUM CHLORIDE 50 ML IV (10:14)
[2024-12-14] MEDS: PIPERCILLIN/TAZO 3.375 GM in 0.9 % SODIUM CHLORIDE 50 ML IV ×2 (13:21→19:54)
--- NOTE | 2024-12-14 18:26 | PC.NURSE ---
After multiple attempts pt refuses to get up to chair throughout the shift. bed alarm is on, call light is within reach and a wedge pillow is behind pt to have patient left side lying per Q2 turning schedule to prevent and a preventative dressing is on pts coccyx to prevent skin breakdown.
[2024-12-14] MEDS: ATORVASTATIN 40MG TABLET 40 MG PO (20:45)
[2024-12-14] MEDS: PANTOPRAZOLE 40MG TABLET 40 MG PO (20:45)
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
--- NOTE | 2024-12-14 22:14 | PC.NURSE ---
Patient D/C from ICU to [facility] floor @22:14.
--- NOTE | 2024-12-14 22:16 | PC.NURSE ---
SRNA report called by Dakota to Carlita SRNA
--- NOTE | 2024-12-14 22:18 | P.PN_ITS ---
Subjective *Date: 12/14/24 *Time: 22:21 Interval history: Patient overall doing better, but intermittently confused. Respiratory culture positive for E. coli, switched to Zosyn. Continue ESBL UTI treatment. Pressures imprving. Exam Data for Last 24 hours Vital signs and Labs for Last 24 Hours: Temp Pulse Resp BP Pulse Ox O2 Del Method O2 Flow Rate 97.9 F 80 16 131/76 95 Room Air 2 12/14/24 20:05 12/14/24 20:05 12/14/24 20:05 12/14/24 20:05 12/14/24 20:05 12/14/24 21:00 12/13/24 06:40 FiO2 25 12/12/24 03:01 Laboratory Results - last 24 hr 12/14/24 05:02: WBC 2.6 L D, RBC 3.07 L, Hgb 8.2 L, Hct 24.7 L, MCV 80.5, MCH 26.7 L, MCHC 33.2, RDW 17.2, Plt Count 142, MPV 10.1, Neut % (Auto) 77.1, Lymph % (Auto) 12.6, [place] % (Auto) 9.9 H, Eos % (Auto) 0.0 L, Baso % (Auto) 0.0 L, Neut # (Auto) 2.0, Lymph # (Auto) 0.3 L, [place] # (Auto) 0.3, Eos # (Auto) 0.0, Baso # (Auto) 0.0, Total Counted 100, Neutrophils % (Manual) 77 H, Lymphocytes % (Manual) 17, Monocytes % (Manual) 6, Platelet Estimate Normal, RBC Morphology Normal, Sodium 124 L, Potassium 3.8, Chloride 88 L, Carbon Dioxide 32 H, Anion Gap 7.8, BUN 33 H, Creatinine 1.40 H, Estimated Creat Clear 47, Estimated GFR 49 L, Est GFR ( Amer) 59, Glucose 166 H, Calcium 8.0 L, Magnesium 2.1, Total Bilirubin 0.6, AST 38, ALT 16, Alkaline Phosphatase 97, Total Protein 6.1 L, Albumin 3.2 L D, Globulin 2.9, Albumin/Globulin Ratio 1.1 I & O for Last 24 hours: Intake & Output 12/11/24 12/12/24 12/13/24 12/14/24 23:59 23:59 23:59 23:59 Intake Total 171.69 / 421.69 1011.783 / 9926.439 1791.145 / 2336.145 490 / 490 Output Total 0 / 200 1510 / 1510 1000 / 1000 1900 / 1900 Balance 171.69 / 221.69 -498.217 / -093.107 4951.145 / 1336.145 -1410 / -1410 Weight 75.75 kg 75.75 kg 77.428 kg 78.2 kg Microbiology Reports for the Last 24 Hours: Microbiology 12/12/24 14:00 Ascites Fluid Gram Stain - Final 12/12/24 14:00 Ascites Fluid Body Fluid Culture - Preliminary NO GROWTH AFTER 48 HOURS 12/12/24 11:40 Sputum - Expectorated Sputum Gram Stain - Final 12/12/24 11:40 Sputum - Expectorated Sputum Sputum Culture - Final Escherichia coli Assessment and Plan *Assessment and plan (1) Acute UTI: Status: Acute Category: Medical Code(s): N39.0 - Urinary tract infection, site not specified Plan Joshua Rogers is a 79-year-old male with a medical history significant for alcoholic cirrhosis with gastroesophageal varices, CAD, hypothyroidism, COPD who presents with several day onset of progressive confusion, weakness. states he was unable to get out of bed yesterday and called EMS who were able to get him back into bed. This morning it occurred again patient called EMS again who brought him to the ED. states patient becomes like this at any time he has a UTI. She also states he has been more confused, speaking out of his head . Patient has not endorsed chest pain, shortness of breath, abdominal pain, dark/bloody stools to . Has been adherent to his medications other than lactulose this morning. Workup in the ED significant for hemoglobin 6.3, MCV 81, creatinine 1.3, magnesium 1.4, troponin 0.11, BNP 19,100, UA grossly abnormal. Patient was encephalopathic, somnolent on my exam. VBG pH normal. Upper airway wheezing. CTA chest revealed moderate bilateral pleural effusions, does have right lower extremity pitting edema but did have a right hip fracture earlier this month. Case discussed with ED provider and decision was made to admit patient for acute metabolic encephalopathy from UTI, NSTEMI, acute on chronic anemia, HFpEF exacerbation. #Acute hypoxic respiratory failure #HFpEF exacerbation versus decompensated cirrhosis #Ascites #Bilateral pleural effusions #Possible hepatorenal syndrome ? Moderate bilateral pleural effusions on CTA chest, BNP 19,100. ? ECHO July 2024 shows normal biventricular systolic function. ? Right lower extremity pitting edema in the setting of right hip fracture s/p hemiarthroplasty in November 2024. ? Given moderate pleural effusions, started Bumex diuresis. ?Increased IV Bumex 2 mg daily. Spironolactone 25 mg. ? Continue home lactulose. Peritoneal fluid did not indicate SBP. - Dr. Bell from ED graciously performed therapeutic paracentesis on 12/12/2024 with about 600 mL of urine output from the peritoneal pocket. Further drainage was not obtained due to difficult pocket. Patient became slightly hypotensive after procedure, improved with albumin and Levophed. ?Discontinued octreotide 100 mg 3 times daily SQ, albumin 12.5mg BID due to soft pressures in the setting of cirrhosis. Creatinine stable at 1.4, baseline 1.0. As such, hepatorenal syndrome may be at play. ? ECHO reveals normal biventricular systolic function, mildly reduced RV function. #Acute metabolic encephalopathy #Septic shock # ESBL UTI #E. coli pneumonia #COVID-19 #Left mastoiditis ? Progressive weakness, confusion over the past several days prior to admission. states this becomes an when he has a UTI. ? Presented with leukopenia, tachypnea on admission. ? CT head without acute findings other than left mastoiditis. ? UA grossly abnormal, urine culture showing E. coli ESBL sensitive to ert apenem. Weaned off Levophed 01/02. ? Respiratory panel positive for COVID-19. Started remdesivir. Given no pneumonia or COPD exacerbation, will hold off on further dexamethasone per pulmonology recommendations. ?COVID-19 would explain leukopenia, WBC 2.6 today. Down from 3.5 yesterday. ? E. coli pneumonia resistant to ertapenem. Switched to Zosyn to cover for ESBL UTI as well. ? Blood cultures NGTD. #A-fib RVR ? Patient developed A-fib RVR, was initially started on amiodarone with improvement in heart rate. However, unable to anticoagulate due to GI bleed. Therefore, cardioversion to NSR is not preferable at this time. Patient ultimately converted to NSR currently. ? Cardiology switched amiodarone to metoprolol succinate 12.5 mg. Currently rate controlled. #Acute on chronic anemia #History of gastroesophageal varices ? Hemoglobin 6.3 on admission. MCV 81. History of gastroesophageal varices. Denies dark, bloody stools. ? Transfused 2 units with improvement to 8.7. Positive FOBT. ? GI consulted, tentatively planning EGD as FOBT potitive with downtrending hemoglobin stable at this time. will consider Tuesday. ? IV Protonix 40 mg twice daily. Hold home Coreg due to soft pressures. #COPD ? Currently stable. DuoNebs every 6 hours. #Severe protein calorie malnutrition ? Nutrition consulted, providing counseling and supplementation. #History of right subcapital hip fracture s/p hemiarthroplasty 11/21/2024 ? Continue pain management as needed. #CAD ? Hold home aspirin due to possible GI bleed. #Hypothyroidism ? Continue home levothyroxine 75 mcg. TFTs stable. Full code DVT prophylaxis: Hold AC due to possible GI bleed.
--- NOTE | 2024-12-14 22:24 | PC.NURSE ---
Patient arrived to floor via stretcher from ICU at 22:15.
[2024-12-15] VITALS (9 sets, daily range): BP systolic 109–144; BP diastolic 63–80; PULSE 68–95; RESP 16–22; TEMP 36.4–36.8; O2SAT 94–98; BMI 25.8
[2024-12-15] MEDS: PIPERCILLIN/TAZO 3.375 GM in 0.9 % SODIUM CHLORIDE 50 ML IV ×4 (01:14→18:13)
--- NOTE | 2024-12-15 04:17 | PC.NURSE ---
patient has rested well since arriving to the floor, patient is confused and pulls at IVs, patient reoriented and educated on the need for the IV and reminded to stop pulling at them, patient refused to leave pulse ox on finger, O2 sats remain >95% on RA, no complaints of pain this shift, call button in reach
[2024-12-15] MEDS: LEVOTHYROXINE 75MCG (0.075MG) TAB 75 MCG PO (06:22)
[2024-12-15] MEDS: IPRATROPIUM/ALBUTEROL 3 ML NEB IH ×2 (06:29→15:30)
[2024-12-15] MEDS: FLUTICASONE/SALMETEROL 250/50MCG DISKUS 1 PUFF IH ×2 (06:29→18:37)
[2024-12-15 07:35] LABS: Hematocrit 26.9 % (42.0-52.0); Hemoglobin 9.1 g/dL (14.1-18.0); Immature Granulocytes # 0.02 10^3uL; Immature Granulocytes % 0.4 %; Lymphocytes # 0.6 K/mm3 (0.7-4.5); Lymphocytes % 11.5 % (10-50); Mean Corpuscular HGB Conc 33.8 g/dL (31.8-35.4); Mean Corpuscular Hemoglobin 26.9 pg (27.0-31.2); Mean Corpuscular Volume 79.6 fl (80-94); Mean Platelet Volume 10.2 fl (7.4-10.4); Monocytes # 0.6 K/mm3 (0.1-1.0); Monocytes % 12.8 % (1.7-9.3); Neutrophils # 3.7 K/mm3 (1.8-7.8); Neutrophils % 75.3 % (37.0-80.0); Nucleated Red Blood Cells # 0 10^3/uL; Nucleated Red Blood Cells % 0 %; Platelet Count 141 K/mm3 (142-424); Red Blood Count 3.38 M/mm3 (4.60-6.20); Red Cell Distribution Width 17.1 % (11.5-17.5); Red Cell Distribution Width-SD 49.4 fL; White Blood Count 4.9 K/mm3 (4.8-10.8)
[2024-12-15 07:40] LABS: Albumin Level 3.1 g/dl (3.5-5.0); Chloride 90 mmol/L (98-107); Potassium 3.4 mmoL/L (3.5-5.1); Sodium 127 mmol/L (136-145)
[2024-12-15 07:43] LABS: Alanine Aminotransferase 22 U/L (12-78); Albumin/Globulin Ratio 1.1 (1.1-1.8); Alkaline Phosphatase 104 U/L (38-126); Anion Gap 9.4 mEq/L (5-15); Aspartate Amino Transferase 47 U/L (17-59); Bilirubin,Total 0.6 mg/dl (0.2-1.3); Blood Urea Nitrogen 35 mg/dl (9-20); Calcium 8.1 mg/dl (8.4-10.2); Carbon Dioxide 31 mmol/L (22.0-30.0); Creatinine Clearance Estimated 47 mL/min (50-200); Estimated Glomerular Filt Rate 49 ml/min (>60); GFR (African American) 59 ML/MIN (>60); Globulin 2.9 g/dL (1.3-3.2); Glucose 148 mg/dl (74-100)
[2024-12-15 07:44] LABS: Magnesium 1.9 mg/dl (1.6-2.3)
[2024-12-15] MEDS: REMDESIVIR 100 MG in 0.9 % SODIUM CHLORIDE 100 ML IV (08:59)
[2024-12-15] MEDS: METOPROLOL SUCCINATE XL 25MG TABLET 12.5 MG PO (09:00)
[2024-12-15] MEDS: PANTOPRAZOLE 40MG TABLET 40 MG PO ×2 (09:00→20:47)
[2024-12-15] MEDS: BUMETANIDE 1MG/4ML VIAL 2 MG IV ×2 (09:00→15:04)
[2024-12-15] MEDS: SPIRONOLACTONE 25MG TABLET 25 MG PO (09:00)
[2024-12-15] MEDS: LACTULOSE 20GM/30ML UDC 10 GM PO ×2 (09:00→20:47)
[2024-12-15] MEDS: PHENYLEPHRINE 0.5% NASAL SPRAY 15ML NS (09:18)
[2024-12-15] MEDS: POTASSIUM CHLORIDE 20MEQ TAB 40 MEQ PO ×2 (11:12→15:04)
--- NOTE | 2024-12-15 13:16 | CT_ITS ---
PROCEDURE INFORMATION: Exam: CT Head Without Contrast Exam date and time: 12/15/2024 4:27 PM Age: 79 years old Clinical indication: Altered mental status/memory loss; Additional info: AMS, afib without anticoagulation due to gi bleed TECHNIQUE: Imaging protocol: Computed tomography of the head without contrast. Radiation optimization: All CT scans at this facility use at least one of these dose optimization techniques: automated exposure control; mA and/or kV adjustment per patient size (includes targeted exams where dose is matched to clinical indication); or iterative reconstruction. COMPARISON: CT HEAD/BRAIN WO CON 12/11/2024 10:23 AM FINDINGS: Brain: No intracranial hemorrhage. Generalized atrophic changes of the ventricles and subarachnoid spaces. Chronic small-vessel ischemic changes noted. No mass, mass effect or midline shift. Intracranial atherosclerotic changes are noted. Cerebral ventricles: See Brain finding. Paranasal sinuses: See Bones finding. Mastoid air cells: Visualized mastoid air cells are well aerated. Bones: [id number] mucosal thickening of some of the left ethmoids. Sinuses otherwise clear with no fluid levels. Soft tissues: Unremarkable. IMPRESSION: Stable noncontrast CT brain with chronic changes. No acute intracranial abnormality.
--- NOTE | 2024-12-15 14:12 | HMH.ITSTN ---
tried to get pt for CT scan but he requested to eat his lunch before coming down. 2nd floor to call when pt is ready.
[2024-12-15 14:20] LABS: Ammonia < 9 umol/L (9-30)
--- NOTE | 2024-12-15 18:24 | P.PN_ITS ---
Subjective *Date: 12/15/24 *Time: 18:24 Interval history: Patient continues to be intermittently confused, CT head today. He diuresis, responding well. Continue antibiotics. Will need EGD on Tuesday Exam Data for Last 24 hours Vital signs and Labs for Last 24 Hours: Temp Pulse Resp BP Pulse Ox O2 Del Method O2 Flow Rate 97.8 F 74 20 130/68 95 Room Air 2 12/15/24 16:00 12/15/24 16:00 12/15/24 16:00 12/15/24 16:00 12/15/24 16:00 12/15/24 17:00 12/13/24 06:40 FiO2 12/12/24 03:01 Laboratory Results - last 24 hr 12/15/24 07:09: WBC 4.9 D, RBC 3.38 L, Hgb 9.1 L, Hct 26.9 L, MCV 79.6 L, MCH 26.9 L, MCHC 33.8, RDW 17.1, Plt Count 141 L, MPV 10.2, Neut % (Auto) 75.3, Lymph % (Auto) 11.5, [place] % (Auto) 12.8 H, Eos % (Auto) 0.0 L, Baso % (Auto) 0.0 L, Neut # (Auto) 3.7, Lymph # (Auto) 0.6 L, [place] # (Auto) 0.6, Eos # (Auto) 0.0, Baso # (Auto) 0.0, Sodium 127 L, Potassium 3.4 L, Chloride 90 L, Carbon Dioxide 31 H, Anion Gap 9.4, BUN 35 H, Creatinine 1.40 H, Estimated Creat Clear 47, Estimated GFR 49 L, Est GFR ( Amer) 59, Glucose 148 H, Calcium 8.1 L, Magnesium 1.9, Total Bilirubin 0.6, AST 47, ALT 22 D, Alkaline Phosphatase 104, Total Protein 6.0 L, Albumin 3.1 L, Globulin 2.9, Albumin/Globulin Ratio 1.1 12/15/24 13:40: Ammonia < 9 L I & O for Last 24 hours: Intake & Output 12/12/24 12/13/24 12/14/24 12/15/24 23:59 23:59 23:59 23:59 Intake Total 1011.783 / 6046.179 7199.145 / 2336.145 490 / 780 1030 / 1030 Output Total 1510 / 1510 1000 / 1000 1900 / 1900 3000 / 3000 Balance -498.217 / -337.524 0242.145 / 1336.145 -1410 / -1120 -1969 / -1969 Weight 75.75 kg 77.428 kg 77.292 kg 77.292 kg Microbiology Reports for the Last 24 Hours: Microbiology 12/12/24 14:00 Ascites Fluid Gram Stain - Final 12/12/24 14:00 Ascites Fluid Body Fluid Culture - Preliminary NO GROWTH AFTER 72 HOURS 12/11/24 09:27 Blood Blood Culture - Preliminary NO GROWTH AFTER 4 DAYS 12/11/24 09:27 Blood Blood Culture - Preliminary NO GROWTH AFTER 4 DAYS Constitutional Constitutional: no acute distress *Routine HEENT Exam Head: Present normocephalic Eye: Present EOMI and PERRL ENT: Present mucous membranes moist *Routine Neck Exam Neck: Present supple; Absent lymphadenopathy *Routine Respiratory Exam Respiratory: Present CTA bilaterally *Routine Cardiovascular Exam Cardiovascular: Present RRR *Routine Abdominal Exam Abdominal: Present soft, normoactive bowel sounds and distended; Absent tenderness *Routine Extremities Exam Extremities: Absent cyanosis, clubbing or edema *Routine Skin Exam Skin: Present warm; Absent rash *Routine Neurological Exam Neurological: Present alert Assessment and Plan *Assessment and plan (1) Acute UTI: Status: Acute Category: Medical Code(s): N39.0 - Urinary tract infection, site not specified Plan Joshua Rogers is a 79-year-old male with a medical history significant for alcoholic cirrhosis with gastroesophageal varices, CAD, hypothyroidism, COPD who presents with several day onset of progressive confusion, weakness. states he was unable to get out of bed yesterday and called EMS who were able to get him back into bed. This morning it occurred again patient called EMS again who brought him to the ED. states patient becomes like this at any time he has a UTI. She also states he has been more confused, speaking out of his head . Patient has not endorsed chest pain, shortness of breath, abdominal pain, dark/bloody stools to . Has been adherent to his medications other than lactulose this morning. Workup in the ED significant for hemoglobin 6.3, MCV 81, creatinine 1.3, magnesium 1.4, troponin 0.11, BNP 19,100, UA grossly abnormal. Patient was encephalopathic, somnolent on my exam. VBG pH normal. Upper airway wheezing. CTA chest revealed moderate bilateral pleural effusions, does have right lower extremity pitting edema but did have a right hip fracture earlier this month. Case discussed with ED provider and decision was made to admit patient for acute metabolic encephalopathy from UTI, NSTEMI, acute on chronic anemia, HFpEF exacerbation. #Acute hypoxic respiratory failure #HFpEF exacerbation versus decompensated cirrhosis #Ascites #Bilateral pleural effusions #Possible hepatorenal syndrome ? Moderate bilateral pleural effusions on CTA chest, BNP 19,100. ? ECHO July 2024 shows normal biventricular systolic function. ? Right lower extremity pitting edema in the setting of right hip fracture s/p hemiarthroplasty in November 2024. ? Given moderate pleural effusions, started Bumex diuresis. ?Continue IV Bumex 2 mg daily. Spironolactone 25 mg. ? Continue home lactulose. Peritoneal fluid did not indicate SBP. - Dr. Bell from ED graciously performed therapeutic paracentesis on 12/12/2024 with about 600 mL of urine output from the peritoneal pocket. Further drainage was not obtained due to difficult pocket. Patient became slightly hypotensive after procedure, improved with albumin and Levophed. ? Discontinued octreotide 100 mg 3 times daily SQ, albumin 12.5mg BID as blood pressures improved. Creatinine stable at 1.4, baseline 1.0. As such, hepatorenal syndrome may be at play. ? ECHO reveals normal biventricular systolic function, mildly reduced RV function. #Acute metabolic encephalopathy #Septic shock # ESBL UTI #E. coli pneumonia #COVID-19 #Left mastoiditis ? Progressive weakness, confusion over the past several days prior to admission. states this becomes an when he has a UTI. ? Presented with leukopenia, tachypnea on admission. ? CT head without acute findings other than left mastoiditis. ? UA grossly abnormal, urine culture showing E. coli ESBL sensitive to ertapenem. Weaned off Levophed 01/02. ? Respiratory panel positive for COVID-19. Started remdesivir. Given no pneumonia or COPD exacerbation, will hold off on further dexamethasone per pulmonology recommendations. ? COVID-19 would explain leukopenia, WBC improved to 4.9 today. Down from 3.5 yesterday. ? E. coli pneumonia resistant to ertapenem. Switched to Zosyn day 2 to cover for ESBL UTI as well. ? Blood cultures NGTD. ? Patient continues to be confused intermittently, CT head today unremarkable for acute findings. Back to hospital-acquired delirium, and from UTI, pneumonia. #A-fib RVR ? Patient developed A-fib RVR, was initially started on amiodarone with impr ovement in heart rate. However, unable to anticoagulate due to GI bleed. Therefore, cardioversion to NSR is not preferable at this time. Patient ultimately converted to NSR currently. ? Cardiology switched amiodarone to metoprolol succinate 12.5 mg. Currently rate controlled. #Acute on chronic anemia #History of gastroesophageal varices ? Hemoglobin 6.3 on admission. MCV 81. History of gastroesophageal varices. Denies dark, bloody stools. ? Transfused 2 units with improvement to 8.7. Positive FOBT. ? GI consulted, tentatively planning EGD as FOBT potitive with downtrending hemoglobin stable at this time. will consider Tuesday. ? IV Protonix 40 mg twice daily. Hold home Coreg due to soft pressures. #COPD ? Currently stable. DuoNebs every 6 hours. #Severe protein calorie malnutrition ? Nutrition consulted, providing counseling and supplementation. #History of right subcapital hip fracture s/p hemiarthroplasty 11/21/2024 ? Continue pain management as needed. #CAD ? Hold home aspirin due to possible GI bleed. #Hypothyroidism ? Continue home levothyroxine 75 mcg. TFTs stable. Full code DVT prophylaxis: Hold AC due to possible GI bleed.
--- NOTE | 2024-12-15 18:32 | PC.NURSE ---
pt resting supine in bed. pt has been fidgety all shift, pulling out IVs, removing covers and pulling at purewick. pt educated on need for purewick and ivs. answers all orientation questions, but has periods of confusion. abx given per sep. pt provided with IS and directed to use frequently. no complaints of pain. PRN duonebs given per sep. no needs at this time. call light within reach.
[2024-12-15 18:38] LABS: Anion Gap 10.4 mEq/L (5-15); Blood Urea Nitrogen 34 mg/dl (9-20); Calcium 8.3 mg/dl (8.4-10.2); Carbon Dioxide 32 mmol/L (22.0-30.0); Chloride 88 mmol/L (98-107); Creatinine Clearance Estimated 47 mL/min (50-200); Estimated Glomerular Filt Rate 49 ml/min (>60); GFR (African American) 59 ML/MIN (>60); Glucose 141 mg/dl (74-100); Potassium 3.4 mmoL/L (3.5-5.1); Sodium 127 mmol/L (136-145)
[2024-12-15] MEDS: ATORVASTATIN 40MG TABLET 40 MG PO (20:47)
--- NOTE | 2024-12-15 20:52 | DIET.NUTRFU ---
RD consulted secondary to ruma score of 15, RD saw patient previously and added 1 ensure daily to provide additional calories and protein. Meal intake poor at 25%, will add ensure with all trays. +2 pitting edema noted. Will continue to montior po intake
[2024-12-16] VITALS (8 sets, daily range): BP systolic 110–146; BP diastolic 45–61; PULSE 70–85; RESP 18–24; TEMP 36.4–36.9; O2SAT 91–98; BMI 24.8
[2024-12-16] MEDS: PIPERCILLIN/TAZO 3.375 GM in 0.9 % SODIUM CHLORIDE 50 ML IV ×4 (00:36→18:16)
--- NOTE | 2024-12-16 00:42 | PC.NURSE ---
Pt left forearm noted to be swollen due to coban on upper arm being too tight. this nurse removed coban and elevated left arm and applied cold compress to pt arm at this time. Pt LUE is pink, warm to touch, 2+ pulses, pt denies pain and numbness.
--- NOTE | 2024-12-16 05:26 | PC.NURSE ---
Pt is alert to self and had frequent moments of confusion, pt is difficult to redirect. Pt audible wheezes remain, pt refuses PRN breathing treatments. Pt alarm is active.
[2024-12-16] MEDS: LEVOTHYROXINE 75MCG (0.075MG) TAB 75 MCG PO (06:05)
[2024-12-16] MEDS: FLUTICASONE/SALMETEROL 250/50MCG DISKUS 1 PUFF IH ×2 (06:27→18:24)
[2024-12-16 07:19] LABS: Basophils % 0.2 % (0.1-2.0); Eosinophils # 0.1 Kmm3 (0.0-0.4); Eosinophils % 1.5 % (0.1-12.0); Hematocrit 28.1 % (42.0-52.0); Hemoglobin 9.1 g/dL (14.1-18.0); Immature Granulocytes # 0.02 10^3uL; Immature Granulocytes % 0.3 %; Mean Corpuscular HGB Conc 32.4 g/dL (31.8-35.4); Mean Corpuscular Hemoglobin 26.1 pg (27.0-31.2); Mean Corpuscular Volume 80.5 fl (80-94); Mean Platelet Volume 9.8 fl (7.4-10.4); Monocytes # 0.8 K/mm3 (0.1-1.0); Monocytes % 14.1 % (1.7-9.3); Neutrophils # 3.9 K/mm3 (1.8-7.8); Neutrophils % 66.9 % (37.0-80.0); Nucleated Red Blood Cells # 0 10^3/uL; Nucleated Red Blood Cells % 0 %; Platelet Count 145 K/mm3 (142-424); Red Blood Count 3.49 M/mm3 (4.60-6.20); Red Cell Distribution Width 17.2 % (11.5-17.5); Red Cell Distribution Width-SD 50.2 fL; White Blood Count 5.8 K/mm3 (4.8-10.8)
[2024-12-16 07:34] LABS: Albumin Level 2.9 g/dl (3.5-5.0); Chloride 91 mmol/L (98-107); Potassium 3.6 mmoL/L (3.5-5.1); Sodium 129 mmol/L (136-145)
[2024-12-16 07:37] LABS: Alanine Aminotransferase 17 U/L (12-78); Alkaline Phosphatase 88 U/L (38-126); Anion Gap 6.6 mEq/L (5-15); Aspartate Amino Transferase 39 U/L (17-59); Bilirubin,Total 0.8 mg/dl (0.2-1.3); Blood Urea Nitrogen 31 mg/dl (9-20); Carbon Dioxide 35 mmol/L (22.0-30.0); Creatinine Clearance Estimated 45 mL/min (50-200); Estimated Glomerular Filt Rate 49 ml/min (>60); GFR (African American) 59 ML/MIN (>60); Globulin 2.8 g/dL (1.3-3.2); Total Protein,Serum 5.7 g/dl (6.3-8.2)
[2024-12-16 07:38] LABS: Calcium 8.1 mg/dl (8.4-10.2); Glucose 116 mg/dl (74-100); Magnesium 1.7 mg/dl (1.6-2.3)
[2024-12-16] MEDS: SPIRONOLACTONE 25MG TABLET 25 MG PO (08:47)
[2024-12-16] MEDS: LACTULOSE 20GM/30ML UDC 10 GM PO ×2 (08:47→20:53)
[2024-12-16] MEDS: PANTOPRAZOLE 40MG TABLET 40 MG PO ×2 (08:47→20:53)
[2024-12-16] MEDS: REMDESIVIR 100 MG in 0.9 % SODIUM CHLORIDE 100 ML IV (08:47)
[2024-12-16] MEDS: BUMETANIDE 1MG/4ML VIAL 2 MG IV ×2 (08:47→16:34)
[2024-12-16] MEDS: METOPROLOL SUCCINATE XL 25MG TABLET 12.5 MG PO (08:50)
[2024-12-16] MEDS: IPRATROPIUM/ALBUTEROL 3 ML NEB IH ×2 (10:10→18:24)
[2024-12-16] MEDS: MAGNESIUM SULFATE IN WATER 2 GM/50 ML PIGGYBACK IV ×2 (12:34→13:18)
--- NOTE | 2024-12-16 16:07 | PC.NURSE ---
PT IS RESTING IN BED. ALERT TO SELF ONLY. TURNED AND REPOSITIONED FREQUENTLY IN BED. PURWICK IN PLACE. PT HAD DIURESED WELL. AUDIBLE WHEEZING NOTED. RT NOTIFIED THIS MORNING FOR A PRN BREATHING TREATMENT. ABDOMEN SOFT/NON TENDER WITH ACTIVE BOWEL SOUNDS. INCISION NOTED TO RIGHT HIP. REDNESS NOTED TO COCCYX. WILL CONTINUE TO MONITOR.
--- NOTE | 2024-12-16 18:20 | P.PN_ITS ---
Subjective *Date: 12/16/24 *Time: 18:20 Interval history: Patient doing well, no acute concerns. Continues to be pleasantly intermittently confused. Tentative plan is EGD tomorrow due to GI bleed. Exam Data for Last 24 hours Vital signs and Labs for Last 24 Hours: Temp Pulse Resp BP Pulse Ox O2 Del Method O2 Flow Rate 98.2 F 77 18 120/54 L 98 Room Air 2 12/16/24 16:00 12/16/24 16:00 12/16/24 16:00 12/16/24 16:00 12/16/24 16:12/16/24 17:00 12/13/24 06:40 FiO2 25 12/12/24 03:01 Laboratory Results - last 24 hr 12/15/24 18:15: Sodium 127 L, Potassium 3.4 L, Chloride 88 L, Carbon Dioxide 32 H, Anion Gap 10.4, BUN 34 H, Creatinine 1.40 H, Estimated Creat Clear 47, Estimated GFR 49 L, Est GFR ( Amer) 59, Glucose 141 H, Calcium 8.3 L 12/16/24 07:00: WBC 5.8, RBC 3.49 L, Hgb 9.1 L, Hct 28.1 L, MCV 80.5, MCH 26.1 L , MCHC 32.4, RDW 17.2, Plt Count 145, MPV 9.8, Neut % (Auto) 66.9, Lymph % (Auto) 17.0, [place] % (Auto) 14.1 H, Eos % (Auto) 1.5, Baso % (Auto) 0.2, Neut # (Auto) 3.9, Lymph # (Auto) 1.0, [place] # (Auto) 0.8, Eos # (Auto) 0.1, Baso # (Auto) 0.0, Sodium 129 L, Potassium 3.6, Chloride 91 L, Carbon Dioxide 35 H, Anion Gap 6.6, BUN 31 H, Creatinine 1.40 H, Estimated Creat Clear 45, Estimated GFR 49 L, Est GFR ( Amer) 59, Glucose 116 H, Calcium 8.1 L, Magnesium 1.7 D, Total Bilirubin 0.8, AST 39, ALT 17, Alkaline Phosphatase 88, Total Protein 5.7 L, Albumin 2.9 L, Globulin 2.8, Albumin/Globulin Ratio 1.0 L I & O for Last 24 hours: Intake & Output 12/13/24 12/14/24 12/15/24 12/16/24 23:59 23:59 23:59 23:59 Intake Total 2336.145 / 2336.145 490 / 780 1300 / 1420 605 / 605 Output Total 1000 / 1000 1900 / 1900 3600 / 4200 4150 / 4150 Balance 1336.145 / 1336.145 -1410 / -1120 -2300 / -2780 -3545 / -3545 Weight 77.428 kg 77.292 kg 77.292 kg 74.48 kg Microbiology Reports for the Last 24 Hours: Microbiology 12/12/24 14:00 Ascites Fluid Gram Stain - Final 12/12/24 14:00 Ascites Fluid Body Fluid Culture - Preliminary NO GROWTH AFTER 4 DAYS 12/11/24 09:27 Blood Blood Culture - Final NO GROWTH AFTER 5 DAYS 12/11/24 09:27 Blood Blood Culture - Final NO GROWTH AFTER 5 DAYS Constitutional Constitutional: no acute distress *Routine HEENT Exam Head: Present normocephalic Eye: Present EOMI and PERRL ENT: Present mucous membranes moist *Routine Neck Exam Neck: Present supple; Absent lymphadenopathy *Routine Respiratory Exam Respiratory: Present CTA bilaterally *Routine Cardiovascular Exam Cardiovascular: Present RRR *Routine Abdominal Exam Abdominal: Present soft, normoactive bowel sounds and distended; Absent tenderness *Routine Extremities Exam Extremities: Absent cyanosis, clubbing or edema *Routine Skin Exam Skin: Present warm; Absent rash *Routine Neurological Exam Neurological: Present alert Assessment and Plan *Assessment and plan (1) Acute UTI: Status: Acute Category: Medical Code(s): N39.0 - Urinary tract infection, site not specified Plan Joshua Rogers is a 79-year-old male with a medical history significant for alcoholic cirrhosis with gastroesophageal varices, CAD, hypothyroidism, COPD who presents with several day onset of progressive confusion, weakness. states he was unable to get out of bed yesterday and called EMS who were able to get him back into bed. This morning it occurred again patient called EMS again who brought him to the ED. states patient becomes like this at any time he has a UTI. She also states he has been more confused, speaking out of his head . Patient has not endorsed chest pain, shortness of breath, abdominal pain, dark/bloody stools to . Has been adherent to his medications other than lactulose this morning. Workup in the ED significant for hemoglobin 6.3, MCV 81, creatinine 1.3, magnesium 1.4, troponin 0.11, BNP 19,100, UA grossly abnormal. Patient was encephalopathic, somnolent on my exam. VBG pH normal. Upper airway wheezing. CTA chest revealed moderate bilateral pleural effusions, does have right lower extremity pitting edema but did have a right hip fracture earlier this month. Case discussed with ED provider and decision was made to admit patient for acute metabolic encephalopathy from UTI, NSTEMI, acute on chronic anemia, HFpEF exacerbation. #Acute hypoxic respiratory failure #HFpEF exacerbation versus decompensated cirrhosis #Ascites #Bilateral pleural effusions #Possible hepatorenal syndrome ? Moderate bilateral pleural effusions on CTA chest, BNP 19,100. ? ECHO July 2024 shows normal biventricular systolic function. ? Right lower extremity pitting edema in the setting of right hip fracture s/p hemiarthroplasty in November 2024. ? Given moderate pleural effusions, started Bumex diuresis. ?Continue IV Bumex 2 mg daily. Spironolactone 25 mg. Diuresing really well, net -6.2 L so far. ? Continue home lactulose. Peritoneal fluid did not indicate SBP. - Dr. Bell from ED graciously performed therapeutic paracentesis on 12/12/2024 with about 600 mL of urine output from the peritoneal pocket. Further drainage was not obtained due to difficult pocket. Patient became slightly hypotensive after procedure, improved with albumin and Levophed. ? Discontinued octreotide 100 mg 3 times daily SQ, albumin 12.5mg BID as blood pressures improved. Creatinine stable at 1.4, baseline 1.0. As such, hepatorenal syndrome may be at play. ? ECHO reveals normal biventricular systolic function, mildly reduced RV function. #Acute metabolic encephalopathy #Septic shock # ESBL UTI #E. coli pneumonia #COVID-19 #Left mastoiditis ? Progressive weakness, confusion over the past several days prior to admission. states this becomes an when he has a UTI. ? Presented with leukopenia, tachypnea on admission. ? CT head without acute findings other than left mastoiditis. ? UA grossly abnormal, urine culture showing E. coli ESBL sensitive to ertapenem. Weaned off Levophed 01/02. ? Respiratory panel positive for COVID-19. Continue remdesivir. Given no pneumonia or COPD exacerbation, will hold off on further dexamethasone per pulmonology recommendations. ? COVID-19 would explain leukopenia, WBC improved to 5.8. today. ? E. coli pneumonia resistant to ertapenem. Switched to Zosyn day 3 to cover for ESBL UTI as well. ? Blood cultures NGTD. ? Patient continues to be confused intermittently, CT head unremarkable for acute findings. Suspect hospital-acquired delirium, and from UTI, pneumonia. #A-fib RVR ? Patient developed A-fib RVR, was initially started on amiodarone with improvement in heart rate. However, unable to anticoagulate due to GI bleed. Therefore, cardioversion to NSR is not preferable at this time. Patient ultimately converted to NSR currently. ? Cardiology switched amiodarone to metoprolol succinate 12.5 mg. Currently rate controlled. #Acute on chronic anemia #History of gastroesophageal varices ? Hemoglobin 6.3 on admission. MCV 81. History of gastroesophageal varices. Denies dark, bloody stools. ? Transfused 2 units with improvement to 8.7. Positive FOBT. ? GI consulted, tentatively planning EGD as FOBT potitive with downtrending hemoglobin stable at this time. will consider Tuesday. ? IV Protonix 40 mg twice daily. Hold home Coreg due to soft pressures. #COPD ? Currently stable. DuoNebs every 6 hours. #Severe protein calorie malnutrition ? Nutrition consulted, providing counseling and supplementation. #History of right subcapital hip fracture s/p hemiarthroplasty 11/21/2024 ? Continue pain management as needed. #CAD ? Hold home aspirin due to possible GI bleed. #Hypothyroidism ? Continue home levothyroxine 75 mcg. TFTs stable. Full code DVT prophylaxis: Hold AC due to possible GI bleed.
[2024-12-16] MEDS: ATORVASTATIN 40MG TABLET 40 MG PO (20:53)
[2024-12-17] VITALS (7 sets, daily range): BP systolic 112–131; BP diastolic 46–60; PULSE 63–87; RESP 16–20; TEMP 36.6–37; O2SAT 94–96; BMI 23.4
[2024-12-17] MEDS: PIPERCILLIN/TAZO 3.375 GM in 0.9 % SODIUM CHLORIDE 50 ML IV ×4 (00:46→17:36)
[2024-12-17] MEDS: SODIUM CHLORIDE 0.9% 10ML FLUSH SYRINGE 10 ML IV ×3 (00:47→07:10)
--- NOTE | 2024-12-17 04:27 | PC.NURSE ---
Pt. is alert to self only. Pt. is resting in the bed, turned and repositioned frequently. Pt. has audible wheezing, lung sounds with inspiratory/expiratory wheezing. NEB tX. given. Pt. on room air. Pt. unable to use incentive spirometer. it is difficult for him. Pt. has healing incsion to right hip. redness noted to coccyx. PT. NPO after midnight for EGD procedure to day. Personal items and call davies in reach,
[2024-12-17] MEDS: IPRATROPIUM/ALBUTEROL 3 ML NEB IH (06:36)
[2024-12-17] MEDS: FLUTICASONE/SALMETEROL 250/50MCG DISKUS 1 PUFF IH ×2 (06:37→18:37)
[2024-12-17 07:31] LABS: Basophils % 0.2 % (0.1-2.0); Eosinophils # 0.2 Kmm3 (0.0-0.4); Eosinophils % 2.8 % (0.1-12.0); Hematocrit 28.8 % (42.0-52.0); Hemoglobin 9.2 g/dL (14.1-18.0); Immature Granulocytes # 0.03 10^3uL; Immature Granulocytes % 0.5 %; Lymphocytes # 1.1 K/mm3 (0.7-4.5); Lymphocytes % 17.5 % (10-50); Mean Corpuscular HGB Conc 31.9 g/dL (31.8-35.4); Mean Corpuscular Hemoglobin 25.4 pg (27.0-31.2); Mean Corpuscular Volume 79.6 fl (80-94); Monocytes # 0.9 K/mm3 (0.1-1.0); Monocytes % 14.2 % (1.7-9.3); Neutrophils # 4.2 K/mm3 (1.8-7.8); Neutrophils % 64.8 % (37.0-80.0); Nucleated Red Blood Cells # 0 10^3/uL; Nucleated Red Blood Cells % 0 %; Platelet Count 146 K/mm3 (142-424); Red Blood Count 3.62 M/mm3 (4.60-6.20); Red Cell Distribution Width 17.2 % (11.5-17.5); Red Cell Distribution Width-SD 49.8 fL; White Blood Count 6.4 K/mm3 (4.8-10.8)
[2024-12-17 07:46] LABS: Alanine Aminotransferase 15 U/L (12-78); Albumin Level 2.9 g/dl (3.5-5.0); Alkaline Phosphatase 87 U/L (38-126); Anion Gap 8.4 mEq/L (5-15); Aspartate Amino Transferase 39 U/L (17-59); Bilirubin,Total 1.3 mg/dl (0.2-1.3); Blood Urea Nitrogen 32 mg/dl (9-20); Calcium 8.5 mg/dl (8.4-10.2); Carbon Dioxide 38 mmol/L (22.0-30.0); Chloride 89 mmol/L (98-107); Creatinine Clearance Estimated 42 mL/min (50-200); Estimated Glomerular Filt Rate 49 ml/min (>60); GFR (African American) 59 ML/MIN (>60); Glucose 112 mg/dl (74-100); Potassium 3.4 mmoL/L (3.5-5.1); Sodium 132 mmol/L (136-145); Total Protein,Serum 5.9 g/dl (6.3-8.2)
--- NOTE | 2024-12-17 08:34 | P.PN_ITS ---
Subjective *Date: 12/17/24 *Time: 08:34 Medical Exam Vital signs and Labs for Last 24 Hours: Vital Signs Temp Pulse Pulse Resp BP Pulse Ox O2 Del Method 12/17/24 08:00 98.1 F 78 17 120/58 L 94 L Room Air 12/17/24 07:00 Room Air 12/17/24 06:38 78 12/17/24 06:38 87 12/17/24 05:00 Room Air 12/17/24 04:00 97.9 F 77 18 118/56 L 95 Room Air 12/17/24 03:00 Room Air 12/17/24 01:00 Room Air 12/17/24 00:00 98.6 F 78 20 125/59 L 94 L Room Air 12/16/24 23:00 Room Air 12/16/24 21:00 Room Air 12/16/24 20:00 94 L Room Air 12/16/24 20:00 98.4 F 85 18 124/53 L 94 L Room Air 12/16/24 18:51 70 12/16/24 18:50 74 12/16/24 18:27 Room Air 12/16/24 17:00 Room Air 12/16/24 16:00 98.2 F 77 18 120/54 L 98 Room Air 12/16/24 15:36 Room Air 12/16/24 14:48 Room Air 12/16/24 13:00 Room Air 12/16/24 12:00 98.0 F 75 20 110/54 L 95 Room Air 12/16/24 10:53 Room Air Intake and Output 12/16/24 12/17/24 12/17/24 23:59 07:59 15:59 Intake Total 270 / 1025 150 / 150 Output Total 1450 / 5550 1250 / 1250 Balance -1180 / -4525 -1100 / -1100 Intake: Intake, Oral Amount 270 / 630 Intake, Total IV Amount 150 / 150 Pipercillin/Tazo 3.375 gm In 0. 50 / 50 9 % Sodium Chloride 50 ml @ 100 mls/hr IV Q6H [facility] Rx#:[id number] Remdesivir 100 mg In 0.9 % 100 / 100 Sodium Chloride 100 ml @ 100 mls/hr IV Q24H [facility] Rx#:[id number] Output: Output, Urine Amount 1450 / 5550 1250 / 1250 Other: Number of Unmeasured Voids 0 0 Number of Bowel Movements 1 1 Weight 70.125 kg Patient Weight 12/17/24 23:59 Weight 70.125 kg Laboratory Results - last 24 hr 12/17/24 07:10: WBC 6.4, RBC 3.62 L, Hgb 9.2 L, Hct 28.8 L, MCV 79.6 L, MCH 25.4 L, MCHC 31.9, RDW 17.2, Plt Count 146, MPV 10.0, Neut % (Auto) 64.8, Lymph % (Auto) 17.5, [place] % (Auto) 14.2 H, Eos % (Auto) 2.8, Baso % (Auto) 0.2, Neut # (Auto) 4.2, Lymph # (Auto) 1.1, [place] # (Auto) 0.9, Eos # (Auto) 0.2, Baso # (Auto) 0.0, Sodium 132 L, Potassium 3.4 L, Chloride 89 L, Carbon Dioxide 38 H, Anion Gap 8.4, BUN 32 H, Creatinine 1.40 H, Estimated Creat Clear 42, Estimated GFR 49 L, Est GFR ( Amer) 59, Glucose 112 H, Calcium 8.5, Magnesium 2.0 D, Total Bilirubin 1.3, AST 39, ALT 15, Alkaline Phosphatase 87, Total Protein 5.9 L, Albumin 2.9 L, Globulin 3.0, Albumin/Globulin Ratio 1.0 L I & O for Labs for Last 24 Hours: Intake & Output 12/14/24 12/15/24 12/16/24 12/17/24 23:59 23:59 23:59 23:59 Intake Total 490 / 780 1300 / 1420 875 / 1025 150 / 150 Output Total 1900 / 1900 3600 / 4200 4700 / 5550 1250 / 1250 Balance -1410 / -1120 -2300 / -2780 -3825 / -4525 -1100 / -1100 Weight 77.292 kg 77.292 kg 74.48 kg 70.125 kg Microbiology Reports for the Last 24 Hours: Microbiology 12/12/24 14:00 Ascites Fluid Gram Stain - Final 12/12/24 14:00 Ascites Fluid Body Fluid Culture - Preliminary NO GROWTH AFTER 4 DAYS 12/11/24 09:27 Blood Blood Culture - Final NO GROWTH AFTER 5 DAYS 12/11/24 09:27 Blood Blood Culture - Final NO GROWTH AFTER 5 DAYS The patient's infection will respond to the chosen ABx?: Yes Is the patient receiving the right drug, dose, and route?: Yes Could a more targeted ABx be ordered?: No
[2024-12-17] MEDS: REMDESIVIR 100 MG in 0.9 % SODIUM CHLORIDE 100 ML IV (08:42)
--- NOTE | 2024-12-17 11:20 | EXP.PULM.PN ---
Subjective *Date: 12/17/24 *Time: 12:14 Interval history: No acute respiratory events overnight. Continue to remain on room air. Pulmonology Exam Inpatient Vital signs and Labs for Last 24 Hours: Temp Pulse Resp BP Pulse Ox O2 Del Method O2 Flow Rate 98.1 F 78 17 120/58 L 94 L Room Air 2 12/17/24 08:00 12/17/24 08:00 12/17/24 08:00 12/17/24 08:00 12/17/24 08:00 12/17/24 11:00 12/13/24 06:40 FiO2 12/12/24 03:01 Laboratory Results - last 24 hr 12/17/24 07:10: WBC 6.4, RBC 3.62 L, Hgb 9.2 L, Hct 28.8 L, MCV 79.6 L, MCH 25.4 L, MCHC 31.9, RDW 17.2, Plt Count 146, MPV 10.0, Neut % (Auto) 64.8, Lymph % (Auto) 17.5, [place] % (Auto) 14.2 H, Eos % (Auto) 2.8, Baso % (Auto) 0.2, Neut # (Auto) 4.2, Lymph # (Auto) 1.1, [place] # (Auto) 0.9, Eos # (Auto) 0.2, Baso # (Auto) 0.0, Sodium 132 L, Potassium 3.4 L, Chloride 89 L, Carbon Dioxide 38 H, Anion Gap 8.4, BUN 32 H, Creatinine 1.40 H, Estimated Creat Clear 42, Estimated GFR 49 L, Est GFR ( Amer) 59, Glucose 112 H, Calcium 8.5, Magnesium 2.0 D, Total Bilirubin 1.3, AST 39, ALT 15, Alkaline Phosphatase 87, Total Protein 5.9 L, Albumin 2.9 L, Globulin 3.0, Albumin/Globulin Ratio 1.0 L Temp Pulse Resp BP Pulse Ox O2 Del Method O2 Flow Rate 99.4 F 68 20 91/47 L 92 L Room Air 2 12/12/24 04:00 12/12/24 08:31 12/12/24 08:31 12/12/24 08:31 12/12/24 08:31 12/12/24 09:00 12/11/24 18:35 FiO2 12/12/24 03:01 Laboratory Results - last 24 hr 12/11/24 09:18: PT 13.5 H, INR 1.24 H, APTT 31.0 H, Magnesium 1.4 L, Troponin I 0.10 H, C-Reactive Protein 120.6 H, NT-Pro-B Natriuret Pep 93888 H, Procalcitonin 0.238, TSH 3.71, Thyroxine (T4) 10.6, Plasma/Serum Alcohol < 10 12/11/24 09:27: WBC 4.0 L, RBC 2.49 L, Hgb 6.8 L*, Hct 20.2 L*, MCV 81.1, MCH 27.3, MCHC 33.7, RDW 16.7, Plt Count 171, MPV 9.6, Neut % (Auto) 52.8, Lymph % (Auto) 19.3, [place] % (Auto) 26.5 H, Eos % (Auto) 0.7, Baso % (Auto) 0.5, Neut # (Auto) 2.1, Lymph # (Auto) 0.8, [place] # (Auto) 1.1 H, Eos # (Auto) 0.0, Baso # (Auto) 0.0, Sodium 127 L, Potassium 3.2 L, Chloride 88 L, Carbon Dioxide 36 H, Anion Gap 6.2, BUN 28 H, Creatinine 1.30 H, Estimated Creat Clear 65, Estimated GFR 53 L, Est GFR ( Amer) 64, Glucose 128 H, Calcium 8.5, Total Bilirubin 1.4 H, AST 37, ALT 17, Alkaline Phosphatase 112, Total Protein 6.0 L, Albumin 3.1 L, Globulin 2.9, Albumin/Globulin Ratio 1.1, Urine Color Yellow, Urine Appearance Cloudy, Urine pH 6.0, Ur Specific [place] 1.015, Urine Protein 1+ A, Urine Glucose (UA) Negative, Urine Ketones Negative, Urine Blood Trace-i, Urine Nitrate Negative, Urine Bilirubin Negative, Urine Urobilinogen 0.2, Ur Leukocyte Esterase 2+ A, Urine RBC None, Urine WBC 3-5, Ur Squamous Epith Cells Occasional, Urine Bacteria 3+, Urine Opiates Screen Negative, Urine Methadone Screen Negative, Ur Barbituates Screen Negative, Ur Phencyclidine Scrn Negative, Ur Amphetamines Screen Negative, U Benzodiazepines Scrn Negative, Urine Cocaine Screen Negative, U Marijuana (THC) Screen Negative 12/11/24 09:41: VBG pH 7.42 H, VBG pCO2 51.1 H, VBG pO2 102.4 H, VBG HCO3 32.7 H, VBG Total CO2 34.3 H, VBG O2 Saturation 97.2 H, VBG Base Excess 8.3 H, VBG Lactic Acid 2.2 H 12/11/24 10:06: Ammonia 13, Blood Type O Negative, Antibody Screen Negative, Crossmatch (AHG) See Detail 12/11/24 12:55: Troponin I 0.11 H 12/11/24 14:07: Lactate 1.1 12/11/24 15:34: Troponin I 0.11 H 12/11/24 16:08: Hgb 8.3 L D, Hct 24.4 L 12/12/24 04:51: WBC 3.9 L, RBC 2.93 L, Hgb 7.7 L, Hct 23.8 L, MCV 81.2, MCH 26.3 L, MCHC 32.4, RDW 17.5, Plt Count 175, MPV 10.3, Neut % (Auto) 66.1, Lymph % (Auto) 17.6, [place] % (Auto) 14.8 H, Eos % (Auto) 0.5, Baso % (Auto) 0.5, Neut # (Auto) 2.6, Lymph # (Auto) 0.7, Bennett # (Auto) 0.6, Eos # (Auto) 0.0, Baso # (Auto) 0.0, Sodium 130 L, Potassium 3.5, Chloride 89 L, Carbon Dioxide 33 H, Anion Gap 11.5, BUN 32 H, Creatinine 1.30 H, Estimated Creat Clear 49, Estimated GFR 53 L, Est GFR ( Amer) 64, Glucose 87 D, Calcium 8.6, Magnesium 2.5 H D, Total Bilirubin 1.1, AST 41, ALT 18, Alkaline Phosphatase 103, Total Protein 6.2 L, Albumin 3.2 L, Globulin 3.0, Albumin/Globulin Ratio 1.1 I & O for Labs for Last 24 Hours: Intake & Output 12/14/24 12/15/24 12/16/24 12/17/24 23:59 23:59 23:59 23:59 Intake Total 490 / 780 1300 / 1420 875 / 1025 510 / 510 Output Total 1900 / 1900 3600 / 4200 4700 / 5550 1250 / 1250 Balance -1410 / -1120 -2300 / -2780 -3825 / -4525 -740 / -740 Weight 170 lb 6.4 oz 170 lb 6.4 oz 164 lb 3.2 oz 154 lb 9.6 oz Intake & Output 12/09/24 12/10/24 12/11/24 12/12/24 23:59 23:59 23:59 23:59 Intake Total 171.69 / 421.69 250 / 250 Output Total 0 / 200 500 / 500 Balance 171.69 / 221.69 -250 / -250 Weight 167 lb 167 lb 0.002 oz Microbiology Reports for the Last 24 Hours: Microbiology 12/12/24 14:00 Ascites Fluid Gram Stain - Final 12/12/24 14:00 Ascites Fluid Body Fluid Culture - Preliminary NO GROWTH AFTER 4 DAYS 12/11/24 09:27 Blood Blood Culture - Final NO GROWTH AFTER 5 DAYS 12/11/24 09:27 Blood Blood Culture - Final NO GROWTH AFTER 5 DAYS Microbiology 12/11/24 09:27 Urine,Catheterized Urine Culture - Preliminary Gram Negative Rods Constitutional: Present moderate distress Head: Present normocephalic and atraumatic ENT: Present normal exam, normal oropharynx and mucous membranes moist Neck: Present normal inspection and full ROM Respiratory: Present respiratory distress, diminished air movement and able to speak in complete sentences; Absent wheezes or crackles Cardiac: Present S1/S2, Tachycardia and radial pulses present GI: Present soft and distention; Absent tenderness or guarding Skin: Present intact; Absent cyanosis or jaundice Neuro: Present awake; Absent alert or oriented x 3 Extremities: Present normal inspection; Absent clubbing or cyanosis Psychiatric: Present normal affect and cooperative Assessment and Plan *Assessment and plan (1) Acute respiratory failure with hypoxia: Status: Acute Category: Medical Code(s): J96.01 - Acute respiratory failure with hypoxia (2) Pleural effusion, bilateral: Status: Acute Category: Medical Code(s): J90 - Pleural effusion, not elsewhere classified (3) COVID: Status: Acute Category: Medical Code(s): U07.1 - COVID-19 Plan Ms. Rogers is a 79-year-old male greater than [id number] smoking last month more than 15 years ago albuterol twice daily, history of alcoholic cirrhosis, gastroesophageal varices, CAD hypothyroidism COPD presented to ER with progressively worsening confusion weakness and pulmonary was called for further evaluation and management. Tmax of 99.4 since admission. Hemodynamically stable. No evidence of leukocytosis. Anemia noted hemoglobin at 6.8 upon admission. Platelet count greater than 170. JEROMY upon admission. Serum ammonia on this admission within normal limits at 13. Elevated troponins CTA upon admission no evidence of pulmonary embolism. No dense consolidative/airspace changes. Bilateral pleural effusions left greater than right with adjacent atelectasis. CT abdomen ascites. Initiate on ceftriaxone, eventually urine culture showed E. coli antibiotics were changed to meropenem. On initial examination bilateral decreased breath sounds. No significant wheezing noted on auscultation with no noted supplementation saturating 89% and improved. Status post paracentesis 600 cc fluid removal. Respiratory viral PCR positive for COVID-19 pneumonia, initiated remdesivir. Currently receiving meropenem for UTI Interval update: No acute respiratory events overnight. Continue to remain on room air. Continue to receive diuretics. Hemodynamically stable. Plan: Will hold off on performing thoracentesis at this point of time given clinical stability and patient on room air not needing any oxygen supplementation A.m. chest x-ray Continue remdesivir for COVID-19 pneumonia for a total of 5 days. Will hold off on initiating dexamethasone at this point of time Continue Advair 250 daily along with DuoNebs 4 times daily as needed Incentive spirometer
--- NOTE | 2024-12-17 12:28 | PC.WOUNDNOTE ---
skin tear to LUE skin tear to LUE
[2024-12-17] MEDS: BUMETANIDE 1MG/4ML VIAL 2 MG IV ×2 (13:40→17:35)
--- NOTE | 2024-12-17 14:12 | P.PN_ITS ---
Subjective *Date: 12/17/24 *Time: 14:12 Interval history: Patient asleep easily awoken, no family at bedside. Intermittent episodes of confusion. Hemoglobin up to 9.2 after packed red cell infusion last week. No significant findings on ascitic fluid eval. SAAG=1.9. Exam Data for Last 24 hours Vital signs and Labs for Last 24 Hours: Temp Pulse Resp BP Pulse Ox O2 Del Method O2 Flow Rate 98.1 F 63 16 131/59 L 94 L Room Air 2 12/17/24 12:00 12/17/24 12:00 12/17/24 12:00 12/17/24 12:00 12/17/24 12:00 12/17/24 12:32 12/13/24 06:40 FiO2 12/12/24 03:01 Laboratory Results - last 24 hr 12/17/24 07:10: WBC 6.4, RBC 3.62 L, Hgb 9.2 L, Hct 28.8 L, MCV 79.6 L, MCH 25.4 L, MCHC 31.9, RDW 17.2, Plt Count 146, MPV 10.0, Neut % (Auto) 64.8, Lymph % (Auto) 17.5, [place] % (Auto) 14.2 H, Eos % (Auto) 2.8, Baso % (Auto) 0.2, Neut # (Auto) 4.2, Lymph # (Auto) 1.1, [place] # (Auto) 0.9, Eos # (Auto) 0.2, Baso # (Auto) 0.0, Sodium 132 L, Potassium 3.4 L, Chloride 89 L, Carbon Dioxide 38 H, Anion Gap 8.4, BUN 32 H, Creatinine 1.40 H, Estimated Creat Clear 42, Estimated GFR 49 L, Est GFR ( Amer) 59, Glucose 112 H, Calcium 8.5, Magnesium 2.0 D, Total Bilirubin 1.3, AST 39, ALT 15, Alkaline Phosphatase 87, Total Protein 5.9 L, Albumin 2.9 L, Globulin 3.0, Albumin/Globulin Ratio 1.0 L I & O for Last 24 hours: Intake & Output 12/15/24 12/16/24 12/17/24 12/18/24 11:59 11:59 11:59 11:59 Intake Total 6300 176 2265 150 Output Total 1750 9440 4000 Balance -700 -4171 -9519 150 Weight 77.292 kg 74.48 kg 70.125 kg Microbiology Reports for the Last 24 Hours: Microbiology 12/12/24 14:00 Ascites Fluid Gram Stain - Final 12/12/24 14:00 Ascites Fluid Body Fluid Culture - Preliminary NO GROWTH AFTER 4 DAYS Constitutional Constitutional: no acute distress Comments: asleep, easily awoken *Routine HEENT Exam Head: Present normocephalic and atraumatic ENT: Present mucous membranes dry *Routine Respiratory Exam Respiratory: Present rhonchi (Mild rhonchi bilateral lower extremities, improves with cough) *Routine Cardiovascular Exam Cardiovascular: Present RRR *Routine Abdominal Exam Abdominal: Present soft; Absent tenderness *Routine Neurological Exam Neurological: Present normal speech Comments: Sleep, easily awoken but mild confused Assessment and Plan *Assessment and plan (1) Cirrhosis: Status: Acute Category: Medical Code(s): K74.60 - Unspecified cirrhosis of liver (2) Acute on chronic anemia: Status: Acute Category: Medical Code(s): D64.9 - Anemia, unspecified (3) Alcoholic cirrhosis: Status: Acute Category: Medical Code(s): K70.30 - Alcoholic cirrhosis of liver without ascites (4) Portal hypertension: Status: Acute Category: Medical Code(s): K76.6 - Portal hypertension (5) Hyponatremia: Status: Acute Category: Medical Code(s): E87.1 - Hypo-osmolality and hyponatremia (6) Ascites: Status: Acute Qualifiers: Ascites type: due to alcoholic cirrhosis Qualified Code(s): K70.31 - Alcoholic cirrhosis of liver with ascites Category: Medical Code(s): R18.8 - Other ascites Plan 1. Alcoholic cirrhosis/portal hypertension/ascites Long history of daily alcohol consumption likely since teenage years. He has been alcohol free since June. Ascites and portal hypertension noted on imaging during hospitalization in June. He is on carvedilol and Bumex at home. Currently on Bumex and spironolactone. Paracentesis was only able to remove 600 mL. Patient became unstable afterwards and hypotensive. Ascitic fluid eval unremarkable. SAAG equals 1.9 consistent with portal hypertension. Patient struggled with hepatic encephalopathy and elevated ammonia levels during hospitalization in June. Was previously on Xifaxan twice a day but not sustainable as they are cost was over $500 a month. Ammonia level normal. LFTs within normal limits. Unlikely hepatic encephalopathy contributing to mental status changes, likely multiple acute infectious processes. Continue lactulose twice a day. 3. Anemia Patient has some chronic anemia, worsened with a hemoglobin of 6.8 this hospitalization. Was down to 6.3 last hospitalization in November. Has been on p.o. iron replacement. Has completed screening EGD with [facility] in July. No esophageal varices but he did have some small gastric varices. Hemoccult was positive but no obvious melena. He has completed octreotide. Got PRBCs over the weekend has been able to maintain his hemoglobin is up to 9.2. After discussion with Dr. Parker, unlikely that he has had significant changes since last EGD necessitating an urgent repeat currently. Will check iron levels, folate, B12. Depending on results, consider iron infusion prior to discharge. Continue Protonix twice daily.
[2024-12-17] MEDS: POTASSIUM CHLORIDE 20MEQ TAB 40 MEQ PO (14:36)
--- NOTE | 2024-12-17 14:50 | PC.NURSE ---
Aox1 with confusion noted, turn every two hours, bed alarm active, purewick in place.
--- NOTE | 2024-12-17 18:28 | P.PN_ITS ---
Subjective *Date: 12/17/24 *Time: 18:28 Interval history: Stable on room air. Denies any nausea or vomiting. Mild dysarthria, difficult to understand on interview. Labs stable today. Awaiting placement. Medical Exam Vital signs and Labs for Last 24 Hours: Vital Signs Temp Pulse Pulse Resp BP Pulse Ox O2 Del Method 12/17/24 18:17 Room Air 12/17/24 16:00 98 F 78 16 130/60 96 12/17/24 14:58 Room Air 12/17/24 12:32 Room Air 12/17/24 12:00 98.1 F 63 16 131/59 L 94 L 12/17/24 11:00 Room Air 12/17/24 09:00 Room Air 12/17/24 08:00 98.1 F 78 17 120/58 L 94 L Room Air 12/17/24 07:00 Room Air 12/17/24 06:38 78 12/17/24 06:38 87 12/17/24 05:00 Room Air 12/17/24 04:00 97.9 F 77 18 118/56 L 95 Room Air 12/17/24 03:00 Room Air 12/17/24 01:00 Room Air 12/17/24 00:00 98.6 F 78 20 125/59 L 94 L Room Air 12/16/24 23:00 Room Air 12/16/24 21:00 Room Air 12/16/24 20:00 94 L Room Air 12/16/24 20:00 98.4 F 85 18 124/53 L 94 L Room Air 12/16/24 18:51 70 12/16/24 18:50 74 Intake and Output 12/17/24 12/17/24 12/17/24 07:59 15:59 23:59 Intake Total 150 / 710 510 / 710 50 / 710 Output Total 1250 / 1950 700 / 1950 Balance -1100 / -1240 -190 / -1240 50 / -1240 Intake: Intake, Oral Amount 360 / 360 Intake, Total IV Amount 150 / 350 150 / 350 50 / 350 Pipercillin/Tazo 3.375 gm In 0. 50 / 150 50 / 150 50 / 150 9 % Sodium Chloride 50 ml @ 100 mls/hr IV Q6H [facility] Rx#:[id number] Remdesivir 100 mg In 0.9 % 100 / 200 100 / 200 Sodium Chloride 100 ml @ 100 mls/hr IV Q24H [facility] Rx#:[id number] Output: Output, Urine Amount 1249 / 1950 / 1950 Other: Number of Unmeasured Voids 0 Number of Bowel Movements 1 Weight 70.125 kg Patient Weight 12/17/24 23:59 Weight 70.125 kg Laboratory Results - last 24 hr 12/17/24 07:10: WBC 6.4, RBC 3.62 L, Hgb 9.2 L, Hct 28.8 L, MCV 79.6 L, MCH 25.4 L, MCHC 31.9, RDW 17.2, Plt Count 146, MPV 10.0, Neut % (Auto) 64.8, Lymph % (Auto) 17.5, [place] % (Auto) 14.2 H, Eos % (Auto) 2.8, Baso % (Auto) 0.2, Neut # (Auto) 4.2, Lymph # (Auto) 1.1, [place] # (Auto) 0.9, Eos # (Auto) 0.2, Baso # (Auto) 0.0, Sodium 132 L, Potassium 3.4 L, Chloride 89 L, Carbon Dioxide 38 H, Anion Gap 8.4, BUN 32 H, Creatinine 1.40 H, Estimated Creat Clear 42, Estimated GFR 49 L, Est GFR ( Amer) 59, Glucose 112 H, Calcium 8.5, Magnesium 2.0 D, Total Bilirubin 1.3, AST 39, ALT 15, Alkaline Phosphatase 87, Total Protein 5.9 L, Albumin 2.9 L, Globulin 3.0, Albumin/Globulin Ratio 1.0 L I & O for Labs for Last 24 Hours: Intake & Output 12/14/24 12/15/24 12/16/24 12/17/24 23:59 23:59 23:59 23:59 Intake Total 490 / 780 1300 / 1420 875 / 1025 710 / 710 Output Total 1900 / 1900 3600 / 4200 4700 / 5550 1949 / 1949 Balance -1410 / -1120 -2300 / -2780 -3825 / -4525 -1240 / -1240 Weight 77.292 kg 77.292 kg 74.48 kg 70.125 kg Microbiology Reports for the Last 24 Hours: Microbiology 12/12/24 14:00 Ascites Fluid Gram Stain - Final 12/12/24 14:00 Ascites Fluid Body Fluid Culture - Preliminary NO GROWTH AFTER 5 DAYS Constitutional: Present no acute distress, thin, chronically ill appearing and cooperative Head: Present atraumatic and normocephalic Respiratory: Present wheezes and normal respiratory effort; Absent respiratory distress, rhonchi, stridor or crackles Cardiac: Present Reg Rate and Rhythm GI: Present soft, distention and normal bowel sounds; Absent tenderness Comment:: Legs equal length, edema improved. Skin: Present intact; Absent erythema Neuro: Present Grossly Intact, alert, awake and moves all extremities Comment:: Mild confusion. Rigid/stiff on exam, tremor in upper extremities Assessment and Plan *Assessment and plan (1) Acute UTI: Status: Acute Category: Medical Code(s): N39.0 - Urinary tract infection, site not specified (2) COVID: Status: Acute Category: Medical Code(s): U07.1 - COVID-19 (3) Post-acute COVID-19 syndrome: Status: Acute Category: Medical Code(s): U09.9 - Post COVID-19 condition, unspecified (4) Pleural effusion, bilateral: Status: Acute Category: Medical Code(s): J90 - Pleural effusion, not elsewhere classified (5) Acute respiratory failure with hypoxia: Status: Acute Category: Medical Code(s): J96.01 - Acute respiratory failure with hypoxia (6) Cirrhosis: Status: Acute Category: Medical Code(s): K74.60 - Unspecified cirrhosis of liver (7) Acute on chronic anemia: Status: Acute Category: Medical Code(s): D64.9 - Anemia, unspecified (8) Hypothyroid: Status: Acute Category: Medical Code(s): E03.9 - Hypothyroidism, unspecified (9) Alcoholic cirrhosis: Status: Acute Category: Medical Code(s): K70.30 - Alcoholic cirrhosis of liver without ascites (10) Portal hypertension: Status: Acute Category: Medical Code(s): K76.6 - Portal hypertension (11) Hyponatremia: Status: Acute Category: Medical Code(s): E87.1 - Hypo-osmolality and hyponatremia (12) Ascites: Status: Acute Qualifiers: Ascites type: due to alcoholic cirrhosis Qualified Code(s): K70.31 - Alcoholic cirrhosis of liver with ascites Category: Medical Code(s): R18.8 - Other ascites Plan Joshua Rogers is a 79-year-old male with a medical history significant for alcoholic cirrhosis with gastroesophageal varices, CAD, hypothyroidism, COPD who presents with several day onset of progressive confusion, weakness. states he was unable to get out of bed yesterday and called EMS who were able to get him back into bed. This morning it occurred again patient called EMS again who brought him to the ED. states patient becomes like this at any time he has a UTI. She also states he has been more confused, speaking out of his head . Patient has not endorsed chest pain, shortness of breath, abdominal pain, dark/bloody stools to . Has been adherent to his medications other than lactulose this morning. Workup in the ED significant for hemoglobin 6.3, MCV 81, creatinine 1.3, magnesium 1.4, troponin 0.11, BNP 19,100, UA grossly abnormal. Patient was encephalopathic, somnolent on my exam. VBG pH normal. Upper airway wheezing. CTA chest revealed moderate bilateral pleural effusions, does have right lower extremity pitting edema but did have a right hip fracture earlier this month. Case discussed with ED provider and decision was made to admit patient for acute metabolic encephalopathy from UTI, NSTEMI, acute on chronic anemia, HFpEF exacerbation. Showing some improvement today. Awaiting placement for rehab. Pulmonology and GI assisting with care. Problems addressed as follows: #Acute hypoxic respiratory failure #HFpEF exacerbation versus decompensated cirrhosis #Ascites #Bilateral pleural effusions #Possible hepatorenal syndrome ? Moderate bilateral pleural effusions on CTA chest, BNP 19,100. ? ECHO July 2024 shows normal biventricular systolic function. ? Right lower extremity pitting edema in the setting of right hip fracture s/p hemiarthroplasty in November 2024. ?Continue Bumex 2 mg IV twice daily. Having good response. Continue spironolactone 25 mg daily ? Continue home lactulose. Peritoneal fluid did not indicate SBP. - Completed octreotide. No indication for further treatment. Creatinine remained stable at 1.4, BUN 32. ? ECHO reveals normal biventricular systolic function, mildly reduced RV function. #Acute metabolic encephalopathy #Septic shock # ESBL UTI #E. coli pneumonia #COVID-19 #Left mastoiditis ? Progressive weakness, confusion over the past several days prior to admission. states this becomes an when he has a UTI. ? Presented with leukopenia, tachypnea on admission. ? CT head without acute findings other than left mastoiditis. ? UA grossly abnormal, urine culture showing E. coli ESBL sensitive to ertapenem. Weaned off Levophed 12/13/24. ? Respiratory panel positive for COVID-19. Continue remdesivir for total of 5 days. Stable on room air. Given no pneumonia or COPD exacerbation, will hold off on further dexamethasone per pulmonology recommendations. ? COVID-19 would explain leukopenia, WBC improved to 6.4 today. Hemoglobin stable at 9.2. 5.8. today. ? E. coli pneumonia resistant to ertapenem. Switched to Zosyn day 3 to cover for ESBL UTI as well. ? Blood cultures NGTD. ? Patient continues to be confused intermittently, CT head unremarkable for acute findings. Suspect hospital-acquired delirium, and from UTI, pneumonia. #A-fib RVR ? Patient developed A-fib RVR, was initially started on amiodarone with improvement in heart rate. However, unable to anticoagulate due to GI bleed. Therefore, cardioversion to NSR is not preferable at this time. Patient ultimately converted to NSR currently. ? Cardiology switched amiodarone to metoprolol succinate 12.5 mg. Currently rate controlled. #Acute on chronic anemia #History of gastroesophageal varices ? Hemoglobin 6.3 on admission. MCV 81. History of gastroesophageal varices. Denies dark, bloody stools. ? Transfused 2 units with improvement to 8.7. Positive FOBT. Further improvement in hemoglobin today to 9.2. No active signs of bleeding. No plan for repeat EGD after discussion with GI. Continue IV Protonix 40 mg twice daily. #COPD: Currently stable on room air. DuoNebs every 6 hours. #Severe protein calorie malnutrition: Nutrition consulted, providing counseling and supplementation. #History of right subcapital hip fracture s/p hemiarthroplasty 11/21/2024: Continue pain management as needed. #CAD: Hold home aspirin due to possible GI bleed. #Hypothyroidism Continue home levothyroxine 75 mcg. TFTs stable. Full code DVT prophylaxis: Hold AC due to possible GI bleed. Awaiting placement [facility] for further care. Stable to discharge when placement approved
[2024-12-17] MEDS: LACTULOSE 20GM/30ML UDC 10 GM PO (21:12)
[2024-12-17] MEDS: ATORVASTATIN 40MG TABLET 40 MG PO (21:12)
[2024-12-17] MEDS: PANTOPRAZOLE 40MG TABLET 40 MG PO (21:12)
[2024-12-18] MEDS: PIPERCILLIN/TAZO 3.375 GM in 0.9 % SODIUM CHLORIDE 50 ML IV ×2 (01:08→06:52)
[2024-12-18 04:00] VITALS: BMI 23.4
--- NOTE | 2024-12-18 06:15 | XR_ITS ---
FINAL REPORT CLINICAL HISTORY: Effusion COMPARISON: 11/20/2024 FINDINGS: CHEST 1 VIEW There is mild cardiomegaly. The mediastinum is normal. There is patchy airspace opacity at the right base and in the left perihilar region. There is a small to moderate left pleural effusion. These infiltrates appear worse than the seen previously. There is no pneumothorax. There is no osseous abnormality. IMPRESSION: Worsening infiltrates as above. Reviewed, Interpreted and Dictated by Loyd Lacey MD Transcribed by Margaret Leung Authenticated and [facility]
[2024-12-18] MEDS: FLUTICASONE/SALMETEROL 250/50MCG DISKUS 1 PUFF IH (06:17)
[2024-12-18] MEDS: LEVOTHYROXINE 75MCG (0.075MG) TAB 75 MCG PO (06:52)
[2024-12-18 07:18] LABS: Albumin Level 3.1 g/dl (3.5-5.0); Chloride 93 mmol/L (98-107); Sodium 134 mmol/L (136-145)
[2024-12-18 07:19] LABS: Potassium 3.9 mmoL/L (3.5-5.1)
[2024-12-18 07:21] LABS: Alanine Aminotransferase 18 U/L (12-78); Anion Gap 7.9 mEq/L (5-15); Aspartate Amino Transferase 45 U/L (17-59); Blood Urea Nitrogen 32 mg/dl (9-20); Carbon Dioxide 37 mmol/L (22.0-30.0); Creatinine Clearance Estimated 42 mL/min (50-200); Estimated Glomerular Filt Rate 49 ml/min (>60); GFR (African American) 59 ML/MIN (>60); Globulin 3.2 g/dL (1.3-3.2); Total Protein,Serum 6.3 g/dl (6.3-8.2)
[2024-12-18 07:22] LABS: Alkaline Phosphatase 79 U/L (38-126); Bilirubin,Total 1.3 mg/dl (0.2-1.3); Calcium 8.7 mg/dl (8.4-10.2); Glucose 109 mg/dl (74-100); Magnesium 1.9 mg/dl (1.6-2.3)
--- NOTE | 2024-12-18 07:50 | EXP.DC.SUM ---
General Admission date:: 12/11/24 Discharge date: 12/18/24 HPI HPI HPI: Joshua Rogers is a 79-year-old male with a medical history significant for alcoholic cirrhosis with gastroesophageal varices, CAD, hypothyroidism, COPD who presents with several day onset of progressive confusion, weakness. states he was unable to get out of bed yesterday and called EMS who were able to get him back into bed. This morning it occurred again patient called EMS again who brought him to the ED. states patient becomes like this at any time he has a UTI. She also states he has been more confused, speaking out of his head . Patient has not endorsed chest pain, shortness of breath, abdominal pain, dark/bloody stools to . Has been adherent to his medications other than lactulose this morning. Workup in the ED significant for hemoglobin 6.3, MCV 81, creatinine 1.3, magnesium 1.4, troponin 0.11, BNP 19,100, UA grossly abnormal. Patient was encephalopathic, somnolent on my exam. VBG pH normal. Upper airway wheezing. CTA chest revealed moderate bilateral pleural effusions, does have right lower extremity pitting edema but did have a right hip fracture earlier this month. Case discussed with ED provider and decision was made to admit patient for acute metabolic encephalopathy from UTI, NSTEMI, acute on chronic anemia, HFpEF exacerbation. Per admission H &P This is a 79-year-old male with a history of alcoholic cirrhosis, portal hypertension, gastric varices, hepatic encephalopathy, ascites. The patient had been a daily alcohol drinker since teenage years. His last alcoholic beverage was in June and he has been sober ever since. Incidental finding of portal hypertension, cirrhosis, and moderate ascites on imaging during hospitalization. He was on carvedilol twice daily and Bumex at home. He was hospitalized in June and reports that was the first time he is ever diagnosed with cirrhosis. He was seen as an outpatient in our GI office a few months ago and had improvement of all symptoms. Ascites had improved. His last paracentesis was in July without findings of SBP then. Encephalopathy resolved and he was on lactulose twice a day having 3-4 bowel movements per day. He was previously on Xifaxan but it was cost prohibitive over $500 per month. He has been off of Xifaxan for couple of months. He does have some chronic anemia and was on oral iron supplements. Patient recently underwent right hip surgery. He was in rehab after the surgery and has been back home for about a week. He has been back on his lactulose twice a day. He had stopped narcotic pain medication about a week ago upon arrival back home. Hemoglobin dropped to 6.3. Patient placed on IV Protonix twice daily. He is status post EGD with Dr. Parker in July who found no esophageal varices but he did have small nonbleeding gastric varices at the time. Imaging upon arrival did show moderate to large amount of pelvic and abdominal ascites. Patient did develop altered mental status 2 days ago that got worse leading to his presentation in the ER yesterday. Concern for acute illness UTI versus mastoiditis and patient was started on ceftriaxone. His reports that he has had altered mental status with previous UTIs. Mentation has improved since admission but not at baseline. Current MELD score equals 18 which is an increase for the patient, likely exacerbated by JEROMY. Hospital Course Hospital Course Hospital Course: Joshua Rogers is a 79-year-old male with a medical history significant for alcoholic cirrhosis with gastroesophageal varices, CAD, hypothyroidism, COPD who presents with several day onset of progressive confusion, weakness. states he was unable to get out of bed yesterday and called EMS who were able to get him back into bed. This morning it occurred again patient called EMS again who brought him to the ED. states patient becomes like this at any time he has a UTI. She also states he has been more confused, speaking out of his head . Patient has not endorsed chest pain, shortness of breath, abdominal pain, dark/bloody stools to . Has been adherent to his medications other than lactulose this morning. Workup in the ED significant for hemoglobin 6.3, MCV 81, creatinine 1.3, magnesium 1.4, troponin 0.11, BNP 19,100, UA grossly abnormal. Patient was encephalopathic, somnolent on my exam. VBG pH normal. Upper airway wheezing. CTA chest revealed moderate bilateral pleural effusions, does have right lower extremity pitting edema but did have a right hip fracture earlier this month. Case discussed with ED provider and decision was made to admit patient for acute metabolic encephalopathy from UTI, NSTEMI, acute on chronic anemia, HFpEF exacerbation. Continue to show improvement during admission. Stable on room air for over 48 hours. Completed 5 days of antibiotics. Accepted to [facility] for further management. Stable to discharge. Problems addressed as follows: #Acute hypoxic respiratory failure #HFpEF exacerbation versus decompensated cirrhosis #Ascites #Bilateral pleural effusions #Possible hepatorenal syndrome ? Moderate bilateral pleural effusions on CTA chest, BNP 19,100. ECHO July 2024 shows normal biventricular systolic function. Right lower extremity pitting edema in the setting of right hip fracture s/p hemiarthroplasty in November 2024. Edema improved with diuresis. Initiated on Bumex 2 mg IV twice daily. Had great response. Initiated on spironolactone as well. Continue home lactulose for confusion. Peritoneal fluid obtained at time of admission did not show SBP. Completed course of octreotide. No indication for further treatment at this time. Kidney function remained stable with creatinine 1.4, BUN 32. Repeat echo performed this visit showing normal biventricular systolic function, mildly reduced RV function. Stable on room air for over 48 hours. Will continue diuretics per med rec. Overall doing better. #Acute metabolic encephalopathy #Septic shock # ESBL UTI #E. coli pneumonia #COVID-19 #Left mastoiditis ? Progressive weakness, confusion over the past several days prior to admission. states this becomes an when he has a UTI. Presented with leukopenia, tachypnea on admission. CT head without acute findings other than left mastoiditis. UA grossly abnormal, urine culture showing E. coli ESBL sensitive to ertapenem. Weaned off Levophed 12/13/24. Has maintained normal blood pressure since. Respiratory panel positive for COVID-19. Treated with 5 days of remdesivir and 7 days of abx coveragere for pneumonia and ESBL UTI. Given his clinical improvement, no further antibiotics after discharge. Blood cultures remain negative during admission. Mentation improved. Oriented to self and place on day of discharge. - CT head unremarkable for acute findings. Suspect hospital-acquired delirium, and from UTI, pneumonia. #A-fib RVR ? Patient developed A-fib RVR, was initially started on amiodarone with improvement in heart rate. However, unable to anticoagulate due to GI bleed. Therefore, cardioversion to NSR is not preferable at this time. Patient ultimately converted to NSR currently. Cardiology switched amiodarone to metoprolol succinate 12.5 mg. Currently rate controlled. #Acute on chronic anemia #History of gastroesophageal varices ? Hemoglobin 6.3 on admission. MCV 81. History of gastroesophageal varices. Denies dark, bloody stools. Transfused 2 units with improvement in hemoglobin. Remained stable at 9.1-9.2 for over 3 days prior to discharge. No active signs of bleeding. Discussed case with GI, no plan for repeat EGD. Last EGD performed in July. Continue Protonix, transition to p.o. 40 mg twice daily. #COPD: Currently stable on room air. DuoNebs every 6 hours. #Severe protein calorie malnutrition: Nutrition consulted, providing counseling and supplementation. #History of right subcapital hip fracture s/p hemiarthroplasty 11/21/2024: Continue pain management as needed. #CAD: Hold home aspirin due to possible GI bleed. #Hypothyroidism Continue home levothyroxine 75 mcg. TFTs stable. Total time spent on discharge 32 minutes in counseling, documentation, chart review, and direct care with patient. Exam Data for Last 24 hours Vital signs and Labs for Last 24 Hours: Temp Pulse Resp BP Pulse Ox O2 Del Method O2 Flow Rate 98.4 F 77 20 112/46 L 94 L Room Air 2 12/17/24 20:47 12/17/24 20:47 12/17/24 20:47 12/17/24 20:47 12/17/24 20:47 12/18/24 07:00 12/13/24 06:40 FiO2 25 12/12/24 03:01 Laboratory Results - last 24 hr 12/18/24 06:55: Sodium 134 L, Potassium 3.9, Chloride 93 L, Carbon Dioxide 37 H, Anion Gap 7.9, BUN 32 H, Creatinine 1.40 H, Estimated Creat Clear 42, Estimated GFR 49 L, Est GFR ( Amer) 59, Glucose 109 H, Calcium 8.7, Magnesium 1.9, Total Bilirubin 1.3, AST 45, ALT 18, Alkaline Phosphatase 79, Total Protein 6.3, Albumin 3.1 L, Globulin 3.2, Albumin/Globulin Ratio 1.0 L I & O for Last 24 hours: Intake & Output 12/15/24 12/16/24 12/17/24 12/18/24 23:59 23:59 23:59 23:59 Intake Total 1300 / 1420 875 / 1025 1670 / 1770 100 / 100 Output Total 3600 / 4200 4700 / 5550 4050 / 4750 1900 / 1900 Balance -2300 / -2780 -3825 / -4525 -2380 / -2980 -1800 / -1800 Weight 77.292 kg 74.48 kg 70.125 kg 70.123 kg Microbiology Reports for the Last 24 Hours: Microbiology 12/12/24 14:00 Ascites Fluid Gram Stain - Final 12/12/24 14:00 Ascites Fluid Body Fluid Culture - Preliminary NO GROWTH AFTER 5 DAYS Constitutional Constitutional: no acute distress, average body habitus, chronically ill appearing and cooperative *Routine HEENT Exam Head: Present normocephalic Eye: Present EOMI and PERRL ENT: Present mucous membranes moist *Routine Neck Exam Neck: Present supple; Absent lymphadenopathy *Routine Respiratory Exam Respiratory: Present wheezes; Absent accessory muscle use, respiratory distress, rhonchi, stridor or crackles *Routine Cardiovascular Exam Cardiovascular: Present RRR *Routine Abdominal Exam Abdominal: Present soft, normoactive bowel sounds and distended; Absent tenderness *Routine Rectal Exam Patient deferred: visual exam *Routine Exam Patient deferred: penile exam *Routine Extremities Exam Extremities: Absent cyanosis, clubbing or edema Comments: Legs equal length, right surgical site clean dry and intact *Routine Skin Exam Skin: Present warm; Absent rash *Routine Neurological Exam Neurological: Present alert, oriented X3 and moving all extremities; Absent altered mental status Comments: slow to respond, but responds appropriately; baseline per . Results Data Completed and Pending Labs on day of discharge: Labs from last 24 hours 12/18/24 06:55 Sodium 134 L Potassium 3.9 Chloride 93 L Carbon Dioxide 37 H Anion Gap 7.9 BUN 32 H Creatinine 1.40 H Estimated Creat Clear 42 Estimated GFR 49 L Est GFR ( Amer) 59 Glucose 109 H Calcium 8.7 Magnesium 1.9 Total Bilirubin 1.3 AST 45 ALT 18 Alkaline Phosphatase 79 Total Protein 6.3 Albumin 3.1 L Globulin 3.2 Albumin/Globulin Ratio 1.0 L Preliminary micro results at discharge 12/12/24 14:00 Body Fluid Culture - Preliminary Ascites Fluid NO GROWTH AFTER 5 DAYS DS: Diagnosis Discharge Diagnosis (1) Acute UTI: Status: Acute Code(s): N39.0 - Urinary tract infection, site not specified (2) COVID: Status: Acute Code(s): U07.1 - COVID-19 (3) Post-acute COVID-19 syndrome: Status: Acute Code(s): U09.9 - Post COVID-19 condition, unspecified (4) Pleural effusion, bilateral: Status: Acute Code(s): J90 - Pleural effusion, not elsewhere classified (5) Acute respiratory failure with hypoxia: Status: Acute Code(s): J96.01 - Acute respiratory failure with hypoxia (6) Cirrhosis: Status: Acute Code(s): K74.60 - Unspecified cirrhosis of liver (7) Acute on chronic anemia: Status: Acute Code(s): D64.9 - Anemia, unspecified (8) Hypothyroid: Status: Acute Code(s): E03.9 - Hypothyroidism, unspecified (9) Alcoholic cirrhosis: Status: Acute Code(s): K70.30 - Alcoholic cirrhosis of liver without ascites (10) Portal hypertension: Status: Acute Code(s): K76.6 - Portal hypertension (11) Hyponatremia: Status: Acute Code(s): E87.1 - Hypo-osmolality and hyponatremia (12) Ascites: Status: Acute Code(s): R18.8 - Other ascites Qualifiers: Ascites type: due to alcoholic cirrhosis Qualified Code(s): K70.31 - Alcoholic cirrhosis of liver with ascites Meds Home Medications and Allergies Home Medications ?Medication ?Instructions ?Recorded ?Confirmed ?Type acetaminophen 325 mg tablet 650 mg (2 x 325 mg) PO Q8HP PRN 12/18/24 Rx Fever Or Mild Pain (1-3) 30 days #90 tabs aspirin 81 mg chewable tablet 81 mg PO DAILY #30 tabs 12/18/24 Rx atorvastatin 40 mg tablet 40 mg PO HS 30 days #30 tabs 12/18/24 Rx bumetanide 1 mg tablet 1 mg PO BID 30 days #60 tabs 12/18/24 Rx ferrous sulfate 325 mg (65 mg 325 mg PO BID 30 days #60 tabs 12/18/24 Rx iron) tablet (iron) fluticasone 250 mcg-salmeterol 50 1 inh inhalation BIDRT 30 days #60 12/18/24 Rx mcg/dose blistr powdr for ea inhalation (Advair Diskus) ipratropium 0.5 mg-albuterol 3 mg 3 ml inhalation Q6HP PRN Shortness 12/18/24 Rx (2.5 mg base)/3 mL nebulization Of Breath 30 days #180 mL soln lactulose 10 gram/15 mL oral 15 ml PO BID 30 days #900 mL 12/18/24 Rx solution levothyroxine 75 mcg tablet 75 mcg PO DAILY 30 days #30 tabs 12/18/24 Rx metoprolol succinate 25 mg 12.5 mg (1/2 x 25 mg) PO DAILY 30 12/18/24 Rx tablet,extended release 24 hr days #15 tabs pantoprazole 40 mg tablet,delayed 40 mg PO BID 30 days #60 tabs 12/18/24 Rx release spironolactone 25 mg tablet 25 mg PO DAILY 30 days #30 tabs 12/18/24 Rx New Prescriptions to Start Prescriptions: acetaminophen Chen,Santiago aspirin Chen,Santiago atorvastatin Chen,Santiago bumetanide Santiago Siddiqui ferrous sulfate [iron] Santiago Siddiqui fluticasone propion-salmeterol [Advair Diskus] Santiago Siddiqui ipratropium-albuterol Santiago Siddiqui lactulose Santiago Siddiqui levothyroxine Santiago Siddiqui metoprolol succinate Santiago Siddiqui pantoprazole Santiago Siddiqui spironolactone Santiago Siddiqui Allergies Allergy/AdvReac Type Severity Reaction Status Date / Time No Known Allergies Allergy Verified 12/05/24 10:21 Discharge Plan Disposition Patient Disposition: [facility] Condition: Fair Discharge Order Discharge Orders: Discharge Order (Routine); Ordered 12/18/24 Ordered By: Santiago Siddiqui Follow up Plan Follow up with: Ky Parker II, MD [Staff Physician, Gastroenterology] - Enter time for follow up Nash Niño MD [Staff Physician, Cardiology] - Enter time for follow up Prescriptions/Medication Reconciliation: New fluticasone propion-salmeterol [Advair Diskus] 250-50 mcg/dose Blister With Device 1 inh inhalation BIDRT 30 Days Qty: 60 0RF acetaminophen 325 mg Tablet 650 mg PO Q8HP PRN (Reason: Fever Or Mild Pain (1-3)) 30 Days Qty: 90 0RF ipratropium-albuterol 0.5 mg-3 mg(2.5 mg base)/3 mL Solution For Nebulization 3 ml inhalation Q6HP PRN (Reason: Shortness Of Breath) 30 Days Qty: 180 0RF spironolactone 25 mg Tablet 25 mg PO DAILY 30 Days Qty: 30 0RF pantoprazole 40 mg Tablet,Delayed Release (Dr/Ec) 40 mg PO BID 30 Days Qty: 60 0RF metoprolol succinate 25 mg Tablet Extended Release 24 Hr 12.5 mg PO DAILY 30 Days Qty: 15 0RF Continued atorvastatin 40 mg tablet 40 mg PO HS 30 Days Qty: 30 0RF levothyroxine 75 mcg tablet 75 mcg PO DAILY 30 Days Qty: 30 0RF ferrous sulfate [iron] 325 mg (65 mg iron) tablet 325 mg PO BID 30 Days Qty: 60 0RF bumetanide 1 mg tablet 1 mg PO BID 30 Days Qty: 60 0RF Changed aspirin 81 mg tablet,chewable 81 mg PO DAILY Qty: 30 0RF lactulose 10 gram/15 mL solution 15 ml PO BID 30 Days Qty: 900 0RF Discontinued carvedilol 3.125 mg Tablet 3.125 mg PO BID 30 Days Qty: 60 0RF albuterol sulfate 90 mcg/actuation HFA aerosol inhaler 2 puff inhalation Q4HP PRN (Reason: Shortness Of Breath) 30 Days Qty: 8.5 0RF Problem Reconciliation Problems Reviewed?: Yes Patient Discharge Instructions ACTIVITY: Continue current activity, Ambulate as tolerated and Up with assistance DIET: continue same diet Patient Instructions: Anemia: How Food and Vitamins Can Help, Urinary Tract Infection, Anemia, DI for Pneumonia -- Adult, Lifestyle Habits May Lower Lifetime Risk of Heart Failure in Men, DI for Respiratory Failure, DI for Altered Mental Status, Stop Light Pneumonia, Stop Light Heart Failure, Stop Light Infection Print Language: Pashto Providers Primary Care Provider: Provider,Referral Admit Provider: Miguelito Nunn Attending Provider: Miguelito Nunn
[2024-12-18 07:51] LABS: Iron 31 ug/dL (49-181)
[2024-12-18 08:00] VITALS: BP 123/57; PULSE 74; RESP 18; TEMP 36.6; O2SAT 99
[2024-12-18 08:00] LABS: Total Iron Binding Capacity 177 ug/dL (261-462)
[2024-12-18] MEDS: IRON SUCROSE COMPLEX 200 MG in 0.9 % SODIUM CHLORIDE 100 ML 220 MG IV (08:43)
[2024-12-18] MEDS: PHENYLEPHRINE 0.5% NASAL SPRAY 15ML NS (08:44)
[2024-12-18] MEDS: LACTULOSE 20GM/30ML UDC 10 GM PO (08:44)
[2024-12-18] MEDS: METOPROLOL SUCCINATE XL 25MG TABLET 12.5 MG PO (08:45)
[2024-12-18] MEDS: SPIRONOLACTONE 25MG TABLET 25 MG PO (08:45)
[2024-12-18] MEDS: PANTOPRAZOLE 40MG TABLET 40 MG PO (08:46)
[2024-12-18] MEDS: BUMETANIDE 1MG/4ML VIAL 2 MG IV (08:46)
[2024-12-18 09:19] LABS: Ferritin 1060 ng/ml (17.9-464)
--- NOTE | 2024-12-18 10:15 | P.PN_ITS ---
Subjective *Date: 12/18/24 *Time: 11:27 Interval history: No acute respiratory events overnight Pulmonology Exam Inpatient Vital signs and Labs for Last 24 Hours: Temp Pulse Resp BP Pulse Ox O2 Del Method O2 Flow Rate 98 F 74 18 123/57 L 99 Room Air 2 12/18/24 08:00 12/18/24 08:00 12/18/24 08:00 12/18/24 08:00 12/18/24 08:00 12/18/24 08:00 12/13/24 06:40 FiO2 12/12/24 03:01 Laboratory Results - last 24 hr 12/18/24 06:55: Sodium 134 L, Potassium 3.9, Chloride 93 L, Carbon Dioxide 37 H, Anion Gap 7.9, BUN 32 H, Creatinine 1.40 H, Estimated Creat Clear 42, Estimated GFR 49 L, Est GFR ( Amer) 59, Glucose 109 H, Calcium 8.7, Magnesium 1.9, Iron 31 L, TIBC 177 L, Iron Saturation 17.66969, Ferritin 1060 H D, Total Bilirubin 1.3, AST 45, ALT 18, Alkaline Phosphatase 79, Total Protein 6.3, Albumin 3.1 L, Globulin 3.2, Albumin/Globulin Ratio 1.0 L Temp Pulse Resp BP Pulse Ox O2 Del Method O2 Flow Rate 99.4 F 68 20 91/47 L 92 L Room Air 2 12/12/24 04:00 12/12/24 08:31 12/12/24 08:31 12/12/24 08:31 12/12/24 08:31 12/12/24 09:00 12/11/24 18:35 FiO2 12/12/24 03:01 Laboratory Results - last 24 hr 12/11/24 09:18: PT 13.5 H, INR 1.24 H, APTT 31.0 H, Magnesium 1.4 L, Troponin I 0.10 H, C-Reactive Protein 120.6 H, NT-Pro-B Natriuret Pep 79729 H, Procalcitonin 0.238, TSH 3.71, Thyroxine (T4) 10.6, Plasma/Serum Alcohol < 10 12/11/24 09:27: WBC 4.0 L, RBC 2.49 L, Hgb 6.8 L*, Hct 20.2 L*, MCV 81.1, MCH 27.3, MCHC 33.7, RDW 16.7, Plt Count 171, MPV 9.6, Neut % (Auto) 52.8, Lymph % (Auto) 19.3, [place] % (Auto) 26.5 H, Eos % (Auto) 0.7, Baso % (Auto) 0.5, Neut # (Auto) 2.1, Lymph # (Auto) 0.8, [place] # (Auto) 1.1 H, Eos # (Auto) 0.0, Baso # (Auto) 0.0, Sodium 127 L, Potassium 3.2 L, Chloride 88 L, Carbon Dioxide 36 H, Anion Gap 6.2, BUN 28 H, Creatinine 1.30 H, Estimated Creat Clear 65, Estimated GFR 53 L, Est GFR ( Amer) 64, Glucose 128 H, Calcium 8.5, Total Bilirubin 1.4 H, AST 37, ALT 17, Alkaline Phosphatase 112, Total Protein 6.0 L, Albumin 3.1 L, Globulin 2.9, Albumin/Globulin Ratio 1.1, Urine Color Yellow, Urine Appearance Cloudy, Urine pH 6.0, Ur Specific Clifford 1.015, Urine Protein 1+ A, Urine Glucose (UA) Negative, Urine Ketones Negative, Urine Blood Trace-i, Urine Nitrate Negative, Urine Bilirubin Negative, Urine Urobilinogen 0.2, Ur Leukocyte Esterase 2+ A, Urine RBC None, Urine WBC 3-5, Ur Squamous Epith Cells Occasional, Urine Bacteria 3+, Urine Opiates Screen Negative, Urine Methadone Screen Negative, Ur Barbituates Screen Negative, Ur Phencyclidine Scrn Negative, Ur Amphetamines Screen Negative, U Benzodiazepines Scrn Negative, Urine Cocaine Screen Negative, U Marijuana (THC) Screen Negative 12/11/24 09:41: VBG pH 7.42 H, VBG pCO2 51.1 H, VBG pO2 102.4 H, VBG HCO3 32.7 H , VBG Total CO2 34.3 H, VBG O2 Saturation 97.2 H, VBG Base Excess 8.3 H, VBG Lactic Acid 2.2 H 12/11/24 10:06: Ammonia 13, Blood Type O Negative, Antibody Screen Negative, Crossmatch (AHG) See Detail 12/11/24 12:55: Troponin I 0.11 H 12/11/24 14:07: Lactate 1.1 12/11/24 15:34: Troponin I 0.11 H 12/11/24 16:08: Hgb 8.3 L D, Hct 24.4 L 12/12/24 04:51: WBC 3.9 L, RBC 2.93 L, Hgb 7.7 L, Hct 23.8 L, MCV 81.2, MCH 26.3 L, MCHC 32.4, RDW 17.5, Plt Count 175, MPV 10.3, Neut % (Auto) 66.1, Lymph % (Auto) 17.6, [place] % (Auto) 14.8 H, Eos % (Auto) 0.5, Baso % (Auto) 0.5, Neut # (Auto) 2.6, Lymph # (Auto) 0.7, [place] # (Auto) 0.6, Eos # (Auto) 0.0, Baso # (Auto) 0.0, Sodium 130 L, Potassium 3.5, Chloride 89 L, Carbon Dioxide 33 H, Anion Gap 11.5, BUN 32 H, Creatinine 1.30 H, Estimated Creat Clear 49, Estimated GFR 53 L, Est GFR ( Amer) 64, Glucose 87 D, Calcium 8.6, Magnesium 2.5 H D, Total Bilirubin 1.1, AST 41, ALT 18, Alkaline Phosphatase 103, Total Protein 6.2 L, Albumin 3.2 L, Globulin 3.0, Albumin/Globulin Ratio 1.1 I & O for Labs for Last 24 Hours: Intake & Output 12/15/24 12/16/24 12/17/24 12/18/24 23:59 23:59 23:59 23:59 Intake Total 1300 / 1420 875 / 1025 1670 / 1770 370 / 370 Output Total 3600 / 4200 4700 / 5550 4050 / 4750 1900 / 1900 Balance -2300 / -2780 -3825 / -4525 -2380 / -2980 -1530 / -1530 Weight 170 lb 6.4 oz 164 lb 3.2 oz 154 lb 9.6 oz 154 lb 9.516 oz Intake & Output 12/09/24 12/10/24 12/11/24 12/12/24 23:59 23:59 23:59 23:59 Intake Total 171.69 / 421.69 250 / 250 Output Total 0 / 200 500 / 500 Balance 171.69 / 221.69 -250 / -250 Weight 167 lb 167 lb 0.002 oz Microbiology Reports for the Last 24 Hours: Microbiology 12/12/24 14:00 Ascites Fluid Gram Stain - Final 12/12/24 14:00 Ascites Fluid Body Fluid Culture - Preliminary NO GROWTH AFTER 5 DAYS Microbiology 12/11/24 09:27 Urine,Catheterized Urine Culture - Preliminary Gram Negative Rods Constitutional: Present moderate distress Head: Present normocephalic and atraumatic ENT: Present normal exam, normal oropharynx and mucous membranes moist Neck: Present normal inspection and full ROM Respiratory: Present respiratory distress, diminished air movement and able to speak in complete sentences; Absent wheezes or crackles Cardiac: Present S1/S2, Tachycardia and radial pulses present GI: Present soft and distention; Absent tenderness or guarding Skin: Present intact; Absent cyanosis or jaundice Neuro: Present awake; Absent alert or oriented x 3 Extremities: Present normal inspection; Absent clubbing or cyanosis Psychiatric: Present normal affect and cooperative Assessment and Plan *Assessment and plan (1) Acute respiratory failure with hypoxia: Status: Acute Category: Medical Code(s): J96.01 - Acute respiratory failure with hypoxia (2) Pleural effusion, bilateral: Status: Acute Category: Medical Code(s): J90 - Pleural effusion, not elsewhere classified (3) COVID: Status: Acute Category: Medical Code(s): U07.1 - COVID-19 Plan Ms. Rogers is a 79-year-old male greater than [id number] smoking last month more than 15 years ago albuterol twice daily, history of alcoholic cirrhosis, gastroesophageal varices, CAD hypothyroidism COPD presented to ER with progressively worsening confusion weakness and pulmonary was called for further evaluation and management. Tmax of 99.4 since admission. Hemodynamically stable. No evidence of leukocytosis. Anemia noted hemoglobin at 6.8 upon admission. Platelet count greater than 170. JEROMY upon admission. Serum ammonia on this admission within normal limits at 13. Elevated troponins CTA upon admission no evidence of pulmonary embolism. No dense consolidative/airspace changes. Bilateral pleural effusions left greater than right with adjacent atelectasis. CT abdomen ascites. Initiate on ceftriaxone, eventually urine culture showed E. coli antibiotics were changed to meropenem. On initial examination bilateral decreased breath sounds. No significant wheezing noted on auscultation with no noted supplementation saturating 89% and improved. Status post paracentesis 600 cc fluid removal. Respiratory viral PCR positive for COVID-19 pneumonia, completed 5 days of remdesivir Interval update: No acute respiratory events overnight. Continue to remain on room air. Improving effusions, continue to show bilateral left greater than right pleural effusions. Chest x-ray also concerning new right lower lobe airspace disease. He is otherwise clinically stable. Continue to receive Zosyn, sputum culture from admission grew MDR E. coli sensitive to Zosyn. stable oxygen requirements. No evidence of leukocytosis. Plan: Continue Zosyn for total of 10-day course for the noted pneumonia Incentive spirometry 3 times daily Continue Advair 250 daily along with DuoNebs 4 times daily as needed
[2024-12-18 10:49] LABS: Folate 4.49 ng/mL
[2024-12-18 11:48] LABS: Vitamin B12 959 pg/mL (239-931)
[2024-12-18] MEDS: ACETAMINOPHEN 325MG TAB 650 MG PO (12:19)
== END 2024-12-18 18:45 | disposition home or self-care (01) ==
LOC: ER 12:24 → 2ND 13:40 → ICU 20:06 → 2ND 12-14 22:02
PROVIDERS: Nurse Practitioner Family; Admitting Provider Student in an Organized Health Care Education/Training Program; Emergency Provider Emergency Medicine; Visit Provider Student in an Organized Health Care Education/Training Program
DX: A41.9 Sepsis, unspecified organism (principal); E43 Unspecified severe protein-calorie malnutrition; G93.41 Metabolic encephalopathy; J96.01 Acute respiratory failure with hypoxia; I21.A1 Myocardial infarction type 2; I50.31 Acute diastolic (congestive) heart failure; U07.1 COVID-19; J12.82 Pneumonia due to coronavirus disease 2019; K76.7 Hepatorenal syndrome; R65.21 Severe sepsis with septic shock; N39.0 Urinary tract infection, site not specified; K76.6 Portal hypertension; N17.9 Acute kidney failure, unspecified; Z16.12 Extended spectrum beta lactamase (ESBL) resistance; E87.1 Hypo-osmolality and hyponatremia; F05 Delirium due to known physiological condition; K70.31 Alcoholic cirrhosis of liver with ascites; I25.10 Atherosclerotic heart disease of native coronary artery without angina pectoris; B96.20 Unspecified Escherichia coli [E. coli] as the cause of diseases classified elsewhere; D64.9 Anemia, unspecified; H70.92 Unspecified mastoiditis, left ear; E03.9 Hypothyroidism, unspecified; Z87.891 Personal history of nicotine dependence; Z79.890 Hormone replacement therapy; Z79.899 Other long term (current) drug therapy; I11.0 Hypertensive heart disease with heart failure; I48.91 Unspecified atrial fibrillation; R19.5 Other fecal abnormalities; Z75.1 Person awaiting admission to adequate facility elsewhere
CPT/HCPCS: 36415; 36430; 70450; 71045; 71275; 73701; 74177; 80048; 80053; 80307; 80320; 81001; 82042; 82140; 82272; 82607; 82728; 82746; 82803; 83540; 83550; 83605; 83615; 83735; 83880; 84145; 84436; 84443; 84484; 85007; 85014; 85018; 85025; 85610; 85730; 86140; 86850; 87040; 87070; 87077; 87086; 87088; 87186; 87205; 87633; 89051; 93005; 93306; 93971; 94640; 94660; 94761; 97162; 97166; 97530; G0328; J0282; J0696; J1100; J1335; J1756; J1939; J2354; J2470; J2543; J3475; J3480; J7060; P9016; P9047; Q9967

== ENCOUNTER 2025-02-20 13:55 | Outpatient (CLI) | payer MEDICARE, SELFPAY ==
--- NOTE | 2025-02-20 13:58 | XR_ITS ---
FINAL REPORT CLINICAL HISTORY: right hip pain..fell down FINDINGS: RIGHT HIP 3 views of the right hip demonstrate no acute fracture or dislocation. There are post arthroplasty changes. The joint spaces appear normal. The visualized bony structures are well aligned. No soft tissue abnormality is seen. IMPRESSION: No acute bony abnormality. Reviewed, Interpreted and Dictated by Bronwyn Baires MD Transcribed by Janay Boudreaux Authenticated and [facility]
== END 2025-02-20 23:59 | disposition home or self-care (01) ==
LOC: RAD 13:56
PROVIDERS: PCP Family Medicine; Visit Provider Physician Assistant
DX: M25.551 Pain in right hip (principal); W19.XXXA Unspecified fall, initial encounter
CPT/HCPCS: 73502

== ENCOUNTER 2025-03-13 14:05 | Outpatient (CLI) | payer MEDICARE, SELFPAY ==
[2025-03-13 15:06] LABS: Hematocrit 29.7 % (42.0-52.0); Hemoglobin 10.0 g/dL (14.1-18.0); Immature Granulocytes % 0.2 %; Mean Corpuscular HGB Conc 33.7 g/dL (31.8-35.4); Mean Corpuscular Hemoglobin 28.2 pg (27.0-31.2); Mean Corpuscular Volume 83.7 fl (80-94); Nucleated Red Blood Cells % 0 %; Platelet Count 210 K/mm3 (142-424); Red Blood Count 3.55 M/mm3 (4.60-6.20); Red Cell Distribution Width-SD 46.1 fL; White Blood Count 4.5 K/mm3 (4.8-10.8)
[2025-03-13 15:19] LABS: Ammonia 14 umol/L (9-30)
[2025-03-13 15:20] LABS: INR 1.13 (0.9-1.1); Prothrombin Time 12.4 seconds (10.1-12.5)
[2025-03-13 15:28] LABS: Albumin Level 3.3 g/dl (3.5-5.0); Chloride 100 mmol/L (98-107); Potassium 4.4 mmoL/L (3.5-5.1); Sodium 132 mmol/L (136-145)
[2025-03-13 15:31] LABS: Alanine Aminotransferase 14 U/L (12-78); Albumin/Globulin Ratio 1.1 (1.1-1.8); Alkaline Phosphatase 104 U/L (38-126); Anion Gap 10.4 mEq/L (5-15); Aspartate Amino Transferase 34 U/L (17-59); Bilirubin,Total 0.7 mg/dl (0.2-1.3); Blood Urea Nitrogen 32 mg/dl (9-20); Calcium 9.7 mg/dl (8.4-10.2); Carbon Dioxide 26 mmol/L (22.0-30.0); Creatinine,Serum 1.00 mg/dl (0.66-1.25); Estimated Glomerular Filt Rate 72 ml/min (>60); GFR (African American) 87 ML/MIN (>60); Globulin 2.9 g/dL (1.3-3.2); Glucose 100 mg/dl (74-100); Iron 43 ug/dL (49-181); Total Protein,Serum 6.2 g/dl (6.3-8.2)
[2025-03-13 15:44] LABS: Total Iron Binding Capacity 207 ug/dL (261-462)
[2025-03-13 16:09] LABS: Ferritin 222 ng/ml (17.9-464)
== END 2025-03-13 23:59 | disposition home or self-care (01) ==
LOC: LAB 14:05
PROVIDERS: PCP Family Medicine; Visit Provider Nurse Practitioner Family
DX: K74.60 Unspecified cirrhosis of liver (principal)
CPT/HCPCS: 36415; 80053; 82105; 82140; 82728; 83540; 83550; 85025; 85610

== ENCOUNTER 2025-03-20 10:18 | Outpatient (CLI) | payer MEDICARE, SELFPAY ==
--- NOTE | 2025-03-20 10:30 | US_ITS ---
FINAL REPORT TECHNIQUE: Sonographic images of the right upper quadrant were obtained. CLINICAL HISTORY: Cirrhosis follow-up FINDINGS: PANCREAS: Obscured. LIVER: The liver is small and nodular consistent with cirrhosis. GALLBLADDER: No gallstones. No gallbladder wall thickening or pericholecystic fluid. COMMON DUCT: 6 mm. Normal for age. RIGHT KIDNEY: The right kidney measures 7.1 cm. There is no hydronephrosis, mass, or stone. FREE FLUID: Moderate to large amount of ascites. Small right effusion.. IMPRESSION: Small and nodular liver consistent with cirrhosis. Moderate to large with ascites and small right effusion. Reviewed, Interpreted and Dictated by Bernarda Calvillo MD Transcribed by Heidy Carrizales Authenticated and [facility]
== END 2025-03-20 23:59 | disposition home or self-care (01) ==
LOC: RAD 10:18
PROVIDERS: PCP Family Medicine; Visit Provider Nurse Practitioner Family
DX: K74.60 Unspecified cirrhosis of liver (principal); R18.8 Other ascites
CPT/HCPCS: 76705